=== PATIENT | female | born 1965 | race Caucasian/White ===

== ENCOUNTER 2017-02-16 17:35 | Inpatient (IN) | payer BC ==
[~2017-02-16] VITALS: Ht 172.7 cm; Wt 80.0 kg
[2017-02-16] MEDS ORDERED: SOD CHLORIDE 0.9% 1,000 ML IV STA (17:56)
[2017-02-16 18:22] LABS: ADD SCAN DIFF NO
[2017-02-16 18:25] LABS: BASOPHILS % 0.2 % (0.0-2.0); EOSINOPHILS # 0.1 10^3/ul (0.0-0.5); EOSINOPHILS % 0.3 % (0.0-7.0); HEMATOCRIT 26.2 % (37.0-47.0); HEMOGLOBIN 8.3 g/dl (12.0-16.0); LYMPHOCYTES # 1.9 10^3/ul (0.8-2.9); LYMPHOCYTES % 8.3 % (15.0-51.0); MEAN CORPUSCULAR HEMOGLOBIN 25.9 pg (29.0-33.0); MEAN CORPUSCULAR HGB CONC 31.7 g/dl (32.0-37.0); MEAN CORPUSCULAR VOLUME 81.6 fl (82.0-101.0); MEAN PLATELET VOLUME 10.7 fl (7.4-10.4); MONOCYTE # 0.9 10^3/ul (0.3-0.9); MONOCYTES % 4.1 % (0.0-11.0); NEUTROPHIL # 19.9 10^3/ul (1.6-7.5); NEUTROPHILS % 85.9 % (39.0-77.0); PLATELET COUNT 593 10^3/UL (140-415); RED BLOOD COUNT 3.21 10^6/ul (4.20-5.40); RED CELL DISTRIBUTION WIDTH 19.1 % (11.5-14.5); WHITE BLOOD COUNT 23.2 10^3/ul (4.8-10.8)
[2017-02-16 18:36] LABS: INR 1.08; PT RATIO 1.1
[2017-02-16 18:37] LABS: PARTIAL THROMBOPLASTIN TIME 36.5 Sec (25.0-35.0)
[2017-02-16 18:41] LABS: ALBUMIN 4.2 g/dl (3.3-4.9); CHLORIDE 101 mmol/L (97-110); SODIUM 141 mmol/L (135-144)
[2017-02-16 18:42] LABS: POTASSIUM 4.1 mmol/L (3.5-5.1)
[2017-02-16 18:44] LABS: ALANINE AMINOTRANSFERASE 30 IU/L (13-69); ALKALINE PHOSPHATASE 129 IU/L (42-121); ANION GAP 17 (8-16); ASPARTATE AMINO TRANSFERASE 44 IU/L (15-46); BILIRUBIN,INDIRECT 0.2 mg/dl (0-1.1); BILIRUBIN,TOTAL 0.2 mg/dl (0.2-1.3); BLOOD UREA NITROGEN 26 mg/dl (7-20); CARBON DIOXIDE 27 mmol/L (21-31); CREATININE 1.13 mg/dl (0.44-1.00); GLUCOSE 117 mg/dl (70-220); TOTAL PROTEIN 8.4 g/dl (6.1-8.1)
[2017-02-16 18:45] LABS: CALCIUM 9.9 mg/dl (8.4-10.2)
[2017-02-16] MEDS ORDERED: HYDROCODONE/APAP (10/325) TAB PO ONE (19:00)
[2017-02-16 19:02] LABS: TROPONIN-I < 0.012 ng/ml (0.00-0.12)
[2017-02-16 19:06] VITALS: TEMP 98.6
[2017-02-16] MEDS ORDERED: IODIXANOL LOCM 50 ML BTL ONE (19:09)
[2017-02-16] MEDS ORDERED: IODIXANOL LOCM 100 ML BTL ONE (19:09)
[2017-02-16] MEDS ORDERED: SOD CHLORIDE 0.9% 100 ML ONE (19:09)
[2017-02-16] MEDS ORDERED: HYDR-902 PO (19:24)
[2017-02-16] MEDS ORDERED: MORP15TA92 PO (19:25)
[2017-02-16] MEDS ORDERED: HYDR4TAB18 PO (19:26)
[2017-02-16] MEDS ORDERED: BACL10TA PO (19:26)
[2017-02-16] MEDS ORDERED: DEXT10TA9 PO (19:27)
[2017-02-16] MEDS ORDERED: FURO40TA4 PO (19:28)
[2017-02-16] MEDS ORDERED: CEPH500C PO (19:29)
[2017-02-16] MEDS ORDERED: GABA100C14 PO (19:30)
[2017-02-16] MEDS ORDERED: TAPE100T6 PO (19:31)
[2017-02-16] MEDS ORDERED: RANI150T5 PO (19:31)
[2017-02-16] MEDS ORDERED: PROC10TA10 PO (19:32)
[2017-02-16] MEDS ORDERED: ASC500 PO (19:34)
[2017-02-16] MEDS ORDERED: VITA1CAP PO (19:35)
--- NOTE | 2017-02-16 19:35 | RADRPT ---
PROCEDURE: XR Chest. CLINICAL INDICATION: Weakness. TECHNIQUE: Portable AP upright view of the chest was obtained. COMPARISON: None available. FINDINGS: The cardiomediastinal silhouette is mildly enlarged. Slight pulmonary vascular prominence cannot be excluded. There is no evidence of pleural effusion or pneumothorax. Asymmetric increased density of the left chest wall is noted, possibly artifactual or related to a left chest wall hematoma. The re is no evidence of acute osseous abnormality. Calcification is faintly visible within the aortic a rch. RPTAT:HJJR IMPRESSION: 1. Asymmetric increased density of the left chest wall unable to exclude chest wall hematoma in the proper clinical setting with no associated osseous abnormality identified. 2. Mild cardiac silhouette enlargement with slight prominence of the pulmonary interstitium unable t o exclude cardiac decompensation. 3. Aortic atherosclerosis is present. Physician Collin Date Time Electronically viewed and signed by Physician Collin on 02/16/2017 19:35 JR/
--- NOTE | 2017-02-16 20:13 | RADRPT ---
PROCEDURE: CT Chest without contrast. CLINICAL INDICATION: Right chest wall mass seen on chest radiograph. History of breast cancer. TECHNIQUE: Helical axial sections were obtained through the chest without intravenous contrast enh ancement. Coronal and sagittal reformatted images were obtained from the axial source images. Total exam DLP is 272.58 mGy-cm. CTDIvol is 7.51 mGy. One or more of the following dose reduction tech niques were used: Automated exposure control, adjustment of the mA and/or kV according to patient si ze, use of iterative reconstruction technique. COMPARISON: Chest x-ray done earlier the same day. FINDINGS: There is mild patchy air space disease in the upper lung zones with left worse than right consistent with an inflammatory process or pneumonia. The lungs are otherwise clear with no other airspace or interstitial disease. There is a benign air cyst in the left lung base posteriorly measuring 1.6 c m. There is no pulmonary nodule or mass lesion. There is no mediastinal or hilar lymphadenopathy or mass. There is no axillary, supraclavicular, or internal mammary lymphadenopathy. The thoracic aorta is not dilated. Calcification is present in the aorta consistent with atheroscle rosis. The heart size is normal. There is no pleural effusion or pericardial effusion. Images through the upper abdomen demonstrate normal visualized portions of the liver and adrenals. T he spleen is surgically absent with clips noted in the splenic region. There are multiple sclerotic bone lesions throughout the spine suspicious for metastatic disease. Th ere is a lytic lesion of T3 vertebra posteriorly on the right measuring approximately 1.4 x 0.8 cm w ith an associated small soft tissue mass. Several other smaller lytic lesions are present in the spi ne. There are healing pathologic fractures of the left seventh and ninth ribs. There are surgical clips in the right axilla. There are bilateral breast implants which are giving the appearance of s oft tissue density on the plain radiograph. IMPRESSION: 1. Mild patchy air space disease bilaterally in the upper lung zones consistent with an inflammator y or infectious process. 2. Benign air cyst in the left lung base posteriorly. 3. Atherosclerosis. 4. Splenectomy. 5. Multiple sclerotic and lytic bone lesions consistent with breast metastases. 6. Bilateral breast implants giving the appearance of soft tissue density on the plain radiograph. 7. Otherwise unremarkable study. Call report: A call report of the findings was made to Dr. Yu on 02/16/2017 at 2010 hours. RPTAT: QQ .Liu Pinedo MD, MD Date Time Electronically viewed and signed by .Liu Pinedo MD, MD on 02/16/2017 20:13 .R/
[2017-02-16] MEDS ORDERED: SODIUM CHLORIDE 0.9% 1L BAG IV* STA (20:17)
[2017-02-16] MEDS ORDERED: CEFEPIME 2GM/50 ML (PMX) 50 ML IVPB STA (20:17)
[2017-02-16] MEDS ORDERED: VANCOMYCIN 1 GM (PMX) 250 ML IVPB STA (20:17)
--- NOTE | 2017-02-16 20:17 | ERD ---
ER Documentation Chief Complaint Date/Time DATE: 02/16/17 TIME: 20:13 Chief Complaint sob,dizziness today, on chemo, last one 4 weeks ago HPI This is a 51-year-old female who presents to the emergency room for evaluation of generalized weakness and mild dizziness for the past 48 hours. The patient does state that she has a history of breast cancer with double mastectomy and bony metastasis. The patient said her last chemo was approximately 4 weeks ago and states her oncologist is Dr. Brody. Patient denies any fevers but does state she has a dry cough. The patient came to the emergency room today for evaluation of her symptoms. She denies any aggravating or relieving factors for her symptoms. ROS All systems reviewed and are negative except as per history of present illness. Medications Home Meds Reported Medications Vitamin B Complex (Vitamin B Complex) 1 Each Capsule, 1 EACH PO QHS, CAP 02/16/17 Ascorbic Acid (Vitamin C) 500 Mg Tab, 1000 MG PO DAILY, TAB 02/16/17 Prochlorperazine* (Prochlorperazine*) 10 Mg Tablet, 10 MG PO QID Y for NAUSEA, TAB 02/16/17 Ranitidine Hcl* (Ranitidine Hcl*) 150 Mg Tablet, 150 MG PO TID, #90 TAB 02/16/17 Tapentadol Hcl (Nucynta) 100 Mg Tablet, 100 MG PO BID, TAB 02/16/17 Gabapentin* (Gabapentin*) 100 Mg Capsule, 100 MG PO QID, #120 CAP 02/16/17 Cephalexin* (Cephalexin*) 500 Mg Capsule, 500 MG PO QID, #28 CAP 02/16/17 Furosemide* (Furosemide*) 40 Mg Tablet, 80 MG PO DAILY, TAB 02/16/17 Amphet Tte-Bessrw-W-Amphet (Adderall) 10 Mg Tablet, 10 MG PO TID, TAB 02/16/17 Baclofen* (Baclofen*) 10 Mg Tablet, 10 MG PO QID, TAB 02/16/17 Hydromorphone Hcl* (Dilaudid*) 4 Mg Tablet, 4 MG PO Q4H Y for PAIN, TAB 02/16/17 Morphine Sulfate* (Ms Contin*) 15 Mg Tablet.sa, 30 MG PO TID, TAB.SA 02/16/17 Hydrocodone/Acetaminophen (Ulysses 10-325 Tablet) 1 Each Tablet, 1 EACH PO Q3H, TAB 02/16/17 Allergies Allergies: Coded Allergies: Penicillins (Verified Allergy, Unknown, RASH, SWOLLEN, HARD TIME BREATHING , 02/16/17) PMhx/Soc History of Surgery: Yes (MEHRDAD BREAST MASTECTOMY WITH CHEMO METS TO HIPS, LT KNEE SX, TOTAL FACIAL REC) Anesthesia Reaction: No Hx Neurological Disorder: No Hx Respiratory Disorders: No Hx Cardiac Disorders: No Hx Psychiatric Problems: No Hx Miscellaneous Medical Probl: Yes (BREAST CANCER) Hx Alcohol Use: Yes (SOCIALLY) Hx Substance Use: No Hx Tobacco Use: No Smoking Status: Current some day smoker Physical Exam Vitals Vital Signs Date Time Temp Pulse Resp B/P Pulse Ox O2 Delivery O2 Flow Rate FiO2 02/16/17 19:06 98.6 93 18 137/73 97 Room Air 02/16/17 17:37 98.1 108 20 108/55 92 Physical Exam INITIAL VITAL SIGNS: Reviewed by me GENERAL: The patient is well developed and appropriate for usual state of health in no apparent distress HEENT: Dry mucous members, pupils equal, round, and reactive to light. EOMI. There is no scleral icterus. NECK: C-spine is soft and supple, there is no meningismus. There is no cervical lymphadenopathy. LUNGS: Clear to auscultation bilaterally. There are no rales, wheezes or rhonchi. HEART: Regular rate and rhythm, no murmurs, clicks, rubs or gallops. ABDOMEN: Soft, non-tender, non-distended. There are bowel sounds in all four quadrants. No rebound or guarding. EXTREMITIES: There is no peripheral cyanosis or edema. No focal swelling or erythema. NEUROLOGICAL: The patient moves all four extremities with 5/5 strength. Cranial nerves II - XII are intact. Normal gait. Alert and oriented SKIN: Bilateral lower extremity cellulitis, no skin sloughing there is no apparent rash or petechiae. HEME/LYMPHATIC: There is no evidence of excessive bruising or lymphedema. PSYCHIATRIC: The patient does not appear anxious or depressed. Result Diagram: 02/16/17181402/16/171814 Results 24 hrs Laboratory Tests Test 02/16/17 18:15 02/16/17 18:57 White Blood Count 23.210^3/ul Red Blood Count 3.2110^6/ul Hemoglobin 8.3g/dl Hematocrit 26.2% Mean Corpuscular Volume 81.6fl Mean Corpuscular Hemoglobin 25.9pg Mean Corpuscular Hemoglobin Concent 31.7g/dl Red Cell Distribution Width 19.1% Platelet Count 40597^3/UL Mean Platelet Volume 10.7fl Neutrophils % 85.9% Lymphocytes % 8.3% Monocytes % 4.1% Eosinophils % 0.3% Basophils % 0.2% Nucleated Red Blood Cells % 0.0/100WBC Neutrophils # 19.910^3/ul Lymphocytes # 1.910^3/ul Monocytes # 0.910^3/ul Eosinophils # 0.110^3/ul Basophils # 0.010^3/ul Nucleated Red Blood Cells # 0.010^3/ul Prothrombin Time 14.0Sec Prothrombin Time Ratio 1.1 INR International Normalized Ratio 1.08 Activated Partial Thromboplast Time 36.5Sec Sodium Level 141mmol/L Potassium Level 4.1mmol/L Chloride Level 101mmol/L Carbon Dioxide Level 27mmol/L Anion Gap 17 Blood Urea Nitrogen 26mg/dl Creatinine 1.13mg/dl Glucose Level 117mg/dl Calcium Level 9.9mg/dl Total Bilirubin 0.2mg/dl Direct Bilirubin 0.00mg/dl Indirect Bilirubin 0.2mg/dl Aspartate Amino Transf (AST/SGOT) 44IU/L Alanine Aminotransferase (ALT/SGPT) 30IU/L Alkaline Phosphatase 129IU/L Troponin I < 0.012ng/ml Total Protein 8.4g/dl Albumin 4.2g/dl Globulin 4.20g/dl Albumin/Globulin Ratio 1.00 Bedside Glucose 101mg/dL Current Medications Medications (Trade) Dose Ordered Sig/Julio Route PRN Reason Start Time Stop Time Status Last Admin Dose Admin Sodium Chloride (NS) 1,000 ml @ 1,000 mls/hr Q1H STAT IV 02/16/17 17:56 02/16/17 18:55 DC 02/16/17 18:29 Acetaminophen/ Hydrocodone Bitart (Ulysses ()) 1 tab ONCE ONCE PO 02/16/17 19:00 02/16/17 19:01 DC 02/16/17 19:04 IV Flush 10 ml 10 ml STK-MED ONCE .ROUTE 02/16/17 19:09 02/16/17 19:10 DC Sodium Chloride (NS) 100 ml @ ud STK-MED ONCE .ROUTE 02/16/17 19:09 02/16/17 19:10 DC Iodixanol (Visipaque Locm) 100 ml STK-MED ONCE .ROUTE 02/16/17 19:09 02/16/17 19:10 DC Iodixanol (Visipaque Locm) 50 ml STK-MED ONCE .ROUTE 02/16/17 19:09 02/16/17 19:10 DC Sodium Chloride 2480 ml 2,480 ml BOLUS OVER 2 HOURS STAT IV* 02/16/17 20:17 02/16/17 20:19 DC Vancomycin HCl 250 ml @ 125 mls/hr ONCE STAT IVPB 02/16/17 20:17 02/16/17 22:16 Cefepime HCl (Maxipime 2gm/50 ml (Pmx)) 50 ml @ 100 mls/hr ONCE STAT IVPB 02/16/17 20:17 02/16/17 20:46 Procedures/MDM EKG: Rate/Rhythm: [Normal Sinus Rhythm] QRS, ST, T-waves: [No changes consistent w/ acute ischemia] Impression: [No evidence of ischemia or arrhythmia] Chest X-ray 1V Interpreted by me: Soft Tissue: 1. Asymmetric increased density of the left chest wall unable to exclude chest wall hematoma in the proper clinical setting with no associated osseous abnormality identified. 2. Mild cardiac silhouette enlargement with slight prominence of the pulmonary interstitium unable to exclude cardiac decompensation. 3. Aortic atherosclerosis is present. Bones: No acute abnormalities Mediastinum/Cardiac Silhouette/Lungs: [No acute abnormalities] CT chest without: 1. Mild patchy air space disease bilaterally in the upper lung zones consistent with an inflammatory or infectious process. 2. Benign air cyst in the left lung base posteriorly. 3. Atherosclerosis. 4. Splenectomy. 5. Multiple sclerotic and lytic bone lesions consistent with breast metastases. 6. Bilateral breast implants giving the appearance of soft tissue density on the plain radiograph. 7. Otherwise unremarkable study. This 51-year-old female presents to the emergency room for evaluation of his weakness, cough, and mild dizziness. When I evaluated this patient she was tachycardic with a heart rate greater than 90. X-ray was obtained which shows a chest wall mass. This chest wall mass is a patient's implant. This patient does have a history of breast cancer with bilateral mastectomies and bony metastasis. Lab work was obtained which does show a leukocytosis. This patient 's hemoglobin is 8.3 and she normally gets transfused at a hemoglobin of 6. I have called this patient's oncologist Dr. brody and spoke to the covering physician who does not recommend a transfusion at this time. Given this patient 's history and leukocytosis with mild patchy disease on CT she will be placed in for admission at this time for pneumonia with sepsis. She was started on vancomycin and cefepime. She is hemodynamically stable at this time however given her tachycardia she will be placed on a telemetry floor under the care of Dr. thorne Critical Care: Excluding all billable procedures Time: 38 minutes Treatments/Evaluations: Close monitoring and treatment of unstable vital signs, cardiorespiratory, and neurologic status, while maintaining tight balance of fluid, respiratory, and cardiac interventions. Departure Diagnosis: Primary Impression: Sepsis Additional Impressions: Bilateral pneumonia Microcytic anemia Renal insufficiency Condition: MIRANDA Greenwood DO Feb 16, 2017 20:17
[2017-02-16] MEDS ORDERED: SOD CHLORIDE 0.9% 1,000 ML IV SCH (20:23)
[2017-02-16] MEDS ORDERED: ACETAMINOPHEN 325 MG TAB PO PRN (20:30)
[2017-02-16] MEDS ORDERED: ONDANSETRON 4 MG INJ IV PRN (20:30)
[2017-02-16 21:40] VITALS: BP 124/60; RESP 15
[2017-02-16 21:55] VITALS: PULSE 88
[2017-02-16 22:02] VITALS: Ht 172.7 cm; Wt 80.0 kg
[2017-02-17] VITALS (10 sets, daily range): BP systolic 93–132; BP diastolic 54–75; PULSE 78–97; RESP 15–18
[2017-02-17] MEDS ORDERED: ONDANSETRON 4 MG INJ IV PRN
[2017-02-17] MEDS ORDERED: ACETAMINOPHEN 325 MG TAB PO PRN
[2017-02-17] MEDS ORDERED: ALBUTEROL/IPRATROPIUM (NEB) 3 ML AMP HHN PRN
[2017-02-17] MEDS ORDERED: HYDROCODONE/APAP (5/325) TAB PO PRN
[2017-02-17] MEDS ORDERED: LEVOFLOXACIN 500MG/D5W (PMX) 100 ML IVPB SCH
[2017-02-17] MEDS ORDERED: morphine 4 MG/ML VIAL IV PRN
[2017-02-17] MEDS ORDERED: HYDROmorphONE 2 MG TAB PO PRN (07:00)
[2017-02-17] MEDS ORDERED: PROCHLORPERAZINE 10 MG TAB PO PRN (07:00)
--- NOTE | 2017-02-17 08:25 | HP ---
DATE OF ADMISSION: 02/16/2017 CHIEF COMPLAINT: Shortness of breath and generalized body pain. HISTORY OF PRESENT ILLNESS: The patient is a 51-year-old female with a history of breast cancer wit h bony metastasis, status post double mastectomy and chemo, last chemo being 4 weeks ago. The patie nt presented with a complaint of shortness of breath and generalized body pain and weakness. She st ated her symptoms have been worsening over the past 2 days. She denied any chest pain, nausea, vomi ting, fever or chills. She also reported bilateral lower extremity redness. REVIEW OF SYSTEMS: A 12-point review of systems was performed and normal except as per the HPI. PAST MEDICAL HISTORY: As per HPI. PAST SURGICAL HISTORY: Double mastectomy, appendectomy, splenectomy. SOCIAL HISTORY: Denied a history of tobacco, alcohol or illicit drug use. ALLERGIES: PENICILLIN. HOME MEDICATIONS: 1. Cephalexin. 2. Baclofen. 3. Adderall. . 4. Gabapentin. 5. Star. 6. Dilaudid. 7. Morphine. 8. MS Contin. 9. Tapentadol. 10. Lasix. 11. Prochlorperazine. 12. Amantadine. 13. Vitamin C. 14. Vitamin B. PHYSICAL EXAMINATION: VITAL SIGNS: Stable. GENERAL: The patient appears somehow weak and in mild distress, but answering questions appropriate ly and she is alert and oriented. HEENT: No obvious head deformity. Pupils react to light. Extraocular movements intact. CARDIOVASCULAR: Slightly tachycardic with regular rhythm. CHEST: Her lungs are clear to auscultation. ABDOMEN: Soft, nontender, nondistended. Positive bowel sounds. EXTREMITIES: There is bilateral lower extremity cellulitis. LABORATORY DATA: WBC 23.2, hemoglobin 8.3, platelet count 593. BUN 26, creatinine 1.13, otherwise C BC and CMP are within acceptable range. IMAGING: Chest x-ray shows asymmetric increased density of the left chest wall, unable to exclude c hest wall hematoma. Also noted was mild cardiac silhouette enlargement with slight prominence of pu lmonary interstitium. Chest CT was done which showed mild patchy airspace disease bilaterally in th e upper lung zones consistent with an inflammatory or infectious process, and benign air cyst in the left lung. Multiple sclerotic and lytic bone lesions consistent with breast metastasis. Bilateral breast implants. The appearance of soft tissue density on the plain radiograph. IMPRESSION: 1. Sepsis secondary to bilateral lower extremity cellulitis and likely a developing pneumonia. 2. History of breast cancer with bony metastasis. 3. Generalized weakness and pain secondary to above. 4. Bilateral lower extremity cellulitis. 5. Presumed acute kidney injury. 6. Anemia, likely of cancer and chemo induced. PLAN: She will be placed on broad spectrum antibiotic. We will follow up on the blood culture and urine culture results. Will also order a urinalysis. We will provide pain medication as needed. H er oncologist is Dr. Starks and we will notify him about her admission. She will receive IV fluid given her sepsis, and I expect her kidney function to have normalize. If not, we will place a nephr ology consult and renal ultrasound. Will avoid nephrotoxins as much as possible. As far as her ane jerome is concerned, it is likely secondary to cancer and chemo induced. Will monitor closely and molina sfuse as needed, but I will leave that decision up to her oncologist. Further workup and management per clinical course. Dictated By: VANDA CHEW/EBENEZER Conf#: [id number] DID#: [id number]
[2017-02-17] MEDS: HEPARIN 5,000 UNIT/0.5 ML SYG SC SCH ×2 (09:00→09:30)
[2017-02-17] MEDS ORDERED: FUROSEMIDE 40 MG TAB PO SCH (09:00)
[2017-02-17] MEDS ORDERED: TAPENTADOL HCL 100 MG PO SCH (09:00)
[2017-02-17] MEDS ORDERED: ASCORBIC ACID 500 MG TAB PO SCH (09:00)
[2017-02-17] MEDS: GABAPENTIN 100 MG CAP PO SCH ×3 (09:25→17:00)
[2017-02-17] MEDS: BACLOFEN 10 MG TAB PO SCH ×3 (09:25→17:00)
[2017-02-17] MEDS: RANITIDINE 150 MG TAB PO SCH ×2 (09:25→13:12)
[2017-02-17] MEDS: morphine (ER) 30 MG TAB PO SCH ×2 (09:33→13:12)
--- NOTE | 2017-02-17 11:26 | PN ---
Date/Time of Note Date/Time of Note DATE: 02/17/17 TIME: 11:21 Assessment/Plan VTE Prophylaxis VTE Prophylaxis Intervention: heparin Lines/Catheters IV Catheter Type (from [facility]): Sal[facility] Urinary Cath still in place: No Assessment/Plan Chief Complaint/Hosp Course Assessment and plan 1. Sepsis secondary to bilateral lower extremity cellulitis (failed outpatient treatment). Also noted pneumonia. Continue antibiotic therapy. ID consult to follow. 2. Early pneumonia. Continue on antibiotics. Will provide with bronchodilators as needed. No notable wheezing or rhonchi. Oxygen as needed 3. Generalized weakness secondary to #1. Improving at present. Physical therapy to follow pending clinical course 4. History of anemia chemotherapy and cancer induced. H&H remained stable at present. Will monitor for now. 5. Acute kidney injury. Monitor renal panel. Avoid nephrotoxic medications as possible. Will get vest finisher pending clinical course DISPO/PLAN: ID consult to follow. cont abx. check doppler BLE to r/o DVT. cont inpatient monitoring Discussed plan of care with Dr. Whitlock Problems: Subjective 24 Hr Interval Summary Free Text/Dictation reports less swelling of BLE . denies dyspnea at this time Exam/Review of Systems Vital Signs Vitals Vital Signs Date Time Temp Pulse Resp B/P Pulse Ox O2 Delivery O2 Flow Rate FiO2 02/17/17 11:08 98.2 78 16 132/70 97 02/16/17 21:00 Room Air Intake and Output 02/16/17 02/16/17 02/17/17 15:00 23:00 07:00 Intake Total 700 ml Balance 700 ml Exam Constitutional: alert, oriented Psych: nl mood/affect Head: normocephalic Eyes: nl conjunctiva Neck: supple, non-tender, No jvd Respiratory: clear to auscultation, normal air movement Cardiovascular: regular rate and rhythm Gastrointestinal: soft, non-tender Musculoskeletal: nl extremities to inspection, nl gait and stance Extremities: edema ble Neurological: nl mental status, nl speech, nl strength Skin: erythematous patches ble Results Result Diagram: 02/16/17181402/16/171814 Results 24 hrs Laboratory Tests Test 02/16/17 18:15 02/16/17 18:57 02/16/17 20:35 02/17/17 00:10 White Blood Count 23.2 H Red Blood Count 3.21 L Hemoglobin 8.3 L Hematocrit 26.2 L Mean Corpuscular Volume 81.6 L Mean Corpuscular Hemoglobin 25.9 L Mean Corpuscular Hemoglobin Concent 31.7 L Red Cell Distribution Width 19.1 H Platelet Count 593 H Mean Platelet Volume 10.7 H Neutrophils % 85.9 H Lymphocytes % 8.3 L Monocytes % 4.1 Eosinophils % 0.3 Basophils % 0.2 Nucleated Red Blood Cells % 0.0 Neutrophils # 19.9 H Lymphocytes # 1.9 Monocytes # 0.9 Eosinophils # 0.1 Basophils # 0.0 Nucleated Red Blood Cells # 0.0 Prothrombin Time 14.0 Prothrombin Time Ratio 1.1 INR International Normalized Ratio 1.08 Activated Partial Thromboplast Time 36.5 H Sodium Level 141 Potassium Level 4.1 Chloride Level 101 Carbon Dioxide Level 27 Anion Gap 17 H Blood Urea Nitrogen 26 H Creatinine 1.13 H Glucose Level 117 Calcium Level 9.9 Total Bilirubin 0.2 Direct Bilirubin 0.00 Indirect Bilirubin 0.2 Aspartate Amino Transf (AST/SGOT) 44 Alanine Aminotransferase (ALT/SGPT) 30 Alkaline Phosphatase 129 H Troponin I < 0.012 Total Protein 8.4 H Albumin 4.2 Globulin 4.20 H Albumin/Globulin Ratio 1.00 Bedside Glucose 101 Lactic Acid Level 1.0 1.4 Test 02/17/17 02:41 Lactic Acid Level 1.1 Medications Medications Current Medications Levofloxacin/ Dextrose (Levaquin 500mg/ D5W 100 ml (Pmx)) 100 ml @ 100 mls/hr Q24H IVPB Last administered on 02/17/17t 00:28; Admin Dose 100 MLS/HR; Start 02/17/17 at 00:00 Morphine Sulfate (morphine) 3 mg Q4H PRN IV Pain; Start 02/17/17 at 00:00 Ondansetron HCl (Zofran Inj) 4 mg Q6H PRN IV NAUSEA AND/OR VOMITING; Start 02/17 at 00:00 Acetaminophen (Tylenol Tab) 650 mg Q6H PRN PO PAIN AND OR ELEVATED TEMP; Start 02/17/17 at 00:00 Heparin Sodium (Porcine) (Heparin (5000 Units/0.5 ml)) 5,000 unit BID SC ; Start 02/17/17 at 09:00 Acetaminophen/ Hydrocodone Bitart (Richards (5/325)) 1 tab Q4H PRN PO Pain; Start 02/17/17 at 00:00 Ascorbic Acid (Vitamin C) 1,000 mg DAILY PO Last administered on 02/17/17 09:25 ; Admin Dose 1,000 MG; Start 02/17/17 at 09:00 Baclofen (Lioresal) 10 mg QID PO Last administered on 02/17/17 09:25; Admin Dose 10 MG; Start 02/17/17 at 09:00 Furosemide (Lasix) 80 mg DAILY PO Last administered on 02/17/17 09:26; Admin Dose 80 MG; Start 02/17/17 at 09:00 Gabapentin (Neurontin) 100 mg QID PO Last administered on 02/17/17 09:25; Admin Dose 100 MG; Start 02/17/17 at 09:00 Hydromorphone HCl (Dilaudid) 4 mg Q4H PRN PO PAIN; Start 02/17/17 at 07:00 Morphine Sulfate (Ms Contin (Er)) 30 mg TID PO Last administered on 02/17/17 09 :33; Admin Dose 30 MG; Start 02/17/17 at 09:00 Prochlorperazine (Compazine) 10 mg QID PRN PO NAUSEA; Start 02/17/17 at 07:00 Ranitidine HCl (Zantac) 150 mg TID PO Last administered on 02/17/17 09:25; Admin Dose 150 MG; Start 02/17/17 at 09:00 Miscellaneous Information 100 mg BID PO ; Start 02/17/17 at 09:00; Status AKUA BONILLA Feb 17, 2017 11:26
[2017-02-17] MEDS ORDERED: VANCOMYCIN IV PER PHARMACY XX SCH (14:30)
[2017-02-17 14:33] LABS: ADD UMIC NO; URINE BILIRUBIN (Dip) NEGATIVE (NEGATIVE); URINE BLOOD (Dip) NEGATIVE (NEGATIVE); URINE COLOR LT. YELLOW (YELLOW); URINE GLUCOSE (Dip) NEGATIVE (NEGATIVE); URINE KETONES (Dip) NEGATIVE (NEGATIVE); URINE LEUKOCYTE ESTERASE (Dip) NEGATIVE (NEGATIVE); URINE NITRITE (Dip) NEGATIVE (NEGATIVE); URINE TOTAL PROTEIN (Dip) NEGATIVE (NEGATIVE); URINE UROBILINOGEN (Dip) 0.2 E.U./dL (0.1-1.0)
--- NOTE | 2017-02-17 14:39 | RADRPT ---
PROCEDURE: US bilateral lower extremity venous Doppler. CLINICAL INDICATION: Lower extremity swelling. TECHNIQUE: Multiple longitudinal and transverse images of the bilateral lower extremity veins were obtained with mendoza scale and color Doppler imaging. 2D grayscale measurements with compression, co akbar Doppler flow, and augmentation was performed. The calf veins were interrogated as well. COMPARISON: No prior studies are available for comparison. FINDINGS: The bilateral common femoral, superficial femoral and popliteal veins are normally compressible thro ughout. Color flow demonstrates normal filling of the vessel. Normal waveforms are visualized and there is normal response to augmentation. The calf veins are visualized and are equally unremarkabl e. IMPRESSION: 1. No evidence of a deep vein thrombosis involving either lower extremity. RPTAT: QQ .William Pavon MD, Date Time Electronically viewed and signed by .William Pvaon MD, on 02/17/2017 14:38 .R/
--- NOTE | 2017-02-17 15:42 | CONS ---
DATE OF ADMISSION: 02/16/2017 DATE OF CONSULTATION: 02/17/2017 TYPE OF CONSULTATION: Infectious disease. REASON FOR CONSULTATION: Antibiotic management. HISTORY OF PRESENT ILLNESS: Xochitl Schwartz is a 51-year-old female with a history of breast cancer and bony metastasis, who came in short of breath with generalized body pain. Her past problems incl ude: 1. Breast cancer with bony metastasis. 2. Status post double mastectomy and chemotherapy, last chemotherapy being 4 weeks ago. She presents with shortness of breath, generalized body pain and weakness. Her symptoms have been w orsening for the past 2 days. She has also reported bilateral lower extremity redness. Her other s urgeries include status post appendectomy, status post splenectomy. ALLERGIES: SHE IS ALLERGIC TO PENICILLIN. On admission her white count was 23.2, hemoglobin 8.3, platelet count 593, BUN and creatinine 26/1.1 3. Otherwise her CMP and CBC are within normal limits. Chest x-ray shows asymmetric increased density of the left chest wall. Unable to exclude chest wall hematoma. There is mild cardiac silhouette enlargement, with slight prominence of the pulmonary in terstitium. Chest CT was done, which showed mild patchy airspace disease bilaterally in the upper l rishi zones, consistent with inflammatory or an infectious process. in the left lung. Multiple sclerotic and lytic lesions are consistent with breast metastasis , bilateral breast implants with the appearance of soft tissue density on the plain radiograph. PAST MEDICAL HISTORY: Operations as outlined. FAMILY HISTORY: Noncontributory. SOCIAL HISTORY: She does not smoke, drink or abuse drugs. ALLERGIES: PENICILLIN. MEDICATIONS: Per chart. REVIEW OF SYSTEMS: Noncontributory. PHYSICAL EXAMINATION: GENERAL: The patient is a somewhat weak, ill-appearing female, who is in mild distress. VITAL SIGNS: Stable. She is afebrile. SKIN: Without generalized rash. HEENT: Within normal limits. NECK: Supple. LYMPH NODES: None palpable. CHEST: Decreased breath sounds at the bases. HEART: Without murmur or gallop. ABDOMEN: Soft, nontender, without organosplenomegaly or masses. EXTREMITIES: She has bilateral lower extremity cellulitis. RECTAL AND GENITAL EXAM: Deferred. NEUROLOGIC EVALUATION: No focal neurological abnormalities. IMPRESSION AND PLAN: The patient comes in with probable pneumonia, as well as bilateral lower extre mity cellulitis. She is status post chemotherapy. Her oncologist is Dr. Starks. The patient was b egun on vancomycin and cefepime, and now she is only on Levaquin. The patient has to continue on va ncomycin, of course, and probably on cefepime. Why the Levaquin I am not sure, although we could us e Levaquin instead of Cefepime as well. I will dictate my findings to Dr. Vallecillo and [facility]. Dictated By: GUEVARA MOREL MD, JD/EBENEZER Conf#: [id number] DID#: [id number]
[2017-02-17] MEDS ORDERED: VANCOMYCIN 1.5 GM in SOD CHLORIDE 0.9% 250 ML IVPB SCH (16:00)
[2017-02-18] MEDS ORDERED: VANCOMYCIN 1 GM in NS 250 ML IVPB SCH (04:00)
== END 2017-02-17 18:05 | disposition left against medical advice (07) | DRG 871 ==
LOC: E/R 17:35 → TEL 20:23
PROVIDERS: ADMIT Internal Medicine; ATTEND Internal Medicine
DX: A41.9 Sepsis, unspecified organism (principal); J18.9 Pneumonia, unspecified organism; N17.9 Acute kidney failure, unspecified; C79.51 Secondary malignant neoplasm of bone; L03.116 Cellulitis of left lower limb; L03.115 Cellulitis of right lower limb; Z85.3 Personal history of malignant neoplasm of breast; D64.81 Anemia due to antineoplastic chemotherapy
CPT/HCPCS: 36415; 71010; 71250; 80053; 81003; 82962; 83605; 84484; 85025; 85610; 85730; 86850; 86900; 86901; 87040; 87086; 93005; 93970; 96374; 96375; J1170; J1644; J1956; J3370; J7030; J7050; Q9967

== ENCOUNTER 2017-02-27 19:42 | Inpatient (IN) | payer BC ==
[~2017-02-27] VITALS: Ht 154.9 cm; Wt 72.0 kg
[~2017-02-27 19:42] MED LIST: ASC500 PO; BACL10TA PO; CEPH500C PO; DEXT10TA9 PO; FURO40TA4 PO; GABA100C14 PO; HYDR-902 PO; HYDR4TAB18 PO; MORP15TA92 PO; PROC10TA10 PO; RANI150T5 PO; TAPE100T6 PO; VITA1CAP PO
[2017-02-27] MEDS ORDERED: VANCOMYCIN 1 GM (PMX) 250 ML IVPB ONE (20:00)
[2017-02-27] MEDS ORDERED: ONDANSETRON 4 MG INJ IV STA (20:00)
[2017-02-27] MEDS ORDERED: SODIUM CHLORIDE 0.9% 1L BAG IV* STA (20:00)
[2017-02-27] MEDS ORDERED: HYDROmorphONE 1 MG/ML SYG IV STA ×2 (20:00→22:21)
[2017-02-27] MEDS ORDERED: AZTREONAM 1 GM/NS (PMX) 50 ML IVPB STA (20:00)
[2017-02-27] MEDS ORDERED: LIDOCAINE 1% (MDV) 20 ML INJ SC ONE (20:30)
[2017-02-27 20:43] LABS: ADD SCAN DIFF NO
[2017-02-27 20:46] LABS: BASOPHILS % 0.2 % (0.0-2.0); EOSINOPHILS % 0.1 % (0.0-7.0); HEMATOCRIT 24.3 % (37.0-47.0); HEMOGLOBIN 7.4 g/dl (12.0-16.0); LYMPHOCYTES # 1.9 10^3/ul (0.8-2.9); LYMPHOCYTES % 10.1 % (15.0-51.0); MEAN CORPUSCULAR HEMOGLOBIN 25.2 pg (29.0-33.0); MEAN CORPUSCULAR HGB CONC 30.5 g/dl (32.0-37.0); MEAN CORPUSCULAR VOLUME 82.7 fl (82.0-101.0); MEAN PLATELET VOLUME 12.1 fl (7.4-10.4); MONOCYTE # 0.8 10^3/ul (0.3-0.9); MONOCYTES % 4.1 % (0.0-11.0); NEUTROPHIL # 16.1 10^3/ul (1.6-7.5); PLATELET COUNT 502 10^3/UL (140-415); RED BLOOD COUNT 2.94 10^6/ul (4.20-5.40); RED CELL DISTRIBUTION WIDTH 20.3 % (11.5-14.5)
[2017-02-27 20:54] LABS: ADD UMIC NO; URINE BILIRUBIN (Dip) NEGATIVE (NEGATIVE); URINE BLOOD (Dip) NEGATIVE (NEGATIVE); URINE COLOR LT. YELLOW (YELLOW); URINE GLUCOSE (Dip) NEGATIVE (NEGATIVE); URINE KETONES (Dip) NEGATIVE (NEGATIVE); URINE LEUKOCYTE ESTERASE (Dip) NEGATIVE (NEGATIVE); URINE NITRITE (Dip) NEGATIVE (NEGATIVE); URINE TOTAL PROTEIN (Dip) NEGATIVE (NEGATIVE); URINE UROBILINOGEN (Dip) 0.2 E.U./dL (0.1-1.0)
[2017-02-27 20:57] LABS: CHLORIDE 96 mmol/L (97-110); POTASSIUM 3.4 mmol/L (3.5-5.1); SODIUM 139 mmol/L (135-144)
[2017-02-27 20:59] LABS: ANION GAP 18 (8-16); BILIRUBIN,INDIRECT 0.4 mg/dl (0-1.1); BILIRUBIN,TOTAL 0.4 mg/dl (0.2-1.3); CARBON DIOXIDE 28 mmol/L (21-31); CREATININE 1.83 mg/dl (0.44-1.00)
[2017-02-27 21:00] LABS: ALANINE AMINOTRANSFERASE 22 IU/L (13-69); ALBUMIN/GLOBULIN RATIO 0.97; ALKALINE PHOSPHATASE 112 IU/L (42-121); ASPARTATE AMINO TRANSFERASE 39 IU/L (15-46); BLOOD UREA NITROGEN 42 mg/dl (7-20); CALCIUM 9.6 mg/dl (8.4-10.2); GLUCOSE 153 mg/dl (70-220); TOTAL PROTEIN 8.1 g/dl (6.1-8.1)
--- NOTE | 2017-02-27 21:09 | RADRPT ---
PROCEDURE: XR Chest. CLINICAL INDICATION: Shortness of breath TECHNIQUE: AP Portable chest. COMPARISON: CT chest 02/16/2017 and chest x-ray 02/16/2017 FINDINGS: There is somewhat limited evaluation of the mid lower lung zones due to dense breast implants. The cardiomediastinal silhouette is unchanged. There are no large pleural effusions or pneumothoraces. Sclerotic osseous lesion is seen involving the inferior aspect of the right scapula. Multiple othe r osseous lesions are not well visualized on the plain film. IMPRESSION: 1. No significant change in appearance of the chest. RPTAT: HHO .Sebas Peacock MD, MD Date Time Electronically viewed and signed by .Sebas Peacock MD, on 02/27/2017 21:08 .O/
[2017-02-27] MEDS ORDERED: SOD CHLORIDE 0.9% 250 ML IV ONE (21:17)
[2017-02-27 21:20] LABS: TROPONIN-I < 0.012 ng/ml (0.00-0.12)
[2017-02-27 21:30] LABS: INR 1.19; PROTIME 15.2 Sec (12.2-14.2); PT RATIO 1.2
[2017-02-27 21:31] LABS: PARTIAL THROMBOPLASTIN TIME 37.9 Sec (25.0-35.0)
[2017-02-27] MEDS ORDERED: ONDANSETRON 4 MG INJ IV PRN (22:00)
[2017-02-27] MEDS ORDERED: ACETAMINOPHEN 325 MG TAB PO PRN (22:00)
--- NOTE | 2017-02-27 22:25 | ERA ---
ER Documentation Chief Complaint Date/Time DATE: 02/27/17 TIME: 22:22 Chief Complaint diziness w/ sob hx- ca of breast w/ mets HPI Patient is a 51-year-old female with breast cancer presents saying that she has "acute cellulitis". She said that she has a rash to her right lower extremity which is been there for a few weeks. She has been on antibiotics and was not getting better. She said that she has been on Keflex and Cipro as an outpatient. She is complaining of 9 out of 10 back pain and says that she has a history of back pain as well. She is felt shaking and dizzy. She has had shortness of breath. Upon review of old medical records the patient one previous visit to the ER on February 16, 2017. Her oncologist is Dr. Starks. ROS All systems reviewed and are negative except as per history of present illness. Medications Home Meds Reported Medications Vitamin B Complex (Vitamin B Complex) 1 Each Capsule, 1 EACH PO QHS, CAP 02/16/17 Ascorbic Acid (Vitamin C) 500 Mg Tab, 1000 MG PO DAILY, TAB 02/16/17 Prochlorperazine* (Prochlorperazine*) 10 Mg Tablet, 10 MG PO QID Y for NAUSEA, TAB 02/16/17 Ranitidine Hcl* (Ranitidine Hcl*) 150 Mg Tablet, 150 MG PO TID, #90 TAB 02/16/17 Tapentadol Hcl (Nucynta) 100 Mg Tablet, 100 MG PO BID, TAB 02/16/17 Gabapentin* (Gabapentin*) 100 Mg Capsule, 100 MG PO QID, #120 CAP 02/16/17 Cephalexin* (Cephalexin*) 500 Mg Capsule, 500 MG PO QID, #28 CAP 02/16/17 Furosemide* (Furosemide*) 40 Mg Tablet, 80 MG PO DAILY, TAB 02/16/17 Amphet Jia-Pzyiej-J-Amphet (Adderall) 10 Mg Tablet, 10 MG PO TID, TAB 02/16/17 Baclofen* (Baclofen*) 10 Mg Tablet, 10 MG PO QID, TAB 02/16/17 Hydromorphone Hcl* (Dilaudid*) 4 Mg Tablet, 4 MG PO Q4H Y for PAIN, TAB 02/16/17 Morphine Sulfate* (Ms Contin*) 15 Mg Tablet.sa, 30 MG PO TID, TAB.SA 02/16/17 Hydrocodone/Acetaminophen ([place] 10-325 Tablet) 1 Each Tablet, 1 EACH PO Q3H, TAB 02/16/17 Allergies Allergies: Coded Allergies: Penicillins (Verified Allergy, Unknown, RASH, SWOLLEN, HARD TIME BREATHING , 02/16/17) PMhx/Soc History of Surgery: Yes (total mastectomy,appendectomy,splenectomy, arthroscopic lateral release,) Anesthesia Reaction: No Hx Neurological Disorder: No Hx Respiratory Disorders: No Hx Cardiac Disorders: No Hx Psychiatric Problems: No Hx Miscellaneous Medical Probl: Yes Hx Alcohol Use: No Hx Substance Use: No Hx Tobacco Use: No Smoking Status: Unknown if ever smoked FmHx Family History: diabetes Physical Exam Vitals Vital Signs Date Time Temp Pulse Resp B/P Pulse Ox O2 Delivery O2 Flow Rate FiO2 02/27/17 19:45 97.1 115 20 102/57 97 Physical Exam Const: Moderate distress secondary to pain Head: Atraumatic Eyes: Normal Conjunctiva ENT: Normal External Ears, Nose and Mouth. Neck: Full range of motion..~ No meningismus. Resp: Clear to auscultation bilaterally Cardio: Regular rate and rhythm, no murmurs Abd: Soft, non tender, non distended. Normal bowel sounds Skin: Right lower extremity cellulitis with warm to touch and erythema, no abscess Back: No midline or flank tenderness Ext: No cyanosis, or edema Neur: Awake and alert Psych: Normal Mood and Affect Result Diagram: 02/27/17202002/27/172020 Results 24 hrs Laboratory Tests Test 02/27/17 20:21 02/27/17 20:24 02/27/17 20:50 White Blood Count 19.010^3/ul Red Blood Count 2.9410^6/ul Hemoglobin 7.4g/dl Hematocrit 24.3% Mean Corpuscular Volume 82.7fl Mean Corpuscular Hemoglobin 25.2pg Mean Corpuscular Hemoglobin Concent 30.5g/dl Red Cell Distribution Width 20.3% Platelet Count 57732^3/UL Mean Platelet Volume 12.1fl Neutrophils % 85.0% Lymphocytes % 10.1% Monocytes % 4.1% Eosinophils % 0.1% Basophils % 0.2% Nucleated Red Blood Cells % 0.0/100WBC Neutrophils # 16.110^3/ul Lymphocytes # 1.910^3/ul Monocytes # 0.810^3/ul Eosinophils # 0.010^3/ul Basophils # 0.010^3/ul Nucleated Red Blood Cells # 0.010^3/ul Sodium Level 139mmol/L Potassium Level 3.4mmol/L Chloride Level 96mmol/L Carbon Dioxide Level 28mmol/L Anion Gap 18 Blood Urea Nitrogen 42mg/dl Creatinine 1.83mg/dl Glucose Level 153mg/dl Lactic Acid Level 1.5mmol/L Calcium Level 9.6mg/dl Total Bilirubin 0.4mg/dl Direct Bilirubin 0.00mg/dl Indirect Bilirubin 0.4mg/dl Aspartate Amino Transf (AST/SGOT) 39IU/L Alanine Aminotransferase (ALT/SGPT) 22IU/L Alkaline Phosphatase 112IU/L Troponin I < 0.012ng/ml Total Protein 8.1g/dl Albumin 4.0g/dl Globulin 4.10g/dl Albumin/Globulin Ratio 0.97 Urine Color LT. YELLOW Urine Clarity CLEAR Urine pH 5.5 Urine Specific [place] 1.020 Urine Ketones NEGATIVE Urine Nitrite NEGATIVE Urine Bilirubin NEGATIVE Urine Urobilinogen 0.2 E.U./dL Urine Leukocyte Esterase NEGATIVE Urine Hemoglobin NEGATIVE Urine Glucose NEGATIVE% Urine Total Protein NEGATIVE Prothrombin Time 15.2Sec Prothrombin Time Ratio 1.2 INR International Normalized Ratio 1.19 Activated Partial Thromboplast Time 37.9Sec Current Medications Medications (Trade) Dose Ordered Sig/Julio Route PRN Reason Start Time Stop Time Status Last Admin Dose Admin Sodium Chloride 2230 ml 2,230 ml BOLUS OVER 2 HOURS STAT IV* 02/27/17 20:00 02/27/17 20:01 DC 02/27/17 20:38 Vancomycin HCl 250 ml @ 125 mls/hr ONCE ONCE IVPB 02/27/17 20:00 02/27/17 21:59 DC 02/27/17 22:06 Aztreonam (Azactam 1gm/NS (Pmx)) 50 ml @ 100 mls/hr ONCE STAT IVPB 02/27/17 20:00 02/27/17 20:29 DC 02/27/17 20:39 Hydromorphone HCl (Dilaudid) 1 mg ONCE STAT IV 02/27/17 20:00 02/27/17 20:02 DC 02/27/17 20:38 Ondansetron HCl (Zofran Inj) 4 mg ONCE STAT IV 02/27/17 20:00 02/27/17 20:02 DC 02/27/17 20:38 Lidocaine 20 ml 20 ml ONCE ONCE SC 02/27/17 20:30 02/27/17 20:31 DC Sodium Chloride (NS) 250 ml @ 0 mls/hr Q0M ONCE IV 02/27/17 21:17 02/27/17 21:20 DC Ondansetron HCl (Zofran Inj) 4 mg ER BRIDGE PRN IV NAUSEA AND/OR VOMITING 02/27/17 22:00 02/28/17 21:59 Acetaminophen (Tylenol Tab) 650 mg ER BRIDGE PRN PO MILD PAIN/FEVER 02/27/17 22:00 02/28/17 21:59 Hydromorphone HCl (Dilaudid) 1 mg ONCE STAT IV 02/27/17 22:21 02/27/17 22:22 DC Procedures/MDM EKG read by me: Rate/Rhythm: Sinus tachycardia rate of 103 Intervals: Normal Impression: Sinus tachycardia Chest x-ray negative per radiology. Admit MDM: Patient's infectious symptoms have not stabilized and the patient is at risk of rapid decompensation. The patient will be admitted for careful hydration, antibiotic therapy, and infectious source control. Severe Sepsis criteria: Infectious source: Cellulitis End organ damage indicated by: No end organ damage at this time Sepsis Management: Time of recognition of sepsis: 20:21 Within 3 hours of recognition: Blood cultures x 2 before broad-spectrum antibiotics: Yes 30 ml/kg NS bolus Completed Initial lactate 1.5 Repeat lactate 0.9 Time of recognition of septic shock: No septic shock Septic Shock Assessment: Any lactic acid > 4.0 No Persistent hypotension (SBP < 90 or 40 mmHg drop, MAP < 65) despite 30 mL/kg IV fluid bolus No Volume Re-assessment for Septic Shock (post 30 ml/kg bolus): No septic shock at this time Persistent Hypotension Treatment: Comfort care No Central line Not Required Vasopressor started Not required I considered further perfusion assessment with CVP measurement, SCVO2, bedside ultrasound volume assessment, passive leg raise, trial of further fluid bolus. And proceeded with 30 ml/kg fluid bolus of NSS, broad spectrum antibiotics, and admission. The patient also required transfusion for a hemoglobin of 7.4. Accepting Care Team Current data and ongoing care discussed. Admitting Physician: Dr. Vallecillo from the panel team as the patient was recently admitted to the panel team on February 16 Provider Scribe(s): None Outstanding Data: Culture results Critical Care: Critical care time 35 minutes excluding all billable procedures Emergent fluid management while maintaining close respiratory support. Provision of immediate and broad-spectrum antibiotic therapy. Simultaneous assessment for possible sources in order to direct targeted therapy. Consideration for invasive and chemical support to prevent cardiopulmonary collapse. Departure Diagnosis: Primary Impression: Cellulitis Qualified Code: L03.115 - Cellulitis of right lower extremity Additional Impressions: Dizziness Anemia Qualified Code: D64.9 - Anemia, unspecified type Sepsis Qualified Code: A41.9 - Sepsis, due to unspecified organism Condition: Serious SHAYE HUITRON MD Feb 27, 2017 22:25
[2017-02-27 23:00] VITALS: BP 96/55; PULSE 83; RESP 19; Ht 154.9 cm; Wt 72.0 kg
[2017-02-28] MEDS ORDERED: VANCOMYCIN IV PER PHARMACY XX SCH
[2017-02-28] MEDS ORDERED: ONDANSETRON 4 MG INJ IV PRN
[2017-02-28] MEDS ORDERED: POTASSIUM CHLORIDE (SR) 20 MEQ TAB PO ONE (00:16)
[2017-02-28] MEDS ORDERED: PROCHLORPERAZINE 10 MG TAB PO PRN ×2 (00:30)
[2017-02-28] MEDS: GABAPENTIN 100 MG CAP PO SCH ×6 (00:35→20:56)
[2017-02-28] MEDS: HYDROCODONE/APAP (10/325) TAB PO SCH ×8 (03:00→20:56)
--- NOTE | 2017-02-28 03:47 | HP ---
Date/Time of Note Date/Time of Note DATE: 02/28/17 TIME: 03:33 Assessment/Plan VTE Prophylaxis VTE Prophylaxis Intervention: SCD's Assessment/Plan Assessment/Plan IMPRESSION: 1. Sepsis secondary to bilateral lower extremity cellulitis 2. History of breast cancer with bony metastasis. 3. Generalized pain, secondary to # 2 4. Dizziness, likely 2/2 anemia 5. Presumed JUDSON, worsening 6. Acute on chronic Anemia, likely of cancer and chemo induced. PLAN: She will be placed on broad spectrum antibiotic. We will follow up on the blood culture and urine culture results. We will provide pain medication as needed. Her oncologist is Dr. Starks and we will notify him about her admission. She will receive IV fluid given sepsis. If cr does not improve with IVF, will place a nephrology consult and obtain renal ultrasound. Will avoid nephrotoxins as much as possible. As far as her anemia is concerned, it is likely secondary to cancer and chemo induced. Cont blood transfusion. Further workup and management per clinical course. HPI/ROS Admit Date/Time Admit Date/Time Feb 27, 2017 at 21:39 Hx of Present Illness The patient is a 51-year-old female with a history of breast cancer with bony metastasis, status post double mastectomy and chemo, last chemo being 6 weeks ago. The patient presented with a complaint of dizziness, shortness of breath and generalized body pain and weakness. She also complained that RLE cellulitis not getting better despite abx. She was admitted here by myself about 2 weeks ago for similar symptoms. Patient however left AMA the next day. She denied any chest pain, nausea, vomiting, fever or chills. PMH/Family/Social Past Medical History PAST MEDICAL HISTORY: As per HPI. Past Surgical History PAST SURGICAL HISTORY: Double mastectomy, appendectomy, splenectomy. Social History Alcohol Use: none Smoking Status: Never smoker Drug Use: none Exam/Review of Systems Vital Signs Vitals Vital Signs Date Time Temp Pulse Resp B/P Pulse Ox O2 Delivery O2 Flow Rate FiO2 02/27/17 23:00 97.8 83 19 96/55 99 Nasal Cannula 2.0 Intake and Output 02/27/17 02/27/17 02/28/17 15:00 23:00 07:00 Intake Total 1520 ml Balance 1520 ml Exam Exam GENERAL: The patient appears somehow weak and in mild distress, but answering questions appropriately and she is alert and oriented. HEENT: No obvious head deformity. Pupils react to light. Extraocular movements intact. CARDIOVASCULAR: Slightly tachycardic with regular rhythm. CHEST: Her lungs are clear to auscultation. ABDOMEN: Soft, nontender, nondistended. Positive bowel sounds. EXTREMITIES: There is bilateral lower extremity cellulitis. Labs Result Diagram: 02/27/17202002/27/172020 Medications Medications Current Medications Acetaminophen/ Hydrocodone Bitart ([place] (10/325)) 1 tab Q3 PO ; Start 02/28/17 at 00:00 Morphine Sulfate (Ms Contin (Er)) 15 mg Q8 PO ; Start 02/28/17 at 06:00 Hydromorphone HCl (Dilaudid) 4 mg Q6 PO ; Start 02/28/17 at 00:00 Baclofen (Lioresal) 10 mg QID PO ; Start 02/28/17 at 09:00 Furosemide (Lasix) 80 mg DAILY@06 PO ; Start 02/28/17 at 06:00 Gabapentin (Neurontin) 100 mg Q4 PO Last administered on 02/28/17t 00:35; Admin Dose 100 MG; Start 02/28/17 at 01:00 Ranitidine HCl (Zantac) 150 mg TID PO ; Start 02/28/17 at 09:00 Ascorbic Acid (Vitamin C) 1,000 mg DAILY PO ; Start 02/28/17 at 09:00 Vitamin B Complex/ Vitamin C ([place]) 1 cap DAILY PO ; Start 02/28/17 at 22:00 Ondansetron HCl 4 mg 4 mg Q6H PRN IV NAUSEA AND/OR VOMITING; Start 02/28/17 at 00:00 Cefepime HCl (Maxipime 1gm/50 ml (Pmx)) 50 ml @ 100 mls/hr Q12 IVPB ; Start 11/04 at 09:00 Heparin Sodium (Porcine) 5000 unit 5,000 unit BID SC ; Start 02/28/17 at 09:00 Vancomycin HCl (Vancocin) 250 ml @ 125 mls/hr Q24H IVPB ; Start 02/28/17 at 16: 00 Prochlorperazine (Compazine) 10 mg Q6H PRN PO NAUSEA AND/OR VOMITING; Start 11/04 at 00:30 VANDA CARVER MD Feb 28, 2017 03:44
[2017-02-28] MEDS: morphine (ER) 15 MG TAB PO SCH ×3 (06:00→20:58)
[2017-02-28] MEDS ORDERED: FUROSEMIDE 40 MG TAB PO SCH (06:00)
[2017-02-28] MEDS: SOD CHLORIDE 0.9% 1,000 ML IV SCH ×2 (06:36→14:00)
[2017-02-28] MEDS: HYDROmorphONE 2 MG TAB PO SCH ×4 (06:41→19:05)
[2017-02-28 07:45] VITALS: BP 94/55; RESP 17
[2017-02-28] MEDS: RANITIDINE 150 MG TAB PO SCH ×3 (09:29→20:56)
[2017-02-28] MEDS: ASCORBIC ACID 500 MG TAB PO SCH (09:29)
[2017-02-28] MEDS: BACLOFEN 10 MG TAB PO SCH ×4 (09:29→20:55)
[2017-02-28] MEDS: HEPARIN 5,000 UNIT/0.5 ML VIAL SC SCH ×2 (09:33→20:57)
[2017-02-28] MEDS: CEFEPIME 1GM/50 ML (PMX) 50 ML IVPB SCH ×2 (09:38→20:55)
--- NOTE | 2017-02-28 13:12 | CONS ---
DATE OF ADMISSION: 02/27/2017 DATE OF CONSULTATION: 02/28/2017 TYPE OF CONSULTATION: Infectious Disease. REASON FOR CONSULTATION: Antibiotic management. HISTORY OF PRESENT ILLNESS: Xochitl Schwartz is a 51-year-old female with a number of problems who i s admitted with sepsis secondary to bilateral lower extremity cellulitis. Her past problems include : 1. History of breast cancer with bony metastasis. 2. Status post double mastectomy and chemotherapy, last chemotherapy being 6 weeks ago. The patient presents with dizziness, shortness of breath and generalized body pain and weakness. Sh viviana also complains of right lower extremity cellulitis, not getting better despite antibiotics. She d enies any chest pain, nausea, vomiting, fever or chills. LABORATORIES: The patient was admitted with a white count of 19,000, H and H of 7.4 and 24.3, plate let count 502,000. BUN and creatinine 42/1.83, glucose of . PAST MEDICAL HISTORY: As outlined. PAST SURGICAL HISTORY: Double mastectomy, appendectomy and splenectomy. SOCIAL HISTORY: She does not smoke, drink or abuse drugs. ALLERGIES: NONE TO PENICILLIN, SULFA OR FOODS. MEDICATIONS: Per chart. REVIEW OF SYSTEMS: As per HPI. PHYSICAL EXAMINATION: GENERAL: The patient is somewhat weak and in mild distress. VITAL SIGNS: Stable. She is afebrile. SKIN: Without generalized rash. HEENT: Within normal limits. NECK: Supple. LYMPH NODES: None palpable. CHEST: Decreased breath sounds at the bases. ABDOMEN: Soft, nontender, without organosplenomegaly or masses. EXTREMITIES: Bilateral lower extremity cellulitis. IMPRESSION AND PLAN: The patient is being followed by Dr. Starks. She has worsening renal failure at this time with a BUN and creatinine of 42/1.83. Urine cultures are negative. She was started o n vancomycin and cefepime. I will dictate my findings to the hospitalist. Dictated By: GUEVARA MOREL MD, JD/EBENEZER Conf#: [id number] DID#: [id number]
[2017-02-28] MEDS ORDERED: VANCOMYCIN 1 GM in NS 250 ML IVPB SCH (16:00)
[2017-02-28 19:56] VITALS: BP 112/57; RESP 20
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
[2017-02-28] MEDS: VITAMIN B COMPLEX/VIT C CAP PO SCH (22:00)
[2017-02-28 22:11] LABS: IRON 29 ug/dl (35-150)
[2017-02-28 22:20] LABS: TOTAL IRON BINDING CAPACITY 288 ug/dl (241-421)
[2017-03-01] MEDS: GABAPENTIN 100 MG CAP PO SCH ×6 (00:07→21:00)
[2017-03-01] MEDS: HYDROmorphONE 2 MG TAB PO SCH ×4 (00:08→17:50)
[2017-03-01] MEDS: HYDROCODONE/APAP (10/325) TAB PO SCH ×8 (00:08→21:01)
[2017-03-01] MEDS: morphine (ER) 15 MG TAB PO SCH ×3 (05:16→21:01)
[2017-03-01 07:54] VITALS: BP 135/71; RESP 16
--- NOTE | 2017-03-01 08:55 | PN ---
DATE: 02/28/2017 SUBJECTIVE: The patient is still having some abdominal pain, refusing PICC line placement. OBJECTIVE: VITAL SIGNS: Stable. Blood pressure systolic is in the 94 to 110 range. GENERAL: The patient sitting in bed, answering questions appropriately, in mild distress, but alert . HEENT: Pupils are equal, round, reactive to light. Extraocular muscles intact. NECK: Supple, no thyromegaly. LUNGS: Clear to auscultation bilaterally. CARDIOVASCULAR: S1, S2 heard. No rubs or gallops. ABDOMEN: Mild tenderness to palpation in epigastric area. No rebound or guarding. MUSCULOSKELETAL: No lower extremity edema bilaterally. She has got some redness noted on her lower extremities bilaterally, signs of cellulitis. NEUROLOGIC: No focal deficits. LABORATORIES: WBC 19.0, hemoglobin 7.4, hematocrit 24.3, platelets of 502. Sodium 139, potassium 3 .4, chloride 96, CO2 of 28, BUN of 42, creatinine 1.8, glucose 153. Lactic acid is normal. LFTs ar e normal. Chest x-ray shows no significant change in the appearance of the chest. ASSESSMENT AND PLAN: This is a 51-year-old female with history of breast cancer, stage IV, with bon y metastasis, status post mastectomy and chemotherapy, who presents with sepsis secondary to bilater al lower extremity cellulitis. 1. Sepsis, again secondary to cellulitis. Continue broad-spectrum antibiotics. Will get infectiou s disease consult as well, Tylenol p.r.n. for the fevers, IV fluids as well. 2. History of breast cancer stage IV, will get a hematology/oncology consult as well. Continue to monitor for now. 3. Abdominal pain, most likely secondary to the patient's cancer with metastasis. Continue p.o. D ilaudid medications as well. 4. Gastrointestinal prophylaxis. Ranitidine. 5. Deep venous thrombosis prophylaxis. Heparin subcutaneously. 6. Renal insufficiency. Continue IV fluids. Monitor ins and outs and BUN and creatinine levels in the morning. Suspect prerenal cause. Dictated By: OZ KHALIL/EBENEZER Conf#: [id number] DID#: [id number]
[2017-03-01] MEDS: HEPARIN 5,000 UNIT/0.5 ML VIAL SC SCH ×2 (09:00→21:00)
[2017-03-01] MEDS: VITAMIN B COMPLEX/VIT C CAP PO SCH (09:24)
[2017-03-01] MEDS: CEFEPIME 1GM/50 ML (PMX) 50 ML IVPB SCH ×2 (09:24→21:00)
[2017-03-01] MEDS: RANITIDINE 150 MG TAB PO SCH ×3 (09:25→21:00)
[2017-03-01] MEDS: BACLOFEN 10 MG TAB PO SCH ×4 (09:25→21:00)
[2017-03-01] MEDS: ASCORBIC ACID 500 MG TAB PO SCH (09:25)
--- NOTE | 2017-03-01 11:17 | PN ---
Date/Time of Note Date/Time of Note DATE: 03/01/17 TIME: 11:14 Assessment/Plan VTE Prophylaxis VTE Prophylaxis Intervention: heparin Lines/Catheters IV Catheter Type (from [facility]): Peripheral IV Assessment/Plan Chief Complaint/Hosp Course ASSESSMENT AND PLAN: 51-year-old female with history of breast cancer, stage IV , with bony metastasis, status post mastectomy and chemotherapy, who presents with sepsis secondary to bilateral lower extremity cellulitis. 1. Sepsis - again secondary to cellulitis. - Continue broad-spectrum antibiotics. - f/u infectious disease consult rec's as well, Tylenol p.r.n. for the fevers , IV fluids as well. 2. History of breast cancer stage IV - f/u hematology/oncology consult rec's - will get bone scan - Continue to monitor for now. 3. Abdominal pain - , most likely secondary to the patient's cancer with metastasis. - Continue p.o. Dilaudid medications as well. 4. Gastrointestinal prophylaxis. Ranitidine. 5. Deep venous thrombosis prophylaxis. Heparin subcutaneously. 6. Renal insufficiency - Suspect prerenal cause. - Continue IV fluids. - Monitor ins and outs and BUN and creatinine levels in the morning. 7. anemia - likely iron def - IV iron - will also f/u occult test and get GI consult Problems: Subjective 24 Hr Interval Summary Free Text/Dictation Pt refused AM labs. Seen by Heme/Onc team yesterday. Awaiting bone scan (pending ) Exam/Review of Systems Vital Signs Vitals Vital Signs Date Time Temp Pulse Resp B/P Pulse Ox O2 Delivery O2 Flow Rate FiO2 03/01/17 07:54 98.3 80 16 135/71 95 02/28/17 18:48 2.0 02/27/17 23:00 Nasal Cannula Intake and Output 02/28/17 02/28/17 03/01/17 15:00 23:00 07:00 Intake Total 2650 ml 1500 ml Balance 2650 ml 1500 ml Exam GENERAL: The patient sitting in bed, answering questions appropriately, in mild distress HEENT: Pupils are equal, round, reactive to light. Extraocular muscles intact. NECK: Supple, no thyromegaly. LUNGS: Clear to auscultation bilaterally. CARDIOVASCULAR: S1, S2 heard. No rubs or gallops. ABDOMEN: Mild tenderness to palpation in epigastric area. No rebound or guarding. MUSCULOSKELETAL: No lower extremity edema bilaterally. She has got some redness noted on her lower extremities bilaterally, signs of cellulitis. NEUROLOGIC: No focal deficits Results Result Diagram: 02/27/17202002/27/172020 Results 24 hrs Laboratory Tests Test 02/28/17 20:05 Iron Level 29 L Total Iron Binding Capacity 288 Percent Iron Saturation 10 L Ferritin 73.9 Carcinoembryonic Antigen 125.0 H Medications Medications Current Medications Acetaminophen/ Hydrocodone Bitart ([place] (10/325)) 1 tab Q3 PO Last administered on 03/01/17 09:25; Admin Dose 1 TAB; Start 02/28/17 at 00:00 Morphine Sulfate (Ms Contin (Er)) 15 mg Q8 PO Last administered on 03/01/17 05 :16; Admin Dose 15 MG; Start 02/28/17 at 06:00 Hydromorphone HCl (Dilaudid) 4 mg Q6 PO Last administered on 03/01/17 05:17; Admin Dose 4 MG; Start 02/28/17 at 00:00 Baclofen (Lioresal) 10 mg QID PO Last administered on 03/01/17 09:25; Admin Dose 10 MG; Start 02/28/17 at 09:00 Gabapentin (Neurontin) 100 mg Q4 PO Last administered on 03/01/17 09:24; Admin Dose 100 MG; Start 02/28/17 at 01:00 Ranitidine HCl (Zantac) 150 mg TID PO Last administered on 03/01/17 09:25; Admin Dose 150 MG; Start 02/28/17 at 09:00 Ascorbic Acid (Vitamin C) 1,000 mg DAILY PO Last administered on 03/01/17 09: 25; Admin Dose 1,000 MG; Start 02/28/17 at 09:00 Vitamin B Complex/ Vitamin C (Berocca) 1 cap DAILY PO Last administered on 03/01 09:24; Admin Dose 1 CAP; Start 02/28/17 at 22:00 Ondansetron HCl 4 mg 4 mg Q6H PRN IV NAUSEA AND/OR VOMITING; Start 02/28/17 at 00:00 Cefepime HCl (Maxipime 1gm/50 ml (Pmx)) 50 ml @ 100 mls/hr Q12 IVPB Last administered on 03/01/17 09:24; Admin Dose 100 MLS/HR; Start 02/28/17 at 09:00 Heparin Sodium (Porcine) 5000 unit 5,000 unit BID SC Last administered on 09:33; Admin Dose 5,000 UNIT; Start 02/28/17 at 09:00 Vancomycin HCl (Vancocin) 250 ml @ 125 mls/hr Q24H IVPB Last administered on 17:07; Admin Dose 125 MLS/HR; Start 02/28/17 at 16:00 Prochlorperazine 10 mg 10 mg Q6H PRN PO NAUSEA AND/OR VOMITING; Start 02/28/17 at 00:30 Ferric Sodium Gluconate Complex/ Sodium Chloride (Ferrlecit/NS) 110 ml @ 100 mls/hr Q24H IVPB ; Start 03/01/17 at 11:30; Stop 03/03/17 at 12:35; Status OZ TREJO Mar 01, 2017 11:17
[2017-03-01] MEDS ORDERED: ZOLPIDEM 5 MG TAB PO PRN ×2 (11:30→21:30)
[2017-03-01 12:37] LABS: ADD SCAN DIFF NO
[2017-03-01 12:39] LABS: BASOPHIL # 0.1 10^3/ul (0.0-0.1); BASOPHILS % 0.5 % (0.0-2.0); EOSINOPHILS # 0.3 10^3/ul (0.0-0.5); EOSINOPHILS % 2.7 % (0.0-7.0); HEMATOCRIT 31.8 % (37.0-47.0); HEMOGLOBIN 9.9 g/dl (12.0-16.0); LYMPHOCYTES # 3.1 10^3/ul (0.8-2.9); LYMPHOCYTES % 31.6 % (15.0-51.0); MEAN CORPUSCULAR HEMOGLOBIN 26.8 pg (29.0-33.0); MEAN CORPUSCULAR HGB CONC 31.1 g/dl (32.0-37.0); MEAN CORPUSCULAR VOLUME 85.9 fl (82.0-101.0); MEAN PLATELET VOLUME 11.7 fl (7.4-10.4); MONOCYTE # 1.2 10^3/ul (0.3-0.9); MONOCYTES % 12.5 % (0.0-11.0); NEUTROPHIL # 5.1 10^3/ul (1.6-7.5); NEUTROPHILS % 52.1 % (39.0-77.0); PLATELET COUNT 552 10^3/UL (140-415); RED CELL DISTRIBUTION WIDTH 19.8 % (11.5-14.5); WHITE BLOOD COUNT 9.8 10^3/ul (4.8-10.8)
[2017-03-01 12:51] LABS: POTASSIUM 3.8 mmol/L (3.5-5.1)
[2017-03-01 12:53] LABS: CREATININE 0.82 mg/dl (0.44-1.00)
--- NOTE | 2017-03-01 12:53 | CONS ---
Date/Time of Note Date/Time of Note DATE: 03/01/17 TIME: 12:37 Assessment/Plan Assessment/Plan Additional Assessment/Plan ASSESSMENT * Anemia * GI bleed vs tumors vs Iron deficiency * Breast Ca with Metastasis * Sepsis * Plan Colonoscopy /EGD but patient refused Monitor H and H and transfuse per hemaoncology PPI since patient refused the planned procedure,we will follow her up as needed, Consultation Date/Type/Reason Admit Date/Time Feb 27, 2017 at 21:39 Type of Consultation: Gastroenterology Reason for Consultation Anemia Referring Provider: OZ FULLER Hx of Present Illness 51 year old female referred for evaluation of anemia.Past medical history include breast ca stage IV with metastasis to hips and bone,chronic pain syndrome,Hodgkin lymphoma who presented in the emergency room with cellulitis leg.Laboratory workup revealed a hemoglobin 7.4 hct 24 wbc 19.She received 2 units of PRBC.Presently she denies any hematochezia,hematemesis ,melena Pain.I discuss with her the possibility of doing a colonoscopy and EGD but she refused claiming she does not need it Constitutional: no complaints Eyes: no complaints ENT: no complaints Respiratory: no complaints Cardiovascular: no complaints Gastrointestinal: pain Genitourinary: no complaints Musculoskeletal: no complaints Skin: no complaints Neurologic: no complaints Endocrine: no complaints Lymphatic: no complaints Psychological: nl mood/affect, no complaints Immunologic: no complaints Past Medical History Medical History: other (breast ca) Past Surgical History Past Surgical Hx: other (MRM bilateral) Social History Alcohol Use: none Smoking Status: Never smoker Drug Use: none Exam/Review of Systems Vital Signs Vitals Vital Signs Date Time Temp Pulse Resp B/P Pulse Ox O2 Delivery O2 Flow Rate FiO2 03/01/17 07:54 98.3 80 16 135/71 95 02/28/17 18:48 2.0 02/27/17 23:00 Nasal Cannula Intake and Output 02/28/17 02/28/17 03/01/17 14:59 22:59 06:59 Intake Total 2650 ml 1500 ml Balance 2650 ml 1500 ml Exam Constitutional: alert, oriented Psych: anxiety Head: atraumatic, normocephalic Eyes: PERRL, nl conjunctiva, nl sclera ENMT: nl external ears & nose Neck: non-tender, supple Respiratory: clear to auscultation, normal air movement Cardiovascular: nl pulses, regular rate and rhythm Gastrointestinal: bowel sounds, nl liver, spleen, non-tender, soft, No rebound or guarding Musculoskeletal: nl extremities to inspection, nl gait and stance, swelling ( both legs) Extremities: normal pulses Neurological: nl mental status, nl speech Skin: nl turgor, No rash or lesions Lymph: nl lymph nodes Results Result Diagram: 02/27/17202002/27/172020 Results 24 hrs Laboratory Tests Test 02/28/17 20:05 Iron Level 29 L Total Iron Binding Capacity 288 Percent Iron Saturation 10 L Ferritin 73.9 Carcinoembryonic Antigen 125.0 H Medications Medications Current Medications Acetaminophen/ Hydrocodone Bitart ([place] (10325)) 1 tab Q3 PO Last administered on 03/01/17 12:26; Admin Dose 1 TAB; Start 02/28/17 at 00:00 Morphine Sulfate (Ms Contin (Er)) 15 mg Q8 PO Last administered on 03/01/17 05 :16; Admin Dose 15 MG; Start 02/28/17 at 06:00 Hydromorphone HCl (Dilaudid) 4 mg Q6 PO Last administered on 03/01/17 12:27; Admin Dose 4 MG; Start 02/28/17 at 00:00 Baclofen (Lioresal) 10 mg QID PO Last administered on 03/01/17 09:25; Admin Dose 10 MG; Start 02/28/17 at 09:00 Gabapentin (Neurontin) 100 mg Q4 PO Last administered on 03/01/17 09:24; Admin Dose 100 MG; Start 02/28/17 at 01:00 Ranitidine HCl (Zantac) 150 mg TID PO Last administered on 03/01/17 09:25; Admin Dose 150 MG; Start 02/28/17 at 09:00 Ascorbic Acid (Vitamin C) 1,000 mg DAILY PO Last administered on 03/01/17 09: 25; Admin Dose 1,000 MG; Start 02/28/17 at 09:00 Vitamin B Complex/ Vitamin C (Berocca) 1 cap DAILY PO Last administered on 03/01 09:24; Admin Dose 1 CAP; Start 02/28/17 at 22:00 Ondansetron HCl 4 mg 4 mg Q6H PRN IV NAUSEA AND/OR VOMITING; Start 02/28/17 at 00:00 Cefepime HCl (Maxipime 1gm/50 ml (Pmx)) 50 ml @ 100 mls/hr Q12 IVPB Last administered on 03/01/17 09:24; Admin Dose 100 MLS/HR; Start 02/28/17 at 09:00 Heparin Sodium (Porcine) 5000 unit 5,000 unit BID SC Last administered on 09:33; Admin Dose 5,000 UNIT; Start 02/28/17 at 09:00 Vancomycin HCl (Vancocin) 250 ml @ 125 mls/hr Q24H IVPB Last administered on 17:07; Admin Dose 125 MLS/HR; Start 02/28/17 at 16:00 Prochlorperazine 10 mg 10 mg Q6H PRN PO NAUSEA AND/OR VOMITING; Start 02/28/17 at 00:30 Ferric Sodium Gluconate Complex/ Sodium Chloride (Ferrlecit/NS) 110 ml @ 100 mls/hr Q24H IVPB ; Start 03/01/17 at 13:00; Stop 03/03/17 at 14:05 Zolpidem Tartrate (Ambien) 2.5 mg HS PRN PO INSOMNIA; Start 03/01/17 at 11:30 YEISON CALDERON MD Mar 01, 2017 12:48
[2017-03-01 12:54] LABS: CALCIUM 8.3 mg/dl (8.4-10.2); MAGNESIUM 2.3 mg/dl (1.7-2.5); PHOSPHORUS 2.1 mg/dl (2.5-4.9)
[2017-03-01] MEDS: SOD FERRIC GLUC COMPLX 125 MG in SOD CHLORIDE 0.9% 100 ML IVPB SCH (13:41)
--- NOTE | 2017-03-01 14:18 | PN ---
DATE: 03/01/2017 SUBJECTIVE: No acute changes. The patient is alert, denies pain; no nausea, vomiting, diarrhea. N o fevers. LABORATORY DATA: WBC today 9.8, no bands, no shift. BUN 18, creatinine 0.82. MICROBIOLOGY: A urine culture grew Jessica albicans. Blood cultures have been negative. ANTIMICROBIALS: 1. Vancomycin. 2. Cefepime. PHYSICAL EXAMINATION: GENERAL: Well-nourished, well-developed, middle-aged white woman who is alert, in no distress. HEENT: Head atraumatic, normocephalic. Sclerae anicteric. Buccal mucosa pink. NECK: Supple. CHEST: Rise symmetrical. Breath sounds clear. HEART: S1, S2. ABDOMEN: Soft, bowel sounds present. EXTREMITIES: Bilateral lower extremities erythema and edema, improving. ASSESSMENT: 1. Bilateral lower extremity cellulitis. 2. Metastatic breast cancer. 3. Acute on chronic anemia, possibly gastrointestinal bleeding. 4. ALLERGIES TO PENICILLIN. PLAN: The patient remains stable on appropriate treatment. We will continue bilateral lower extrem ity elevation. Swab nares for MRSA. Follow GI/oncology recommendations. Dictated By: ALEXA VENCES SUPERVISOR CHEMICAL for GUEVARA PATEL/EBENEZER Conf#: [id number] DID#: [id number]
[2017-03-01] MEDS ORDERED: BISACODYL (EC) 5 MG TAB PO PRN (14:30)
[2017-03-01] MEDS ORDERED: POLYETHYLENE GLYCOL 17 GM PACKET PO PRN (14:30)
--- NOTE | 2017-03-01 15:56 | RADRPT ---
PROCEDURE: Whole body bone scan study CLINICAL INDICATION: 51 -year-old patient with breast cancer, for evaluation for skeletal metastas es. TECHNIQUE: Following the intravenous injection of 24.9 mCi of Tc-99m MDP, whole body anterior and posterior planar images were obtained along with spot views of the chest, abdomen and pelvis. COMPARISON: No prior bone scans are available for comparison. FINDINGS: Multiple abnormal focal areas of intensely increased tracer activity are seen in the calvarium, rib cages bilaterally, spine, pelvic bones bilaterally. Symmetrically increased activity seen in both knees, which is likely related to degenerative process . No other definite abnormal areas of increased activity or asymmetries are visualized in the study an d distribution of radionuclide is homogeneous in the skull, spine, rib cages, sternum, pelvis and vi sualized portions of the upper and lower extremities. Of incidental note, there is no evidence of mass abnormalities of the kidneys. IMPRESSION: 1. Numerous focal areas of intensely increased tracer activity in the skeleton, as described above, demonstrate a scintigraphic pattern concerning for skeletal metastases. 2. Likely degenerative changes of both knees. RPTAT: HH .Concepción Urena MD, MD Date Time Electronically viewed and signed by .Concepción Urena MD, on 03/01/2017 15:56 .L/
[2017-03-01] MEDS ORDERED: VANCOMYCIN 750 MG in SOD CHLORIDE 0.9% 150 ML IVPB SCH (16:00)
[2017-03-01 19:26] VITALS: BP 124/65; RESP 19
--- NOTE | 2017-03-01 20:25 | PN ---
DATE: 03/01/2017 HEMATOLOGY/ONCOLOGY PROGRESS NOTE SUBJECTIVE: The patient states she is feeling better. She has received 2 units of packed red blood cells. Also states that her leg pain has decreased. OBJECTIVE: VITAL SIGNS: Temperature 98.4, pulse 64 per minute and regular, respirations 19, blood pressure 124 /65, pulse oximetry 95% on room air. SKIN: Pale, scattered tattoos. No petechiae or rashes. HEENT: No mucosal lesions. No scleral icterus. NECK: Supple, no jugular venous distention or thyroid enlargement. CHEST: Clear to auscultation and percussion. No rhonchi, wheezes, rales, or rubs. BREASTS: Bilateral mastectomies with implants. HEART: Regular sinus rhythm, no S3, S4 murmurs. ABDOMEN: No masses or ascites. There are surgical scars present from the patient's staging laparot jamilah. EXTREMITIES: 1+ bilateral pedal edema. No palpable cords or Homans sign. No tenderness. NEUROLOGIC: Normal. LABORATORY DATA: White count 9800, hemoglobin 9.9, hematocrit 31.8, and platelet count 552,000. Iron studies done yesterday include serum iron of 29, iron-binding capacity of 288, saturation 10%, ferritin 73.9. CEA is 125. CA 27-29 is pending. IMPRESSION: 1. Metastatic carcinoma of the breast. 2. Anemia, probable combined etiology including iron deficiency and anemia of chronic disease. PLAN: The patient has been seen by Dr. Lopes. He has suggested a colonoscopy and upper GI endosco py, which the patient has refused. I have explained to the patient that I feel there is GI blood loss, as a cause for her anemia. She has been given an infusion of intravenous iron today, and a total of 3 infusions have been ordered t o total 375 mg of elemental iron. I have told the patient this may help on a very temporary basis, if we cannot determine and stop the etiology of her blood loss. The patient also will require a change in therapy. Therapy for her breast carcinoma, I feel she has become hormonally refractory. The patient has never had any treatment with chemotherapy. Dictated By: KAYLEE JENSEN MD, SR/NTS Conf#: [id number] DID#: [id number]
[2017-03-01] MEDS: DOCUSATE SODIUM 100 MG CAP PO SCH (21:00)
[2017-03-02] MEDS: HYDROCODONE/APAP (10/325) TAB PO SCH ×7 (00:13→17:58)
[2017-03-02] MEDS: HYDROmorphONE 2 MG TAB PO SCH ×4 (00:14→17:58)
[2017-03-02] MEDS: GABAPENTIN 100 MG CAP PO SCH ×5 (00:14→16:43)
[2017-03-02 05:03] LABS: ADD SCAN DIFF NO
[2017-03-02 05:07] LABS: BASOPHILS % 0.4 % (0.0-2.0); EOSINOPHILS # 0.3 10^3/ul (0.0-0.5); EOSINOPHILS % 2.9 % (0.0-7.0); HEMOGLOBIN 9.2 g/dl (12.0-16.0); LYMPHOCYTES % 29.4 % (15.0-51.0); MEAN CORPUSCULAR HEMOGLOBIN 26.2 pg (29.0-33.0); MEAN CORPUSCULAR HGB CONC 30.7 g/dl (32.0-37.0); MEAN CORPUSCULAR VOLUME 85.5 fl (82.0-101.0); MEAN PLATELET VOLUME 11.3 fl (7.4-10.4); MONOCYTE # 1.2 10^3/ul (0.3-0.9); MONOCYTES % 11.6 % (0.0-11.0); NEUTROPHIL # 5.6 10^3/ul (1.6-7.5); NEUTROPHILS % 55.1 % (39.0-77.0); PLATELET COUNT 562 10^3/UL (140-415); RED BLOOD COUNT 3.51 10^6/ul (4.20-5.40); RED CELL DISTRIBUTION WIDTH 20.2 % (11.5-14.5); WHITE BLOOD COUNT 10.1 10^3/ul (4.8-10.8)
[2017-03-02 05:24] LABS: POTASSIUM 3.6 mmol/L (3.5-5.1)
[2017-03-02 05:26] LABS: CREATININE 0.89 mg/dl (0.44-1.00)
[2017-03-02 05:27] LABS: CALCIUM 8.3 mg/dl (8.4-10.2)
[2017-03-02] MEDS: morphine (ER) 15 MG TAB PO SCH ×2 (05:32→14:07)
[2017-03-02] MEDS: VANCOMYCIN 750 MG in SOD CHLORIDE 0.9% 150 ML IVPB SCH ×2 (05:32→18:00)
[2017-03-02 08:08] VITALS: BP 143/76
[2017-03-02] MEDS: ASCORBIC ACID 500 MG TAB PO SCH (08:59)
[2017-03-02] MEDS: VITAMIN B COMPLEX/VIT C CAP PO SCH (08:59)
[2017-03-02] MEDS: RANITIDINE 150 MG TAB PO SCH ×2 (08:59→13:22)
[2017-03-02] MEDS: BACLOFEN 10 MG TAB PO SCH ×3 (09:00→16:43)
[2017-03-02] MEDS: DOCUSATE SODIUM 100 MG CAP PO SCH (09:00)
[2017-03-02] MEDS: HEPARIN 5,000 UNIT/0.5 ML VIAL SC SCH (09:00)
--- NOTE | 2017-03-02 10:06 | CONS ---
DATE OF ADMISSION: 02/27/2017 DATE OF CONSULTATION: 03/02/2017 SUBJECTIVE: Patient states she is feeling well. Less complaints of leg pain. No shaking chills. N o complaints of shortness of breath. Bone pain is under good control. OBJECTIVE: VITAL SIGNS: Temperature 98.4, pulse 76 and regular, blood pressure 143/76, pulse oximetry 95% on r oom air. SKIN: Scattered tattoos. No ecchymosis, no petechiae or rashes. HEENT: No mucosal lesions. No scleral icterus. NECK: Supple. No jugular venous distention or thyroid enlargement. CHEST: Clear to auscultation and percussion. No rhonchi, wheezes, rales or rubs. BREASTS: Bilateral mastectomies, with reconstruction with implants. No chest wall nodules. ABDOMEN: Soft. No masses, no ascites. EXTREMITIES: No clubbing, edema or cyanosis. No palpable cords or Homans sign. NEUROLOGIC: Normal. Sodium 144, potassium 3.6, creatinine 0.89, BUN 12. White count 10,100, hemoglobin 9.2, hematocrit 30.0 and platelet count 562,000. ASSESSMENT: 1. Metastatic breast carcinoma. 2. Anemia, iron deficient, probable GI blood loss. As noted previously, the patient refused GI evaluation. The patient will receive another infusion of iron today. She is anxious to be discharged. Dictated By: KAYLEE JENSEN MD, SR/EBENEZER Conf#: [id number] DID#: [id number]
[2017-03-02] MEDS: CEFEPIME 1GM/50 ML (PMX) 50 ML IVPB SCH (10:30)
--- NOTE | 2017-03-02 11:00 | PDOCDIS ---
Discharge Instructions CONDITION Patient Condition: Stable HOME CARE INSTRUCTIONS: Diet Instructions: Regular ACTIVITY: Activity Restrictions: Slowly Increase Activity FOLLOW UP/APPOINTMENTS Appointments Please take your medications as prescribed, and see your doctor in the clinic in 1 week. OZ FULLER Mar 02, 2017 11:00
[2017-03-02] MEDS ORDERED: CEPH500C PO (11:04)
--- NOTE | 2017-03-02 11:43 | DS ---
DATE OF ADMISSION: 02/27/2017 DATE OF DISCHARGE: 03/02/2017 HOSPITAL COURSE: This is a 51-year-old female originally admitted on 02/28/[address] on 03/02/2017. The patient came in with sepsis secondary to cellulitis. She was placed on IV an tibiotics and admitted to med/surg floor, seen by infectious disease team and hematology/oncology te am. The patient's redness symptoms improved. She was also found with anemia on admission and her i logan studies did show signs of microcytic hyperchromic anemia, history of iron deficiency anemia we s wesley say, she was given IV iron as well. Patient was also complaining of knee and hip pain as wel l. She has a prior history of breast carcinoma that has become hormonally refractory to treatment, per hematology/oncology input. She also underwent a bone scan that showed numerous focal areas of intensely increased tracer activity and ____as described above demonstrated a thin pattern concernin g for skeletal metastasis, and likely degenerative changes of both knees. In any event, the patient was given pain control medications as well, which helped her from pain medicines, including stronge r opiate medicines. She was able to ambulate with assistance and tolerate a p.o. diet. She also [place] d repletion of low electrolytes as well. Hemoglobin remained stable after the PRBC transfusions. H er white blood cell count decreased in the first 24 hours after getting IV antibiotics for the treat ment of her cellulitis and after she completes her IV iron today and further electrolyte repletion t [place], she is pain free. She will be discharged home today in improved condition. She will be discharged with the following medications: 1. Adderall 10 mg t.i.d. 2. Vitamin C 1000 mg daily. 3. Baclofen 10 mg q.i.d. 4. She will need Keflex 500 mg p.o. q.i.d. for 7 more days. 5. Lasix 80 mg daily. 6. Gabapentin 200 mg q.4h 7. [place] p.r.n. 8. Dilaudid 4 mg p.o. q.6h. p.r.n. 9. MS Contin 50 mg p.o. q. 8h p.r.n. 10. Prochlorperazine 10 mg q.i.d. p.r.n. 11. Ranitidine 150 mg t.i.d. 12. Nucynta 50 mg b.i.d. 13. Vitamin B complex at bedtime. She will need to follow up with hematology/oncology doctor in the clinic in the next 1 to 2 weeks. FINAL DIAGNOSES: 1. Sepsis secondary to cellulitis, now improved with antibiotics. 2. History of stage IV breast cancer with metastasis with prior treatment with hormonal medication. The patient has refused chemotherapy in the past, now appears refractory to hormonal medicine tiffanie tment. 3. Abdominal pain secondary to the patient's cancer metastasis, now on pain control medications. 4. Anemia, likely iron deficient. Seen by GI team, refused EGD and colonoscopy workup on this admi ssion. 5. History of again breast cancer status post double mastectomy, and hormonal chemotherapy in the p ast. 7. Acute kidney injury, improved. Time spent discharging patient 50 minutes. Dictated By: OZ KHALIL/EBENEZER Conf#: [id number] DID#: [id number]
[2017-03-02] MEDS ORDERED: POTASSIUM PHOSPHATE 20 MEQ in SOD CHLORIDE 0.9% 250 ML IVPB ONE (12:00)
[2017-03-02] MEDS: SOD FERRIC GLUC COMPLX 125 MG in SOD CHLORIDE 0.9% 100 ML IVPB SCH (13:00)
--- NOTE | 2017-03-02 15:12 | PN ---
DATE: 03/02/2017 SUBJECTIVE: The patient is alert, feels better, looks comfortable. Vital signs stable. LABORATORY DATA: WBC 10.1, no shift, no bands. BUN 12, creatinine 0.89. PHYSICAL EXAMINATION: GENERAL: Well-developed, middle-aged woman who is alert, in no distress. HEENT: Head atraumatic, normocephalic. Sclerae anicteric. Buccal mucosa pink. NECK: Supple, trachea midline. CHEST: Rise symmetrical. Breath sounds clear. HEART: S1, S2. ABDOMEN: Soft, bowel sounds present. EXTREMITIES: With resolved erythema and edema bilateral lower extremities. ASSESSMENT: 1. Resolved bilateral lower extremity cellulitis. 2. Metastatic breast carcinoma. 3. ALLERGY TO PENICILLIN. 4. Anemia. PLAN: The patient remains stable, wants to go home. We can send her home on oral doxycycline for a couple more days. The patient to follow with oncology for management of her metastatic disease. Dictated By: ALEXA VENCES PREMIUM CARD CANCELLATION CLERK for GUEVARA PATEL/EBENEZER Conf#: [id number] DID#: [id number]
== END 2017-03-02 18:49 | disposition home or self-care (01) | DRG 602 ==
LOC: E/R 19:42 → MS1 21:39
PROVIDERS: ADMIT Internal Medicine; ATTEND Internal Medicine
PROC: 30233N1 Transfusion of Nonautologous Red Blood Cells into Peripheral Vein, Percutaneous Approach (ICD-10-PCS; principal; 2017-02-28)
DX: L03.115 Cellulitis of right lower limb (principal); A41.9 Sepsis, unspecified organism; N17.9 Acute kidney failure, unspecified; C79.81 Secondary malignant neoplasm of breast; R42 Dizziness and giddiness; R10.9 Unspecified abdominal pain; D50.9 Iron deficiency anemia, unspecified
CPT/HCPCS: 36415; 36430; 71010; 78306; 80048; 80053; 81003; 82378; 82728; 83540; 83605; 83735; 84100; 84484; 85025; 85610; 85730; 86300; 86850; 86900; 86901; 86920; 87040; 87045; 87086; 93005; 96365; 96375; 96376; A9503; J0692; J1170; J1644; J2405; J2916; J3370; J7030; J7040; J7050; P9016

== ENCOUNTER 2017-03-19 17:29 | Emergency (ER) | payer BC ==
[~2017-03-19] VITALS: Ht 157.5 cm; Wt 72.0 kg
[2017-03-19 17:48] VITALS: Ht 157.5 cm; Wt 72.0 kg
[2017-03-19] MEDS ORDERED: HYDROmorphONE 1 MG/ML SYG IV STA ×4 (20:42→22:46)
[2017-03-19] MEDS ORDERED: SOD CHLORIDE 0.9% 1,000 ML IV STA (20:42)
[2017-03-19] MEDS ORDERED: ONDANSETRON 4 MG INJ IV STA (20:42)
[2017-03-19 21:05] VITALS: BP 108/64; PULSE 82; RESP 18; TEMP 98.1
[2017-03-19 21:42] LABS: ADD SCAN DIFF NO
[2017-03-19 21:44] LABS: BASOPHILS % 0.3 % (0.0-2.0); EOSINOPHILS # 0.2 10^3/ul (0.0-0.5); EOSINOPHILS % 1.5 % (0.0-7.0); HEMATOCRIT 30.6 % (37.0-47.0); HEMOGLOBIN 9.7 g/dl (12.0-16.0); LYMPHOCYTES # 2.3 10^3/ul (0.8-2.9); LYMPHOCYTES % 18.1 % (15.0-51.0); MEAN CORPUSCULAR HEMOGLOBIN 27.2 pg (29.0-33.0); MEAN CORPUSCULAR HGB CONC 31.7 g/dl (32.0-37.0); MEAN CORPUSCULAR VOLUME 85.7 fl (82.0-101.0); MEAN PLATELET VOLUME 11.3 fl (7.4-10.4); MONOCYTE # 1.4 10^3/ul (0.3-0.9); MONOCYTES % 10.8 % (0.0-11.0); NEUTROPHIL # 8.9 10^3/ul (1.6-7.5); NEUTROPHILS % 68.9 % (39.0-77.0); PLATELET COUNT 460 10^3/UL (140-415); RED BLOOD COUNT 3.57 10^6/ul (4.20-5.40); RED CELL DISTRIBUTION WIDTH 19.7 % (11.5-14.5); WHITE BLOOD COUNT 12.9 10^3/ul (4.8-10.8)
[2017-03-19 21:56] LABS: INR 1.07; PROTIME 13.9 Sec (12.2-14.2); PT RATIO 1.1
[2017-03-19 21:57] LABS: PARTIAL THROMBOPLASTIN TIME 36.1 Sec (25.0-35.0)
[2017-03-19 22:04] LABS: POTASSIUM 3.9 mmol/L (3.5-5.1)
[2017-03-19 22:07] LABS: CREATININE 1.57 mg/dl (0.44-1.00)
[2017-03-19 22:08] LABS: CALCIUM 9.5 mg/dl (8.4-10.2); MAGNESIUM 2.4 mg/dl (1.7-2.5); PHOSPHORUS 4.5 mg/dl (2.5-4.9)
[2017-03-19] MEDS ORDERED: PROM25TA14 PO (22:13)
[2017-03-19] MEDS ORDERED: SPIR50TA PO (22:16)
[2017-03-19] MEDS ORDERED: IND50 PO (22:19)
[2017-03-19] MEDS ORDERED: ZOLP10TA5 PO (22:20)
[2017-03-19] MEDS ORDERED: EXEM25TA PO (22:20)
[2017-03-19 22:26] LABS: IRON 40 ug/dl (35-150)
[2017-03-19] MEDS ORDERED: DULO60CA59 PO (22:32)
[2017-03-19 22:36] LABS: TOTAL IRON BINDING CAPACITY 293 ug/dl (241-421)
--- NOTE | 2017-03-19 22:36 | ERD ---
ER Documentation Chief Complaint Date/Time DATE: 03/19/17 TIME: 22:33 Chief Complaint Complains of Pain with spasm Hx of CA. Sent from for eval HPI 51-year-old female with a history of metastatic breast cancer status post mastectomy with metastases to the right side of her bony extremities. The patient presents because of generalized weakness. She states that in the past she has had anemia that requires transfusion. She denies any hematemesis or melena, no hemoptysis. The patient denies any recent chemotherapy. She states the pain is in similar location and character to pain in the past but worse she is also having muscle twitching. Slightly decreased oral intake over this timeframe. ROS All systems reviewed and are negative except as per history of present illness. Medications Home Meds Reported Medications Duloxetine Hcl* (Duloxetine Hcl*) 60 Mg Capsule.dr, 60 MG PO BID, #30 CAP 03/19/17 Exemestane* (Exemestane*) 25 Mg Tablet, 25 MG PO, TAB 03/19/17 Zolpidem Tartrate* (Zolpidem Tartrate*) 10 Mg Tablet, 10 MG PO QHS Y for INSOMNIA, #30 TAB 03/19/17 Indomethacin* (Indocin*) 50 Mg Cap, 50 MG PO BID, CAP 03/19/17 Spironolactone* (Aldactone*) 50 Mg Tablet, 50 MG PO TID, #30 TAB 03/19/17 Promethazine Hcl* (Phenergan*) 25 Mg Tablet, 25 MG PO Q6H Y for PAIN, TAB 03/19/17 Vitamin B Complex (Vitamin B Complex) 1 Each Capsule, 1 EACH PO QHS, CAP 02/16/17 Ascorbic Acid (Vitamin C) 500 Mg Tab, 1000 MG PO DAILY, TAB 02/16/17 Prochlorperazine* (Prochlorperazine*) 10 Mg Tablet, 10 MG PO QID Y for NAUSEA, TAB 02/16/17 Ranitidine Hcl* (Ranitidine Hcl*) 150 Mg Tablet, 150 MG PO TID, #90 TAB 02/16/17 Tapentadol Hcl (Nucynta) 100 Mg Tablet, 50 MG PO BID, TAB 02/16/17 Gabapentin* (Gabapentin*) 100 Mg Capsule, 100 MG PO Q4, #120 CAP 02/16/17 Furosemide* (Furosemide*) 40 Mg Tablet, 80 MG PO DAILY, TAB 02/16/17 Amphet Obd-Jfhhop-G-Amphet (Adderall) 10 Mg Tablet, 10 MG PO TID, TAB 02/16/17 Baclofen* (Baclofen*) 10 Mg Tablet, 10 MG PO QID, TAB 02/16/17 Hydromorphone Hcl* (Dilaudid*) 4 Mg Tablet, 4 MG PO Q6, TAB 02/16/17 Morphine Sulfate* (Ms Contin*) 15 Mg Tablet.sa, 15 MG PO TID, TAB.SA 02/16/17 Hydrocodone/Acetaminophen ([place] 10-325 Tablet) 1 Each Tablet, 1 EACH PO Q3H, TAB 02/16/17 Discontinued Scripts Cephalexin* (Cephalexin*) 500 Mg Capsule, 500 MG PO QID for 7 Days, #28 CAP Prov:OZ FULLER S. 03/02/17 Allergies Allergies: Coded Allergies: Penicillins (Verified Allergy, Unknown, RASH, SWOLLEN, HARD TIME BREATHING , 03/19/17) PMhx/Soc History of Surgery: Yes (Bilat mastectomy 2011, hip sx 1994, appy, splenectomy 1983) Anesthesia Reaction: No Hx Neurological Disorder: No Hx Respiratory Disorders: No Hx Cardiac Disorders: No Hx Psychiatric Problems: No Hx Alcohol Use: No Hx Substance Use: No Hx Tobacco Use: No Smoking Status: Never smoker FmHx Family History: No diabetes Physical Exam Vitals Vital Signs Date Time Temp Pulse Resp B/P Pulse Ox O2 Delivery O2 Flow Rate FiO2 03/19/17 21:05 98.1 82 18 108/64 98 Room Air 03/19/17 17:48 98.0 94 20 102/55 96 Physical Exam General: Well developed, well nourished, no acute distress Head: Normocephalic, atraumatic. Eyes: Pupils equally reactive, EOM intact ENT: Moist mucous membranes Neck: Supple, no lymphadenopathy Respiratory: Lungs clear bilaterally, no distress Cardiovascular: RRR, no murmurs, rubs, or gallops Abdominal: Soft, non-tender, non-distended, no peritoneal signs : Deferred MSK: No edema, no unilateral swelling, 5/5 strength Neurologic: Alert and oriented, moving all extremities, normal speech, no focal weakness, no cerebellar signs Skin: No rash Psych: Normal mood Result Diagram: 03/19/17212903/19/172129 Results 24 hrs Laboratory Tests Test 03/19/17 21:30 White Blood Count 12.910^3/ul Red Blood Count 3.5710^6/ul Hemoglobin 9.7g/dl Hematocrit 30.6% Mean Corpuscular Volume 85.7fl Mean Corpuscular Hemoglobin 27.2pg Mean Corpuscular Hemoglobin Concent 31.7g/dl Red Cell Distribution Width 19.7% Platelet Count 45047^3/UL Mean Platelet Volume 11.3fl Neutrophils % 68.9% Lymphocytes % 18.1% Monocytes % 10.8% Eosinophils % 1.5% Basophils % 0.3% Nucleated Red Blood Cells % 0.0/100WBC Neutrophils # 8.910^3/ul Lymphocytes # 2.310^3/ul Monocytes # 1.410^3/ul Eosinophils # 0.210^3/ul Basophils # 0.010^3/ul Nucleated Red Blood Cells # 0.010^3/ul Prothrombin Time 13.9Sec Prothrombin Time Ratio 1.1 INR International Normalized Ratio 1.07 Activated Partial Thromboplast Time 36.1Sec Sodium Level 141mmol/L Potassium Level 3.9mmol/L Chloride Level 99mmol/L Carbon Dioxide Level 27mmol/L Anion Gap 19 Blood Urea Nitrogen 45mg/dl Creatinine 1.57mg/dl Glucose Level 84mg/dl Calcium Level 9.5mg/dl Phosphorus Level 4.5mg/dl Magnesium Level 2.4mg/dl Current Medications Medications (Trade) Dose Ordered Sig/Julio Route PRN Reason Start Time Stop Time Status Last Admin Dose Admin Sodium Chloride (NS) 1,000 ml @ 1,000 mls/hr Q1H STAT IV 03/19/17 20:42 03/19/17 21:41 DC 03/19/17 21:41 Hydromorphone HCl (Dilaudid) 1 mg ONCE STAT IV 03/19/17 20:42 03/19/17 20:44 DC 03/19/17 21:41 Ondansetron HCl (Zofran Inj) 4 mg ONCE STAT IV 03/19/17 20:42 03/19/17 20:44 DC 03/19/17 21:40 Hydromorphone HCl (Dilaudid) 1 mg ONCE STAT IV 03/19/17 21:50 03/19/17 21:51 DC 03/19/17 22:06 Hydromorphone HCl (Dilaudid) 1 mg ONCE STAT IV 03/19/17 22:26 03/19/17 22:27 DC 03/19/17 22:30 Procedures/MDM EKG, MONITORS, & DIAGNOSTIC IMAGING: [] PROCEDURES: Peripheral IV Insertion: Indication: Difficult IV access Location: Left antecubital fossa Attempts: 1 Angiocath-type: 18-gauge The patient was consented prior to procedure and states understanding of risks, benefits, alternatives. Verbal consent was provided Sterile procedure was used to insert a peripheral IV. Indication, location and Angiocath-type are noted above. Ultrasound guidance was used to assist in the insertion of the Angiocath. Return of dark nonpulsatile blood was obtained, normal saline flushed through the Angiocath which was then secured to the skin. The patient tolerated the procedure well without complications. Emergency Bedside Ultrasound: The patient was verbally consented prior to procedure and understands the risks , benefits, and alternatives. The patient is agreeable to procedure and has given verbal consent. Indication: Peripheral IV insertion Probe Type: Linear Findings: Dynamic ultrasound utilized with compression technique with both linear and horizontal views. LAB INTERPRETATION: Slight leukocytosis of 12 that is nonspecific, hemoglobin at 9, slightly increased creatinine MEDICAL DECISION MAKING: The patient presents with generalized weakness, consider dehydration versus anemia. No recent chemotherapy. Patient's pain is in similar location to chronic pain. No signs or symptoms of pneumothorax or acute intra-abdominal process. ER COURSE: The patient was given IV fluids, multiple doses of pain medication with a generally gradual improvement of her pain control. Her hemoglobin is stable and reassuring. The patient's white count of 12 is nonspecific and likely secondary to pain response. No fever no signs of infection. I was able to speak to Dr. Rodríguez, on-call for Dr. Zuleta, the patient's managing oncologist. We discussed the case. The patient's creatinine is slightly elevated possibly consistent with dehydration. We discussed the risk benefits and alternatives of inpatient versus outpatient management. The patient has preference to go home. Dr. Rodríguez agrees. The patient was given fluids, multiple doses of pain medication will be discharged from the emergency room with close oncology follow-up. I kept the patient and/or family informed of laboratory and diagnostic imaging results throughout the emergency room course. DISPOSITION PLAN: We discussed follow up with the patient's primary care doctor within 24 to 48 hours as needed. We also discussed return to the emergency room for worsening symptoms or worsening condition. Outpatient referral: [None required] Departure Diagnosis: Primary Impression: Breast cancer Breast location: unspecified site of breast Patient sex: female Laterality : bilateral Qualified Code: C50.911 - Bilateral malignant neoplasm of breast in female, unspecified site of breast Additional Impressions: Myalgia Acute renal insufficiency Mild dehydration Condition: Stable Patient Instructions: Dehydration (6Y-Adult) Additional Instructions: Call your primary care doctor TOMORROW for an appointment during the next 1 WEEK.Tell the police department secretary that you were referred from this facility.See the doctor sooner or return here if your condition worsens before your appointment time. SUHAIL VILLEGAS MD March 19, 2017 22:36
== END 2017-03-19 23:03 | disposition home or self-care (01) ==
LOC: E/R 17:29
DX: C50.911 Malignant neoplasm of unspecified site of right female breast (principal); M79.1 Myalgia; N28.9 Disorder of kidney and ureter, unspecified; E86.0 Dehydration
CPT/HCPCS: 36415; 80048; 83540; 83735; 84100; 85025; 85610; 85730; 96374; 96375; 96376; 99285; J1170; J2405; J7030

== ENCOUNTER 2017-03-26 16:06 | Inpatient (IN) | payer BC ==
[~2017-03-26] VITALS: Ht 172.7 cm; Wt 70.7 kg
[~2017-03-26 16:06] MED LIST changes: -CEPH500C PO; +DULO60CA59 PO; +EXEM25TA PO; +IND50 PO; +PROM25TA14 PO; +SPIR50TA PO; +ZOLP10TA5 PO
--- NOTE | 2017-03-26 16:58 | ERA ---
ER Documentation Chief Complaint Date/Time DATE: 03/26/17 TIME: 16:58 Chief Complaint VOMITING, DIZZY, WEAKNESS HPI The patient is 51-year-old female, presenting with vomiting, dizziness, weakness for the last 2 days. The emesis is nonbloody, nonbilious. She complains of right-sided abdominal pain intermittently for the last 2 days, associated with vomiting. She has not had any chemotherapy for the last 6 weeks. She denies fever, chills, neck pain, chest pain, dysuria, diarrhea. She does not smoke or drink Past medical history: Anemia, history of right breast metastatic cancer, chronic low back pain, ADHD, depression Past surgical history: Bilateral mastectomy, splenectomy, appendectomy ROS All systems reviewed and are negative except as per history of present illness. Medications Home Meds Reported Medications Duloxetine Hcl* (Duloxetine Hcl*) 60 Mg Capsule.dr, 60 MG PO BID, #30 CAP 03/19/17 Exemestane* (Exemestane*) 25 Mg Tablet, 25 MG PO, TAB 03/19/17 Zolpidem Tartrate* (Zolpidem Tartrate*) 10 Mg Tablet, 10 MG PO QHS Y for INSOMNIA, #30 TAB 03/19/17 Indomethacin* (Indocin*) 50 Mg Cap, 50 MG PO BID, CAP 03/19/17 Spironolactone* (Aldactone*) 50 Mg Tablet, 50 MG PO TID, #30 TAB 03/19/17 Promethazine Hcl* (Phenergan*) 25 Mg Tablet, 25 MG PO Q6H Y for PAIN, TAB 03/19/17 Vitamin B Complex (Vitamin B Complex) 1 Each Capsule, 1 EACH PO QHS, CAP 02/16/17 Ascorbic Acid (Vitamin C) 500 Mg Tab, 1000 MG PO DAILY, TAB 02/16/17 Prochlorperazine* (Prochlorperazine*) 10 Mg Tablet, 10 MG PO QID Y for NAUSEA, TAB 02/16/17 Ranitidine Hcl* (Ranitidine Hcl*) 150 Mg Tablet, 150 MG PO TID, #90 TAB 02/16/17 Tapentadol Hcl (Nucynta) 100 Mg Tablet, 50 MG PO BID, TAB 02/16/17 Gabapentin* (Gabapentin*) 100 Mg Capsule, 100 MG PO Q4, #120 CAP 02/16/17 Furosemide* (Furosemide*) 40 Mg Tablet, 80 MG PO DAILY, TAB 02/16/17 Amphet Ppe-Colvkv-S-Amphet (Adderall) 10 Mg Tablet, 10 MG PO TID, TAB 02/16/17 Baclofen* (Baclofen*) 10 Mg Tablet, 10 MG PO QID, TAB 02/16/17 Hydromorphone Hcl* (Dilaudid*) 4 Mg Tablet, 4 MG PO Q6, TAB 02/16/17 Morphine Sulfate* (Ms Contin*) 15 Mg Tablet.sa, 15 MG PO TID, TAB.SA 02/16/17 Hydrocodone/Acetaminophen (Lincoln 10-325 Tablet) 1 Each Tablet, 1 EACH PO Q3H, TAB 02/16/17 Discontinued Scripts Cephalexin* (Cephalexin*) 500 Mg Capsule, 500 MG PO QID for 7 Days, #28 CAP Prov:OZ FULLER S. 03/02/17 Allergies Allergies: Coded Allergies: Penicillins (Verified Allergy, Unknown, RASH, SWOLLEN, HARD TIME BREATHING , 03/26/17) PMhx/Soc History of Surgery: Yes (Bilat mastectomy 2011, hip sx 1994, appy, splenectomy 1983) Anesthesia Reaction: No Hx Neurological Disorder: No Hx Respiratory Disorders: No Hx Cardiac Disorders: No Hx Psychiatric Problems: No Hx Alcohol Use: No Hx Substance Use: No Hx Tobacco Use: No Physical Exam Vitals Vital Signs Date Time Temp Pulse Resp B/P Pulse Ox O2 Delivery O2 Flow Rate FiO2 03/26/17 19:03 95 17 102/68 95 Room Air 03/26/17 16:17 98.7 109 18 117/64 97 Physical Exam Const: No acute distress. Head: Atraumatic. Eyes: Normal Conjunctiva. ENT: Normal External Ears, Nose and Mouth. Neck: Full range of motion. No meningismus. Resp: Clear to auscultation bilaterally. Cardio: Regular rate and rhythm, no murmurs. Abd: Soft, non distended, hypoactive bowel sounds, diffuse abdominal tenderness, no rigidity, rebound, CVA tenderness Skin: No petechiae or rashes. Back: No midline or flank tenderness. Ext: No cyanosis, or edema. Neur: Awake and alert. No focal deficit Psych: Normal Mood and Affect. Result Diagram: 03/26/17 1730 03/26/17 1730 Results 24 hrs Laboratory Tests Test 03/26/17 17:30 03/26/17 19:32 White Blood Count 6.810^3/ul Red Blood Count 3.9110^6/ul Hemoglobin 10.1g/dl Hematocrit 32.9% Mean Corpuscular Volume 84.1fl Mean Corpuscular Hemoglobin 25.8pg Mean Corpuscular Hemoglobin Concent 30.7g/dl Red Cell Distribution Width 19.8% Platelet Count 01529^3/UL Mean Platelet Volume 11.9fl Neutrophils % 36.0% Band Neutrophils % 27.0% Lymphocytes % 26.0% Monocytes % 8.0% Eosinophils % 2.0% Basophils % 1.0% Neutrophils # 2.410^3/ul Lymphocytes # 1.810^3/ul Monocytes # 0.510^3/ul Eosinophils # 0.110^3/ul Basophils # 0.110^3/ul Sodium Level 136mmol/L Potassium Level 4.7mmol/L Chloride Level 96mmol/L Carbon Dioxide Level 25mmol/L Anion Gap 20 Blood Urea Nitrogen 73mg/dl Creatinine 1.59mg/dl Glucose Level 147mg/dl Calcium Level 9.7mg/dl Total Bilirubin 0.2mg/dl Direct Bilirubin 0.00mg/dl Indirect Bilirubin 0.2mg/dl Aspartate Amino Transf (AST/SGOT) 41IU/L Alanine Aminotransferase (ALT/SGPT) 41IU/L Alkaline Phosphatase 136IU/L Total Protein 8.8g/dl Albumin 4.5g/dl Globulin 4.30g/dl Albumin/Globulin Ratio 1.04 Lipase 93U/L Bedside Urine pH (LAB) 5.0 Bedside Urine Protein (LAB) Negative Bedside Urine Glucose (UA) Negative Bedside Urine Ketones (LAB) Negative Bedside Urine Blood Negative Bedside Urine Nitrite (LAB) Negative Bedside Urine Leukocyte Esterase (L Negative Current Medications Medications (Trade) Dose Ordered Sig/Julio Route PRN Reason Start Time Stop Time Status Last Admin Dose Admin Hydromorphone HCl (Dilaudid) 1 mg ONCE STAT IV 03/26/17 17:09 03/26/17 17:10 DC 03/26/17 17:36 Ondansetron HCl (Zofran Inj) 4 mg ONCE STAT IV 03/26/17 17:09 03/26/17 17:10 DC 03/26/17 17:36 Hydromorphone HCl 1 mg 1 mg ONCE STAT IV 03/26/17 18:21 03/26/17 18:22 DC Ciprofloxacin/ Dextrose 200 ml @ 200 mls/hr ONCE ONCE IVPB 03/26/17 21:00 03/26/17 21:59 Metronidazole (Flagyl 500 Mg (Pmx)) 100 ml @ 100 mls/hr ONCE ONCE IVPB 03/26/17 21:00 03/26/17 21:59 Procedures/[place] [id number] Radiology Main Line: [phone] DIAGNOSTIC IMAGING REPORT Patient: JAZMINE ALTMAN : 1965 Age: 51 Sex: F MR #: [id number] DOS: 03/26/17 1709 Ordering MD: MEÑO NICKERSON MD Location: E/R Room/Bed: PROCEDURE: CT Abdomen and Pelvis without contrast. CLINICAL INDICATION: Pain. History breast cancer. Known bony metastatic disease. TECHNIQUE: CT scan of the abdomen and pelvis was performed on a multidetector slice CT scanner. No intravenous contrast material was utilized. Sagittal and coronal reformatted images were obtained from the axial source images. Images were reviewed on a high-resolution PACS workstation. Exam CTDlvol = mGy and DLP = Gy-cm. One of the following 3 dose reduction techniques were used: Automated exposure control; adjustment of the mA and/or kV according to patient size; or use of iterative reconstruction technique. COMPARISON: CT chest 02/16/2017. FINDINGS: There are multiple air-fluid levels within mildly dilated small bowel. There is asymmetric dilatation of the small bowel. The right colon is fluid-filled and top normal caliber. Meter colon is normal caliber with moderate stool. The appendix is not identified. There is no secondary evidence for diverticulitis. There is a small amount of free fluid. There are multiple scattered predominately sub centimeter mesenteric lymph nodes greatest in the abdomen. The liver is overall normal in size. No intrahepatic lesions are identified. The gallbladder is normal in appearance. There is no definite biliary ductal dilation. Pancreas is normal in appearance. Spleen is absent. Left upper quadrant surgical clips are present.. There are no adrenal masses. The aorta is normal caliber. There are minimal atherosclerotic vascular calcifications. Kidneys are normal in appearance without hydronephrosis, mass or calculus. There is no perinephric collection. Ureters are of normal caliber and without evidence for an obstructing calculus The urinary bladder is normal in appearance. The uterus is unremarkable. Ovaries are not well characterized. Limited evaluation of the lung bases demonstrates bilateral breast implants. There is a lung cyst in the left lower lobe. Heart is mildly enlarged. There is small amount of pericardial fluid. There is an old incompletely healed fractures of the lateral aspect of the left eighth and medial left ninth ribs. There are multiple osseous lesions suspicious for metastatic disease including mixed sclerotic and lytic lesions involving the lower thoracic spine and, lumbar spine, greatest involving the L5 vertebral body, inferior aspect of the left scapula and bilateral iliac wings. There are extensive changes consistent with metastatic disease involving the right acetabulum. There are bilateral proximal femoral head and neck screws. IMPRESSION: 1. Asymmetric diffuse mild small bowel dilatation with air-fluid levels. Fluid -filled top normal caliber right colon. Findings are suspicious for either a distal small bowel obstruction or predominance small bowel ileus. Moderate retained stool in the left and sigmoid colon. 2. Small amount of free fluid greatest in the pelvis. 3. Appendix not identified. No evidence for appendicitis or diverticulitis. 4. Sub centimeter mesenteric lymphadenopathy. 5. Extensive skeletal mixed lytic and sclerotic lesions compatible with metastatic disease. Several left rib pathologic fractures are seen incompletely healed. Greatest degree involvement is in the right josiah pelvis including the acetabulum. There are Garland of vertebral body lesions without gross compression fracture. 6. Cardiomegaly. Small amount of pericardial fluid. 7. Small left lower lobe lung cyst. 8. Bilateral breast implants. RPTAT: HMVK .Meño Lancaster MD, MD Date Time Electronically viewed and signed by .Meño Lancaster MD, on 03/26/2017 20:27 .K/ CC: MEÑO NICKERSON MD MEDICAL MAKING DECISION: The patient is a 51-year-old female, presenting with acute small bowel obstruction, acute kidney injury. She was treated with Dilaudid 1 milligram IV 2 for pain, Zofran 4 mg IV 2 for nausea, Pérez catheter for acute kidney injury, NG tube, Cipro, Flagyl IV for acute small bowel obstruction and 1 L normal saline for acute dehydration The differential diagnoses considered include but are not limited to cholelithiasis, cholecystitis, cystitis, pancreatitis, hepatitis, gastritis, peptic ulcer disease, gastric ulcer, appendicitis, diverticulitis, cholangitis, choledocholithiasis, partial small bowel obstruction. Consultation: I discussed the patient with the on-call general surgeon Dr. Stringer at 8:45 PM. He was made aware of the lab, the treatment, the patient condition; he accepted the consult Critical Care: Time: 35 minutes excluding all billable procedures. Treatments/Evaluations: Close monitoring and treatment of unstable vital signs, cardiorespiratory, and neurologic status, while maintaining tight balance of fluid, respiratory, and cardiac interventions. Departure Diagnosis: Primary Impression: Small bowel obstruction Additional Impressions: Acute kidney injury Anemia Condition: Stable Comments I discussed the findings with the patient. I discussed the patient with the hospitalist Dr. Vallecillo who was made aware of the lab, the treatment, the patient condition and my discussion with the general surgeon. The patient is admitted to medical surgery bed at 9 pm MEÑO NICKERSON MD March 26, 2017 16:58
[2017-03-26] MEDS ORDERED: HYDROmorphONE 1 MG/ML SYG IV STA ×2 (17:09→18:21)
[2017-03-26] MEDS ORDERED: ONDANSETRON 4 MG INJ IV STA (17:09)
[2017-03-26 17:40] LABS: ADD SCAN DIFF NO
[2017-03-26 17:42] LABS: HEMATOCRIT 32.9 % (37.0-47.0); HEMOGLOBIN 10.1 g/dl (12.0-16.0); MEAN CORPUSCULAR HEMOGLOBIN 25.8 pg (29.0-33.0); MEAN CORPUSCULAR HGB CONC 30.7 g/dl (32.0-37.0); MEAN CORPUSCULAR VOLUME 84.1 fl (82.0-101.0); MEAN PLATELET VOLUME 11.9 fl (7.4-10.4); PLATELET COUNT 520 10^3/UL (140-415); RED BLOOD COUNT 3.91 10^6/ul (4.20-5.40); RED CELL DISTRIBUTION WIDTH 19.8 % (11.5-14.5); WHITE BLOOD COUNT 6.8 10^3/ul (4.8-10.8)
[2017-03-26 18:09] LABS: ALBUMIN 4.5 g/dl (3.3-4.9); ALBUMIN/GLOBULIN RATIO 1.04; BILIRUBIN,INDIRECT 0.2 mg/dl (0-1.1); BILIRUBIN,TOTAL 0.2 mg/dl (0.2-1.3); CALCIUM 9.7 mg/dl (8.4-10.2); CREATININE 1.59 mg/dl (0.44-1.00); POTASSIUM 4.7 mmol/L (3.5-5.1); TOTAL PROTEIN 8.8 g/dl (6.1-8.1)
[2017-03-26 19:05] LABS: BASOPHIL # 0.1 10^3/ul (0.0-0.1); EOSINOPHILS # 0.1 10^3/ul (0.0-0.5); LYMPHOCYTES # 1.8 10^3/ul (0.8-2.9); MONOCYTE # 0.5 10^3/ul (0.3-0.9); NEUTROPHIL # 2.4 10^3/ul (1.6-7.5)
[2017-03-26 19:30] LABS: URINE BLOOD (Dip) POC Negative (NEGATIVE)
--- NOTE | 2017-03-26 20:27 | RADRPT ---
PROCEDURE: CT Abdomen and Pelvis without contrast. CLINICAL INDICATION: Pain. History breast cancer. Known bony metastatic disease. TECHNIQUE: CT scan of the abdomen and pelvis was performed on a multidetector slice CT scanner. No intravenous contrast material was utilized. Sagittal and coronal reformatted images were obtained fr om the axial source images. Images were reviewed on a high-resolution PACS workstation. Exam CTDlvol = mGy and DLP = Gy-cm. One of the following 3 dose reduction techniques were used: Automated expo sure control; adjustment of the mA and/or kV according to patient size; or use of iterative reconstr uction technique. COMPARISON: CT chest 02/16/2017. FINDINGS: There are multiple air-fluid levels within mildly dilated small bowel. There is asymmetric dilatati on of the small bowel. The right colon is fluid-filled and top normal caliber. Meter colon is norm al caliber with moderate stool. The appendix is not identified. There is no secondary evidence for diverticulitis. There is a small amount of free fluid. There are multiple scattered predominately s ub centimeter mesenteric lymph nodes greatest in the abdomen. The liver is overall normal in size. No intrahepatic lesions are identified. The gallbladder is norm al in appearance. There is no definite biliary ductal dilation. Pancreas is normal in appearance. Sp jacob is absent. Left upper quadrant surgical clips are present.. There are no adrenal masses. The a yolette is normal caliber. There are minimal atherosclerotic vascular calcifications. Kidneys are normal in appearance without hydronephrosis, mass or calculus. There is no perinephric c ollection. Ureters are of normal caliber and without evidence for an obstructing calculus The urinar y bladder is normal in appearance. The uterus is unremarkable. Ovaries are not well characterized. Limited evaluation of the lung bases demonstrates bilateral breast implants. There is a lung cyst i n the left lower lobe. Heart is mildly enlarged. There is small amount of pericardial fluid. There is an old incompletely healed fractures of the lateral aspect of the left eighth and medial le ft ninth ribs. There are multiple osseous lesions suspicious for metastatic disease including mixed sclerotic and lytic lesions involving the lower thoracic spine and, lumbar spine, greatest involvin g the L5 vertebral body, inferior aspect of the left scapula and bilateral iliac wings. There are e xtensive changes consistent with metastatic disease involving the right acetabulum. There are bilat eral proximal femoral head and neck screws. IMPRESSION: 1. Asymmetric diffuse mild small bowel dilatation with air-fluid levels. Fluid-filled top normal c aliber right colon. Findings are suspicious for either a distal small bowel obstruction or predomin ance small bowel ileus. Moderate retained stool in the left and sigmoid colon. 2. Small amount of free fluid greatest in the pelvis. 3. Appendix not identified. No evidence for appendicitis or diverticulitis. 4. Sub centimeter mesenteric lymphadenopathy. 5. Extensive skeletal mixed lytic and sclerotic lesions compatible with metastatic disease. Severa l left rib pathologic fractures are seen incompletely healed. Greatest degree involvement is in the right josiah pelvis including the acetabulum. There are Garland of vertebral body lesions without gita ss compression fracture. 6. Cardiomegaly. Small amount of pericardial fluid. 7. Small left lower lobe lung cyst. 8. Bilateral breast implants. RPTAT: HMVK .Meño Lancaster MD, Date Time Electronically viewed and signed by .Meño Lancaster MD, on 03/26/2017 20:27 .K/
[2017-03-26] MEDS ORDERED: CIPROFLOXACIN 400MG/D5W 200 ML IVPB ONE (21:00)
[2017-03-26] MEDS ORDERED: metroNIDAZOLE 500 MG/NS (PMX) 100 ML IVPB ONE (21:00)
[2017-03-26] MEDS ORDERED: SOD CHLORIDE 0.9% 1,000 ML IV ONE (21:30)
[2017-03-26 23:37] VITALS: Ht 172.7 cm; Wt 70.7 kg
[2017-03-26 23:48] VITALS: BP 109/59; PULSE 100; RESP 20
[2017-03-27] MEDS ORDERED: morphine 10 MG INJ IM PRN
[2017-03-27] MEDS ORDERED: LORAZEPAM 2 MG INJ IM PRN
[2017-03-27] MEDS ORDERED: LORAZEPAM 0.5 MG TAB SL PRN (00:30)
--- NOTE | 2017-03-27 04:30 | CONS ---
DATE OF ADMISSION: 03/26/2017 DATE OF CONSULTATION: 03/26/2017 TYPE OF CONSULTATION: Surgical. REASON FOR CONSULTATION: Small bowel obstruction. HISTORY OF PRESENT ILLNESS: The patient is a 51-year-old female who is 8 years status post bilatera l mastectomies with reconstruction. She has a diagnosis of metastatic breast carcinoma. 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 She p resents to the emergency room with a 2-week history of increasing abdominal pain and nausea despite the fact that she has had bowel movements daily. She has had several episodes of emeses. A CT scan here suggests metastatic disease as well as possible bowel obstruction. The patient is admitted, a nd surgical consultation was requested in that regard. PAST MEDICAL HISTORY: As noted above. REVIEW OF SYSTEMS: HEAD, EARS, EYES, NOSE, AND THROAT: Unremarkable. PULMONARY: No history of pneumonia or shortness of breath. CARDIAC: No history of chest pain, NC, or arrhythmia. MEDICATIONS: Outlined in the chart. ALLERGIES: NONE. PHYSICAL EXAMINATION: GENERAL: The patient is an alert, oriented 51-year-old female in no acute distress. HEAD, EARS, EYES, NOSE, AND THROAT: Within normal limits. LUNGS: Clear. HEART: Regular rhythm. ABDOMEN: Slightly distended. There is a well healed vertical midline scar without masses or hernia s. EXTREMITIES: Unremarkable. LABORATORY DATA: The patient's hematocrit is 32.9 with a white count of 6800. BUN, glucose, electr olytes are unremarkable. CT as noted above. PLAN: We will arrange for small bowel follow through in the morning. Further recommendations for t his patient will depend on the results of her further workup and clinical course. Dictated By: LOULOU BARBER MD AR/NTS Conf#: [id number] DID#: [id number] CC: KASH LAWSON MD;*EndCC*
--- NOTE | 2017-03-27 06:18 | HP ---
Date/Time of Note Date/Time of Note DATE: 03/27/17 TIME: 05:56 Assessment/Plan VTE Prophylaxis VTE Prophylaxis Intervention: SCD's Assessment/Plan Assessment/Plan 1. Probable Small Bowel obstruction vs Ileus - NPO with IV fluid - Seen by on-call Surgeon with plan for small bowel follow through - Pain meds and anti-emetics as needed - pt has refused NG tube placement - Dulcolax suppository givem moderate retained stool. 2. History of breast cancer with bony metastasis, s/p double mastectomy and chemo, last chemo about 2 months ago - Consult Oncology 3. Chronic Pain of Malignancy - Pain mgmt 4. Hx of Depression - cont med when no longer NPO 5. Anemia of Chronic disease - monitor h/h. transfuse as needed 6. JUDSON - cont IVF - Nephrology consult - renal u/s as needed 7. Several left rib pathologic fractures - cont pain mgmt HPI/ROS Admit Date/Time Admit Date/Time March 26, 2017 at 21:00 Hx of Present Illness The patient is a 51-year-old female with a history of breast cancer with bony metastasis, status post double mastectomy and chemo, last chemo about 2 months ago, lymphoma, splenectomy, depression, chronic back pain, ADHD. The patient presented with a complaint of dizziness, abd pain, vomiting, generalized body pain and weakness. Patient has been admitted here a few times recently for lower ext cellulitis. In ER, CT abd/pelvis showed suspicious for either a distal small bowel obstruction or predominance small bowel ileus. Moderate retained stool in the left and sigmoid colon. Extensive skeletal mixed lytic and sclerotic lesions compatible with metastatic disease. Several left rib pathologic fractures are seen incompletely healed. Greatest degree involvement is in the right josiah pelvis including the acetabulum. Vertebral body lesions without gross compression fracture. Patient has refused NG tube placement. She has already been seen by on-call Surgeon with plan for small bowel follow through. . PMH/Family/Social Past Medical History Medical History: other (Breast cancer, Depression) Past Surgical History Past Surgical Hx: endoscopy, other Social History Smoking Status: Never smoker Exam/Review of Systems Vital Signs Vitals Vital Signs Date Time Temp Pulse Resp B/P Pulse Ox O2 Delivery O2 Flow Rate FiO2 03/26/17 23:48 98.5 100 20 109/59 96 Room Air Exam Exam GENERAL: sleepy, but arousable, answering questions appropriately and she is alert and oriented. Appears depressed HEENT: No obvious head deformity. Pupils react to light. Extraocular movements intact. CARDIOVASCULAR: RRR CHEST: Her lungs are clear to auscultation. tenderness on palpation of left sided ribs ABDOMEN: Soft, nontender, nondistended. Positive bowel sounds. EXTREMITIES: no edema. cellulitis from recent hospitalizations has resolved Labs Result Diagram: 03/26/17172903/26/171729 Medications Medications Current Medications Morphine Sulfate (morphine) 3 mg Q4H PRN IM PAIN; Start 03/27/17 at 00:00 Lorazepam (Ativan) 1 mg Q3 PRN IM SLEEP; Start 03/27/17 at 00:00 Lorazepam (Ativan) 0.5 mg Q4 PRN SL ANXIETY; Start 03/27/17 at 00:30 VANDA CARVER MD March 27, 2017 06:12
[2017-03-27] MEDS ORDERED: HYDROmorphONE 1 MG/ML SYG IM PRN (08:30)
[2017-03-27 09:06] VITALS: BP 101/51; RESP 20
[2017-03-27] MEDS ORDERED: ONDANSETRON (1 MG/1.25 ML PO SYG) PO PRN ×2 (09:30→17:30)
--- NOTE | 2017-03-27 09:41 | PN ---
DATE: 03/27/2017 The patient has had crampy abdominal pain all night long. She has not had bowel function, although she states that she is hungry. Her abdominal examination is relatively unremarkable. PLAN: We are awaiting a small bowel follow-through. Oncologic followup on this patient should be o btained. Further recommendations will depend on the patient's further workup and clinical course. I will follow with you. Dictated By: LOULOU LEONE/EBENEZER Conf#: [id number] DID#: [id number]
[2017-03-27] MEDS ORDERED: HYDROmorphONE 1 MG/ML SYG IV PRN (11:00)
[2017-03-27] MEDS ORDERED: HYDROmorphONE 1 MG/ML SYG IM STA (11:18)
[2017-03-27] MEDS ORDERED: DIATR MEGLU/DIATRIZOATE SODIUM 120 ML BTL ONE (11:32)
[2017-03-27] MEDS ORDERED: LIDOCAINE 1% (MPF) 5 ML VIAL SC ONE (12:30)
--- NOTE | 2017-03-27 13:54 | RADRPT ---
PROCEDURE: XR Chest. CLINICAL INDICATION: Check PICC line position. TECHNIQUE: Single frontal view. COMPARISON: 02/27/2017. FINDINGS: There is a left arm PICC line with the tip in the lower superior vena cava. The lungs are clear. The heart size is normal. There are bilateral breast implants. There is no pleural effusion. There is no pneumothorax. IMPRESSION: 1. Satisfactory position of left arm PICC line. 2. Otherwise unremarkable chest radiograph. RPTAT: QQ .Liu Pinedo MD, MD Date Time Electronically viewed and signed by .Liu Pinedo MD, MD on 03/27/2017 13:53 .R/
--- NOTE | 2017-03-27 14:24 | CONS ---
Date/Time of Note Date/Time of Note DATE: 03/27/17 TIME: 14:05 Assessment/Plan Assessment/Plan Chief Complaint/Hosp Course Ms. Schwartz is a 49-year-old female with ER/NE/ HER2+ positive, metastatic breast cancer to the bones who now presents with evidence of small bowel obstruction. # Her 2+ / ER+ metastatic breast cancer to bones - per CT there is subcentimeter mesenteric lymphadenopathy which may represent disease. -pt should follow up in our clinic to start the treatment regimen outlined before which would include Herceptin/ Perjeta/ Eamestane and Lupron. Pt would have to continue Xgeva as well for her bone mets -Pt states she wants another opinion from the [facility] before she starts any treatment with me. -any treatment could only start after patient after her acute issues have resolved # SBO -management per surgery -follow up small bowel follow through # Anemia - likely secondary to chronic disease as well as iron deficiency. Pt has required IV iron in the past -will check iron studies -Ferrlecit for 3 days has been ordered Thank you for allowing me to participate in this patients care. 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 At that time, she had a staging laparoscopy and a splenectomy, which was followed by chemotherapy and radiation therapy. 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 The patient then in 2011 was diagnosed with ER/NE positive, HER-2 negative breast cancer of the right breast. The patient had a modified radical mastectomy and a left prophylactic mastectomy with reconstruction and tissue expanders followed by implant. The mastectomy was on 06/30/2012, the tumor was a well-differentiated, 3.3 cm with 5 out of 7 lymph nodes positive. She was thus diagnosed with stage IIIA, ER/NE positive, HER-2 negative disease. The patient refused chemotherapy, but she received tamoxifen for about 2-3 years. The patient was then diagnosed with recurrence in the bones in February of 2015. AT that time patient had a biopsy of her hip that revealed ER+/NE+/Her2+ disease. It was, at that time, that the patient was told to start chemotherapy, but again because she refused. The patient was thus started on exemestane, Xgeva , and Lupron given that she was premenopausal. Ms Schwartz saw me in clinic on 03/12/17. Given her ER+/Her2+ metastatic breast cancer to the bones it was decided to start her on Lupron/ Exemestane/ Perjeta and Herceptin. Of note patient still refuses chemotherapy although this was recommended. Pt now presents to [facility] with abdominal pain nausea and lethargy. Ct A/P was done which reveals Asymmetric diffuse mild small bowel dilatation with air-fluid levels concerning for small bowel obstruction. It also demonstrated sub centimeter mesenteric lymphadenopathy.Pt is currently awaiting a small bowel follow through. Constitutional: other (abdomonal and back pain) Eyes: no complaints ENT: no complaints Respiratory: no complaints Cardiovascular: no complaints Gastrointestinal: decreased appetite, nausea, pain Genitourinary: no complaints Musculoskeletal: back pain, bone/joint pain Skin: no complaints Neurologic: no complaints Endocrine: no complaints Past Medical History back fracture in 1997 Medical History: other (Breast cancer, Depression) Past Surgical History Past Surgical Hx: endoscopy, other Family History Significant Family History: other (Her grandmother and father both had cancer.) Social History No history of tobacco, alcohol, or drug abuse. Alcohol Use: none Smoking Status: Never smoker Drug Use: none Exam/Review of Systems Vital Signs Vitals Vital Signs Date Time Temp Pulse Resp B/P Pulse Ox O2 Delivery O2 Flow Rate FiO2 03/27/17 09:06 99.0 18 20 101/51 93 03/26/17 23:48 Room Air Exam Constitutional: alert, distress, oriented Psych: anxiety, depression Head: normocephalic Eyes: nl conjunctiva ENMT: nl external ears & nose Neck: non-tender, supple Respiratory: clear to auscultation, normal air movement Cardiovascular: nl pulses, regular rate and rhythm Gastrointestinal: soft Musculoskeletal: nl extremities to inspection, nl gait and stance Neurological: PAID INTERN II-XII intact Results Result Diagram: 03/26/17 1730 03/26/17 1730 Results 24 hrs Laboratory Tests Test 03/26/17 17:30 03/26/17 19:32 White Blood Count 6.8 # Red Blood Count 3.91 L Hemoglobin 10.1 L Hematocrit 32.9 L Mean Corpuscular Volume 84.1 Mean Corpuscular Hemoglobin 25.8 L Mean Corpuscular Hemoglobin Concent 30.7 L Red Cell Distribution Width 19.8 H Platelet Count 520 H Mean Platelet Volume 11.9 H Neutrophils % 36.0 L Band Neutrophils % 27.0 H Lymphocytes % 26.0 Monocytes % 8.0 Eosinophils % 2.0 Basophils % 1.0 Neutrophils # 2.4 Lymphocytes # 1.8 Monocytes # 0.5 Eosinophils # 0.1 Basophils # 0.1 Sodium Level 136 Potassium Level 4.7 Chloride Level 96 L Carbon Dioxide Level 25 Anion Gap 20 H Blood Urea Nitrogen 73 H Creatinine 1.59 H Glucose Level 147 Calcium Level 9.7 Total Bilirubin 0.2 Direct Bilirubin 0.00 Indirect Bilirubin 0.2 Aspartate Amino Transf (AST/SGOT) 41 Alanine Aminotransferase (ALT/SGPT) 41 Alkaline Phosphatase 136 H Total Protein 8.8 H Albumin 4.5 Globulin 4.30 H Albumin/Globulin Ratio 1.04 Lipase 93 Bedside Urine pH (LAB) 5.0 Bedside Urine Protein (LAB) Negative Bedside Urine Glucose (UA) Negative Bedside Urine Ketones (LAB) Negative Bedside Urine Blood Negative Bedside Urine Nitrite (LAB) Negative Bedside Urine Leukocyte Esterase (L Negative Medications Medications Current Medications Morphine Sulfate (morphine) 3 mg Q4H PRN IM PAIN; Start 03/27/17 at 00:00 Lorazepam (Ativan) 1 mg Q3 PRN IM SLEEP; Start 03/27/17 at 00:00 Lorazepam (Ativan) 0.5 mg Q4 PRN SL ANXIETY; Start 03/27/17 at 00:30 Hydromorphone HCl (Dilaudid) 0.5 mg Q3H PRN IM PAIN LEVEL 4-7 Last administered on 03/27/17 09:32; Admin Dose 0.5 MG; Start 03/27/17 at 08:30 Ondansetron HCl 4 mg 4 mg Q4H PRN PO NAUSEA AND/OR VOMITING Last administered on 03/27/17 09:30; Admin Dose 4 MG; Start 03/27/17 at 09:30 Ferric Sodium Gluconate Complex/ Sodium Chloride (Ferrlecit/NS) 110 ml @ 100 mls/hr Q24H IVPB ; Start 03/27/17 at 10:30; Stop 03/29/17 at 11:35 Hydromorphone HCl (Dilaudid) 2 mg Q2H PRN IV PAIN; Start 03/27/17 at 13:00 KASH LAWSON M.D. March 27, 2017 14:16
[2017-03-27] MEDS: SOD FERRIC GLUC COMPLX 125 MG in SOD CHLORIDE 0.9% 100 ML IVPB SCH (16:55)
[2017-03-27] MEDS: HYDROmorphONE 1 MG/ML SYG IV PRN ×2 (17:28→20:33)
--- NOTE | 2017-03-27 17:35 | RADRPT ---
PROCEDURE: Small bowel follow-through CLINICAL INDICATION: Abdominal pain. Abnormal CT showing small bowel obstruction pattern TECHNIQUE: A single AP supine binder stripper machine image of the abdomen is performed. Subsequently, a nasogastric tube is placed and through the tube contrast media is instilled. Images of the abdomen are obtaine d at 5 minutes, 15 minutes, 30 minutes, 45 minutes, 60 minutes and 120 minutes after contrast admini stration COMPARISON: CT abdomen and pelvis 03/26/2017 FINDINGS: Log Cutter film: Some gaseous distension of small bowel loops in the left upper quadrant are demonstrate d with gas seen in the region of the rectum. 5-minute image: A nasogastric tube is been placed in the interval, the distal tip curled within the gastric fundus. Contrast media is only in the stomach fundus on this image. 15-minute image: Contrast media seen within the stomach which is normal in caliber as well as the e ntire duodenum also unremarkable for dilatation or filling defect. 30 minutes: Contrast media is within most of the jejunum which is top normal in caliber but shows n o filling defect or significant dilatation to suggest complete obstruction. 60 minutes: Contrast media seen throughout the majority of the ileum which is top normal in caliber concerning for an ileus without complete obstruction. 120 minutes: Contrast media seen within the colon and has reached the splenic flexure, no complete obstruction is present. RPTAT:HJJR IMPRESSION: Pattern consistent with a mild ileus predominately of the jejunum and ileum without complete bowel o bstruction, contrast media reaching the colon 2 hours after administration through the nasogastric t ube. Physician Collin Date Time Electronically viewed and signed by Physician Collin on 03/27/2017 17:35 /
[2017-03-27 17:43] LABS: IRON 22 ug/dl (35-150)
[2017-03-27 17:52] LABS: TOTAL IRON BINDING CAPACITY 248 ug/dl (241-421)
[2017-03-27] MEDS ORDERED: OXYCODONE/ACETAMINOPHEN (10/325) TAB PO PRN ×2 (18:30)
[2017-03-27 20:05] VITALS: BP 114/63; RESP 18
[2017-03-28] MEDS ORDERED: ONDANSETRON 4 MG TAB PO PRN (00:42)
[2017-03-28] MEDS: ONDANSETRON 4 MG INJ IV PRN ×5 (00:52→23:22)
[2017-03-28] MEDS: HYDROmorphONE 1 MG/ML SYG IV PRN ×8 (00:56→23:25)
[2017-03-28] MEDS ORDERED: ZOLPIDEM 5 MG TAB PO PRN ×2 (01:00→17:00)
[2017-03-28] MEDS: ZOLPIDEM 5 MG TAB PO PRN ×2 (01:47→23:22)
[2017-03-28 07:57] VITALS: BP 129/60; RESP 20
[2017-03-28] MEDS ORDERED: METOCLOPRAMIDE 10 MG INJ IV PRN ×2 (08:30→17:00)
--- NOTE | 2017-03-28 09:06 | CONS ---
Date/Time of Note Date/Time of Note DATE: 03/28/17 TIME: 09:03 Assessment/Plan Assessment/Plan Chief Complaint/Hosp Course Ms. Schwartz is a 49-year-old female with ER/VA/ HER2+ positive, metastatic breast cancer to the bones who now presents with evidence of small bowel obstruction. # Her 2+ / ER+ metastatic breast cancer to bones - per CT there is subcentimeter mesenteric lymphadenopathy which may represent disease. -pt should follow up in our clinic to start the treatment regimen outlined before which would include Herceptin/ Perjeta/ Eamestane and Lupron. Pt would have to continue Xgeva as well for her bone mets -Pt states she wants another opinion from the [facility] before she starts any treatment with me. -any treatment could only start after patient after her acute issues have resolved # SBO -management per surgery -small bowel follow showed evidence of ileus but not evidence of complete obstruction -as an outpatient may add reglan once her sx of SBO have completely resolved # Anemia - likely secondary to chronic disease as well as iron deficiency. Pt has required IV iron in the past -iron saturation low at 9% -Ferrlecit for 3 days has been ordered Thank you for allowing me to participate in this patients care. Problems: Consultation Date/Type/Reason Admit Date/Time March 26, 2017 at 21:00 Initial Consult Date 03/27/17 Type of Consultation: oncology Reason for Consultation metastatic breast cancer Referring Provider: VANDA CARVER MD 24 HR Interval Summary Free Text/Dictation pt has her small bowel follow through done which revealed evidence of ileus but not a complete obstruction. Pt says her symptoms of nausea and abdominal pain have improved. Exam/Review of Systems Vital Signs Vitals Vital Signs Date Time Temp Pulse Resp B/P Pulse Ox O2 Delivery O2 Flow Rate FiO2 03/28/17 07:57 98.2 95 20 129/60 99 03/26/17 23:48 Room Air Intake and Output 03/27/17 03/27/17 03/28/17 15:00 23:00 07:00 Intake Total 710 ml 320 ml Balance 710 ml 320 ml Exam Constitutional: alert, distress, frail Psych: anxiety, depression Head: normocephalic Eyes: nl conjunctiva ENMT: nl external ears & nose Neck: non-tender, supple Respiratory: clear to auscultation, normal air movement Cardiovascular: regular rate and rhythm Gastrointestinal: other (mild tenderness), soft Musculoskeletal: nl extremities to inspection, nl gait and stance Extremities: normal pulses Results Result Diagram: 03/26/17 1730 03/26/17 1730 Results 24 hrs Laboratory Tests Test 03/27/17 17:15 Iron Level 22 L Total Iron Binding Capacity 248 Percent Iron Saturation 9 L Ferritin 147.0 H Medications Medications Current Medications Morphine Sulfate (morphine) 3 mg Q4H PRN IM PAIN; Start 03/27/17 at 00:00 Lorazepam (Ativan) 1 mg Q3 PRN IM SLEEP; Start 03/27/17 at 00:00 Lorazepam (Ativan) 0.5 mg Q4 PRN SL ANXIETY; Start 03/27/17 at 00:30 Hydromorphone HCl 0.5 mg 0.5 mg Q3H PRN IM PAIN LEVEL 4-7 Last administered on 03/27/17 09:32; Admin Dose 0.5 MG; Start 03/27/17 at 08:30 Ferric Sodium Gluconate Complex/ Sodium Chloride (Ferrlecit/NS) 110 ml @ 100 mls/hr Q24H IVPB Last administered on 03/27/17 16:55; Admin Dose 100 MLS/HR; Start 03/27/17 at 10:30; Stop 03/29/17 at 11:35 Hydromorphone HCl (Dilaudid) 2 mg Q2H PRN IV PAIN Last administered on 08:27; Admin Dose 2 MG; Start 03/27/17 at 13:00 IV Flush (NS 10 ml) 10 ml PRN PRN IV IV PROTOCOL; Start 03/27/17 at 15:00 Ondansetron HCl (Zofran Tab) 4 mg Q4H PRN PO NAUSEA AND/OR VOMITING; Start 09/04 at 00:42 Ondansetron HCl (Zofran Inj) 4 mg Q4H PRN IV NAUSEA AND/OR VOMITING Last administered on 03/28/17 08:27; Admin Dose 4 MG; Start 03/28/17 at 01:00 Zolpidem Tartrate (Ambien) 10 mg HS PRN PO INSOMNIA Last administered on 01:47; Admin Dose 10 MG; Start 03/28/17 at 01:30 Metoclopramide HCl (Reglan) 10 mg Q6 PRN IV NAUSEA; Start 03/28/17 at 08:30 KASH LAWSON M.D. March 28, 2017 09:06
[2017-03-28 09:53] LABS: ADD SCAN DIFF NO
[2017-03-28 09:58] LABS: HEMATOCRIT 26.8 % (37.0-47.0); HEMOGLOBIN 8.7 g/dl (12.0-16.0); MEAN CORPUSCULAR HEMOGLOBIN 27.5 pg (29.0-33.0); MEAN CORPUSCULAR HGB CONC 32.5 g/dl (32.0-37.0); MEAN CORPUSCULAR VOLUME 84.8 fl (82.0-101.0); MEAN PLATELET VOLUME 11.7 fl (7.4-10.4); PLATELET COUNT 437 10^3/UL (140-415); RED BLOOD COUNT 3.16 10^6/ul (4.20-5.40); RED CELL DISTRIBUTION WIDTH 20.3 % (11.5-14.5); WHITE BLOOD COUNT 10.6 10^3/ul (4.8-10.8)
[2017-03-28 10:27] LABS: POTASSIUM 3.2 mmol/L (3.5-5.1)
[2017-03-28 10:30] LABS: CREATININE 0.66 mg/dl (0.44-1.00)
[2017-03-28 10:31] LABS: CALCIUM 7.9 mg/dl (8.4-10.2); PHOSPHORUS 1.3 mg/dl (2.5-4.9)
[2017-03-28] MEDS: SOD FERRIC GLUC COMPLX 125 MG in SOD CHLORIDE 0.9% 100 ML IVPB SCH (11:41)
[2017-03-28 11:43] LABS: EOSINOPHILS # 0.3 10^3/ul (0.0-0.5); HYPOCHROMASIA 1+; LYMPHOCYTES # 3.2 10^3/ul (0.8-2.9); MONOCYTE # 1.1 10^3/ul (0.3-0.9)
[2017-03-28 11:44] LABS: BURR CELLS 1+; SCHISTOCYTES 1+
--- NOTE | 2017-03-28 16:49 | PN ---
Date/Time of Note Date/Time of Note DATE: 03/28/17 TIME: 16:33 Assessment/Plan VTE Prophylaxis VTE Prophylaxis Intervention: SCD's Lines/Catheters Urinary Cath still in place: No Assessment/Plan Chief Complaint/Hosp Course 1. Ileus in the distal small bowel without complete bowel obstruction as noted on small bowel follow-through -Replete potassium and phosphorus as this may be the etiology of the ileus -Advance diet to soft and then regular -Surgery consultation appreciated -Continue Zofran and start Reglan as needed 2. History of breast cancer with bony metastasis, s/p double mastectomy and chemo, last chemo about 2 months ago -Oncology consultation appreciated -Resume home chemotherapy 3. Chronic Pain of Malignancy - Pain control 4. Hx of Depression -Resume home Cymbalta 5. Anemia of Chronic disease - monitor h/h. transfuse as needed 6. JUDSON secondary to dehydration-resolved 7. Several left rib pathologic fractures - cont pain mgmt Prophylaxis: SCDs Discharge planning: DC in a.m. if tolerating regular diet Problems: Subjective 24 Hr Interval Summary Constitutional: no complaints Exam/Review of Systems Vital Signs Vitals Vital Signs Date Time Temp Pulse Resp B/P Pulse Ox O2 Delivery O2 Flow Rate FiO2 03/28/17 07:57 98.2 95 20 129/60 99 03/26/17 23:48 Room Air Intake and Output 03/27/17 03/27/17 03/28/17 15:00 23:00 07:00 Intake Total 710 ml 320 ml Balance 710 ml 320 ml Exam Constitutional: alert, oriented Respiratory: clear to auscultation Cardiovascular: regular rate and rhythm Gastrointestinal: soft, No distended Musculoskeletal: nl extremities to inspection Results Result Diagram: 03/28/1727 03/28/1727 Results 24 hrs Laboratory Tests Test 03/27/17 17:15 03/28/17 09:27 Iron Level 22 L Total Iron Binding Capacity 248 Percent Iron Saturation 9 L Ferritin 147.0 H White Blood Count 10.6 # Red Blood Count 3.16 L Hemoglobin 8.7 L Hematocrit 26.8 L Mean Corpuscular Volume 84.8 Mean Corpuscular Hemoglobin 27.5 L Mean Corpuscular Hemoglobin Concent 32.5 Red Cell Distribution Width 20.3 H Platelet Count 437 H Mean Platelet Volume 11.7 H Neutrophils % 57.0 Lymphocytes % 30.0 Monocytes % 10.0 Eosinophils % 3.0 Neutrophils # 6.0 Lymphocytes # 3.2 H Monocytes # 1.1 H Eosinophils # 0.3 Hypochromasia 1+ Schistocytes 1+ Sodium Level 138 Potassium Level 3.2 L Chloride Level 102 Carbon Dioxide Level 23 Anion Gap 16 Blood Urea Nitrogen 13 # Creatinine 0.66 Glucose Level 138 Calcium Level 7.9 L Phosphorus Level 1.3 L Magnesium Level 3.0 H Medications Medications Current Medications Morphine Sulfate (morphine) 3 mg Q4H PRN IM PAIN; Start 03/27/17 at 00:00 Lorazepam (Ativan) 1 mg Q3 PRN IM SLEEP; Start 03/27/17 at 00:00 Lorazepam (Ativan) 0.5 mg Q4 PRN SL ANXIETY; Start 03/27/17 at 00:30 Hydromorphone HCl 0.5 mg 0.5 mg Q3H PRN IM PAIN LEVEL 4-7 Last administered on 03/27/17 09:32; Admin Dose 0.5 MG; Start 03/27/17 at 08:30 Ferric Sodium Gluconate Complex/ Sodium Chloride (Ferrlecit/NS) 110 ml @ 100 mls/hr Q24H IVPB Last administered on 03/28/17 11:41; Admin Dose 100 MLS/HR; Start 03/27/17 at 10:30; Stop 03/29/17 at 11:35 Hydromorphone HCl (Dilaudid) 2 mg Q2H PRN IV PAIN Last administered on 16:19; Admin Dose 2 MG; Start 03/27/17 at 13:00 IV Flush (NS 10 ml) 10 ml PRN PRN IV IV PROTOCOL; Start 03/27/17 at 15:00 Ondansetron HCl (Zofran Tab) 4 mg Q4H PRN PO NAUSEA AND/OR VOMITING; Start 09/04 at 00:42 Ondansetron HCl (Zofran Inj) 4 mg Q4H PRN IV NAUSEA AND/OR VOMITING Last administered on 03/28/17 14:01; Admin Dose 4 MG; Start 03/28/17 at 01:00 Zolpidem Tartrate (Ambien) 10 mg HS PRN PO INSOMNIA Last administered on 01:47; Admin Dose 10 MG; Start 03/28/17 at 01:30 INOCENCIO TRACEY March 28, 2017 16:46
--- NOTE | 2017-03-28 17:34 | PN ---
DATE: 03/28/2017 The patient is symptomatically improved. The NG tube is out. The small bowel follow-through shows no obstruction. Abdominal examination is benign. IMPRESSION: No evidence of bowel obstruction. PLAN: As there are no further surgical recommendations, I will sign off and see again p.r.n. your r equest. Dictated By: LOULOU LEONE/EBENEZER Conf#: [id number] DID#: [id number]
[2017-03-28] MEDS: EXEMESTANE 25 MG TAB PO SCH (17:43)
[2017-03-28] MEDS: GABAPENTIN 100 MG CAP PO SCH ×2 (17:54→21:28)
[2017-03-28] MEDS: POTASSIUM PHOSPHATE 20 MEQ in SOD CHLORIDE 0.9% 250 ML IVPB SCH (17:54)
[2017-03-28 20:10] VITALS: BP 129/66; RESP 20
[2017-03-28] MEDS: DULOXETINE 30 MG CAP DR PO SCH (21:27)
[2017-03-28] MEDS: SPIRONOLACTONE 50 MG TAB PO SCH (21:28)
[2017-03-28] MEDS: RANITIDINE 150 MG TAB PO SCH (21:28)
[2017-03-28] MEDS: INDOMETHACIN 50 MG PO SCH (21:28)
[2017-03-28] MEDS: morphine (ER) 15 MG TAB PO SCH (21:30)
[2017-03-29] MEDS: GABAPENTIN 100 MG CAP PO SCH ×5 (01:00→16:16)
[2017-03-29] MEDS: POTASSIUM PHOSPHATE 20 MEQ in SOD CHLORIDE 0.9% 250 ML IVPB SCH (06:01)
[2017-03-29] MEDS: ONDANSETRON 4 MG INJ IV PRN ×3 (06:05→16:16)
[2017-03-29] MEDS: HYDROmorphONE 1 MG/ML SYG IV PRN ×5 (06:06→16:16)
[2017-03-29 07:45] VITALS: BP 114/58; RESP 18
[2017-03-29] MEDS ORDERED: ASCORBIC ACID 500 MG TAB PO SCH (09:00)
[2017-03-29] MEDS: morphine (ER) 15 MG TAB PO SCH ×2 (09:14→14:19)
[2017-03-29] MEDS: DULOXETINE 30 MG CAP DR PO SCH (09:14)
[2017-03-29] MEDS: SPIRONOLACTONE 50 MG TAB PO SCH ×2 (09:15→14:19)
[2017-03-29] MEDS: INDOMETHACIN 50 MG PO SCH (09:15)
[2017-03-29] MEDS: RANITIDINE 150 MG TAB PO SCH ×2 (09:15→14:19)
[2017-03-29] MEDS: EXEMESTANE 25 MG TAB PO SCH (09:17)
[2017-03-29] MEDS: SOD FERRIC GLUC COMPLX 125 MG in SOD CHLORIDE 0.9% 100 ML IVPB SCH (11:06)
--- NOTE | 2017-03-29 12:20 | PDOCDIS ---
Discharge Instructions CONDITION Patient Condition: Good HOME CARE INSTRUCTIONS: Diet Instructions: Regular ACTIVITY: Activity Restrictions: No Restrictions FOLLOW UP/APPOINTMENTS Appointments F/U WITH YOUR PCP AND ONCOLOGIST SCHEDULED INOCENCIO TRACEY March 29, 2017 12:20
[2017-03-29] MEDS ORDERED: METO5TAB58 PO (12:21)
--- NOTE | 2017-03-29 12:48 | DS ---
DATE OF ADMISSION: 03/26/2017 DATE OF DISCHARGE: 03/29/2017 DISCHARGE DIAGNOSES: 1. Ileus of the distal small bowel, likely secondary to electrolyte disturbance as well as opioid u se for pain control, now resolved. Patient tolerating regular diet and discharged with Reglan as ne eded. 2. History of breast cancer with bony metastasis, status post double mastectomy and chemo. Continu e followup with oncology upon discharge, continue her home chemotherapy. 3. Chronic pain. Continue pain control. 4. History of depression. Continue home Cymbalta. 5. Anemia of chronic disease, stable. 6. Acute kidney injury secondary to dehydration, resolved. HOSPITAL COURSE: The patient is a 51-year-old female with a history of breast cancer with bony mets status post double mastectomy, chemo. The patient follows with Dr. Zuleta of oncology. The patient has depression, chronic pain and ADHD. The patient presents with complaints of dizziness, abdomina l pain, vomiting and generalized body pain and weakness. The patient was diagnosed with probable sm all-bowel obstruction versus ileus. Patient was seen by surgery. The patient did have a small demarcus l follow through that showed mild ileus, predominantly in the jejunum and ileum without complete bow el obstruction. The contrast media did reach the colon 2 hours after administration. The patient's electrolytes were deficient with a potassium of 3.2 and phosphorus of 1.3. This was repleted. Ile us was felt to be secondary to electrolyte deficiencies as well as opioid use. The patient's ileus did resolve with replacement of the electrolytes. The patient's diet was advanced and patient ultim ately tolerate a regular diet. The patient was felt to be stable for discharge. There was no surgi will intervention required. On day of discharge, the patient's vitals, labs, physical exam were stab le. She had no acute complaints and questions were answered. CONDITION ON DISCHARGE: Stable. DISPOSITION: To home. MEDICATIONS: The patient will continue her usual home medications. Patient was given a new prescri ption for Reglan 5 mg p.o. q.6h. p.r.n. nausea, vomiting. FOLLOWUP: The patient is to follow up with her PCP and oncologist as scheduled. Greater than 30 minutes was spent coordinating discharge of patient. Dictated By: INOCENCIO VERGARA/NTS Conf#: [id number] [employer]#: [id number]
[2017-03-29 17:39] LABS: LUTEINIZING HORMONE <0.2 mIU/mL
== END 2017-03-29 19:57 | disposition home or self-care (01) | DRG 389 ==
LOC: E/R 16:06 → MS1 21:00
PROVIDERS: ADMIT Internal Medicine; ATTEND Internal Medicine
PROC: 02HV33Z Insertion of Infusion Device into Superior Vena Cava, Percutaneous Approach (ICD-10-PCS; principal; 2017-03-27)
DX: K56.0 Paralytic ileus (principal); N17.9 Acute kidney failure, unspecified; C79.51 Secondary malignant neoplasm of bone; E87.8 Other disorders of electrolyte and fluid balance, not elsewhere classified; E86.0 Dehydration; G89.3 Neoplasm related pain (acute) (chronic); D63.8 Anemia in other chronic diseases classified elsewhere; D50.9 Iron deficiency anemia, unspecified; M84.48XD Pathological fracture, other site, subsequent encounter for fracture with routine healing; F32.9 Major depressive disorder, single episode, unspecified; F90.9 Attention-deficit hyperactivity disorder, unspecified type; T40.2X5A Adverse effect of other opioids, initial encounter; Y92.019 Unspecified place in single-family (private) house as the place of occurrence of the external cause; Z90.13 Acquired absence of bilateral breasts and nipples; Z85.3 Personal history of malignant neoplasm of breast; Z85.79 Personal history of other malignant neoplasms of lymphoid, hematopoietic and related tissues
CPT/HCPCS: 36415; 36569; 71010; 74176; 74250; 76937; 80048; 80053; 81003; 82670; 82728; 83001; 83002; 83540; 83690; 83735; 84100; 85025; 96374; 96375; J0744; J1170; J2270; J2405; J2765; J2916; J7030; J7050

== ENCOUNTER 2017-04-11 14:35 | Inpatient (IN) | payer BC ==
[~2017-04-11] VITALS: Ht 160 cm; Wt 72.0 kg
[~2017-04-11 14:35] MED LIST changes: +METO5TAB58 PO
[2017-04-11] MEDS ORDERED: ONDANSETRON 4 MG INJ IV STA (15:07)
[2017-04-11] MEDS ORDERED: SOD CHLORIDE 0.9% 1,000 ML IV STA (15:07)
[2017-04-11] MEDS ORDERED: HYDROmorphONE 1 MG/ML SYG IV STA (15:07)
[2017-04-11] MEDS ORDERED: FAMOTIDINE 20 MG INJ IV STA (15:07)
[2017-04-11 15:58] LABS: ADD UMIC NO; URINE BILIRUBIN (Dip) NEGATIVE (NEGATIVE); URINE BLOOD (Dip) NEGATIVE (NEGATIVE); URINE COLOR LT. YELLOW (YELLOW); URINE GLUCOSE (Dip) NEGATIVE (NEGATIVE); URINE KETONES (Dip) NEGATIVE (NEGATIVE); URINE LEUKOCYTE ESTERASE (Dip) NEGATIVE (NEGATIVE); URINE NITRITE (Dip) NEGATIVE (NEGATIVE); URINE TOTAL PROTEIN (Dip) NEGATIVE (NEGATIVE); URINE UROBILINOGEN (Dip) 0.2 E.U./dL (0.1-1.0)
[2017-04-11 16:20] LABS: ADD SCAN DIFF NO
[2017-04-11 16:21] LABS: BASOPHILS % 0.3 % (0.0-2.0); EOSINOPHILS # 0.3 10^3/ul (0.0-0.5); EOSINOPHILS % 3.3 % (0.0-7.0); HEMATOCRIT 28.2 % (37.0-47.0); HEMOGLOBIN 8.8 g/dl (12.0-16.0); MEAN CORPUSCULAR HEMOGLOBIN 27.2 pg (29.0-33.0); MEAN CORPUSCULAR HGB CONC 31.2 g/dl (32.0-37.0); MEAN PLATELET VOLUME 11.4 fl (7.4-10.4); MONOCYTE # 0.8 10^3/ul (0.3-0.9); MONOCYTES % 8.1 % (0.0-11.0); NEUTROPHIL # 7.2 10^3/ul (1.6-7.5); PLATELET COUNT 541 10^3/UL (140-415); RED BLOOD COUNT 3.24 10^6/ul (4.20-5.40); WHITE BLOOD COUNT 10.4 10^3/ul (4.8-10.8)
[2017-04-11 16:44] LABS: ALBUMIN 4.5 g/dl (3.3-4.9)
[2017-04-11 16:47] LABS: ALBUMIN/GLOBULIN RATIO 1.18; CREATININE 1.72 mg/dl (0.44-1.00); TOTAL PROTEIN 8.3 g/dl (6.1-8.1)
[2017-04-11 16:48] LABS: CALCIUM 9.6 mg/dl (8.4-10.2)
--- NOTE | 2017-04-11 17:39 | RADRPT ---
PROCEDURE: CT Abdomen and Pelvis without contrast. CLINICAL INDICATION: Left flank pain TECHNIQUE: CT of the abdomen and pelvis was performed on a multi-detector scanner without IV contr ast. Coronal and sagittal images were reformatted from the axial data set. One or more of the foll owing dose reduction techniques were used: automated exposure control, adjustment of the mA and/or kV according to patient size, use of iterative reconstruction technique. CTDI = 8.86 mGy. DLP = 477 .71 mGy-cm. COMPARISON: CT, 03/26/2017 FINDINGS: CT abdomen: The lung bases are clear. The heart size is normal, without pericardial effusion. The liver, gallb ladder, biliary tree, pancreas, adrenal glands and kidneys are unremarkable. No urolithiasis or obs tructive uropathy is identified. The patient is status post splenectomy. The stomach is partially collapsed, but appears grossly unremarkable. The aorta is of normal caliber. Aortic vascular calcifications are present. There is no retroperit walker lymphadenopathy. The adele hepatis region is clear. CT pelvis: No bowel obstruction, free intraperitoneal air or abscess is identified. Mild retained fecal materi al may indicate constipation. No diverticulosis, diverticulitis or colitis is identified. The julia ent is status post appendectomy. Urinary bladder, uterus and adnexa are grossly unremarkable. No p elvic mass, free fluid or lymphadenopathy is identified. Lytic and sclerotic foci are seen throughout the visualized osseous structures, compatible with diff use metastatic disease. The patient is status post bilateral femoral ORIF. IMPRESSION: 1. Findings compatible with diffuse osseous metastatic disease, grossly unchanged from prior CT. 2. The patient is status post appendectomy and splenectomy. 3. Mild retained fecal material may indicate constipation. 4. Scattered aortoiliac atherosclerotic calcifications are present. 5. No urolithiasis or obstructive uropathy is seen. RPTAT: AA .William Pavon MD, MD Date Time Electronically viewed and signed by .William Pavon MD, MD on 04/11/2017 17:38 .R/
--- NOTE | 2017-04-11 18:06 | ERD ---
ER Documentation Chief Complaint Date/Time DATE: 04/11/17 TIME: 17:59 Chief Complaint dizziness and shaking x last night HPI This is a 51-year-old female who presents to the emergency room for evaluation of abdominal pain, and shakiness. The patient states that she is shaking because she is in a lot of pain. She states that her abdominal pain is located in the left flank and has no radiation. The patient does state that she had a previous history of breast cancer with a mastectomy and is supposed to undergo chemotherapy with Dr. horowitz in the near future. She denies any fevers, chills , nausea or vomiting associated with this flank pain. She denies any painful urination or fevers. The patient does state that she takes multiple narcotics at home including oral Dilaudid, baclofen. She states she has not taken any of her medication today. I did obtain this patient's previous medical records which show that she was admitted last week for ileus and partial small bowel obstruction ROS All systems reviewed and are negative except as per history of present illness. Medications Home Meds Active Scripts Metoclopramide* (Reglan*) 5 Mg Tablet, 5 MG PO Q6H Y for NAUSEA AND OR VOMITING , #30 TAB Prov:KYUNG,CECELIAClaudy 03/29/17 Reported Medications Duloxetine Hcl* (Duloxetine Hcl*) 60 Mg Capsule.dr, 60 MG PO BID, #30 CAP 03/19/17 Exemestane* (Exemestane*) 25 Mg Tablet, 25 MG PO, TAB 03/19/17 Zolpidem Tartrate* (Zolpidem Tartrate*) 10 Mg Tablet, 10 MG PO QHS Y for INSOMNIA, #30 TAB 03/19/17 Indomethacin* (Indocin*) 50 Mg Cap, 50 MG PO BID, CAP 03/19/17 Spironolactone* (Aldactone*) 50 Mg Tablet, 50 MG PO TID, #30 TAB 03/19/17 Promethazine Hcl* (Phenergan*) 25 Mg Tablet, 25 MG PO Q6H Y for PAIN, TAB 03/19/17 Vitamin B Complex (Vitamin B Complex) 1 Each Capsule, 1 EACH PO QHS, CAP 02/16/17 Ascorbic Acid (Vitamin C) 500 Mg Tab, 1000 MG PO DAILY, TAB 02/16/17 Prochlorperazine* (Prochlorperazine*) 10 Mg Tablet, 10 MG PO QID Y for NAUSEA, TAB 02/16/17 Ranitidine Hcl* (Ranitidine Hcl*) 150 Mg Tablet, 150 MG PO TID, #90 TAB 02/16/17 Tapentadol Hcl (Nucynta) 100 Mg Tablet, 50 MG PO BID, TAB 02/16/17 Gabapentin* (Gabapentin*) 100 Mg Capsule, 100 MG PO Q4, #120 CAP 02/16/17 Furosemide* (Furosemide*) 40 Mg Tablet, 80 MG PO DAILY, TAB 02/16/17 Amphet Rlr-Zavawl-T-Amphet (Adderall) 10 Mg Tablet, 10 MG PO TID, TAB 02/16/17 Baclofen* (Baclofen*) 10 Mg Tablet, 10 MG PO QID, TAB 02/16/17 Hydromorphone Hcl* (Dilaudid*) 4 Mg Tablet, 4 MG PO Q6, TAB 02/16/17 Morphine Sulfate* (Ms Contin*) 15 Mg Tablet.sa, 15 MG PO TID, TAB.SA 02/16/17 Hydrocodone/Acetaminophen (L[place]y 10-325 Tablet) 1 Each Tablet, 1 EACH PO Q3H, TAB 02/16/17 Allergies Allergies: Coded Allergies: Penicillins (Verified Allergy, Unknown, RASH, SWOLLEN, HARD TIME BREATHING , 04/11/17) peanut (Verified Allergy, Unknown, 04/11/17) shellfish derived (Verified Allergy, Unknown, 04/11/17) PMhx/Soc History of Surgery: Yes (bilat mastectomy 2011, splenectomy/appy 1983) Anesthesia Reaction: No Hx Neurological Disorder: No Hx Respiratory Disorders: No Hx Cardiac Disorders: No Hx Psychiatric Problems: No Hx Miscellaneous Medical Probl: Yes (DEPRESSION, RIB FRACTURE) Hx Alcohol Use: No Hx Substance Use: No Hx Tobacco Use: No Smoking Status: Unknown if ever smoked Physical Exam Vitals Vital Signs Date Time Temp Pulse Resp B/P Pulse Ox O2 Delivery O2 Flow Rate FiO2 04/11/17 17:57 98.7 88 20 121/82 98 Room Air 04/11/17 14:37 98.8 104 18 126/73 93 Physical Exam INITIAL VITAL SIGNS: Reviewed by me GENERAL: The patient is frail-appearing female, mild distress HEENT: Pupils equal, round, and reactive to light. EOMI. There is no scleral icterus. NECK: C-spine is soft and supple, there is no meningismus. There is no cervical lymphadenopathy. LUNGS: Clear to auscultation bilaterally. There are no rales, wheezes or rhonchi. HEART: Regular rate and rhythm, no murmurs, clicks, rubs or gallops. ABDOMEN: Left-sided CVAT, otherwise soft, non-tender, non-distended. There are bowel sounds in all four quadrants. No rebound or guarding. EXTREMITIES: There is no peripheral cyanosis or edema. No focal swelling or erythema. NEUROLOGICAL: The patient moves all four extremities with 5/5 strength. Cranial nerves II - XII are intact. Normal gait. Alert and oriented SKIN: Mastectomy, there is no apparent rash or petechiae. HEME/LYMPHATIC: There is no evidence of excessive bruising or lymphedema. PSYCHIATRIC: The patient does not appear anxious or depressed. Result Diagram: 04/11/17 1614 04/11/17 1614 Results 24 hrs Laboratory Tests Test 04/11/17 15:05 04/11/17 15:33 04/11/17 16:14 Bedside Glucose 143mg/dL Urine Color LT. YELLOW Urine Clarity CLEAR Urine pH 5.0 Urine Specific [place] 1.010 Urine Ketones NEGATIVE Urine Nitrite NEGATIVE Urine Bilirubin NEGATIVE Urine Urobilinogen 0.2 E.U./dL Urine Leukocyte Esterase NEGATIVE Urine Hemoglobin NEGATIVE Urine Glucose NEGATIVE% Urine Total Protein NEGATIVE White Blood Count 10.410^3/ul Red Blood Count 3.2410^6/ul Hemoglobin 8.8g/dl Hematocrit 28.2% Mean Corpuscular Volume 87.0fl Mean Corpuscular Hemoglobin 27.2pg Mean Corpuscular Hemoglobin Concent 31.2g/dl Red Cell Distribution Width 21.0% Platelet Count 07039^3/UL Mean Platelet Volume 11.4fl Neutrophils % 69.0% Lymphocytes % 19.0% Monocytes % 8.1% Eosinophils % 3.3% Basophils % 0.3% Nucleated Red Blood Cells % 0.0/100WBC Neutrophils # 7.210^3/ul Lymphocytes # 2.010^3/ul Monocytes # 0.810^3/ul Eosinophils # 0.310^3/ul Basophils # 0.010^3/ul Nucleated Red Blood Cells # 0.010^3/ul Sodium Level 141mmol/L Potassium Level 4.0mmol/L Chloride Level 100mmol/L Carbon Dioxide Level 26mmol/L Anion Gap 19 Blood Urea Nitrogen 36mg/dl Creatinine 1.72mg/dl Glucose Level 102mg/dl Calcium Level 9.6mg/dl Total Bilirubin 0.0mg/dl Direct Bilirubin 0.00mg/dl Indirect Bilirubin 0.0mg/dl Aspartate Amino Transf (AST/SGOT) 37IU/L Alanine Aminotransferase (ALT/SGPT) 38IU/L Alkaline Phosphatase 131IU/L Total Protein 8.3g/dl Albumin 4.5g/dl Globulin 3.80g/dl Albumin/Globulin Ratio 1.18 Lipase 63U/L Current Medications Medications (Trade) Dose Ordered Sig/Julio Route PRN Reason Start Time Stop Time Status Last Admin Dose Admin Sodium Chloride (NS) 1,000 ml @ 1,000 mls/hr Q1H STAT IV 04/11/17 15:07 04/11/17 16:06 DC 04/11/17 16:25 Hydromorphone HCl (Dilaudid) 2 mg ONCE STAT IV 04/11/17 15:07 04/11/17 15:08 DC 04/11/17 16:26 Ondansetron HCl (Zofran Inj) 4 mg ONCE STAT IV 04/11/17 15:07 04/11/17 15:08 DC 04/11/17 16:25 Famotidine (Pepcid Iv) 20 mg ONCE STAT IV 04/11/17 15:07 04/11/17 15:08 DC 04/11/17 16:26 Procedures/MDM Peripheral line placement by ca: Nursing staff unable to obtain IV access. Location: Left AC Technique: 18 gauge. [id number] with nursing assistance Results: Venous flow and easy flush Secured with transparent dressing. No complications. CT abdomen pelvis without: 1. Findings compatible with diffuse osseous metastatic disease, grossly unchanged from prior CT. 2. The patient is status post appendectomy and splenectomy. 3. Mild retained fecal material may indicate constipation. 4. Scattered aortoiliac atherosclerotic calcifications are present. 5. No urolithiasis or obstructive uropathy is seen. EKG: Rate/Rhythm: [Normal Sinus Rhythm] QRS, ST, T-waves: [No changes consistent w/ acute ischemia] Impression: [No evidence of ischemia or arrhythmia] This is a 51-year-old female who presents to the emergency room for evaluation of left-sided flank pain. This patient was admitted this month for partial bowel obstruction, no surgery was done and obstruction resolved by itself. My concern was for another obstruction. I did obtain lab work on this patient after establishing an ultrasound-guided peripheral line. Please see ultrasound- guided peripheral line no. Lab work does not demonstrate any leukocytosis. She has minor renal insufficiency and acute kidney injury however no significant and dramatic increase in her creatinine. The patient is urinating without difficulty. CT was obtained which does not show any obstruction. Is grossly unchanged from previous CAT scan. The patient was given 2 mg of Dilaudid IV piggyback and her EKG is nonischemic. When I reevaluated this patient states she is feeling better. I advised her that if she still having pain she can continue her home regimen of medications as long as she is closely followed by a physician. She does state that she is closely followed by multiple physicians and the patient does feel comfortable with discharge at this time. I advised her that if her pain were to return where she were to develop any worsening pain, or fever she needs to return immediately to the emergency room for further evaluation and she verbalized understanding. This patient's hemoglobin is 8.8, and she is not significantly below her baseline hemoglobin. She denies any active bleeding. Departure Diagnosis: Primary Impression: Abdominal pain Additional Impressions: Dizziness Normocytic anemia Renal insufficiency MIRANDA DELVALLE DO April 11, 2017 18:06
[2017-04-11] MEDS ORDERED: SOD CHLORIDE 0.9% 1,000 ML IV SCH (18:25)
[2017-04-11] MEDS ORDERED: ONDANSETRON 4 MG INJ IV PRN (18:30)
[2017-04-11] MEDS ORDERED: ACETAMINOPHEN 325 MG TAB PO PRN (18:30)
[2017-04-11 19:48] VITALS: TEMP 98.5
[2017-04-11 20:18] VITALS: BP 101/53; RESP 18
[2017-04-11] MEDS ORDERED: morphine 4 MG/ML VIAL IV PRN (20:30)
[2017-04-11] MEDS: BACLOFEN 10 MG TAB PO SCH (21:30)
[2017-04-11] MEDS: HYDROCODONE/APAP (10/325) TAB PO SCH (21:30)
[2017-04-11] MEDS ORDERED: TAPENTADOL HCL 50 MG PO SCH (21:30)
[2017-04-11] MEDS ORDERED: METOCLOPRAMIDE 10 MG INJ IV PRN (21:30)
[2017-04-11] MEDS ORDERED: METOCLOPRAMIDE 5 MG TAB PO PRN (21:30)
[2017-04-11] MEDS ORDERED: PROMETHAZINE 25 MG TAB PO PRN (21:30)
[2017-04-11] MEDS: INDOMETHACIN 50 MG PO SCH (21:30)
[2017-04-11] MEDS ORDERED: ZOLPIDEM 5 MG TAB PO PRN (21:30)
[2017-04-11] MEDS ORDERED: PROCHLORPERAZINE 10 MG TAB PO PRN (21:30)
[2017-04-11 21:48] VITALS: Ht 160 cm; Wt 72.0 kg
[2017-04-11] MEDS: DULOXETINE 30 MG CAP DR PO SCH (23:00)
[2017-04-11] MEDS: HYDROmorphONE 1 MG/ML SYG IV PRN (23:08)
[2017-04-12] MEDS: HYDROCODONE/APAP (10/325) TAB PO SCH ×4 (00:30→09:31)
[2017-04-12] MEDS: GABAPENTIN 100 MG CAP PO SCH ×6 (01:00→20:40)
[2017-04-12] MEDS: HYDROmorphONE 1 MG/ML SYG IV PRN (02:59)
[2017-04-12] MEDS: DEXTROSE 5%-0.9% NACL 1,000 ML IV SCH ×3 (04:08→23:49)
[2017-04-12 05:14] LABS: ADD SCAN DIFF NO
[2017-04-12 05:19] LABS: BASOPHILS % 0.3 % (0.0-2.0); EOSINOPHILS # 0.4 10^3/ul (0.0-0.5); EOSINOPHILS % 4.7 % (0.0-7.0); HEMATOCRIT 24.7 % (37.0-47.0); HEMOGLOBIN 7.7 g/dl (12.0-16.0); LYMPHOCYTES # 2.4 10^3/ul (0.8-2.9); LYMPHOCYTES % 31.2 % (15.0-51.0); MEAN CORPUSCULAR HEMOGLOBIN 27.2 pg (29.0-33.0); MEAN CORPUSCULAR HGB CONC 31.2 g/dl (32.0-37.0); MEAN CORPUSCULAR VOLUME 87.3 fl (82.0-101.0); MEAN PLATELET VOLUME 11.6 fl (7.4-10.4); MONOCYTES % 12.6 % (0.0-11.0); NEUTROPHIL # 3.9 10^3/ul (1.6-7.5); NEUTROPHILS % 50.9 % (39.0-77.0); PLATELET COUNT 483 10^3/UL (140-415); RED BLOOD COUNT 2.83 10^6/ul (4.20-5.40); RED CELL DISTRIBUTION WIDTH 21.7 % (11.5-14.5); WHITE BLOOD COUNT 7.7 10^3/ul (4.8-10.8)
[2017-04-12] MEDS: HYDROmorphONE 2 MG TAB PO SCH ×2 (05:58)
[2017-04-12] MEDS ORDERED: FUROSEMIDE 40 MG TAB PO SCH (06:00)
[2017-04-12 06:01] LABS: ALBUMIN 3.5 g/dl (3.3-4.9)
[2017-04-12 06:02] LABS: POTASSIUM 3.7 mmol/L (3.5-5.1)
[2017-04-12 06:04] LABS: CREATININE 1.51 mg/dl (0.44-1.00); PHOSPHORUS 5.1 mg/dl (2.5-4.9)
[2017-04-12 06:05] LABS: CALCIUM 8.6 mg/dl (8.4-10.2); MAGNESIUM 2.2 mg/dl (1.7-2.5)
[2017-04-12 08:07] VITALS: BP 92/53; RESP 16
[2017-04-12] MEDS ORDERED: HYDROmorphONE 1 MG/ML SYG IV PRN (08:11)
[2017-04-12] MEDS ORDERED: morphine (ER) 15 MG TAB PO SCH (09:00)
[2017-04-12] MEDS: HEPARIN 5,000 UNIT/0.5 ML VIAL SC SCH ×2 (09:00→20:49)
[2017-04-12] MEDS ORDERED: AMPHET ASP AMPHET D AMPHET 10 MG PO SCH (09:00)
[2017-04-12] MEDS: ASCORBIC ACID 500 MG TAB PO SCH (09:14)
[2017-04-12] MEDS: DULOXETINE 30 MG CAP DR PO SCH ×2 (09:14→20:41)
[2017-04-12] MEDS: INDOMETHACIN 50 MG PO SCH (09:14)
[2017-04-12] MEDS: RANITIDINE 150 MG TAB PO SCH ×3 (09:14→20:40)
[2017-04-12] MEDS: BACLOFEN 10 MG TAB PO SCH ×4 (09:14→20:41)
--- NOTE | 2017-04-12 10:43 | CONS ---
DATE OF ADMISSION: 04/11/2017 DATE OF CONSULTATION: 04/12/2017 TYPE OF CONSULTATION: Nephrology. REASON FOR CONSULTATION: Acute kidney injury. REQUESTING PHYSICIAN: Dr. Adams HISTORY OF PRESENT ILLNESS: This is a 51-year-old female with a past medical history of breast canc er with bony metastasis, status post bilateral mastectomy, status post chemo, a history of non-Hodgk in's lymphoma at age 17, status post chemotherapy, status post splenectomy, history of depression, c hronic back pain, ADHD, recent history of small-bowel obstruction who presents to [facility] with abdominal pain. The patient states the pain started suddenly in the left flank with no radiation. She had nausea, no vomiting. No hemoptysis, hematemesis, hematochezia. The patient's pain, however, was not controlled with her home medication and as a result, she came to the emergen cy room. The patient in the emergency room had a CT scan of the abdomen and pelvis which showed no evidence of obstruction. The patient in the emergency room was given IV narcotics and given IV flui ds and admitted to med/surg for evaluation. In terms of the patient's renal history, the patient states she has had significant nephro chemother apy in the past at age 17 from non-Hodgkin's lymphoma. The patient states her renal function and cre atinine have been ranging between 1.0 to 1.4 mg/dL. Patient is concerned about her kidney function. She does take intermittent NSAIDs at home. She denies any recent chemotherapy. She denied any NS AID use. The patient had a previous contrast exposure in the past but does not recall any recent IV contrast. As stated above, there has been no reports of hemoptysis, hemetemesis, no frothy urine, no rashes. PAST MEDICAL HISTORY: As stated above, history of non-Hodgkin's lymphoma, history of breast cancer with metastasis, history of chronic pain syndrome, history of neuropathy. PAST SURGICAL HISTORY: Status post bilateral mastectomy, status post endoscopy. FAMILY HISTORY: Noncontributory. SOCIAL HISTORY: Does not smoke. MEDICATIONS: The patient's medications have been reviewed. REVIEW OF SYSTEMS: A 14-point review of systems was conducted. Pertinent positives in HPI, otherwi se negative. PHYSICAL EXAMINATION: VITAL SIGNS: Blood pressure is currently 92/53, respiration 16, pulse 77, temperature 98.2. HEENT: Head is normocephalic. Pupils react to light. NECK: Supple. HEART: Regular rate. LUNGS: Show diminished breath sounds at the base. ABDOMEN: Soft, nontender to palpation without rebound or guarding. EXTREMITIES: Negative for clubbing, cyanosis, no edema. DERMATOLOGIC: No rashes. MUSCULOSKELETAL: No joint effusions. NEUROLOGIC: No focal deficits. The patient's medications reviewed. LABORATORY DATA: Shows white count 7.7, hemoglobin 7.7, hematocrit 24.7, platelet count 483. Sodiu m 141, potassium 2.7, chloride 104, BUN 35, creatinine 1.51, phosphorus 5.1. CT scan of abdomen and pelvis was reviewed. ASSESSMENT AND PLAN: This is a 51-year-old female who presents with: 1. Nonoliguric acute kidney injury with unknown baseline creatinine. Etiology of current acute kid brad injury is likely hemodynamics, NSAID use, diuretic therapy. 2. The etiology of acute kidney injury is likely secondary to hemodynamics, NSAID use, diuretic use . The patient is on indomethacin and Lasix at home. The patient's urinalysis was bland. No evidenc e of active sediment. Patient's CT scan shows no evidence of hydronephrosis. Plan at this point is to continue current treatment plan with IV hydration. Will repeat a urinalysis and check urine jamila ctrolytes and check a protein/creatinine ratio and albumin/creatinine ratio. We will also check a r enal ultrasound to evaluate the patient's renal parenchyma. Will hold NSAIDs and diuretic therapy a t this time. Would otherwise continue supportive care, renally dose all meds, avoid nephrotoxins. 3. Anemia, likely of chronic disease. Continue to monitor H and H levels. Would defer Epogen in t he setting of malignancy. 4. Mineral bone disorder. The patient is hypophosphatemic secondary to acute kidney injury. We french l continue to monitor. No need for phosphate binders. 5. Abdominal pain. Etiology may be secondary to malignancy. CT scan shows no evidence of obstruct ion. Continue to monitor, continue pain control. Follow up with palliative care. 6. History of breast cancer with bony metastasis. The patient is status post double mastectomy. C ontinue medical management. Follow up with oncology. 7. History of non-Hodgkin lymphoma. Thank you, Dr. Vallecillo, for this interesting consult. It will be a pleasure to follow the patient with you throughout the hospital course. Dictated By: AZAEL CALLOWAY/EBENEZER Conf#: [id number] DID#: [id number] CC: INOCENCIO ADAMS MD;*EndCC*
[2017-04-12] MEDS: HYDROmorphONE 0.2 MG/ML PCA IV SCH ×3 (11:49→20:49)
[2017-04-12] MEDS: METHADONE 5 MG TAB PO SCH ×2 (11:55→20:40)
--- NOTE | 2017-04-12 12:45 | RADRPT ---
PROCEDURE: Retroperitoneal US. CLINICAL INDICATION: Renal insufficiency TECHNIQUE: Multiple sonographic images of the kidneys and retroperitoneum were obtained. The imag es were reviewed on a PACS workstation. COMPARISON: 04/11/17 FINDINGS: The kidneys are normal in size, contour, cortical thickness and cortical echogenicity. The right kidney measures 10.1 cm. The left kidney measures 10.5 cm. No kidney stones are visualized. There is no evidence for hydronephrosis. The urinary bladder is normal. RPTAT: AA IMPRESSION: Unremarkable retroperitoneal ultrasound. .Vasquez Cespedes MD, Date Time Electronically viewed and signed by .Vasquez Cespedes MD, on 04/12/2017 12:45 .S/
--- NOTE | 2017-04-12 12:51 | PN ---
DATE: 04/12/2017 SUBJECTIVE: The patient seen by pain management and renal teams this morning. Presently on UX DEVELOPER pum p, now less pain symptoms now. OBJECTIVE VITAL SIGNS: Stable. GENERAL: The patient is lying in bed sleeping. No acute distress. HEENT: Pupils equal, round, reactive to light. Extraocular muscles intact. NECK: Supple, no thyromegaly. LUNGS: Clear to auscultation bilaterally. CARDIOVASCULAR: S1, S2 heard. No rubs or gallops. ABDOMEN: Soft, nontender, nondistended. Normal bowel sounds. No rebound or guarding. MUSCULOSKELETAL: No lower extremity edema bilaterally. NEUROLOGIC: No focal deficits. LABORATORY DATA: WBC 7.7, hemoglobin 7.7, hematocrit 24.7, platelets of 483. Sodium 141, potassium 3.7, chloride 104, CO2 26, BUN 35, creatinine 1.5. LFTs are normal. ASSESSMENT AND PLAN: A 51-year-old female with past medical history of breast cancer with bony meta stasis, status post bilateral mastectomy and chemotherapy, history of non-Hodgkin's lymphoma status post chemotherapy, splenectomy, depression, chronic back pain, ADHD, history of SBO who presents wit h abdominal pain symptoms. 1. Abdominal pain. Again, most likely secondary to patient's cancer symptoms. We will continue to follow recommendations per pain management doctor. Patient is on Dilaudid UX DEVELOPER pump right now and a lso methadone. Monitor pain symptoms. 2. Renal insufficiency. The patient's creatinine is elevated, although improved since admission, b ut still elevated. Follow up renal recommendations, including the following up the urine electrolyt es and monitor BUN and creatinine levels and urine output as well, and ins and outs. Continue curre nt fluids as well. 3. Anemia. Again, most likely secondary to chronic disease. Monitor H and H levels. If hemoglobi n continues to drop, may need to consider PRBC transfusion and no signs of any bleeding presently. 4. History of cancer with metastasis. Again, the patient is status post double mastectomy. Contin ue medical management including pain control medications. Consider PT consult as well. 5. History of ADHD monitor for now. 6. History of prior non-Hodgkin's lymphoma. Continue to monitor for now. 7. Gastrointestinal prophylaxis. Continue H2 joe. 8. Deep venous thrombosis prophylaxis. Heparin subcutaneously. Dictated By: OZ SUBRAMANIAN Conf#: [id number] [employer]#: [id number]
[2017-04-12 13:24] LABS: ADD UMIC NO; URINE BILIRUBIN (Dip) NEGATIVE (NEGATIVE); URINE BLOOD (Dip) NEGATIVE (NEGATIVE); URINE COLOR LT. YELLOW (YELLOW); URINE GLUCOSE (Dip) NEGATIVE (NEGATIVE); URINE KETONES (Dip) NEGATIVE (NEGATIVE); URINE LEUKOCYTE ESTERASE (Dip) NEGATIVE (NEGATIVE); URINE NITRITE (Dip) NEGATIVE (NEGATIVE); URINE TOTAL PROTEIN (Dip) NEGATIVE (NEGATIVE); URINE UROBILINOGEN (Dip) 0.2 E.U./dL (0.1-1.0)
[2017-04-12] MEDS: [UNRECOGNIZED DRUG - REMARK] XX SCH ×2 (13:30→21:30)
--- NOTE | 2017-04-12 15:01 | CONS ---
Date/Time of Note Date/Time of Note DATE: 04/12/17 TIME: 14:32 Assessment/Plan Assessment/Plan Chief Complaint/Hosp Course Ms Schwartz is a 49-year-old female with ER/KY/ HER2+ positive, metastatic breast cancer to the bones who now presents with dizziness and palpitations secondary to severe anemia. # Anemia - secondary to metastatic cancer and possible bone marrow involvement -will order 2 units of PRBC's -start IV iron as well. # Her 2+ / ER+ metastatic breast cancer to bones - per CT there is subcentimeter mesenteric lymphadenopathy which may represent disease. -pt should follow up in our clinic to start the treatment regimen outlined before which would include Herceptin/ Perjeta/ Examestane and Lupron. Pt has visited the cancer centers of [place] and is comfortable with our treatment plan. As stated before pt was advised that she would benefit from a Taxane based regimen but has refused this because it is chemotherapy. -Pt would have to continue Xgeva as well for her bone mets -any treatment could only start after patient after her acute issues have resolved # Dizziness -check brain MRI to ensure there is no evidence of brain mets #Depression -start Effexor 75 mg q day Thank you for allowing me to participate in this patients care. Problems: Consultation Date/Type/Reason Admit Date/Time April 11, 2017 at 18:26 Date of Consultation: April 12, 2017 Type of Consultation: oncology Reason for Consultation metastatic her 2 positive breast cancer Referring Provider: INOCENCIO TRACEY Hx of Present Illness Ms Schwartz is a 49-year-old female who in 1982 was diagnosed with Hodgkins disease, that has since been treated who was then diagnosed with L sided breast cancer in 2011. The mastectomy was on 06/30/2012, the tumor was a well- differentiated, 3.3 cm with 5 out of 7 lymph nodes positive. She was thus diagnosed with stage IIIA, ER/KY positive, HER-2 negative disease. The patient refused chemotherapy, but she received tamoxifen for about 2-3 years. The patient was then diagnosed with recurrence in the bones in February of 2015. AT that time patient had a biopsy of her hip that revealed ER+/KY+/Her2+ disease. It was, at that time, that the patient was told to start chemotherapy, but again because she refused. The patient was thus started on exemestane, Xgeva, and Lupron given that she was premenopausal. Ms Schwartz saw me in clinic on 03/12/17. Given her ER+/Her2+ metastatic breast cancer to the bones it was decided to start her on Lupron/ Exemestane/ Perjeta and Herceptin. Of note patient still refuses taxane based chemotherapy although this was recommended. She was recently admitted with small bowel obstruction and was discharged after conservative management. She now presents with with dizziness and pulsating back pain. A CT A/P was done which demonstrates stable osseous mets as well as fecal impaction. CBC reveals severe anemia with a Hg 7.7. Constitutional: diaphoresis, poor po Eyes: no complaints ENT: no complaints Respiratory: pleuritic pain, shortness of breath Cardiovascular: lightheadedness, palpitations Gastrointestinal: constipation, decreased appetite, nausea Genitourinary: no complaints Musculoskeletal: back pain, bone/joint pain Skin: no complaints Neurologic: dizziness Past Medical History back fracture in 1997 breast cancer depression Past Surgical History Past Surgical Hx: endoscopy, other Family History Significant Family History: no pertinent family hx Social History Alcohol Use: none Smoking Status: Never smoker Drug Use: none Exam/Review of Systems Vital Signs Vitals Vital Signs Date Time Temp Pulse Resp B/P Pulse Ox O2 Delivery O2 Flow Rate FiO2 04/12/17 13:44 30 04/12/17 08:07 98.2 70 92/53 96 04/11/17 19:48 Room Air Intake and Output 04/11/17 04/11/17 04/12/17 15:00 23:00 07:00 Intake Total 500 ml Balance 500 ml Exam Constitutional: alert, distress, oriented Psych: anxiety, depression Head: normocephalic Eyes: other (pale sclera) ENMT: nl external ears & nose Neck: non-tender, supple Respiratory: clear to auscultation, normal air movement Cardiovascular: nl pulses, regular rate and rhythm Gastrointestinal: soft Musculoskeletal: nl extremities to inspection, nl gait and stance Extremities: normal pulses Results Result Diagram: 04/12/17 0435 04/12/17 0435 Results 24 hrs Laboratory Tests Test 04/11/17 15:05 04/11/17 15:33 04/11/17 16:14 04/12/17 04:35 Bedside Glucose 143 Urine Color LT. YELLOW Urine Clarity CLEAR Urine pH 5.0 Urine Specific [place] 1.010 Urine Ketones NEGATIVE Urine Nitrite NEGATIVE Urine Bilirubin NEGATIVE Urine Urobilinogen 0.2 E.U./dL Urine Leukocyte Esterase NEGATIVE Urine Hemoglobin NEGATIVE Urine Glucose NEGATIVE Urine Total Protein NEGATIVE White Blood Count 10.4 7.7 # Red Blood Count 3.24 L 2.83 L Hemoglobin 8.8 L 7.7 L Hematocrit 28.2 L 24.7 L Mean Corpuscular Volume 87.0 87.3 Mean Corpuscular Hemoglobin 27.2 L 27.2 L Mean Corpuscular Hemoglobin Concent 31.2 L 31.2 L Red Cell Distribution Width 21.0 H 21.7 H Platelet Count 541 #H 483 H Mean Platelet Volume 11.4 H 11.6 H Neutrophils % 69.0 50.9 Lymphocytes % 19.0 31.2 Monocytes % 8.1 12.6 H Eosinophils % 3.3 4.7 Basophils % 0.3 0.3 Nucleated Red Blood Cells % 0.0 0.0 Neutrophils # 7.2 3.9 Lymphocytes # 2.0 2.4 Monocytes # 0.8 1.0 H Eosinophils # 0.3 0.4 Basophils # 0.0 0.0 Nucleated Red Blood Cells # 0.0 0.0 Sodium Level 141 141 Potassium Level 4.0 3.7 Chloride Level 100 104 Carbon Dioxide Level 26 26 Anion Gap 19 H 15 Blood Urea Nitrogen 36 H 35 H Creatinine 1.72 H 1.51 H Glucose Level 102 123 Calcium Level 9.6 8.6 Total Bilirubin 0.0 L 0.0 L Direct Bilirubin 0.00 0.00 Indirect Bilirubin 0.0 0.0 Aspartate Amino Transf (AST/SGOT) 37 37 Alanine Aminotransferase (ALT/SGPT) 38 26 Alkaline Phosphatase 131 H 95 Total Protein 8.3 H 7.0 # Albumin 4.5 3.5 # Globulin 3.80 H 3.50 H Albumin/Globulin Ratio 1.18 1.00 Lipase 63 Phosphorus Level 5.1 H Magnesium Level 2.2 Test 04/12/17 12:50 Urine Color LT. YELLOW Urine Clarity CLEAR Urine pH 5.5 Urine Specific [place] 1.015 Urine Ketones NEGATIVE Urine Nitrite NEGATIVE Urine Bilirubin NEGATIVE Urine Urobilinogen 0.2 E.U./dL Urine Leukocyte Esterase NEGATIVE Urine Hemoglobin NEGATIVE Urine Random Creatinine 88.54 Urine Random Sodium 32 Urine Glucose NEGATIVE Urine Total Protein 10.0 Medications Medications Current Medications Ascorbic Acid (Vitamin C) 1,000 mg DAILY PO Last administered on 04/12/17 09: 14; Admin Dose 1,000 MG; Start 04/12/17 at 09:00 Baclofen (Lioresal) 10 mg QID PO Last administered on 04/12/17 13:37; Admin Dose 10 MG; Start 04/11/17 at 21:30 Duloxetine HCl (Cymbalta) 60 mg BID PO Last administered on 04/12/17 09:14; Admin Dose 60 MG; Start 04/11/17 at 23:00 Furosemide (Lasix) 80 mg DAILY@06 PO ; Start 04/12/17 at 06:00; Status Future Hold Gabapentin (Neurontin) 100 mg Q4 PO Last administered on 04/12/17 13:37; Admin Dose 100 MG; Start 04/12/17 at 01:00 Prochlorperazine (Compazine) 10 mg QID PRN PO NAUSEA; Start 04/11/17 at 21:30 Promethazine HCl (Phenergan) 25 mg Q6H PRN PO PAIN; Start 04/11/17 at 21:30 Ranitidine HCl (Zantac) 150 mg TID PO Last administered on 04/12/17 13:37; Admin Dose 150 MG; Start 04/12/17 at 09:00 Zolpidem Tartrate (Ambien) 10 mg QHS PRN PO INSOMNIA; Start 04/11/17 at 21:30 Miscellaneous Information 10 mg TID PO ; Start 04/12/17 at 09:00; Status UNV Miscellaneous Information 50 mg BID PO ; Start 04/11/17 at 21:30; Status UNV Vitamin B Complex/ Vitamin C (Berocca) 1 cap QHS PO ; Start 04/13/17 at 09:00 Metoclopramide HCl (Reglan) 10 mg Q6H PRN IV NAUSEA Last administered on 23:10; Admin Dose 10 MG; Start 04/11/17 at 21:30 Heparin Sodium (Porcine) 5000 unit 5,000 unit BID SC ; Start 04/12/17 at 09:00 Dextrose/Sodium Chloride (D5-NS) 1,000 ml @ 100 mls/hr Q10H IV Last administered on 04/12/17 04:08; Admin Dose 100 MLS/HR; Start 04/12/17 at 03:30 Methadone HCl (Methadone) 5 mg Q8H PO Last administered on 04/12/17 11:55; Admin Dose 5 MG; Start 04/12/17 at 11:30 Hydromorphone HCl (Dilaudid DOOR CUTTER) 0.5 MG/HR CONTINUOUS RATE ... Q4PCA IV Last administered on 04/12/17 11:49; Admin Dose 6 MG; Start 04/12/17 at 11:30 Methylnaltrexone [place] (Relistor) 12 mg DAILY SC ; Start 04/13/17 at 09:00 Miscellaneous Information (*Order Clarification Bulletin) MEDICATION REQUIRES CLARIFICATI... Q8H XX ; Start 04/12/17 at 13:30 KASH LAWSON M.D. April 12, 2017 14:42
[2017-04-12 16:00] VITALS: BP 110/78; PULSE 78; RESP 20
[2017-04-12] MEDS: SOD FERRIC GLUC COMPLX 125 MG in SOD CHLORIDE 0.9% 100 ML IVPB SCH (18:41)
[2017-04-12 19:23] VITALS: BP 101/56; RESP 17
[2017-04-12] MEDS: VENLAFAXINE 75 MG TABLET PO SCH (20:41)
[2017-04-13] MEDS: GABAPENTIN 100 MG CAP PO SCH ×6 (00:22→20:42)
[2017-04-13] MEDS: HYDROmorphONE 0.2 MG/ML PCA IV SCH ×5 (01:03→21:20)
[2017-04-13] MEDS: METHADONE 5 MG TAB PO SCH ×3 (03:18→19:21)
[2017-04-13] MEDS: [UNRECOGNIZED DRUG - REMARK] XX SCH ×3 (05:30→21:30)
[2017-04-13 07:49] VITALS: BP 96/55; RESP 18
[2017-04-13] MEDS: VITAMIN B COMPLEX/VIT C CAP PO SCH ×2 (08:19→20:42)
[2017-04-13] MEDS: HEPARIN 5,000 UNIT/0.5 ML VIAL SC SCH ×2 (08:20→20:42)
[2017-04-13] MEDS: ASCORBIC ACID 500 MG TAB PO SCH (08:20)
[2017-04-13] MEDS: DULOXETINE 30 MG CAP DR PO SCH ×2 (08:20→20:42)
[2017-04-13] MEDS: VENLAFAXINE 75 MG TABLET PO SCH ×2 (08:20→20:42)
[2017-04-13] MEDS: RANITIDINE 150 MG TAB PO SCH ×3 (08:20→20:42)
[2017-04-13] MEDS: BACLOFEN 10 MG TAB PO SCH ×4 (08:20→20:42)
--- NOTE | 2017-04-13 08:23 | PN ---
DATE: 04/13/2017 SUBJECTIVE: The patient is stable, no acute events overnight. No fevers, chills, nausea, vomiting, no shortness breath. The patient's pain is adequately controlled with a pain pump. The patient re ceived 1 unit PRBCs yesterday. OBJECTIVE: VITAL SIGNS: Temperature 101/56, respirations 17, pulse 73, temperature 98.5. HEENT: Head is normocephalic. NECK: Supple. HEART: Regular rate. LUNGS: Show diminished breath sounds at the base. ABDOMEN: Soft, nontender to palpation. No rebound or guarding. EXTREMITIES: Negative for clubbing, cyanosis, no edema. DERMATOLOGIC: No rashes. MUSCULOSKELETAL: No joint effusions. NEUROLOGIC: No focal deficits. MEDICATIONS: The patient medications have been reviewed. LABORATORY DATA: Repeat urinalysis bland, the patient has no significant proteinuria. Renal ultras ound shows normal renal parenchyma. ASSESSMENT AND PLAN: 1. Nonoliguric acute kidney injury with unknown baseline creatinine. Etiology of acute kidney inju ry may be secondary to hemodynamics, NSAID use, diuretic therapy. The patient's urinalysis is bland . There is no active sediment. The patient has no significant proteinuria. The patient's renal ul trasound was also within normal limits, normal renal prep, no hydronephrosis. At this point, would continue gentle IV fluids, continue to hold NSAIDs diuretic therapy, will follow up renal panel, french l otherwise continue supportive care, renally dose all meds, avoid nephrotoxins, continue gentle hyd ration. 2. Anemia of chronic disease. The patient is status post blood transfusion. Continue to monitor H and H levels. 3. Mineral bone disorder. Continue to monitor calcium and phosphorus levels. Abdominal pain, etio logy is likely secondary to malignancy. Continue current BOILER ASSISTANT OPERATOR pump. Follow up with palliative care. 4. History of breast cancer with bony metastasis. Continue current medical management. Follow up with oncology. 5. History of non-Hodgkin's lymphoma. Dictated By: AZAEL CALLOWAY/EBENEZER Conf#: [id number] DID#: [id number]
[2017-04-13] MEDS: DEXTROSE 5%-0.9% NACL 1,000 ML IV SCH ×2 (09:01→17:55)
[2017-04-13] MEDS: METHYLNALTREXONE 12 MG/0.6 ML VIAL SC SCH (09:08)
--- NOTE | 2017-04-13 10:21 | CONS ---
Date/Time of Note Date/Time of Note DATE: 04/13/17 TIME: 10:17 Assessment/Plan Assessment/Plan Chief Complaint/Hosp Course Ms Schwartz is a 49-year-old female with ER/[place]/ HER2+ positive, metastatic breast cancer to the bones who now presents with dizziness and palpitations secondary to severe anemia. # Anemia - secondary to metastatic cancer and possible bone marrow involvement -s/p2 units of PRBC's -start IV iron as well. Ferrlecit x 5 days was ordered -f/u CBC # Her 2+ / ER+ metastatic breast cancer to bones - per abd CT there are subcentimeter mesenteric lymphadenopathy which may represent disease. -pt should follow up in our clinic to start the treatment regimen outlined before which would include Herceptin/ Perjeta/ Examestane and Lupron. Pt has visited the cancer centers of [place] and is comfortable with our treatment plan. As stated before pt was advised that she would benefit from a Taxane based regimen but has refused this because it is chemotherapy. -Pt would have to continue Xgeva as well for her bone mets -any treatment could only start after patient after her acute issues have resolved # Dizziness -check brain MRI to ensure there is no evidence of brain mets. scan pending -pt is requesting neurology consult for further evaluation of her dizziness #Depression -started Effexor 75 mg q day Thank you for allowing me to participate in this patients care. Problems: (1) Metastatic breast cancer Status: Chronic (2) Dizziness Status: Acute (3) Normocytic anemia Status: Acute Consultation Date/Type/Reason Admit Date/Time April 11, 2017 at 18:26 Initial Consult Date 04/12/17 Type of Consultation: oncology Reason for Consultation metastatic breast cancer Referring Provider: INOCENCIO TRACEY 24 HR Interval Summary Free Text/Dictation had 2 units of PRBCs. shortness of breath has improved but patient still with dizziness. she is requesting a neurology consult Exam/Review of Systems Vital Signs Vitals Vital Signs Date Time Temp Pulse Resp B/P Pulse Ox O2 Delivery O2 Flow Rate FiO2 04/13/17 07:49 98.1 69 18 96/55 94 04/11/17 19:48 Room Air Intake and Output 04/12/17 04/12/17 04/13/17 15:00 23:00 07:00 Intake Total 3010 ml 1100 ml Output Total 1200 ml Balance 1810 ml 1100 ml Exam Constitutional: alert, frail, oriented Psych: anxiety, depression Head: normocephalic Eyes: nl conjunctiva ENMT: nl external ears & nose Neck: non-tender, supple Respiratory: clear to auscultation Cardiovascular: regular rate and rhythm Gastrointestinal: soft Musculoskeletal: joint tenderness, nl extremities to inspection, nl gait and stance Neurological: SCRAP COLLECTOR II-XII intact Results Result Diagram: 04/12/17 0435 04/12/17 0435 Results 24 hrs Laboratory Tests Test 04/12/17 12:50 Urine Color LT. YELLOW Urine Clarity CLEAR Urine pH 5.5 Urine Specific [place] 1.015 Urine Ketones NEGATIVE Urine Nitrite NEGATIVE Urine Bilirubin NEGATIVE Urine Urobilinogen 0.2 E.U./dL Urine Leukocyte Esterase NEGATIVE Urine Hemoglobin NEGATIVE Urine Random Creatinine 88.54 Urine Random Sodium 32 Urine Glucose NEGATIVE Urine Total Protein 10.0 Medications Medications Current Medications Ascorbic Acid (Vitamin C) 1,000 mg DAILY PO Last administered on 04/13/17 08: 20; Admin Dose 1,000 MG; Start 04/12/17 at 09:00 Baclofen (Lioresal) 10 mg QID PO Last administered on 04/13/17 08:20; Admin Dose 10 MG; Start 04/11/17 at 21:30 Duloxetine HCl (Cymbalta) 60 mg BID PO Last administered on 04/13/17 08:20; Admin Dose 60 MG; Start 04/11/17 at 23:00 Furosemide (Lasix) 80 mg DAILY@06 PO ; Start 04/12/17 at 06:00; Status Future Hold Gabapentin (Neurontin) 100 mg Q4 PO Last administered on 04/13/17 08:20; Admin Dose 100 MG; Start 04/12/17 at 01:00 Prochlorperazine (Compazine) 10 mg QID PRN PO NAUSEA; Start 04/11/17 at 21:30 Promethazine HCl (Phenergan) 25 mg Q6H PRN PO PAIN; Start 04/11/17 at 21:30 Ranitidine HCl (Zantac) 150 mg TID PO Last administered on 04/13/17 08:20; Admin Dose 150 MG; Start 04/12/17 at 09:00 Zolpidem Tartrate (Ambien) 10 mg QHS PRN PO INSOMNIA; Start 04/11/17 at 21:30 Miscellaneous Information 10 mg TID PO ; Start 04/12/17 at 09:00; Status UNV Miscellaneous Information 50 mg BID PO ; Start 04/11/17 at 21:30; Status UNV Vitamin B Complex/ Vitamin C (Berocca) 1 cap QHS PO ; Start 04/13/17 at 09:00 Metoclopramide HCl (Reglan) 10 mg Q6H PRN IV NAUSEA Last administered on 23:10; Admin Dose 10 MG; Start 04/11/17 at 21:30 Heparin Sodium (Porcine) 5000 unit 5,000 unit BID SC Last administered on 20:49; Admin Dose 5,000 UNIT; Start 04/12/17 at 09:00 Dextrose/Sodium Chloride (D5-NS) 1,000 ml @ 100 mls/hr Q10H IV Last administered on 04/12/17 23:49; Admin Dose 100 MLS/HR; Start 04/12/17 at 03:30 Methadone HCl (Methadone) 5 mg Q8H PO Last administered on 04/13/17 03:18; Admin Dose 5 MG; Start 04/12/17 at 11:30 Hydromorphone HCl (Dilaudid BRANCH ASSOCIATE TELLER) 0.5 MG/HR CONTINUOUS RATE ... Q4PCA IV Last administered on 04/13/17 05:42; Admin Dose 6 MG; Start 04/12/17 at 11:30 Methylnaltrexone [place] (Relistor) 12 mg DAILY SC Last administered on 09:08; Admin Dose 12 MG; Start 04/13/17 at 09:00 Miscellaneous Information (*Order Clarification Bulletin) MEDICATION REQUIRES CLARIFICATI... Q8H XX ; Start 04/12/17 at 13:30 Venlafaxine HCl 75 mg 75 mg BID PO Last administered on 04/13/17 08:20; Admin Dose 75 MG; Start 04/12/17 at 21:00 Ferric Sodium Gluconate Complex/ Sodium Chloride (Ferrlecit/NS) 110 ml @ 110 mls/hr Q24H IVPB Last administered on 04/12/17 18:41; Admin Dose 110 MLS/HR; Start 04/12/17 at 18:30; Stop 5/29/17 at 19:29 KASH LAWSON M.D. April 13, 2017 10:21
[2017-04-13 11:19] LABS: ADD SCAN DIFF NO
[2017-04-13 11:31] LABS: BASOPHILS % 0.6 % (0.0-2.0); EOSINOPHILS # 0.3 10^3/ul (0.0-0.5); EOSINOPHILS % 4.1 % (0.0-7.0); HEMATOCRIT 30.2 % (37.0-47.0); HEMOGLOBIN 9.6 g/dl (12.0-16.0); LYMPHOCYTES # 2.6 10^3/ul (0.8-2.9); LYMPHOCYTES % 36.5 % (15.0-51.0); MEAN CORPUSCULAR HEMOGLOBIN 27.7 pg (29.0-33.0); MEAN CORPUSCULAR HGB CONC 31.8 g/dl (32.0-37.0); MEAN CORPUSCULAR VOLUME 87.3 fl (82.0-101.0); MEAN PLATELET VOLUME 11.5 fl (7.4-10.4); MONOCYTES % 13.4 % (0.0-11.0); NEUTROPHIL # 3.2 10^3/ul (1.6-7.5); NEUTROPHILS % 45.1 % (39.0-77.0); PLATELET COUNT 506 10^3/UL (140-415); RED BLOOD COUNT 3.46 10^6/ul (4.20-5.40); RED CELL DISTRIBUTION WIDTH 21.6 % (11.5-14.5); WHITE BLOOD COUNT 7.2 10^3/ul (4.8-10.8)
--- NOTE | 2017-04-13 11:46 | RADRPT ---
PROCEDURE: MRI Brain without contrast. CLINICAL INDICATION: Metastatic breast cancer, brain metastases evaluation TECHNIQUE: Multiplanar MRI of the brain without contrast was performed on a 3.0T scanner with the f ollowing sequences obtained: T1-weighted, T2-weighted/FLAIR, diffusion weighted (with ADC map), GRE . COMPARISON: None available FINDINGS: No acute/recent ischemic infarction or intracranial hemorrhage / blood degradation products are iden tified. No extra-axial fluid collection is seen. No intracranial mass lesion is identified on this noncontrast evaluation. There is no mass effect. No midline shift is identified. The ventricles and sulci are within normal limits for size and configuration. The signal intensity is within normal limits in the cerebrum, brainstem and cerebellum. Flow voids are identified in the proximal intracranial arteries and dural sinuses suggesting patency . No gross destructive osseous lesion is seen. Mucosal thickening is seen at the anterior left ethmoi d sinus. IMPRESSION: 1. No intracranial metastatic disease identified on this noncontrast evaluation. 2. Unremarkable noncontrast MRI appearance of the brain. RPTAT: VV .Luís Gonzalez MD, Date Time Electronically viewed and signed by .Luís Gonzalez MD, on 04/13/2017 11:46 .O/
[2017-04-13 11:51] LABS: POTASSIUM 3.7 mmol/L (3.5-5.1)
[2017-04-13 11:53] LABS: CREATININE 0.7 mg/dl (0.44-1.00)
[2017-04-13 11:54] LABS: CALCIUM 7.3 mg/dl (8.4-10.2); PHOSPHORUS 2.3 mg/dl (2.5-4.9)
[2017-04-13 13:16] LABS: CREATININE, RANDOM URINE 97 mg/dL (20-320); MICROALBUMIN <0.2 mg/dL; MICROALBUMIN/CREATININE RATIO NOTE (<30)
--- NOTE | 2017-04-13 14:33 | PN ---
Date/Time of Note Date/Time of Note DATE: 04/13/17 TIME: 14:28 Assessment/Plan VTE Prophylaxis VTE Prophylaxis Intervention: heparin Lines/Catheters IV Catheter Type (from Nrs): Peripheral IV Urinary Cath still in place: No Assessment/Plan Chief Complaint/Hosp Course ASSESSMENT AND PLAN: A 51-year-old female with past medical history of breast cancer with bony metastasis, status post bilateral mastectomy and chemotherapy, history of Hodgkin's ds status post chemotherapy, splenectomy, depression, chronic back pain, ADHD, history of SBO who presents with abdominal pain symptoms. 1. Abdominal pain. Again, most likely secondary to patient's cancer symptoms. We will continue to follow recommendations per pain management doctor. Patient is on Dilaudid HEALTH AND SAFETY TRAINER pump right now and also methadone. Monitor pain symptoms. 2. Renal insufficiency - Creatinine was elevated on admission, now trending down to nL range with IVF's - Follow up renal recommendations, including the following up the urine electrolytes - monitor BUN and creatinine levels and urine output as well, and ins and outs. - Continue current fluids as well. 3. Anemia - s/p transfusion. Again, most likely secondary to chronic disease - Monitor H and H levels. - per heme/onc rec's - will get Neuro consult for pt's dizziness. 4. History of cancer with metastasis. Again, the patient is status post double mastectomy. Continue medical management including pain control medications. Consider PT consult as well. 5. History of ADHD monitor for now. 6. History of prior Hodgkin's ds - Continue to monitor for now. 7. Gastrointestinal prophylaxis. Continue H2 joe. 8. Deep venous thrombosis prophylaxis. Heparin subcutaneously. Problems: Subjective 24 Hr Interval Summary Free Text/Dictation Pt had pRBC transfusion yesterday. Seen by renal and Heme/Onc teams. Exam/Review of Systems Vital Signs Vitals Vital Signs Date Time Temp Pulse Resp B/P Pulse Ox O2 Delivery O2 Flow Rate FiO2 04/13/17 07:49 98.1 69 18 96/55 94 04/11/17 19:48 Room Air Intake and Output 04/12/17 04/12/17 04/13/17 15:00 23:00 07:00 Intake Total 3010 ml 1100 ml Output Total 1200 ml Balance 1810 ml 1100 ml Exam GENERAL: The patient is lying in bed sleeping. No acute distress. HEENT: Pupils equal, round, reactive to light. Extraocular muscles intact. NECK: Supple, no thyromegaly. LUNGS: Clear to auscultation bilaterally. CARDIOVASCULAR: S1, S2 heard. No rubs or gallops. ABDOMEN: Soft, nontender, nondistended. Normal bowel sounds. No rebound or guarding. MUSCULOSKELETAL: No lower extremity edema bilaterally. NEUROLOGIC: No focal deficits. Results Result Diagram: 04/13/17 1035 04/13/17 1034 Results 24 hrs Laboratory Tests Test 04/13/17 10:34 04/13/17 10:35 Sodium Level 144 Potassium Level 3.7 Chloride Level 111 H Carbon Dioxide Level 24 Anion Gap 13 Blood Urea Nitrogen 14 # Creatinine 0.70 Glucose Level 87 Calcium Level 7.3 L Phosphorus Level 2.3 #L Magnesium Level 2.0 White Blood Count 7.2 Red Blood Count 3.46 #L Hemoglobin 9.6 #L Hematocrit 30.2 #L Mean Corpuscular Volume 87.3 Mean Corpuscular Hemoglobin 27.7 L Mean Corpuscular Hemoglobin Concent 31.8 L Red Cell Distribution Width 21.6 H Platelet Count 506 H Mean Platelet Volume 11.5 H Neutrophils % 45.1 Lymphocytes % 36.5 Monocytes % 13.4 H Eosinophils % 4.1 Basophils % 0.6 Nucleated Red Blood Cells % 0.0 Neutrophils # 3.2 Lymphocytes # 2.6 Monocytes # 1.0 H Eosinophils # 0.3 Basophils # 0.0 Nucleated Red Blood Cells # 0.0 Medications Medications Current Medications Ascorbic Acid (Vitamin C) 1,000 mg DAILY PO Last administered on 04/13/17 08: 20; Admin Dose 1,000 MG; Start 04/12/17 at 09:00 Baclofen (Lioresal) 10 mg QID PO Last administered on 04/13/17 13:51; Admin Dose 10 MG; Start 04/11/17 at 21:30 Duloxetine HCl (Cymbalta) 60 mg BID PO Last administered on 04/13/17 08:20; Admin Dose 60 MG; Start 04/11/17 at 23:00 Furosemide (Lasix) 80 mg DAILY@06 PO ; Start 04/12/17 at 06:00; Status Future Hold Gabapentin (Neurontin) 100 mg Q4 PO Last administered on 04/13/17 13:51; Admin Dose 100 MG; Start 04/12/17 at 01:00 Prochlorperazine (Compazine) 10 mg QID PRN PO NAUSEA; Start 04/11/17 at 21:30 Promethazine HCl (Phenergan) 25 mg Q6H PRN PO PAIN; Start 04/11/17 at 21:30 Ranitidine HCl (Zantac) 150 mg TID PO Last administered on 04/13/17 13:51; Admin Dose 150 MG; Start 04/12/17 at 09:00 Zolpidem Tartrate (Ambien) 10 mg QHS PRN PO INSOMNIA; Start 04/11/17 at 21:30 Miscellaneous Information 10 mg TID PO ; Start 04/12/17 at 09:00; Status UNV Miscellaneous Information 50 mg BID PO ; Start 04/11/17 at 21:30; Status UNV Vitamin B Complex/ Vitamin C (Berocca) 1 cap QHS PO ; Start 04/13/17 at 09:00 Metoclopramide HCl (Reglan) 10 mg Q6H PRN IV NAUSEA Last administered on 23:10; Admin Dose 10 MG; Start 04/11/17 at 21:30 Heparin Sodium (Porcine) 5000 unit 5,000 unit BID SC Last administered on 20:49; Admin Dose 5,000 UNIT; Start 04/12/17 at 09:00 Dextrose/Sodium Chloride (D5-NS) 1,000 ml @ 100 mls/hr Q10H IV Last administered on 04/12/17 23:49; Admin Dose 100 MLS/HR; Start 04/12/17 at 03:30 Methadone HCl (Methadone) 5 mg Q8H PO Last administered on 04/13/17 11:52; Admin Dose 5 MG; Start 04/12/17 at 11:30 Hydromorphone HCl (Dilaudid HEALTH AND SAFETY TRAINER) 0.5 MG/HR CONTINUOUS RATE ... Q4PCA IV Last administered on 04/13/17 10:41; Admin Dose 6 MG; Start 04/12/17 at 11:30 Methylnaltrexone [place] (Relistor) 12 mg DAILY SC Last administered on 09:08; Admin Dose 12 MG; Start 04/13/17 at 09:00 Miscellaneous Information (*Order Clarification Bulletin) MEDICATION REQUIRES CLARIFICATI... Q8H XX ; Start 04/12/17 at 13:30 Venlafaxine HCl 75 mg 75 mg BID PO Last administered on 04/13/17 08:20; Admin Dose 75 MG; Start 04/12/17 at 21:00 Ferric Sodium Gluconate Complex/ Sodium Chloride (Ferrlecit/NS) 110 ml @ 110 mls/hr Q24H IVPB Last administered on 04/12/17 18:41; Admin Dose 110 MLS/HR; Start 04/12/17 at 18:30; Stop 04/16/17 at 19:29 OZ FULLER April 13, 2017 14:33
[2017-04-13] MEDS: SOD FERRIC GLUC COMPLX 125 MG in SOD CHLORIDE 0.9% 100 ML IVPB SCH (17:55)
[2017-04-13 19:00] VITALS: BP 98/57; RESP 18
--- NOTE | 2017-04-13 20:08 | CONS ---
DATE OF ADMISSION: 04/13/2017 DATE OF CONSULTATION: 04/13/2017 TYPE OF CONSULTATION: Neurology Thank you, Dr. Fuller, for your kind referral for evaluation of dizziness. HISTORY OF PRESENT ILLNESS: The patient is a 51-year-old lady with past medical history of breast c ancer with bony metastasis, status post bilateral mastectomy, depression, low back pain, who came wi th complaints of left flank pain. She has a history of non-Hodgkin's lymphoma at age 17 post-chemot herapy and splenectomy. The consultation was requested for dizziness. The patient gives history of episodes which may last for several hours and has been occurring on and off approximately every 2 weeks for the last 2 years , when she started feeling weak and gets sort of nodding towards movements of the head, like her nec k is not able to keep her head up every few seconds. At the same time, she may have similar movemen ts involving the arms and legs. She may drop from the arms if she holds anything or she could fall and her legs could give out. Along with this sensation, she feels dizzy where she feels like she is about to pass out. She stated that frequently she comes to the hospital with this and usually she may have different types of sickness at that time. At times it may relate to worsening of anemia, a t times it could happen if she does not take her opiates during daytime. She showed me a video on t he telephone that was taken by her friend in the emergency room here when she is sitting and having episodes of asterixis. At this time, patient comes with worsening of anemia, 7.7, hemoglobin, 24. 7 hematocrit and also she had elevated renal functions with BUN 35, creatinine 1.51. About 2 weeks ago, her hemoglobin was 10, hematocrit 32 BUN today 14, creatinine 0.7. The last time a few we eks ago she was here BUN was also 7, ____creatinine 1.59. At this time, liver function tests withi n normal limits. Her movements have resolved by now. She does not feel dizzy. MRI of the brain was done showing unremarkable study done without contrast. No metastatic disease. CURRENT MEDICATIONS: 1. Vitamin C. 2. ____ 3. Naltrexone. 4. Effexor. 5. Methadone. 6. Dilaudid. 7. Zantac. 8. Heparin. 9. Gabapentin. 10. Cymbalta. 11. Baclofen. 12. Compazine. ALLERGIES: PENICILLIN. SOCIAL HISTORY: No alcohol, tobacco, drug use. FAMILY HISTORY: Father and grandmother cancer. PHYSICAL EXAMINATION: VITAL SIGNS: Temperature 98.1, 69 pulse, 18 respirations, 96/55 blood pressure. GENERAL: She is not in acute distress, lying in bed. HEENT: Normocephalic, atraumatic head. NECK: No carotid bruits. No thyromegaly. LUNGS: Clear. CARDIAC: Normal cardiac rhythm and sounds. ABDOMEN: Soft. EXTREMITIES: No cyanosis, clubbing or edema. NEUROLOGIC: She is awake, alert, and oriented x3 with fluent speech. Cranial nerve examination meliton ws intact visual wynn bilaterally. Pupils reactive from 3 to 2 mm bilaterally. Extraocular movem ents intact without nystagmus. Symmetrical face. Preserved facial strength and sensation. Tongue is in midline. Palate elevates symmetrically. Motor strength examination preserved in all extremit ies. Normal bulk, tone, and strength. Sensory examination grossly intact to light touch. Deep ten don reflexes 2+ upper extremities, absent in lower extremities. Downgoing toes bilaterally. Coordi nation preserved on [id number] testing. No dysmetria or tremor. Gait was not assessed. Ther e is no asterixis today. IMPRESSION: Episodic asterixis and dizziness, usually when patient feels getting sick or associated with not taking opiates on a regular basis or worsening of anemia. Likely asterixis has toxic meta bolic etiology. The patient in the last 2 hospitalizations was dehydrated and with hydration, no mo re movements were seen. Continue current treatment. MRI of the brain was negative. No other recom mendations. I may check an ammonia level. Dictated By: JUAN GUERRA/EBENEZER Conf#: [id number] DID#: [id number] CC: OZ FULLER; INOCENCIO TRACEY MD;*EndCC*
[2017-04-14] MEDS: GABAPENTIN 100 MG CAP PO SCH ×4 (00:52→13:02)
[2017-04-14] MEDS: HYDROmorphONE 0.2 MG/ML PCA IV SCH ×2 (01:43→07:06)
[2017-04-14] MEDS: METHADONE 5 MG TAB PO SCH ×2 (03:08→11:37)
[2017-04-14] MEDS: DEXTROSE 5%-0.9% NACL 1,000 ML IV SCH (05:07)
[2017-04-14 05:24] LABS: ADD SCAN DIFF NO
[2017-04-14] MEDS: [UNRECOGNIZED DRUG - REMARK] XX SCH ×2 (05:27→13:04)
[2017-04-14 05:32] LABS: BASOPHIL # 0.1 10^3/ul (0.0-0.1); BASOPHILS % 0.6 % (0.0-2.0); EOSINOPHILS # 0.3 10^3/ul (0.0-0.5); EOSINOPHILS % 3.9 % (0.0-7.0); HEMATOCRIT 29.2 % (37.0-47.0); HEMOGLOBIN 9.2 g/dl (12.0-16.0); LYMPHOCYTES # 2.3 10^3/ul (0.8-2.9); LYMPHOCYTES % 28.4 % (15.0-51.0); MEAN CORPUSCULAR HEMOGLOBIN 27.4 pg (29.0-33.0); MEAN CORPUSCULAR HGB CONC 31.5 g/dl (32.0-37.0); MEAN CORPUSCULAR VOLUME 86.9 fl (82.0-101.0); MEAN PLATELET VOLUME 11.8 fl (7.4-10.4); MONOCYTE # 1.1 10^3/ul (0.3-0.9); MONOCYTES % 13.7 % (0.0-11.0); NEUTROPHIL # 4.3 10^3/ul (1.6-7.5); NEUTROPHILS % 53.2 % (39.0-77.0); PLATELET COUNT 501 10^3/UL (140-415); RED BLOOD COUNT 3.36 10^6/ul (4.20-5.40); RED CELL DISTRIBUTION WIDTH 21.9 % (11.5-14.5); WHITE BLOOD COUNT 8.1 10^3/ul (4.8-10.8)
[2017-04-14 05:47] LABS: CALCIUM 8.5 mg/dl (8.4-10.2); CREATININE 0.58 mg/dl (0.44-1.00); MAGNESIUM 2.2 mg/dl (1.7-2.5); PHOSPHORUS 2.3 mg/dl (2.5-4.9); POTASSIUM 4.5 mmol/L (3.5-5.1)
[2017-04-14 07:00] VITALS: BP 99/56; RESP 18
[2017-04-14] MEDS: ASCORBIC ACID 500 MG TAB PO SCH (08:41)
[2017-04-14] MEDS: DULOXETINE 30 MG CAP DR PO SCH (08:42)
[2017-04-14] MEDS: RANITIDINE 150 MG TAB PO SCH ×2 (08:42→13:02)
[2017-04-14] MEDS: HEPARIN 5,000 UNIT/0.5 ML VIAL SC SCH (08:42)
[2017-04-14] MEDS: VENLAFAXINE 75 MG TABLET PO SCH (08:42)
[2017-04-14] MEDS: BACLOFEN 10 MG TAB PO SCH ×2 (08:42→13:02)
[2017-04-14] MEDS: METHYLNALTREXONE 12 MG/0.6 ML VIAL SC SCH (08:43)
--- NOTE | 2017-04-14 09:35 | PN ---
DATE: 04/14/2017 SUBJECTIVE: The patient is stable, no acute events. The patient's pain is well controlled. OBJECTIVE: VITAL SIGNS: Blood pressure 99/56, respirations 18, pulse 58, temperature 98.7. HEENT: Head is normocephalic. NECK: Supple. HEART: Regular rate. LUNGS: Show diminished breath sounds at the bases. ABDOMEN: Soft, nontender to palpation. No rebound or guarding. EXTREMITIES: Negative for clubbing, cyanosis. No edema. DERMATOLOGIC: No rashes. MUSCULOSKELETAL: No joint effusions. NEUROLOGIC: No change in exam. MEDICATIONS: The patient's medications have been reviewed. LABORATORY DATA: Shows a sodium 139, potassium 4.5, chloride 110, BUN 9, creatinine 0.58 phosphorus 2.3. White count 8.1, hemoglobin 9.2, hematocrit 29.2, and platelet count is 501. IMAGING: The patient's MRI of the brain shows no disease. ASSESSMENT AND PLAN: 1. Nonoliguric acute kidney injury with unknown baseline creatinine. Etiology is secondary to hemo dynamics. Renal function has improved after discontinuing NSAIDs and Lasix. The patient responded well to IV fluids. At this point, continue current treatment plan, supportive care, renally dose al l medications, avoid nephrotoxins. 2. Anemia of chronic disease. Continue to monitor hemoglobin and hematocrit levels. 3. Mineral bone disorder. Continue to monitor calcium and phosphorus levels. If patient is hypoph osphatemic, we will replete with Neutra-Phos. 4. Breast cancer with bony metastasis. Continue medical management. Follow up with oncology. 5. 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 Continue MACHINIST WOOD pump. 6. History of non-Hodgkin's lymphoma. Dictated By: AZAEL CALLOWAY/EBENEZER Conf#: [id number] DID#: [id number]
[2017-04-14] MEDS ORDERED: NEUTRA-PHOS 250 MG PACKET PO ONE (10:00)
[2017-04-14] MEDS ORDERED: SENNA TAB PO PRN (10:00)
[2017-04-14] MEDS ORDERED: LACTULOSE 30ML CUP PO PRN (12:00)
--- NOTE | 2017-04-14 12:11 | PDOCDIS ---
Discharge Instructions CONDITION Patient Condition: Stable HOME CARE INSTRUCTIONS: Diet Instructions: Low Fat /Cholesterol ACTIVITY: Activity Restrictions: Slowly Increase Activity FOLLOW UP/APPOINTMENTS Appointments Please take your medications as prescribed, see your doctor in the clinic in 1 week. OZ FULLER April 14, 2017 12:11
[2017-04-14] MEDS ORDERED: SENN-53 PO (12:12)
[2017-04-14] MEDS ORDERED: POLY17PO6 PO (12:12)
--- NOTE | 2017-04-14 12:34 | PN ---
DATE: 04/14/2017 PAIN MANAGEMENT FOLLOWUP NOTE Ms. Schwartz is feeling much better at this time, states she is tolerating the methadone and the Dila udid. The CANE FEEDER will be turned off today, so she could go home. She is very anxious to do so. Waiti ng for primary care physician to come and speak with her. Other issues: She is a FULL CODE that ca n be addressed at some later time, which I do not believe it is indicated now, since she is still re ceiving aggressive intervention. Her pain is under control with methadone and Dilaudid. She states her pain is down to extremely tolerable at this point with just 5 mg 3 times a day of methadone and Dilaudid p.r.n. I can switch those over to oral medications if she is scheduled to go home today. S he has a significant amount of pain control at this time. Her physical functioning, social relation ships, mood, sleep patterns and overall function is much better at this time. She still has constip ation. She is currently on methylnaltrexone and stimulants. Denies nausea, vomiting, pruritus and mental cloudiness. Pain is still located in the right hip. No further radiations down into her leg at this time. There is no sign of oversedation. She is not asking for escalating doses or early r enewals. She is not negotiating for higher doses of pain medications, and I find there is no reason to think that she is using pain control medications for situational stressors. The patient is nons moker, nondrinker. Once again, her overall severity of the pain at this time is mild. OBJECTIVE: VITAL SIGNS: Blood pressure 99/56, pulse of 50 and regular, respirations of 18, temperature of 98.7 degrees, 96% saturation on room air. HEENT: She is normocephalic and atraumatic. Anicteric, acyanotic. NEUROLOGICAL: She is oriented x3. Cranial nerves II through XII are grossly intact. Motor and sen heather findings grossly within normal limits. ASSESSMENT AND PLAN: Pending discharge per Dr. Zuleta and ____. She can be switched to oral med ications until discharge. When discharged, I will be happy to switch over to oral medications. She does have Dilaudid at home. She just will need a prescription for methadone if she is scheduled to be discharged. Dictated By: CECILE CHANEL MD, LP/EBENEZER Conf#: [id number] DID#: [id number]
[2017-04-14] MEDS ORDERED: SODIUM PHOSPHATE 15 MMOL in SOD CHLORIDE 0.9% 250 ML IVPB ONE (13:30)
[2017-04-14 14:57] VITALS: BP 116/58; PULSE 80; RESP 20
[2017-04-15] MEDS ORDERED: POLYETHYLENE GLYCOL 17 GM PACKET PO SCH (09:00)
--- NOTE | 2017-04-15 13:26 | DS ---
DATE OF ADMISSION: 04/13/2017 DATE OF DISCHARGE: 04/14/2017 A 51-year-old female originally admitted on our originally admitted on 04/11/2017 being discharged h ome on 04/14/2017. HOSPITAL COURSE: The patient came in with abdominal pain, was thought to be secondary to patient's cancer symptoms, as she does have a history of breast cancer with bony metastasis, so she was admitt ed and seen by hematology/oncology team, pain management, palliative care team, neurology team and r enal team. She also had some renal insufficiency. She was treated with IV fluids. Her creatinine trended down to normal ____and she also received a blood transfusion for anemia which was thought to be secondary to her chronic disease and ____ her cancer. Her labs were monitored. Her abdominal p ain symptoms improved after getting a Dilaudid pump as well as methadone. ____ was managed by pain management team. Eventually, she was back at her baseline status. She was able to ambulate and aleksandr erate a p.o. diet. Her vital signs were stable as well and after getting clearance from showroom sales consultant team, she will be discharged home today in improved condition. DISCHARGE MEDICATIONS: She will go home with: 1. MiraLax 17 grams p.o. daily. 2. Senna 2 tabs p.o. b.i.d. p.r.n. 3. Adderall 10 mg t.i.d. 4. Vitamin C 1000 mg daily. 5. Baclofen 10 mg q.i.d. 6. Dulcolax 60 mg b.i.d. 7. Exemestane 25 mg. 8. Lasix 80 mg daily. 9. Gabapentin 100 mg p.o. q.4h. 10. [place] 10/325 q.2h. 11. Dilaudid 4 mg p.o. q.6h. 12. Indomethacin 50 mg b.i.d. 13. Reglan 5 mg q.6h. p.r.n. 14. MS Contin 15 mg t.i.d. 15. Methadone 5 mg q.8h. 16. Prochlorperazine 10 mg q.i.d. p.r.n. 17. Phenergan 25 mg q.6h. p.r.n. for pain. 18. Ranitidine 150 mg t.i.d. 19. Aldactone 50 mg b.i.d. 20. Tapentadol 50 mg b.i.d. 21. Vitamin B complex, one tab at bedtime. 22. Ambien 10 mg at bedtime p.r.n. Follow up with primary care doctor in the clinic in the next 1 to 2 weeks. FINAL DIAGNOSES: 1. Abdominal pain, likely secondary to patient's cancer symptoms. 2. History of breast cancer with bony metastasis, status post bilateral mastectomy and chemotherapy . 3. History of Hodgkin disease in the past, status post chemotherapy. 4. History of splenectomy. 5. History of depression. 6. Chronic back pain. 5. Attention deficit hyperactivity disorder. 6. Prior history of small bowel obstruction. Time spent discharging patient 45 minutes. Dictated By: OZ SUBRAMANIAN Conf#: [id number] DID#: [id number]
--- NOTE | 2017-04-17 09:05 | CONS ---
DATE OF ADMISSION: 04/13/2017 DATE OF CONSULTATION: 04/12/2017 PAIN MANAGEMENT AND PALLIATIVE CARE CONSULTATION The patient was seen and examined on ____. HISTORY OF PRESENT ILLNESS: This is a 51-year-old female who is well known to me from [facility], who has a history of metastatic breast cancer, HER-2 positive, ER/NE positive, presented wi th palpitations, dizziness and uncontrolled pain. The patient's primary care physician and oncologi st is Dr. Aisha Zuleta, who has seen and examined and is following her during this hospitalization. The patient states that her pain is primarily located right buttock and right lateral lower extremi ty. It increased in severity prior to this hospitalization, so much so that she is unable to move a nd ambulate in a normal fashion. She grades the pain as 8/10 moderate to severe and then increasing in severity 2 weeks prior to this presentation. At home was taking a combination of Vicodin, Dilau did and morphine extended release. For dosages, please refer to reconciliation sheets. With that, s he states she has continued to have breakthrough discomfort. She takes up to 8 mg of Dilaudid every 6 hours as needed and morphine approximately 60 mg a day of extended release in addition of Vicodin , up to 6 to 8 tablets per day. In reviewing the patient's medical records also, she has been takin g Tapentadol or Nucynta, also 50 mg p.o. b.i.d., but the patient did not tell me that was part of he r medical regimen at presentation. The patient has no past history of drug abuse or use. She has never been in a treatment program. Once again, her pain has accelerated 1 week prior to this presen tation and the majority of her pain does not significantly improve with the current medication dose that she is taking at this time. It does interfere with her physical functioning, worse. Family ____noncontributory. SOCIAL RELATIONSHIPS: The same. Mood is worse secondary to increasing pain. Sleeping patterns are worse and overall function is wor se since the last hospitalization that I saw her secondary to accelerated pain. She denies vomiting , but she has been nauseous associated with the pain. There is a history of moderate to severe cons tipation. Denies any pruritus, mental cloudiness sweating, fatigue, drowsiness associated with her current pain control medications. There has never been purposeful overdosing on medication, suicide attempts or oversedation with her current regimen; it just has not been working. No history of moo d changes, no history of ____ or impaired behavior. Patient has never requested frequent early monica wals or changes in her schedules of her medication during her prior hospitalization or escalations o f her dose. There is no history of drug seeking behavior. The patient does not use the medication in response to situational stresses and does not insist on certain medications by name. There is no history of smoking or alcohol use. MEDICATIONS: Please refer to reconciliation sheet. ALLERGIES: 1. PENICILLIN. 2. ____ 3. SHELLFISH. MAJOR MEDICAL PROBLEMS IN THE PAST: Extensive. Please refer to extensive history of present illnes s from Dr. Zuleta and Dr. Arteaga in addition to my consultation and review of her past medical histo ry as well as my prior history and physical. SOCIAL HISTORY: Nonsmoker, nondrinker. 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 FAMILY HISTORY: Noncontributory. REVIEW OF SYSTEMS: Positive for a history of Hodgkin's lymphoma when she was a child, status post r adiation and chemotherapy. The patient is status post double mastectomy, chronic renal insufficienc y also. Otherwise unremarkable except for which is as per history of present illness. PHYSICAL EXAMINATION: GENERAL: Shows a well-nourished, well-developed, very pleasant female who is in acute distress. HEENT: She is normocephalic and atraumatic. Anicteric, acyanotic. CHEST: Shows bilateral clear breath sounds throughout both lung wynn. COR: S1, S2, without S3, S4, murmur, gallop, rub. Normal rate, normal rhythm on examination. ABDOMEN: Grossly benign. NEUROLOGIC: She is oriented x3. Cranial nerves II through XII are grossly intact. Motor and senso ry findings are grossly within normal limits. LABORATORY TESTS: White blood cell count 8.1, hemoglobin 9.2, hematocrit 29.2, MCV of 86.9, platele t count of 501,000. Chemistries: Serum sodium 139, potassium 4.5, chloride 110, bicarbonate 26, BU N of 9, creatinine 0.58, blood sugar of 96. ASSESSMENT AND PLAN: Workup for etiology of increasing fatigue and general malaise is being worked u p at this time. She has been seen by Dr. Zuleta and Dr. Arteaga. As far as pain control, I have had a long conversation with her at this point because she has mets to her bones. I suggested to that we would discontinue her current pain control medications and during the hospitalization and start her off on a PROFESSIONAL SHOPPER of Dilaudid pump and recalculate her doses to p.o. methadone and discontinue her ot her opioids at this time, because I believe they are pretty worthless for now because of the acceler ation of her underlying disease process, although I believe that there were more than adequately richy ated as an outpatient. I do not believe that Nucynta is necessary either, as it is a relatively we ak opioid. We will continue to follow her. I very much appreciate the consultation. She is very p leasant female. Also, I have started off on methylnaltrexone for underlying constipation. Dictated By: CECILE CHANEL MD, LP/EBENEZER Conf#: [id number] DID#: [id number]
== END 2017-04-14 15:20 | disposition home or self-care (01) | DRG 948 ==
LOC: E/R 14:35 → MS1 18:26 → UNDOADMOB 20:10 → MS1 20:10 → OBSVTOIN 04-13 14:20
PROVIDERS: ADMIT Internal Medicine; ATTEND Internal Medicine
DX: G89.3 Neoplasm related pain (acute) (chronic) (principal); N17.9 Acute kidney failure, unspecified; C79.51 Secondary malignant neoplasm of bone; C50.919 Malignant neoplasm of unspecified site of unspecified female breast; D63.8 Anemia in other chronic diseases classified elsewhere; K56.41 Fecal impaction; N28.9 Disorder of kidney and ureter, unspecified; R10.9 Unspecified abdominal pain; Z85.72 Personal history of non-Hodgkin lymphomas; Z17.0 Estrogen receptor positive status [ER+]; R42 Dizziness and giddiness
CPT/HCPCS: 36415; 36430; 70552; 74176; 76775; 80048; 80053; 81003; 82043; 82140; 82962; 83690; 83735; 84100; 84155; 84300; 85025; 86850; 86900; 86901; 86920; 87081; 93005; 96374; 96375; G0378; J1170; J1644; J2405; J2765; J2916; J7030; J7042; J7050; P9016

== ENCOUNTER 2017-06-09 19:15 | Emergency (ER) | payer BC ==
[~2017-06-09] VITALS: Ht 172.7 cm; Wt 71.0 kg
[~2017-06-09 19:15] MED LIST changes: -HYDR4TAB18 PO; +HYDR4TAB51 PO; +POLY17PO6 PO; +SENN-53 PO
[2017-06-09 19:18] VITALS: Ht 172.7 cm; Wt 71.0 kg
[2017-06-09] MEDS ORDERED: ONDANSETRON 4 MG INJ IV STA (20:52)
[2017-06-09] MEDS ORDERED: SOD CHLORIDE 0.9% 1,000 ML IV STA (20:52)
[2017-06-09] MEDS ORDERED: HYDROmorphONE 1 MG/ML SYG IV STA (20:52)
[2017-06-09 21:50] LABS: BASOPHILS % 0.4 % (0.0-2.0); EOSINOPHILS # 0.3 10^3/ul (0.0-0.5); EOSINOPHILS % 3.4 % (0.0-7.0); HEMATOCRIT 34.8 % (37.0-47.0); HEMOGLOBIN 10.9 g/dl (12.0-16.0); LYMPHOCYTES # 1.7 10^3/ul (0.8-2.9); LYMPHOCYTES % 17.9 % (15.0-51.0); MEAN CORPUSCULAR HEMOGLOBIN 28.3 pg (29.0-33.0); MEAN CORPUSCULAR HGB CONC 31.3 g/dl (32.0-37.0); MEAN CORPUSCULAR VOLUME 90.4 fl (82.0-101.0); MEAN PLATELET VOLUME 11.2 fl (7.4-10.4); MONOCYTE # 0.9 10^3/ul (0.3-0.9); MONOCYTES % 9.5 % (0.0-11.0); NEUTROPHIL # 6.2 10^3/ul (1.6-7.5); NEUTROPHILS % 67.7 % (39.0-77.0); PLATELET COUNT 380 10^3/UL (140-415); RED BLOOD COUNT 3.85 10^6/ul (4.20-5.40); RED CELL DISTRIBUTION WIDTH 18.2 % (11.5-14.5); WHITE BLOOD COUNT 9.2 10^3/ul (4.8-10.8)
[2017-06-09 22:06] LABS: ALANINE AMINOTRANSFERASE 46 IU/L (13-69); ALBUMIN 4.1 g/dl (3.3-4.9); ALBUMIN/GLOBULIN RATIO 1.32; ALKALINE PHOSPHATASE 130 IU/L (42-121); ANION GAP 21 (8-16); ASPARTATE AMINO TRANSFERASE 58 IU/L (15-46); BLOOD UREA NITROGEN 41 mg/dl (7-20); CALCIUM 9.6 mg/dl (8.4-10.2); CARBON DIOXIDE 24 mmol/L (21-31); CHLORIDE 101 mmol/L (97-110); GLUCOSE 113 mg/dl (70-220); POTASSIUM 4.6 mmol/L (3.5-5.1); SODIUM 141 mmol/L (135-144); TOTAL PROTEIN 7.2 g/dl (6.1-8.1)
[2017-06-09 22:21] LABS: TROPONIN-I < 0.012 ng/ml (0.00-0.12)
--- NOTE | 2017-06-09 22:27 | RADRPT ---
PROCEDURE: CT Brain without contrast. CLINICAL INDICATION: Headache TECHNIQUE: A CT of the brain was performed on a multidetector CT scanner utilizing axial sections from the skull base through the vertex without contrast. Images were reviewed on a high-resolution [employer] workstation. Exam CTDI = 90.02 mGy and the DLP = 900.28 mGy-cm. One or more of the following dose reduction techniques were used: Automated exposure control Adjustment of the mA and/or kV according to patient size. Use of iterative reconstruction technique. COMPARISON: MRI brain 04/13/2017 FINDINGS: There is no evidence of intracranial hemorrhage, mass effect or midline shift. No abnormal intra-ax ial or extra-axial fluid collections are seen. The density of the brain is normal and the mendoza/whit e matter differentiation is well preserved. The osseous structures are unremarkable. Paranasal sin uses are clear. IMPRESSION: The study is slightly limited due to motion artifacts. 1. No intracranial hemorrhage, mass effect or midline shift. RPTAT: HHO .Sebas Peacock MD, MD Date Time Electronically viewed and signed by .Sebas Peacock MD, on 06/09/2017 22:27 .O/
[2017-06-09] MEDS ORDERED: NALOXONE (0.4 MG/ML) INJ IV ONE (23:30)
--- NOTE | 2017-06-09 23:58 | ERD ---
ER Documentation Chief Complaint Date/Time DATE: 06/09/17 TIME: 23:56 Chief Complaint c/o weak, dizzy, fever, chills. Receiving treatment for Breast CA. HPI This is a 51-year-old female who states that she is feeling dizzy and generalized fatigue today. She says she is quite sleepy this afternoon. She said she only slept 4 hours last night and was very poor quality sleep. She is not having any headache chest pain cough fever shortness of breath focal neurological complaints. He has been brought her in because he was concerned that she was too sleepy. The patient says she has chronic pain and takes 4 mg of Dilaudid every 6 hours and told me she needed some Dilaudid for her chronic pain at 2 mg not to give her anything less because it will not work. ROS All systems reviewed and are negative except as per history of present illness. Medications Home Meds Active Scripts Sennosides* (Senna Lax*) 8.6 Mg Tablet, 2 TAB PO BID Y for CONSTIPATION, #120 TAB Prov:OZ FULLER S. 04/14/17 Polyethylene Glycol* (Miralax*) 17 Gm Powd.pack, 17 GM PO DAILY, #30 PACKET 1 Refill Prov:OZ FULLER S. 04/14/17 Metoclopramide* (Reglan*) 5 Mg Tablet, 5 MG PO Q6H Y for NAUSEA AND OR VOMITING , #30 TAB Prov:INOCENCIO TRACEY 03/29/17 Reported Medications Duloxetine Hcl* (Duloxetine Hcl*) 60 Mg Capsule.dr, 60 MG PO BID, #30 CAP 03/19/17 Exemestane* (Exemestane*) 25 Mg Tablet, 25 MG PO, TAB 03/19/17 Zolpidem Tartrate* (Zolpidem Tartrate*) 10 Mg Tablet, 10 MG PO QHS Y for INSOMNIA, #30 TAB 03/19/17 Indomethacin* (Indocin*) 50 Mg Cap, 50 MG PO BID, CAP 03/19/17 Spironolactone* (Aldactone*) 50 Mg Tablet, 50 MG PO TID, #30 TAB 03/19/17 Promethazine Hcl* (Phenergan*) 25 Mg Tablet, 25 MG PO Q6H Y for PAIN, TAB 03/19/17 Vitamin B Complex (Vitamin B Complex) 1 Each Capsule, 1 EACH PO QHS, CAP 02/16/17 Ascorbic Acid (Vitamin C) 500 Mg Tab, 1000 MG PO DAILY, TAB 02/16/17 Prochlorperazine* (Prochlorperazine*) 10 Mg Tablet, 10 MG PO QID Y for NAUSEA, TAB 02/16/17 Ranitidine Hcl* (Ranitidine Hcl*) 150 Mg Tablet, 150 MG PO TID, #90 TAB 02/16/17 Tapentadol Hcl (Nucynta) 100 Mg Tablet, 50 MG PO BID, TAB 02/16/17 Gabapentin* (Gabapentin*) 100 Mg Capsule, 100 MG PO Q4, #120 CAP 02/16/17 Furosemide* (Furosemide*) 40 Mg Tablet, 80 MG PO DAILY, TAB 02/16/17 Amphet Mkg-Untcum-J-Amphet (Adderall) 10 Mg Tablet, 10 MG PO TID, TAB 02/16/17 Baclofen* (Baclofen*) 10 Mg Tablet, 10 MG PO QID, TAB 02/16/17 Hydromorphone Hcl* (Dilaudid*) 4 Mg Tablet, 4 MG PO Q6, TAB 02/16/17 Morphine Sulfate* (Ms Contin*) 15 Mg Tablet.sa, 15 MG PO TID, TAB.SA 02/16/17 Hydrocodone/Acetaminophen ([place] 10-325 Tablet) 1 Each Tablet, 1 EACH PO Q3H, TAB 02/16/17 Allergies Allergies: Coded Allergies: Penicillins (Verified Allergy, Unknown, RASH, SWOLLEN, HARD TIME BREATHING , 04/11/17) peanut (Verified Allergy, Unknown, 04/11/17) shellfish derived (Verified Allergy, Unknown, 04/11/17) PMhx/Soc History of Surgery: Yes (appendectomy/splenectomy 1983, bilateral mastectomy with reconstruction 201) Anesthesia Reaction: No Hx Neurological Disorder: No Hx Respiratory Disorders: No Hx Cardiac Disorders: No Hx Psychiatric Problems: Yes (depression) Hx Miscellaneous Medical Probl: Yes (pathological rib fx,ADHD,anemia, CHronic back pain) Hx Alcohol Use: Yes Hx Substance Use: No Hx Tobacco Use: No Smoking Status: Never smoker FmHx Family History: No coronary disease Physical Exam Vitals Vital Signs Date Time Temp Pulse Resp B/P Pulse Ox O2 Delivery O2 Flow Rate FiO2 06/09/17 20:43 93 18 128/68 97 Room Air 06/09/17 19:18 98.3 92 18 133/68 95 Physical Exam Const: Well-developed, well-nourished Head: Atraumatic, normocephalic Eyes: Normal Conjunctiva, PERRLA, EOMI, normal sclera, no nystagmus ENT: Normal External Ears, Nose and Mouth, moist mucus membranes. Neck: Full range of motion. No meningismus, no lymphadenopathy. Resp: Clear to auscultation bilaterally, no wheezing, rhonchi, rales Cardio: Regular rate and rhythm, no murmurs, S1 S2 present Abd: Soft, non tender x 4, non distended. Normal bowel sounds, no guarding or rebound, no pulsitile abdominal masses or bruits Skin: No petechiae or rashes, no ecchymosis , no maculopapular rash Back: No midline or flank tenderness Ext: No cyanosis, or edema, FROM x 4, normal inspection, neurovascularly intact x 4 Neur: Awake and alert, STR 5/5 x 4, sensation intact x 4, no focal findings, cerebellum intact Psych: Normal Mood and Affect, sleepy Result Diagram: 06/09/17212206/09/172122 Results 24 hrs Laboratory Tests Test 06/09/17 21:23 White Blood Count 9.210^3/ul Red Blood Count 3.8510^6/ul Hemoglobin 10.9g/dl Hematocrit 34.8% Mean Corpuscular Volume 90.4fl Mean Corpuscular Hemoglobin 28.3pg Mean Corpuscular Hemoglobin Concent 31.3g/dl Red Cell Distribution Width 18.2% Platelet Count 74709^3/UL Mean Platelet Volume 11.2fl Neutrophils % 67.7% Lymphocytes % 17.9% Monocytes % 9.5% Eosinophils % 3.4% Basophils % 0.4% Nucleated Red Blood Cells % 0.0/100WBC Neutrophils # 6.210^3/ul Lymphocytes # 1.710^3/ul Monocytes # 0.910^3/ul Eosinophils # 0.310^3/ul Basophils # 0.010^3/ul Nucleated Red Blood Cells # 0.010^3/ul Sodium Level 141mmol/L Potassium Level 4.6mmol/L Chloride Level 101mmol/L Carbon Dioxide Level 24mmol/L Anion Gap 21 Blood Urea Nitrogen 41mg/dl Creatinine 1.80mg/dl Glucose Level 113mg/dl Calcium Level 9.6mg/dl Total Bilirubin 0.0mg/dl Direct Bilirubin 0.00mg/dl Indirect Bilirubin 0.0mg/dl Aspartate Amino Transf (AST/SGOT) 58IU/L Alanine Aminotransferase (ALT/SGPT) 46IU/L Alkaline Phosphatase 130IU/L Ammonia < 9umol/l Troponin I < 0.012ng/ml Total Protein 7.2g/dl Albumin 4.1g/dl Globulin 3.10g/dl Albumin/Globulin Ratio 1.32 Current Medications Medications (Trade) Dose Ordered Sig/Julio Route PRN Reason Start Time Stop Time Status Last Admin Dose Admin Sodium Chloride (NS) 1,000 ml @ 1,000 mls/hr Q1H STAT IV 06/09/17 20:52 06/09/17 21:51 DC 06/09/17 21:26 Ondansetron HCl (Zofran Inj) 4 mg ONCE STAT IV 06/09/17 20:52 06/09/17 20:55 DC 06/09/17 21:25 Hydromorphone HCl (Dilaudid) 2 mg ONCE STAT IV 06/09/17 20:52 06/09/17 20:55 DC 06/09/17 21:25 Naloxone HCl (Narcan) 0.2 mg ONCE ONCE IV 06/09/17 23:30 06/09/17 23:31 DC Procedures/MDM PROCEDURE: CT Brain without contrast. CLINICAL INDICATION: Headache TECHNIQUE: A CT of the brain was performed on a multidetector CT scanner utilizing axial sections from the skull base through the vertex without contrast. Images were reviewed on a high-resolution PACS workstation. Exam CTDI = 90.02 mGy and the DLP = 900.28 mGy-cm. One or more of the following dose reduction techniques were used: Automated exposure control Adjustment of the mA and/or kV according to patient size. Use of iterative reconstruction technique. COMPARISON: MRI brain 04/13/2017 FINDINGS: There is no evidence of intracranial hemorrhage, mass effect or midline shift. No abnormal intra-axial or extra-axial fluid collections are seen. The density of the brain is normal and the mendoza/white matter differentiation is well preserved. The osseous structures are unremarkable. Paranasal sinuses are clear. IMPRESSION: The study is slightly limited due to motion artifacts. 1. No intracranial hemorrhage, mass effect or midline shift. RPTAT: HHO .Sebas Peacock MD, MD Date Time Electronically viewed and signed by .Sebas Peacock MD, on 06/09/2017 22:27 .O/ CC: FATOUMATA REMY DO Patient was given 2 mg of Dilaudid and Zofran. She was too sleepy to get out of the ER after her workup. I gave her 0.2 mg of Narcan and she woke up. She says she feels much better after she slept and got some rest. I think she is just sleepy because she only had 4 hours of sleep last night with poor quality sleep. There is nothing acute on her workup before she is safe for discharge Departure Diagnosis: Primary Impression: Dizziness Condition: Stable Patient Instructions: Dizziness, Unk Cause Referrals: KASH LAWSON M.D. (PCP) FATOUMATA REMY DO Jun 09, 2017 23:58
[2017-06-10] MEDS ORDERED: MECLIZINE 12.5 MG TAB PO ONE (00:30)
[2017-06-10] MEDS ORDERED: LEVO750T25 PO (01:20)
[2017-06-10 01:30] VITALS: BP 111/53; PULSE 63; RESP 17
== END 2017-06-10 01:30 | disposition home or self-care (01) ==
LOC: E/R 19:15
DX: R42 Dizziness and giddiness (principal)
CPT/HCPCS: 36415; 70450; 80053; 82140; 84484; 85025; 96374; 96375; 99285; J1170; J2310; J2405; J7030

== ENCOUNTER 2017-06-17 14:32 | Observation (INO) | payer BC ==
[~2017-06-17] VITALS: Ht 157.5 cm; Wt 78.0 kg
[~2017-06-17 14:32] MED LIST changes: +LEVO750T25 PO
[2017-06-17] MEDS ORDERED: HYDROmorphONE 1 MG/ML SYG IV STA ×2 (15:32→18:31)
[2017-06-17 15:41] LABS: BASOPHILS % 0.2 % (0.0-2.0); EOSINOPHILS # 0.5 10^3/ul (0.0-0.5); EOSINOPHILS % 4.3 % (0.0-7.0); HEMATOCRIT 22.3 % (37.0-47.0); HEMOGLOBIN 7.2 g/dl (12.0-16.0); LYMPHOCYTES # 2.8 10^3/ul (0.8-2.9); LYMPHOCYTES % 21.8 % (15.0-51.0); MEAN CORPUSCULAR HEMOGLOBIN 29.8 pg (29.0-33.0); MEAN CORPUSCULAR HGB CONC 32.3 g/dl (32.0-37.0); MEAN CORPUSCULAR VOLUME 92.1 fl (82.0-101.0); MEAN PLATELET VOLUME 10.9 fl (7.4-10.4); MONOCYTES % 8.1 % (0.0-11.0); NEUTROPHIL # 8.1 10^3/ul (1.6-7.5); NEUTROPHILS % 63.8 % (39.0-77.0); NUCLEATED RED BLOOD CELLS # 0.1 10^3/ul (0.0-0.0); NUCLEATED RED BLOOD CELLS% 0.4 /100WBC (0.0-0.0); PLATELET COUNT 532 10^3/UL (140-415); RED BLOOD COUNT 2.42 10^6/ul (4.20-5.40); RED CELL DISTRIBUTION WIDTH 18.5 % (11.5-14.5); WHITE BLOOD COUNT 12.7 10^3/ul (4.8-10.8)
[2017-06-17 15:59] LABS: ALBUMIN 3.9 g/dl (3.3-4.9); ALBUMIN/GLOBULIN RATIO 1.18; CALCIUM 9.3 mg/dl (8.4-10.2); CREATININE 1.61 mg/dl (0.44-1.00); POTASSIUM 3.9 mmol/L (3.5-5.1); TOTAL PROTEIN 7.2 g/dl (6.1-8.1)
--- NOTE | 2017-06-17 16:24 | RADRPT ---
PROCEDURE: XR Chest. CLINICAL INDICATION: Shortness of breath. TECHNIQUE: A single portable view of the chest was obtained. COMPARISON: 03/27/2017 FINDINGS: A left chest wall port is seen with the tip in the right atrium. The cardiomediastinal silhouette i s within normal limits. Diffuse pulmonary vascular congestion is seen. Questionable irregular air sp florentino disease in the right upper lung zone may be present. No discrete pleural effusion is seen. The soft tissues and osseous structures are unremarkable. IMPRESSION: 1. Diffuse pulmonary vascular congestion. 2. Questionable irregular air space disease in the right upper lung zone. Continued follow-up is s uggested. RPTAT: HPNM Physician Bria Date Time Electronically viewed and signed by Fly Willoughby Physician on 06/17/2017 16:23 /
[2017-06-17] MEDS ORDERED: SOD CHLORIDE 0.9% 250 ML IV ONE (16:35)
[2017-06-17] MEDS ORDERED: SOD CHLORIDE 0.9% 1,000 ML IV SCH (17:18)
--- NOTE | 2017-06-17 17:24 | ERA ---
ER Documentation Chief Complaint Date/Time DATE: 06/17/17 TIME: 17:22 Chief Complaint weakness.nusea,dizziness HPI This is a 51-year-old female with a history of cancer presents to the emergency room for evaluation of the weakness, nausea and dizziness. The patient states that she has had the symptoms and gotten progressively worse over the past 2 days. She presents to the emergency room for evaluation. She is denying any aggravating or relieving factors for symptoms, denies any chest pain or shortness of breath associated with this. ROS All systems reviewed and are negative except as per history of present illness. Medications Home Meds Active Scripts Levofloxacin* (Levaquin*) 750 Mg Tablet, 750 MG PO DAILY for 10 Days, TAB Prov:FATOUMATA REMY DO 06/10/17 Polyethylene Glycol* (Miralax*) 17 Gm Powd.pack, 17 GM PO DAILY, #30 PACKET 1 Refill Prov:OZ FULLER 04/14/17 Reported Medications Duloxetine Hcl* (Duloxetine Hcl*) 60 Mg Capsule.dr, 60 MG PO BID, #30 CAP 03/19/17 Exemestane* (Exemestane*) 25 Mg Tablet, 25 MG PO, TAB 03/19/17 Zolpidem Tartrate* (Zolpidem Tartrate*) 10 Mg Tablet, 10 MG PO QHS Y for INSOMNIA, #30 TAB 03/19/17 Indomethacin* (Indocin*) 50 Mg Cap, 50 MG PO BID, CAP 03/19/17 Spironolactone* (Aldactone*) 50 Mg Tablet, 50 MG PO TID, #30 TAB 03/19/17 Promethazine Hcl* (Phenergan*) 25 Mg Tablet, 25 MG PO Q6H Y for PAIN, TAB 03/19/17 Vitamin B Complex (Vitamin B Complex) 1 Each Capsule, 1 EACH PO QHS, CAP 02/16/17 Ascorbic Acid (Vitamin C) 500 Mg Tab, 1000 MG PO DAILY, TAB 02/16/17 Prochlorperazine* (Prochlorperazine*) 10 Mg Tablet, 10 MG PO QID Y for NAUSEA, TAB 02/16/17 Ranitidine Hcl* (Ranitidine Hcl*) 150 Mg Tablet, 150 MG PO TID, #90 TAB 02/16/17 Tapentadol Hcl (Nucynta) 100 Mg Tablet, 50 MG PO BID, TAB 02/16/17 Gabapentin* (Gabapentin*) 100 Mg Capsule, 100 MG PO Q4, #120 CAP 02/16/17 Furosemide* (Furosemide*) 40 Mg Tablet, 80 MG PO DAILY, TAB 02/16/17 Amphet Btr-Wgofvb-V-Amphet (Adderall) 10 Mg Tablet, 10 MG PO TID, TAB 02/16/17 Baclofen* (Baclofen*) 10 Mg Tablet, 10 MG PO QID, TAB 02/16/17 Hydromorphone Hcl* (Dilaudid*) 4 Mg Tablet, 4 MG PO Q6, TAB 02/16/17 Morphine Sulfate* (Ms Contin*) 15 Mg Tablet.sa, 15 MG PO TID, TAB.SA 02/16/17 Hydrocodone/Acetaminophen ([place] 10-325 Tablet) 1 Each Tablet, 1 EACH PO Q3H, TAB 02/16/17 Discontinued Scripts Sennosides* (Senna Lax*) 8.6 Mg Tablet, 2 TAB PO BID Y for CONSTIPATION, #120 TAB Prov:OZ FULLER S. 04/14/17 Metoclopramide* (Reglan*) 5 Mg Tablet, 5 MG PO Q6H Y for NAUSEA AND OR VOMITING , #30 TAB Prov:INOCENCIO TRACEY 03/29/17 Allergies Allergies: Coded Allergies: Penicillins (Verified Allergy, Unknown, RASH, SWOLLEN, HARD TIME BREATHING , 06/17/17) peanut (Verified Allergy, Unknown, 06/17/17) shellfish derived (Verified Allergy, Unknown, 06/17/17) PMhx/Soc History of Surgery: Yes (appendectomy/splenectomy 1983, bilateral mastectomy with reconstruction ) Anesthesia Reaction: No Hx Neurological Disorder: No Hx Respiratory Disorders: No Hx Cardiac Disorders: No Hx Psychiatric Problems: Yes (depression) Hx Miscellaneous Medical Probl: Yes (pathological rib fx,ADHD,anemia, CHronic back pain, lymphoma ) Hx Alcohol Use: Yes Hx Substance Use: No Hx Tobacco Use: No Smoking Status: Never smoker Physical Exam Vitals Vital Signs Date Time Temp Pulse Resp B/P Pulse Ox O2 Delivery O2 Flow Rate FiO2 06/17/17 15:59 80 17 103/69 98 Nasal Cannula 3.0 06/17/17 14:34 98.1 98 18 133/74 99 Physical Exam Const: No acute distress Head: Atraumatic Eyes: Normal Conjunctiva ENT: Normal External Ears, Nose and Mouth. Neck: Full range of motion..~ No meningismus. Resp: Clear to auscultation bilaterally Cardio: Regular rate and rhythm, no murmurs Abd: Soft, non tender, non distended. Normal bowel sounds Skin: Port-A-Cath in place no petechiae or rashes Back: No midline or flank tenderness Ext: No cyanosis, or edema Neur: Awake and alert Psych: Normal Mood and Affect Result Diagram: 06/17/17 1520 06/17/17 1520 Results 24 hrs Laboratory Tests Test 06/17/17 15:20 White Blood Count 12.710^3/ul Red Blood Count 2.4210^6/ul Hemoglobin 7.2g/dl Hematocrit 22.3% Mean Corpuscular Volume 92.1fl Mean Corpuscular Hemoglobin 29.8pg Mean Corpuscular Hemoglobin Concent 32.3g/dl Red Cell Distribution Width 18.5% Platelet Count 61773^3/UL Mean Platelet Volume 10.9fl Neutrophils % 63.8% Lymphocytes % 21.8% Monocytes % 8.1% Eosinophils % 4.3% Basophils % 0.2% Nucleated Red Blood Cells % 0.4/100WBC Neutrophils # 8.110^3/ul Lymphocytes # 2.810^3/ul Monocytes # 1.010^3/ul Eosinophils # 0.510^3/ul Basophils # 0.010^3/ul Nucleated Red Blood Cells # 0.110^3/ul Sodium Level 142mmol/L Potassium Level 3.9mmol/L Chloride Level 100mmol/L Carbon Dioxide Level 29mmol/L Anion Gap 17 Blood Urea Nitrogen 36mg/dl Creatinine 1.61mg/dl Glucose Level 102mg/dl Calcium Level 9.3mg/dl Total Bilirubin 0.0mg/dl Direct Bilirubin 0.00mg/dl Indirect Bilirubin 0.0mg/dl Aspartate Amino Transf (AST/SGOT) 62IU/L Alanine Aminotransferase (ALT/SGPT) 45IU/L Alkaline Phosphatase 106IU/L Total Protein 7.2g/dl Albumin 3.9g/dl Globulin 3.30g/dl Albumin/Globulin Ratio 1.18 Lipase 42U/L Current Medications Medications (Trade) Dose Ordered Sig/Julio Route PRN Reason Start Time Stop Time Status Last Admin Dose Admin Hydromorphone HCl 1 mg 1 mg ONCE STAT IV 06/17/17 15:32 06/17/17 15:33 DC 06/17/17 15:54 Sodium Chloride 250 ml @ 0 mls/hr Q0M ONCE IV 06/17/17 16:35 06/17/17 16:36 DC Sodium Chloride (NS) 1,000 ml @ 80 mls/hr [id number] IV 06/17/17 17:18 06/18/17 05:47 Ondansetron HCl (Zofran Inj) 4 mg BRIDGE ORDER PRN IV NAUSEA AND/OR VOMITING 06/17/17 17:30 06/18/17 17:29 Acetaminophen (Tylenol Tab) 650 mg ER BRIDGE PRN PO MILD PAIN/FEVER 06/17/17 17:30 06/18/17 17:29 Procedures/MDM Chest X-ray 1V Interpreted by me: Soft Tissue: No acute abnormalities Bones: No acute abnormalities Mediastinum/Cardiac Silhouette/Lungs: [No acute abnormalities] This is a 51-year-old female presents to the emergency room for evaluation of generalized weakness. The patient does have a history of metastatic breast cancer. The patient was complaining of pain all over her body. She was given 1 mg of Dilaudid. The patient states she is feeling better however she still feeling weak. Lab work was obtained which shows a hemoglobin of 7.2. This patient's baseline is around 9. The patient does see oncologist Dr. Cole and I have contacted the on-call physician for her who states the patient should be admitted at this time for a blood transfusion and repeat hemoglobin in the morning. The patient will be admitted to her panel physician Dr. Montalvo. The patient is hemodynamically stable at this time will be placed on the [facility] floor Critical Care: Excluding all billable procedures Time: 32 minutes Treatments/Evaluations: Close monitoring and treatment of unstable vital signs, cardiorespiratory, and neurologic status, while maintaining tight balance of fluid, respiratory, and cardiac interventions. Departure Diagnosis: Primary Impression: Normocytic anemia Additional Impressions: Metastatic breast cancer Renal insufficiency Condition: Stable MIRANDA DELVALLE DO Jun 17, 2017 17:24
[2017-06-17] MEDS ORDERED: ONDANSETRON 4 MG INJ IV PRN ×3 (17:30→18:00)
[2017-06-17] MEDS ORDERED: ACETAMINOPHEN 325 MG TAB PO PRN ×3 (17:30→18:00)
--- NOTE | 2017-06-17 17:41 | HP ---
Date/Time of Note Date/Time of Note DATE: 06/17/17 TIME: 17:41 Assessment/Plan VTE Prophylaxis VTE Prophylaxis Intervention: SCD's Assessment/Plan Assessment/Plan 51 yo F with stage 4 breast ca with bone mets, on chemo, admitted for weakness 2 /2 symptomatic anemia from her malignancy v from chemo PLAN 2 units prbc's already ordered by ER check CBC in AM if feeling back to baseline, consider discharging patient HPI/ROS Admit Date/Time Admit Date/Time Hx of Present Illness CC: fatigue HPI 51 yo F with known hx stage 4 breast ca with diffuse bone mets, on chemo, presents with 3 days of weakness/fatigue. Hgb found to be in 7s. Pt reports multiple previous admissions for similar. ER spoke with pt's oncologist Dr Cole who advised admission for blood transfusion PMH/Family/Social Past Medical History stage 4 breast ca depression Past Surgical History Past Surgical Hx: endoscopy, other Social History Smoking Status: Never smoker Exam/Review of Systems Vital Signs Vitals Vital Signs Date Time Temp Pulse Resp B/P Pulse Ox O2 Delivery O2 Flow Rate FiO2 06/17/17 15:59 80 17 103/69 98 Nasal Cannula 3.0 06/17/17 14:34 98.1 Exam Exam nad, sitting at side of bed +tattoos EOMI MMM no mrg lungs clear abd soft no rashes no edema hgb 7s Labs Result Diagram: 06/17/17 1520 06/17/17 1520 Medications Medications Current Medications Sodium Chloride (NS) 1,000 ml @ 80 mls/hr [id number] IV ; Start 06/17/17 at 17:18 ; Stop 06/18/17 at 05:47 JOHN LOPES MD Jun 17, 2017 17:41
[2017-06-17] MEDS ORDERED: DOCUSATE SODIUM 100 MG CAP PO PRN (18:00)
[2017-06-17] MEDS ORDERED: NACL 0.9% 3 ML SYG IV SCH (18:00)
[2017-06-17] MEDS ORDERED: HYDROmorphONE 4 MG TAB PO SCH (18:00)
[2017-06-17] MEDS ORDERED: ONDANSETRON 4 MG TAB PO PRN (18:00)
[2017-06-17] MEDS ORDERED: HYDROCODONE/APAP (5/325) TAB PO PRN (18:00)
[2017-06-17] MEDS ORDERED: ZOLPIDEM 5 MG TAB PO PRN (18:00)
[2017-06-17] MEDS ORDERED: MAGNESIUM HYDROXIDE 30ML CUP PO PRN (18:00)
[2017-06-17] MEDS ORDERED: PROCHLORPERAZINE 10 MG TAB PO PRN (18:00)
[2017-06-17] MEDS: [UNRECOGNIZED DRUG - REMARK] XX SCH ×2 (19:00→23:53)
[2017-06-17 19:15] LABS: ADD UMIC NO; UR ASCORBIC ACID 40 mg/dL (NEGATIVE); UR BILIRUBIN (Dip) NEGATIVE (NEGATIVE); UR BLOOD (Dip) NEGATIVE (NEGATIVE); UR CLARITY CLEAR (CLEAR); UR COLOR YELLOW (YELLOW); UR GLUCOSE (Dip) NEGATIVE (NEGATIVE); UR KETONES (Dip) NEGATIVE (NEGATIVE); UR LEUKOCYTE ESTERASE (Dip) NEGATIVE Leu/ul (NEGATIVE); UR NITRITE (Dip) NEGATIVE (NEGATIVE); UR SPECIFIC GRAVITY (Dip) 1.014 (1.003-1.030); UR TOTAL PROTEIN (Dip) NEGATIVE (NEGATIVE); UR UROBILINOGEN (Dip) NEGATIVE (NEGATIVE)
[2017-06-17] MEDS ORDERED: TAPENTADOL HCL 50 MG PO SCH (21:00)
[2017-06-17] MEDS: DULOXETINE 30 MG CAP DR PO SCH (21:27)
[2017-06-17] MEDS: BACLOFEN 10 MG TAB PO SCH (21:27)
[2017-06-17] MEDS: RANITIDINE 150 MG TAB PO SCH (21:27)
[2017-06-17] MEDS: GABAPENTIN 100 MG CAP PO SCH (21:27)
[2017-06-17] MEDS: morphine (ER) 15 MG TAB PO SCH (21:28)
[2017-06-17 21:30] VITALS: BP 121/60; PULSE 88; RESP 17
[2017-06-17] MEDS ORDERED: HYDROmorphONE 2 MG TAB PO SCH (21:50)
[2017-06-17 22:17] VITALS: BP 116/65; PULSE 87; RESP 16
[2017-06-17] MEDS: HYDROmorphONE 2 MG TAB PO SCH (22:25)
[2017-06-17] MEDS: VITAMIN B COMPLEX/VIT C CAP PO SCH (22:25)
[2017-06-17] MEDS: SPIRONOLACTONE 50 MG TAB PO SCH (22:26)
[2017-06-17] MEDS: INDOMETHACIN 50 MG PO SCH (22:26)
[2017-06-17 22:33] VITALS: Ht 157.5 cm; Wt 78.0 kg
[2017-06-17 22:35] VITALS: BP 122/85; PULSE 88; RESP 16
[2017-06-17 22:50] VITALS: BP 107/63; PULSE 89; RESP 16
[2017-06-17 23:50] VITALS: BP 138/66; PULSE 85; RESP 17
[2017-06-18 00:50] VITALS: BP 121/67; PULSE 79; RESP 17
[2017-06-18] MEDS: GABAPENTIN 100 MG CAP PO SCH ×6 (00:50→20:45)
[2017-06-18 01:12] VITALS: BP 120/65; PULSE 80; RESP 16
[2017-06-18 02:12] VITALS: BP 115/61; PULSE 77; RESP 16
[2017-06-18] MEDS: HYDROCODONE/APAP (10/325) TAB PO PRN (04:42)
[2017-06-18] MEDS: HYDROmorphONE 2 MG TAB PO SCH ×3 (06:00→18:09)
[2017-06-18 06:12] LABS: BASOPHILS % 0.3 % (0.0-2.0); EOSINOPHILS # 0.5 10^3/ul (0.0-0.5); EOSINOPHILS % 4.3 % (0.0-7.0); HEMATOCRIT 26.4 % (37.0-47.0); HEMOGLOBIN 8.8 g/dl (12.0-16.0); LYMPHOCYTES # 2.6 10^3/ul (0.8-2.9); LYMPHOCYTES % 22.8 % (15.0-51.0); MEAN CORPUSCULAR HEMOGLOBIN 30.2 pg (29.0-33.0); MEAN CORPUSCULAR HGB CONC 33.3 g/dl (32.0-37.0); MEAN CORPUSCULAR VOLUME 90.7 fl (82.0-101.0); MEAN PLATELET VOLUME 11.1 fl (7.4-10.4); MONOCYTE # 1.2 10^3/ul (0.3-0.9); MONOCYTES % 10.1 % (0.0-11.0); NEUTROPHILS % 61.2 % (39.0-77.0); NUCLEATED RED BLOOD CELLS # 0.1 10^3/ul (0.0-0.0); NUCLEATED RED BLOOD CELLS% 0.4 /100WBC (0.0-0.0); PLATELET COUNT 503 10^3/UL (140-415); RED BLOOD COUNT 2.91 10^6/ul (4.20-5.40); RED CELL DISTRIBUTION WIDTH 17.7 % (11.5-14.5); WHITE BLOOD COUNT 11.4 10^3/ul (4.8-10.8)
[2017-06-18 08:17] VITALS: BP 132/62; RESP 18
[2017-06-18] MEDS: AMPHET ASP AMPHET D AMPHET 10 MG PO SCH ×3 (09:00→20:44)
[2017-06-18] MEDS: POLYETHYLENE GLYCOL 17 GM PACKET PO SCH (09:00)
[2017-06-18] MEDS: SPIRONOLACTONE 50 MG TAB PO SCH ×3 (09:21→20:44)
[2017-06-18] MEDS: DULOXETINE 30 MG CAP DR PO SCH ×2 (09:21→20:44)
[2017-06-18] MEDS: BACLOFEN 10 MG TAB PO SCH ×4 (09:21→20:45)
[2017-06-18] MEDS: INDOMETHACIN 50 MG PO SCH ×2 (09:21→20:45)
[2017-06-18] MEDS: FUROSEMIDE 40 MG TAB PO SCH (09:22)
[2017-06-18] MEDS: ASCORBIC ACID 500 MG TAB PO SCH (09:22)
[2017-06-18] MEDS: RANITIDINE 150 MG TAB PO SCH ×3 (09:22→20:45)
[2017-06-18] MEDS: morphine (ER) 15 MG TAB PO SCH ×3 (09:27→20:45)
[2017-06-18] MEDS: HYDROmorphONE 1 MG/ML SYG IV PRN ×2 (09:28→16:46)
[2017-06-18] MEDS: [UNRECOGNIZED DRUG - REMARK] XX SCH ×2 (11:00→19:00)
--- NOTE | 2017-06-18 15:17 | PN ---
Date/Time of Note Date/Time of Note DATE: 06/18/17 TIME: 15:12 Assessment/Plan VTE Prophylaxis VTE Prophylaxis Intervention: SCD's Lines/Catheters IV Catheter Type (from Nrs): Central Line Central line still needed: Yes Urinary Cath still in place: Yes Reason Cath still needed: urinary retention Assessment/Plan Chief Complaint/Hosp Course Assessment/Plan: 51 yo F with stage 4 breast ca with bone mets, on chemo, admitted for weakness 2/2 symptomatic anemia from her malignancy v from chemo 1. anemia: Secondary to malignancy v from chemo. Status post 2 units prbc's transfused - monitor,check CBC in AM 2. Breast cancer with bony metastasis: Still with some pain symptom -Pain control with Dilaudid, follow-up hematology oncology recommendations. 3. Renal insufficiency: Creatinine slightly elevated at one-point -We will start low-dose IV fluids half-normal saline Problems: Subjective 24 Hr Interval Summary Free Text/Dictation Patient complaining of some lower extremity pain and weakness. Received blood transfusion completion 2 units earlier this morning. Exam/Review of Systems Vital Signs Vitals Vital Signs Date Time Temp Pulse Resp B/P Pulse Ox O2 Delivery O2 Flow Rate FiO2 06/18/17 08:17 98.2 88 18 132/62 93 06/18/17 02:12 Room Air 06/17/17 19:51 3.0 Intake and Output 06/17/17 06/17/17 06/18/17 15:00 23:00 07:00 Intake Total 350 ml 1200 ml Balance 350 ml 1200 ml Exam In mild distress, sitting on the side of the bed +tattoos EOMI MMM no mrg lungs clear abd soft no rashes no edema Results Result Diagram: 06/18/17 0437 06/17/17 1520 Results 24 hrs Laboratory Tests Test 06/17/17 15:20 06/17/17 18:44 06/18/17 04:37 06/18/17 05:44 White Blood Count 12.7 #H 11.4 H Red Blood Count 2.42 #L 2.91 #L Hemoglobin 7.2 #L 8.8 #L Hematocrit 22.3 #L 26.4 L Mean Corpuscular Volume 92.1 90.7 Mean Corpuscular Hemoglobin 29.8 30.2 Mean Corpuscular Hemoglobin Concent 32.3 33.3 Red Cell Distribution Width 18.5 H 17.7 H Platelet Count 532 #H 503 H Mean Platelet Volume 10.9 H 11.1 H Neutrophils % 63.8 61.2 Lymphocytes % 21.8 22.8 Monocytes % 8.1 10.1 Eosinophils % 4.3 4.3 Basophils % 0.2 0.3 Nucleated Red Blood Cells % 0.4 H 0.4 H Neutrophils # 8.1 H 7.0 Lymphocytes # 2.8 2.6 Monocytes # 1.0 H 1.2 H Eosinophils # 0.5 0.5 Basophils # 0.0 0.0 Nucleated Red Blood Cells # 0.1 H 0.1 H Sodium Level 142 Potassium Level 3.9 Chloride Level 100 Carbon Dioxide Level 29 Anion Gap 17 H Blood Urea Nitrogen 36 H Creatinine 1.61 H Glucose Level 102 Calcium Level 9.3 Total Bilirubin 0.0 L Direct Bilirubin 0.00 Indirect Bilirubin 0.0 Aspartate Amino Transf (AST/SGOT) 62 H Alanine Aminotransferase (ALT/SGPT) 45 Alkaline Phosphatase 106 Total Protein 7.2 Albumin 3.9 Globulin 3.30 H Albumin/Globulin Ratio 1.18 Lipase 42 Urine Color YELLOW Urine Clarity CLEAR Urine pH 5.0 Urine Specific [place] 1.014 Urine Ketones NEGATIVE Urine Nitrite NEGATIVE Urine Bilirubin NEGATIVE Urine Urobilinogen NEGATIVE Urine Leukocyte Esterase NEGATIVE Urine Hemoglobin NEGATIVE Urine Glucose NEGATIVE Urine Total Protein NEGATIVE Lab Scanned Report BLOOD TRANSFUSION Medications Medications Current Medications Ondansetron HCl (Zofran Tab) 4 mg Q6H PRN PO NAUSEA AND/OR VOMITING; Start at 18:00 Ondansetron HCl (Zofran Inj) 4 mg Q6H PRN IV NAUSEA AND/OR VOMITING; Start at 18:00 Acetaminophen (Tylenol Tab) 650 mg Q6H PRN PO PAIN LEVEL 1-3 OR FEVER; Start at 18:00 Acetaminophen/ Hydrocodone Bitart ([place] (5/325)) 1 tab Q6H PRN PO MODERATE PAIN LEVEL 4-6; Start 06/17/17 at 18:00 Docusate Sodium (Colace) 100 mg Q12H PRN PO CONSTIPATION; Start 06/17/17 at 18: 00 Magnesium Hydroxide (Milk Of Mag) 30 ml DAILY PRN PO CONSTIPATION; Start at 18:00 Ascorbic Acid (Vitamin C) 1,000 mg DAILY PO Last administered on 06/18/17 09: 22; Admin Dose 1,000 MG; Start 06/18/17 at 09:00 Baclofen (Lioresal) 10 mg QID PO Last administered on 06/18/17 13:45; Admin Dose 10 MG; Start 06/17/17 at 21:00 Duloxetine HCl (Cymbalta) 60 mg BID PO Last administered on 06/18/17 09:21; Admin Dose 60 MG; Start 06/17/17 at 21:00 Furosemide (Lasix) 80 mg DAILY PO Last administered on 06/18/17 09:22; Admin Dose 80 MG; Start 06/18/17 at 09:00 Gabapentin (Neurontin) 100 mg Q4 PO Last administered on 06/18/17 13:45; Admin Dose 100 MG; Start 06/17/17 at 21:00 Acetaminophen/ Hydrocodone Bitart ([place] (10/325)) 1 tab Q3H PRN PO pain Last administered on 06/18/17 04:42; Admin Dose 1 TAB; Start 06/17/17 at 18:00 Indomethacin (Indocin) 50 mg BID PO Last administered on 06/18/17 09:21; Admin Dose 50 MG; Start 06/17/17 at 21:00 Morphine Sulfate (Ms Contin (Er)) 15 mg TID PO Last administered on 06/18/17 13:45; Admin Dose 15 MG; Start 06/17/17 at 21:00 Polyethylene Glycol (Miralax) 17 gm DAILY PO ; Start 06/18/17 at 09:00 Prochlorperazine (Compazine) 10 mg QID PRN PO NAUSEA; Start 06/17/17 at 18:00 Promethazine HCl (Phenergan) 25 mg Q6H PRN PO PAIN; Start 06/17/17 at 18:00 Ranitidine HCl (Zantac) 150 mg TID PO Last administered on 06/18/17 13:45; Admin Dose 150 MG; Start 06/17/17 at 21:00 Spironolactone (Aldactone) 50 mg TID PO Last administered on 06/18/17 13:44; Admin Dose 50 MG; Start 06/17/17 at 21:00 Zolpidem Tartrate (Ambien) 10 mg QHS PRN PO INSOMNIA; Start 06/17/17 at 18:00 Non-Formulary Medication 1 ea TID PO Last administered on 06/18/17 13:44; Admin Dose 1 EA; Start 06/18/17 at 09:00 Miscellaneous Information 50 mg BID PO ; Start 06/17/17 at 21:00; Status UNV Vitamin B Complex/ Vitamin C ([place]) 1 cap QHS PO Last administered on 22:25; Admin Dose 1 CAP; Start 06/17/17 at 21:00 Miscellaneous Information (*Order Clarification Bulletin) Amphet [id number]- Amphet (Adderall) 10 M... Q8H XX ; Start 06/17/17 at 19:00 Hydromorphone HCl (Dilaudid) 4 mg Q6 PO Last administered on 06/18/17 12:19; Admin Dose 4 MG; Start 06/17/17 at 22:17 Hydromorphone HCl 1 mg 1 mg Q6H PRN IV PAIN Last administered on 06/18/17 09: 28; Admin Dose 1 MG; Start 06/18/17 at 09:00 Sodium Chloride 1,000 ml @ 75 mls/hr [id number] IV ; Start 06/18/17 at 15:30; Stop 06/19/17 at 14:55; Status UNV Ferric Sodium Gluconate Complex/ Sodium Chloride (Ferrlecit/NS) 110 ml @ 100 mls/hr ONCE ONCE IVPB ; Start 06/18/17 at 15:30; Stop 06/18/17 at 16:35; Status UNV OZ FULLER Jun 18, 2017 15:16
[2017-06-18] MEDS ORDERED: SOD FERRIC GLUC COMPLX 125 MG in SOD CHLORIDE 0.9% 100 ML IVPB ONE (16:00)
--- NOTE | 2017-06-18 16:10 | CONS ---
Date/Time of Note Date/Time of Note DATE: 06/18/17 TIME: 15:55 Assessment/Plan Assessment/Plan Chief Complaint/Hosp Course Ms Schwartz is a 49-year-old female with ER/VA/ HER2+ positive, metastatic breast cancer to the bones who again presents with severe anemia and subjective LE edema concerning for cellulitis # Anemia - secondary to metastatic cancer and possible bone marrow involvement -s/p2 units of PRBC's . post transfusion CBC at 8.8 demonstrating patient responded well -while patient is in house will start IV iron as well. Ferrlecit x 5 days was ordered -f/u CBC # Her 2+ / ER+ metastatic breast cancer to bones - -pt should follow up in our clinic to re-start the treatment regimen outlined before which would include Herceptin/ Perjeta/ Examestane and Lupron. Pt has visited the cancer centers of [facility] and is comfortable with our treatment plan. As stated before pt was advised that she would benefit from a Taxane based regimen but has refused this because it is chemotherapy. -Pt will continue Xgeva as well for her bone mets #LE edema -on physical exam there is no evidence of LE edema or cellulitis -will continue to monitor. I do not feel antibiotics are necessary at this time #Depression -continue Effexor 75 mg q day # Acute Kidney Injury -likely secondary to pre-renal azotemia -will f/u creatinine after blood transfusion Thank you for allowing me to participate in this patients care. Problems: (1) Renal insufficiency Status: Acute (2) Normocytic anemia Status: Acute (3) Metastatic breast cancer Status: Chronic Consultation Date/Type/Reason Admit Date/Time Jun 17, 2017 Date of Consultation: Jun 18, 2017 Type of Consultation: Oncology Reason for Consultation metastatic breast cancer Referring Provider: JOHN LOPES MD Hx of Present Illness Ms Schwartz is a 49-year-old female who in 1982 was diagnosed with Hodgkins disease, that has since been treated who was then diagnosed with L sided breast cancer in 2011. The mastectomy was on 06/30/2012, the tumor was a well- differentiated, 3.3 cm with 5 out of 7 lymph nodes positive. She was thus diagnosed with stage IIIA, ER/VA positive, HER-2 negative disease. The patient refused chemotherapy, but she received tamoxifen for about 2-3 years. The patient was then diagnosed with recurrence in the bones in February of 2015. AT that time patient had a biopsy of her hip that revealed ER+/VA+/Her2+ disease. It was, at that time, that the patient was told to start chemotherapy, but again because she refused. The patient was thus started on exemestane, Xgeva, and Lupron given that she was premenopausal. Ms Schwartz has since started a regimen of Lupron/ Exemestane/ Perjeta and Herceptin. Her last dose was given on 05/24. She was due today for her next dose of Herceptin and Perjeta but presents to the hospital for "LE swelling, cellulitis and weakness" per the pateint. She is also requesting Dilaudid. Constitutional: poor po Eyes: no complaints ENT: no complaints Respiratory: shortness of breath Cardiovascular: edema Gastrointestinal: decreased appetite, nausea Musculoskeletal: back pain, bone/joint pain Neurologic: dizziness Past Medical History back fracture in 1997 breast cancer depression Past Surgical History Past Surgical Hx: no surgical history, endoscopy, other Family History Significant Family History: no pertinent family hx Social History Alcohol Use: none Smoking Status: Never smoker Drug Use: none Exam/Review of Systems Vital Signs Vitals Vital Signs Date Time Temp Pulse Resp B/P Pulse Ox O2 Delivery O2 Flow Rate FiO2 06/18/17 08:17 98.2 88 18 132/62 93 06/18/17 02:12 Room Air 06/17/17 19:51 3.0 Intake and Output 06/17/17 06/17/17 06/18/17 15:00 23:00 07:00 Intake Total 350 ml 1200 ml Balance 350 ml 1200 ml Exam Constitutional: alert, distress, frail, oriented Psych: anxiety, depression Head: normocephalic Eyes: nl conjunctiva ENMT: nl external ears & nose Neck: non-tender, supple Respiratory: clear to auscultation, normal air movement Cardiovascular: nl pulses, regular rate and rhythm Gastrointestinal: soft Musculoskeletal: nl extremities to inspection, nl gait and stance Extremities: normal pulses Results Result Diagram: 06/18/17 0437 06/17/17 1520 Results 24 hrs Laboratory Tests Test 06/17/17 18:44 06/18/17 04:37 06/18/17 05:44 Urine Color YELLOW Urine Clarity CLEAR Urine pH 5.0 Urine Specific [place] 1.014 Urine Ketones NEGATIVE Urine Nitrite NEGATIVE Urine Bilirubin NEGATIVE Urine Urobilinogen NEGATIVE Urine Leukocyte Esterase NEGATIVE Urine Hemoglobin NEGATIVE Urine Glucose NEGATIVE Urine Total Protein NEGATIVE White Blood Count 11.4 H Red Blood Count 2.91 #L Hemoglobin 8.8 #L Hematocrit 26.4 L Mean Corpuscular Volume 90.7 Mean Corpuscular Hemoglobin 30.2 Mean Corpuscular Hemoglobin Concent 33.3 Red Cell Distribution Width 17.7 H Platelet Count 503 H Mean Platelet Volume 11.1 H Neutrophils % 61.2 Lymphocytes % 22.8 Monocytes % 10.1 Eosinophils % 4.3 Basophils % 0.3 Nucleated Red Blood Cells % 0.4 H Neutrophils # 7.0 Lymphocytes # 2.6 Monocytes # 1.2 H Eosinophils # 0.5 Basophils # 0.0 Nucleated Red Blood Cells # 0.1 H Lab Scanned Report BLOOD TRANSFUSION Medications Medications Current Medications Ondansetron HCl (Zofran Tab) 4 mg Q6H PRN PO NAUSEA AND/OR VOMITING; Start at 18:00 Ondansetron HCl (Zofran Inj) 4 mg Q6H PRN IV NAUSEA AND/OR VOMITING; Start at 18:00 Acetaminophen (Tylenol Tab) 650 mg Q6H PRN PO PAIN LEVEL 1-3 OR FEVER; Start at 18:00 Acetaminophen/ Hydrocodone Bitart ([place] (5/325)) 1 tab Q6H PRN PO MODERATE PAIN LEVEL 4-6; Start 06/17/17 at 18:00 Docusate Sodium (Colace) 100 mg Q12H PRN PO CONSTIPATION; Start 06/17/17 at 18: 00 Magnesium Hydroxide (Milk Of Mag) 30 ml DAILY PRN PO CONSTIPATION; Start at 18:00 Ascorbic Acid (Vitamin C) 1,000 mg DAILY PO Last administered on 06/18/17 09: 22; Admin Dose 1,000 MG; Start 06/18/17 at 09:00 Baclofen (Lioresal) 10 mg QID PO Last administered on 06/18/17 13:45; Admin Dose 10 MG; Start 06/17/17 at 21:00 Duloxetine HCl (Cymbalta) 60 mg BID PO Last administered on 06/18/17 09:21; Admin Dose 60 MG; Start 06/17/17 at 21:00 Furosemide (Lasix) 80 mg DAILY PO Last administered on 06/18/17 09:22; Admin Dose 80 MG; Start 06/18/17 at 09:00 Gabapentin (Neurontin) 100 mg Q4 PO Last administered on 06/18/17 13:45; Admin Dose 100 MG; Start 06/17/17 at 21:00 Acetaminophen/ Hydrocodone Bitart ([place] (10/325)) 1 tab Q3H PRN PO pain Last administered on 06/18/17 04:42; Admin Dose 1 TAB; Start 06/17/17 at 18:00 Indomethacin (Indocin) 50 mg BID PO Last administered on 06/18/17 09:21; Admin Dose 50 MG; Start 06/17/17 at 21:00 Morphine Sulfate (Ms Contin (Er)) 15 mg TID PO Last administered on 06/18/17 13:45; Admin Dose 15 MG; Start 06/17/17 at 21:00 Polyethylene Glycol (Miralax) 17 gm DAILY PO ; Start 06/18/17 at 09:00 Prochlorperazine (Compazine) 10 mg QID PRN PO NAUSEA; Start 06/17/17 at 18:00 Promethazine HCl (Phenergan) 25 mg Q6H PRN PO PAIN; Start 06/17/17 at 18:00 Ranitidine HCl (Zantac) 150 mg TID PO Last administered on 06/18/17 13:45; Admin Dose 150 MG; Start 06/17/17 at 21:00 Spironolactone (Aldactone) 50 mg TID PO Last administered on 06/18/17 13:44; Admin Dose 50 MG; Start 06/17/17 at 21:00 Zolpidem Tartrate (Ambien) 10 mg QHS PRN PO INSOMNIA; Start 06/17/17 at 18:00 Non-Formulary Medication 1 ea TID PO Last administered on 06/18/17 13:44; Admin Dose 1 EA; Start 06/18/17 at 09:00 Miscellaneous Information 50 mg BID PO ; Start 06/17/17 at 21:00; Status UNV Vitamin B Complex/ Vitamin C (Berocca) 1 cap QHS PO Last administered on 22:25; Admin Dose 1 CAP; Start 06/17/17 at 21:00 Miscellaneous Information (*Order Clarification Bulletin) Amphet [id number]- Amphet (Adderall) 10 M... Q8H XX ; Start 06/17/17 at 19:00 Hydromorphone HCl (Dilaudid) 4 mg Q6 PO Last administered on 06/18/17 12:19; Admin Dose 4 MG; Start 06/17/17 at 22:17 Hydromorphone HCl 1 mg 1 mg Q6H PRN IV PAIN Last administered on 06/18/17 09: 28; Admin Dose 1 MG; Start 06/18/17 at 09:00 Sodium Chloride 1,000 ml @ 75 mls/hr [id number] IV ; Start 06/18/17 at 15:30; Stop 06/19/17 at 14:55 Ferric Sodium Gluconate Complex/ Sodium Chloride (Ferrlecit/NS) 110 ml @ 100 mls/hr ONCE ONCE IVPB ; Start 06/18/17 at 16:00; Stop 06/18/17 at 17:05 KASH LAWSON M.D. Jun 18, 2017 16:09
[2017-06-18] MEDS: SOD CHLORIDE 0.45% 1,000 ML IV SCH (16:52)
[2017-06-18 19:20] VITALS: BP 109/58; RESP 18
[2017-06-18] MEDS: VITAMIN B COMPLEX/VIT C CAP PO SCH (20:44)
[2017-06-18] MEDS ORDERED: HYDROmorphONE 2 MG TAB PO SCH (21:57)
[2017-06-19] MEDS: GABAPENTIN 100 MG CAP PO SCH ×5 (00:07→17:51)
[2017-06-19] MEDS: HYDROmorphONE 2 MG TAB PO SCH ×4 (00:07→17:51)
[2017-06-19] MEDS: HYDROmorphONE 1 MG/ML SYG IV PRN ×3 (00:43→13:37)
[2017-06-19 02:27] VITALS: BP 104/59; RESP 18
[2017-06-19] MEDS: [UNRECOGNIZED DRUG - REMARK] XX SCH ×2 (02:34→11:00)
[2017-06-19] MEDS: HYDROCODONE/APAP (10/325) TAB PO PRN (04:36)
[2017-06-19 05:14] LABS: BASOPHILS % 0.4 % (0.0-2.0); EOSINOPHILS # 0.4 10^3/ul (0.0-0.5); EOSINOPHILS % 4.2 % (0.0-7.0); HEMATOCRIT 28.9 % (37.0-47.0); HEMOGLOBIN 9.4 g/dl (12.0-16.0); LYMPHOCYTES # 2.5 10^3/ul (0.8-2.9); LYMPHOCYTES % 23.6 % (15.0-51.0); MEAN CORPUSCULAR HEMOGLOBIN 29.9 pg (29.0-33.0); MEAN CORPUSCULAR HGB CONC 32.5 g/dl (32.0-37.0); MEAN PLATELET VOLUME 10.8 fl (7.4-10.4); MONOCYTE # 1.3 10^3/ul (0.3-0.9); MONOCYTES % 12.2 % (0.0-11.0); NEUTROPHIL # 6.1 10^3/ul (1.6-7.5); NEUTROPHILS % 58.4 % (39.0-77.0); PLATELET COUNT 557 10^3/UL (140-415); RED BLOOD COUNT 3.14 10^6/ul (4.20-5.40); RED CELL DISTRIBUTION WIDTH 17.9 % (11.5-14.5); WHITE BLOOD COUNT 10.4 10^3/ul (4.8-10.8)
[2017-06-19 05:41] LABS: CALCIUM 9.3 mg/dl (8.4-10.2); CREATININE 1.29 mg/dl (0.44-1.00); POTASSIUM 4.2 mmol/L (3.5-5.1)
[2017-06-19 05:45] LABS: MAGNESIUM 2.1 mg/dl (1.7-2.5); PHOSPHORUS 4.4 mg/dl (2.5-4.9)
[2017-06-19] MEDS: SOD CHLORIDE 0.45% 1,000 ML IV SCH (05:49)
[2017-06-19 08:11] VITALS: BP 97/53; RESP 16
[2017-06-19] MEDS: RANITIDINE 150 MG TAB PO SCH ×2 (09:23→12:34)
[2017-06-19] MEDS: DULOXETINE 30 MG CAP DR PO SCH (09:23)
[2017-06-19] MEDS: FUROSEMIDE 40 MG TAB PO SCH (09:25)
[2017-06-19] MEDS: PROMETHAZINE 25 MG TAB PO PRN ×2 (09:27→09:32)
[2017-06-19] MEDS: SPIRONOLACTONE 50 MG TAB PO SCH ×2 (09:27→12:35)
[2017-06-19] MEDS: ASCORBIC ACID 500 MG TAB PO SCH (09:27)
[2017-06-19] MEDS: morphine (ER) 15 MG TAB PO SCH ×2 (09:28→12:39)
[2017-06-19] MEDS: BACLOFEN 10 MG TAB PO SCH ×3 (09:28→17:53)
[2017-06-19] MEDS: POLYETHYLENE GLYCOL 17 GM PACKET PO SCH (09:29)
[2017-06-19] MEDS: INDOMETHACIN 50 MG PO SCH (09:41)
[2017-06-19] MEDS: AMPHET ASP AMPHET D AMPHET 10 MG PO SCH ×2 (10:42→14:04)
--- NOTE | 2017-06-19 12:12 | PDOCDIS ---
Discharge Instructions CONDITION Patient Condition: Stable HOME CARE INSTRUCTIONS: Diet Instructions: Low Fat /Cholesterol ACTIVITY: Activity Restrictions: Slowly Increase Activity FOLLOW UP/APPOINTMENTS Follow-up Plan Please take your medications as prescribed. Please follow-up with your primary doctor in the clinic in the next 1 week. OZ FULLER Jun 19, 2017 12:12
[2017-06-19] MEDS ORDERED: FURO-110 PO (12:14)
[2017-06-19] MEDS ORDERED: SPIR50TA PO (12:14)
--- NOTE | 2017-06-19 12:19 | DS ---
Date/Time of Note Date/Time of Note DATE: 06/19/17 TIME: 12:15 Discharge Summary Admission/Discharge Info Admit Date/Time Jun 17, 2017 at 17:36 Discharge Date/Time Discharge Diagnosis 1. Anemia, likely secondary to patient's cancer symptoms, status post blood transfusion 2. History of ER/TX/ HER2+ positive breast cancer with bony metastasis, status post bilateral mastectomy and chemotherapy. 3. History of Hodgkin disease in the past, status post chemotherapy. 4. History of splenectomy. 5. History of depression. 6. Chronic back pain. 5. Attention deficit hyperactivity disorder. 6. Prior history of small bowel obstruction. Hx of Present Illness Hospital Course 51 yo F with known hx stage 4 breast ca with diffuse bone mets, on chemo, presents with 3 days of weakness/fatigue. Hgb found to be in 7s. Pt reports multiple previous admissions for similar medical issue. ER spoke with pt's oncologist Dr Cole who advised admission for blood transfusion. [facility], underwent blood transfusion. She also received IV iron. Over the course of her hospital stay she was given pain control medications as well. She had some renal insufficiency which was resolving with IV fluids. She was able to ambulate, tolerated p.o. diet. Her hemoglobin was stable by the time of discharge as well. And she will be discharged home today in improved condition. She will follow with hematology oncology doctor in the clinic in the next few days as an outpatient. Home Meds Active Scripts Furosemide* (Lasix*) 20 Mg Tablet, 20 MG PO DAILY, #30 TAB 1 Refill Prov:OZ FULLER S. 06/19/17 Spironolactone* (Aldactone*) 50 Mg Tablet, 50 MG PO DAILY, #30 TAB 1 Refill Prov:OZ FULLER S. 06/19/17 Polyethylene Glycol* (Miralax*) 17 Gm Powd.pack, 17 GM PO DAILY, #30 PACKET 1 Refill Prov:OZ FULLER S. 04/14/17 Reported Medications Duloxetine Hcl* (Duloxetine Hcl*) 60 Mg Capsule., 60 MG PO BID, #30 CAP 03/19/17 Exemestane* (Exemestane*) 25 Mg Tablet, 25 MG PO, TAB 03/19/17 Zolpidem Tartrate* (Zolpidem Tartrate*) 10 Mg Tablet, 10 MG PO QHS Y for INSOMNIA, #30 TAB 03/19/17 Indomethacin* (Indocin*) 50 Mg Cap, 50 MG PO BID, CAP 03/19/17 Promethazine Hcl* (Phenergan*) 25 Mg Tablet, 25 MG PO Q6H Y for PAIN, TAB 03/19/17 Vitamin B Complex (Vitamin B Complex) 1 Each Capsule, 1 EACH PO QHS, CAP 02/16/17 Ascorbic Acid (Vitamin C) 500 Mg Tab, 1000 MG PO DAILY, TAB 02/16/17 Prochlorperazine* (Prochlorperazine*) 10 Mg Tablet, 10 MG PO QID Y for NAUSEA, TAB 02/16/17 Ranitidine Hcl* (Ranitidine Hcl*) 150 Mg Tablet, 150 MG PO TID, #90 TAB 02/16/17 Tapentadol Hcl (Nucynta) 100 Mg Tablet, 50 MG PO BID, TAB 02/16/17 Gabapentin* (Gabapentin*) 100 Mg Capsule, 100 MG PO Q4, #120 CAP 02/16/17 Amphet Cln-Ehsvxr-B-Amphet (Adderall) 10 Mg Tablet, 10 MG PO TID, TAB 02/16/17 Baclofen* (Baclofen*) 10 Mg Tablet, 10 MG PO QID, TAB 02/16/17 Hydromorphone Hcl* (Dilaudid*) 4 Mg Tablet, 4 MG PO Q6, TAB 02/16/17 Morphine Sulfate* (Ms Contin*) 15 Mg Tablet.sa, 15 MG PO TID, TAB.SA 02/16/17 Hydrocodone/Acetaminophen ([place] 10-325 Tablet) 1 Each Tablet, 1 EACH PO Q3H, TAB 02/16/17 Discontinued Reported Medications Furosemide* (Furosemide*) 40 Mg Tablet, 80 MG PO DAILY, TAB 02/16/17 Discontinued Scripts Levofloxacin* (Levaquin*) 750 Mg Tablet, 750 MG PO DAILY for 10 Days, TAB Prov:FATOUMATA REMY DO 06/10/17 Sennosides* (Senna Lax*) 8.6 Mg Tablet, 2 TAB PO BID Y for CONSTIPATION, #120 TAB Prov:OZ FULLER 04/14/17 Metoclopramide* (Reglan*) 5 Mg Tablet, 5 MG PO Q6H Y for NAUSEA AND OR VOMITING , #30 TAB Prov:INOCENCIO TRACEY 03/29/17 Primary Care Provider Aisha Zuleta M.D. Pending Labs Laboratory Tests Test 06/19/17 04:43 White Blood Count 10.410^3/ul (4.8-10.8) Red Blood Count 3.1410^6/ul (4.20-5.40) Hemoglobin 9.4g/dl (12.0-16.0) Hematocrit 28.9% (37.0-47.0) Mean Corpuscular Volume 92.0fl (82.0-101.0) Mean Corpuscular Hemoglobin 29.9pg (29.0-33.0) Mean Corpuscular Hemoglobin Concent 32.5g/dl (32.0-37.0) Red Cell Distribution Width 17.9% (11.5-14.5) Platelet Count 38614^3/UL (140-415) Mean Platelet Volume 10.8fl (7.4-10.4) Neutrophils % 58.4% (39.0-77.0) Lymphocytes % 23.6% (15.0-51.0) Monocytes % 12.2% (0.0-11.0) Eosinophils % 4.2% (0.0-7.0) Basophils % 0.4% (0.0-2.0) Nucleated Red Blood Cells % 0.0/100WBC (0.0-0.0) Neutrophils # 6.110^3/ul (1.6-7.5) Lymphocytes # 2.510^3/ul (0.8-2.9) Monocytes # 1.310^3/ul (0.3-0.9) Eosinophils # 0.410^3/ul (0.0-0.5) Basophils # 0.010^3/ul (0.0-0.1) Nucleated Red Blood Cells # 0.010^3/ul (0.0-0.0) Sodium Level 142mmol/L (135-144) Potassium Level 4.2mmol/L (3.5-5.1) Chloride Level 100mmol/L (97-110) Carbon Dioxide Level 32mmol/L (21-31) Anion Gap 14 (8-16) Blood Urea Nitrogen 29mg/dl (7-20) Creatinine 1.29mg/dl (0.44-1.00) Glucose Level 106mg/dl (70-220) Calcium Level 9.3mg/dl (8.4-10.2) Phosphorus Level 4.4mg/dl (2.5-4.9) Magnesium Level 2.1mg/dl (1.7-2.5) OZ FULLER Jun 19, 2017 12:19
[2017-06-19] MEDS ORDERED: SOD FERRIC GLUC COMPLX 125 MG in SOD CHLORIDE 0.9% 100 ML IVPB ONE (13:30)
[2017-06-19] MEDS ORDERED: HEPARIN (100 UNITS/ML) 5 ML SYG CATHETER ONE (15:00)
[2017-06-19 15:28] VITALS: BP 117/62; RESP 16
--- NOTE | 2017-06-19 16:50 | CONS ---
Date/Time of Note Date/Time of Note DATE: 06/19/17 TIME: 16:48 Assessment/Plan Assessment/Plan Chief Complaint/Hosp Course Ms Schwartz is a 49-year-old female with ER/NH/ HER2+ positive, metastatic breast cancer to the bones who again presents with severe anemia and subjective LE edema concerning for cellulitis # Anemia - secondary to metastatic cancer and possible bone marrow involvement -s/p2 units of PRBC's . post transfusion CBC nwo > 9 demonstrating patient responded well -while patient is in house will start IV iron as well. Ferrlecit x 5 days has been started -f/u CBC # Her 2+ / ER+ metastatic breast cancer to bones - -pt should follow up in our clinic to re-start the treatment regimen outlined before which would include Herceptin/ Perjeta/ Examestane and Lupron. Pt has visited the cancer centers of [place] and is comfortable with our treatment plan. As stated before pt was advised that she would benefit from a Taxane based regimen but has refused this because it is chemotherapy. -Pt will continue Xgeva as well for her bone mets #LE edema -on physical exam there is no evidence of LE edema or cellulitis -will continue to monitor. I do not feel antibiotics are necessary at this time #Depression -continue Effexor 75 mg q day # Acute Kidney Injury -likely secondary to pre-renal azotemia -will f/u creatinine after blood transfusion ok for dc from heme standpoint to f/u in our clinic and resume therapy Thank you for allowing me to participate in this patients care. Problems: Consultation Date/Type/Reason Admit Date/Time Jun 17, 2017 at 17:36 Initial Consult Date 06/18/17 Type of Consultation: Oncology Reason for Consultation metastatic breast cancer Referring Provider: JOHN LOPES MD 24 HR Interval Summary Free Text/Dictation no acute overnight events. pt states she still feels weak but better after blood transfusion Exam/Review of Systems Vital Signs Vitals Vital Signs Date Time Temp Pulse Resp B/P Pulse Ox O2 Delivery O2 Flow Rate FiO2 06/19/17 15:28 97.9 79 16 117/62 97 06/18/17 02:12 Room Air 06/17/17 19:51 3.0 Intake and Output 06/18/17 06/18/17 06/19/17 15:00 23:00 07:00 Intake Total 1665 ml 1304 ml Balance 1665 ml 1304 ml Exam Constitutional: alert, oriented Psych: no complaints Head: atraumatic, normocephalic Eyes: nl conjunctiva ENMT: nl external ears & nose Neck: non-tender, supple Respiratory: clear to auscultation, normal air movement Cardiovascular: regular rate and rhythm Gastrointestinal: soft Musculoskeletal: nl extremities to inspection, nl gait and stance Extremities: normal pulses Results Result Diagram: 06/19/173 06/19/173 Results 24 hrs Laboratory Tests Test 06/19/17 04:43 White Blood Count 10.4 Red Blood Count 3.14 L Hemoglobin 9.4 L Hematocrit 28.9 L Mean Corpuscular Volume 92.0 Mean Corpuscular Hemoglobin 29.9 Mean Corpuscular Hemoglobin Concent 32.5 Red Cell Distribution Width 17.9 H Platelet Count 557 H Mean Platelet Volume 10.8 H Neutrophils % 58.4 Lymphocytes % 23.6 Monocytes % 12.2 H Eosinophils % 4.2 Basophils % 0.4 Nucleated Red Blood Cells % 0.0 Neutrophils # 6.1 Lymphocytes # 2.5 Monocytes # 1.3 H Eosinophils # 0.4 Basophils # 0.0 Nucleated Red Blood Cells # 0.0 Sodium Level 142 Potassium Level 4.2 Chloride Level 100 Carbon Dioxide Level 32 H Anion Gap 14 Blood Urea Nitrogen 29 H Creatinine 1.29 H Glucose Level 106 Calcium Level 9.3 Phosphorus Level 4.4 Magnesium Level 2.1 Medications Medications Current Medications Ondansetron HCl (Zofran Tab) 4 mg Q6H PRN PO NAUSEA AND/OR VOMITING; Start at 18:00 Ondansetron HCl (Zofran Inj) 4 mg Q6H PRN IV NAUSEA AND/OR VOMITING; Start at 18:00 Acetaminophen (Tylenol Tab) 650 mg Q6H PRN PO PAIN LEVEL 1-3 OR FEVER; Start at 18:00 Acetaminophen/ Hydrocodone Bitart ([place] (5/325)) 1 tab Q6H PRN PO MODERATE PAIN LEVEL 4-6; Start 06/17/17 at 18:00 Docusate Sodium (Colace) 100 mg Q12H PRN PO CONSTIPATION; Start 06/17/17 at 18: 00 Magnesium Hydroxide (Milk Of Mag) 30 ml DAILY PRN PO CONSTIPATION; Start at 18:00 Ascorbic Acid (Vitamin C) 1,000 mg DAILY PO Last administered on 06/19/17 09:27 ; Admin Dose 1,000 MG; Start 06/18/17 at 09:00 Baclofen (Lioresal) 10 mg QID PO Last administered on 06/19/17 12:35; Admin Dose 10 MG; Start 06/17/17 at 21:00 Duloxetine HCl (Cymbalta) 60 mg BID PO Last administered on 06/19/17 09:23; Admin Dose 60 MG; Start 06/17/17 at 21:00 Furosemide (Lasix) 80 mg DAILY PO Last administered on 06/18/17 09:22; Admin Dose 80 MG; Start 06/18/17 at 09:00 Gabapentin (Neurontin) 100 mg Q4 PO Last administered on 06/19/17 12:35; Admin Dose 100 MG; Start 06/17/17 at 21:00 Acetaminophen/ Hydrocodone Bitart ([place] (10/325)) 1 tab Q3H PRN PO pain Last administered on 06/19/17 04:36; Admin Dose 1 TAB; Start 06/17/17 at 18:00 Indomethacin (Indocin) 50 mg BID PO Last administered on 06/19/17 09:41; Admin Dose 50 MG; Start 06/17/17 at 21:00 Morphine Sulfate (Ms Contin (Er)) 15 mg TID PO Last administered on 06/19/17 12 :39; Admin Dose 15 MG; Start 06/17/17 at 21:00 Polyethylene Glycol (Miralax) 17 gm DAILY PO Last administered on 06/19/17 09: 29; Admin Dose 17 GM; Start 06/18/17 at 09:00 Prochlorperazine (Compazine) 10 mg QID PRN PO NAUSEA; Start 06/17/17 at 18:00 Promethazine HCl (Phenergan) 25 mg Q6H PRN PO PAIN Last administered on 09:32; Admin Dose 25 MG; Start 06/17/17 at 18:00 Ranitidine HCl (Zantac) 150 mg TID PO Last administered on 06/19/17 12:34; Admin Dose 150 MG; Start 06/17/17 at 21:00 Spironolactone (Aldactone) 50 mg TID PO Last administered on 06/19/17 12:35; Admin Dose 50 MG; Start 06/17/17 at 21:00 Zolpidem Tartrate (Ambien) 10 mg QHS PRN PO INSOMNIA; Start 06/17/17 at 18:00 Non-Formulary Medication 1 ea TID PO Last administered on 06/19/17 14:04; Admin Dose 1 EA; Start 06/18/17 at 09:00 Miscellaneous Information 50 mg BID PO ; Start 06/17/17 at 21:00; Status UNV Vitamin B Complex/ Vitamin C (Berocca) 1 cap QHS PO Last administered on 20:44; Admin Dose 1 CAP; Start 06/17/17 at 21:00 Miscellaneous Information (*Order Clarification Bulletin) Amphet Nvx-Ciykql-L- Amphet (Adderall) 10 M... Q8H XX ; Start 06/17/17 at 19:00 Hydromorphone HCl (Dilaudid) 4 mg Q6 PO Last administered on 06/19/17 12:35; Admin Dose 4 MG; Start 06/17/17 at 22:17 Hydromorphone HCl (Dilaudid) 1 mg Q6H PRN IV PAIN Last administered on 13:37; Admin Dose 1 MG; Start 06/18/17 at 09:00 KASH LAWSON M.D. Jun 19, 2017 16:50
== END 2017-06-19 18:41 | disposition home or self-care (01) ==
LOC: E/R 14:32 → MS1 17:36 → OBSVTOIN 17:36 → INTOOBSV 17:36
PROVIDERS: ADMIT Internal Medicine; ATTEND Internal Medicine
DX: D64.81 Anemia due to antineoplastic chemotherapy (principal); D63.0 Anemia in neoplastic disease; C50.919 Malignant neoplasm of unspecified site of unspecified female breast; Z17.0 Estrogen receptor positive status [ER+]; C79.51 Secondary malignant neoplasm of bone; F32.9 Major depressive disorder, single episode, unspecified; F90.9 Attention-deficit hyperactivity disorder, unspecified type; R60.0 Localized edema; N17.9 Acute kidney failure, unspecified; G89.29 Other chronic pain; M54.9 Dorsalgia, unspecified; Z85.72 Personal history of non-Hodgkin lymphomas; Z88.0 Allergy status to penicillin; Z91.010 Allergy to peanuts; Z91.013 Allergy to seafood
CPT/HCPCS: 36415; 36430; 71010; 80048; 80053; 81003; 83690; 83735; 84100; 85025; 86850; 86900; 86901; 86920; 93005; 96374; 96376; 99291; G0378; J1170; J1642; J2916; J7030; J7040; P9016

== ENCOUNTER 2017-07-20 17:05 | Inpatient (IN) | payer BC ==
[~2017-07-20] VITALS: Ht 172.7 cm; Wt 77.6 kg
[~2017-07-20 17:05] MED LIST changes: +FURO-110 PO; -FURO40TA4 PO; -LEVO750T25 PO; -METO5TAB58 PO; -SENN-53 PO
[2017-07-20 17:26] VITALS: Ht 172.7 cm; Wt 77.6 kg
[2017-07-20] MEDS ORDERED: morphine 4 MG/ML VIAL IV STA (17:54)
[2017-07-20] MEDS ORDERED: ONDANSETRON 4 MG INJ IV STA (18:10)
[2017-07-20] MEDS ORDERED: SOD CHLORIDE 0.9% 1,000 ML IV STA (18:10)
[2017-07-20] MEDS ORDERED: HYDROmorphONE 1 MG/ML SYG IV STA (18:10)
[2017-07-20 19:37] LABS: BASOPHILS % 0.2 % (0.0-2.0); EOSINOPHILS # 0.4 10^3/ul (0.0-0.5); EOSINOPHILS % 3.2 % (0.0-7.0); LYMPHOCYTES # 3.3 10^3/ul (0.8-2.9); LYMPHOCYTES % 27.3 % (15.0-51.0); MEAN CORPUSCULAR HEMOGLOBIN 29.2 pg (29.0-33.0); MEAN CORPUSCULAR HGB CONC 30.8 g/dl (32.0-37.0); MEAN CORPUSCULAR VOLUME 94.9 fl (82.0-101.0); MEAN PLATELET VOLUME 11.5 fl (7.4-10.4); MONOCYTE # 1.3 10^3/ul (0.3-0.9); MONOCYTES % 10.8 % (0.0-11.0); NEUTROPHILS % 56.9 % (39.0-77.0); NUCLEATED RED BLOOD CELLS% 0.2 /100WBC (0.0-0.0); PLATELET COUNT 454 10^3/UL (140-415); RED BLOOD COUNT 2.74 10^6/ul (4.20-5.40); RED CELL DISTRIBUTION WIDTH 15.8 % (11.5-14.5); WHITE BLOOD COUNT 12.1 10^3/ul (4.8-10.8)
[2017-07-20 19:42] LABS: ADD UMIC NO; UR ASCORBIC ACID 40 mg/dL (NEGATIVE); UR BILIRUBIN (Dip) NEGATIVE (NEGATIVE); UR BLOOD (Dip) NEGATIVE (NEGATIVE); UR CLARITY SLIGHTLY CLOUDY (CLEAR); UR COLOR YELLOW (YELLOW); UR GLUCOSE (Dip) NEGATIVE (NEGATIVE); UR KETONES (Dip) NEGATIVE (NEGATIVE); UR LEUKOCYTE ESTERASE (Dip) NEGATIVE Leu/ul (NEGATIVE); UR NITRITE (Dip) NEGATIVE (NEGATIVE); UR RBC 2 /HPF (0-5); UR SPECIFIC GRAVITY (Dip) 1.018 (1.003-1.030); UR TOTAL PROTEIN (Dip) NEGATIVE (NEGATIVE); UR UROBILINOGEN (Dip) NEGATIVE (NEGATIVE)
--- NOTE | 2017-07-20 19:59 | RADRPT ---
AMENDMENT: 07/20/2017 8:10:24 PM Ronald Patel M.D Osteolytic calvarial lesions as seen on the prior bone scan 03/01/2017. PROCEDURE: CT Brain without contrast. CLINICAL INDICATION: Pain, headache TECHNIQUE: Routine CT scan of the brain was performed on a high resolution multi detector scanner without intravenous contrast. One or more of the following dose reduction techniques were used: Auto mated exposure control; Adjustment of the mA and/or kV according to patient size; Use of iterative r econstruction technique. CTDI = 45 mGy. DLP = 720 mGy-cm. COMPARISON: CT brain 06/09/2017 FINDINGS: Hemorrhage: No evidence of intracranial hemorrhage. Acute ischemic changes: No evidence of acute ischemic changes. Mass effect: None. Parenchymal volume: Within normal limits for age. Ventricular system: Concordant with parenchymal volume. Chronic changes: Parenchymal attenuation is within normal limits. Extracranial soft tissues: Unremarkable. Calvarium: No fractures. Postoperative changes from internal fixation of the nasal bones. Paranasal sinuses: Visualized paranasal sinuses are clear. Mastoid air cells: Visualized mastoid air cells are clear. IMPRESSION: No acute intracranial abnormalities. Normal appearance of the brain parenchyma. RPTAT: AADD .Ronald Patel MD, MD Date Time Electronically viewed and signed by .Ronald Patel MD, MD on 07/20/2017 20:11 .B/
[2017-07-20 20:00] LABS: CALCIUM 10.8 mg/dl (8.4-10.2); CREATININE 1.67 mg/dl (0.44-1.00); POTASSIUM 4.3 mmol/L (3.5-5.1)
--- NOTE | 2017-07-20 20:10 | RADRPT ---
PROCEDURE: CT scan of the cervical spine without intravenous contrast. CLINICAL INDICATION: Neck pain TECHNIQUE: Routine CT scan of the cervical spine was performed without intravenous contrast on a h igh-resolution multi detector scanner. Vertebral level counting reference is made to the craniocervi will junction. Images and image data are available for procedural planning and localization purposes. One or more of the following dose reduction techniques were used: Automated exposure control; Adjus tment of the mA and/or kV according to patient size; Use of iterative reconstruction technique. CTDI = 22 mGy. DLP = 522 mGy-cm. COMPARISON: CT scan of the chest 02/16/2017 FINDINGS: Craniocervical junction: Within normal limits. Alignment: I of the cervical lordosis. Cervical vertebral bodies: Height is maintained. No significant endplate changes are seen. Osteolyt ic lesions are present within the posterior arch of C1. Osteolytic metastatic lesion is present wit hin the T3 vertebral body. Small foci of increased sclerosis within the C2, C3 and C6 vertebral bod y may represent treated metastases. Evaluation of the individual levels demonstrates: C2-C3: Normal. C3-C4: Normal. C4-C5: Normal. C5-C6: Normal. C6-C7: Normal. C7-T1: Normal. Paraspinous musculature: Within normal limits. Visualized cervical soft tissues: Partially visualized left chest infusion port. Partially visuali zed bilateral upper lung infiltrates and possible pulmonary edema. Enlargement of both lobes of the thyroid gland containing multiple heterogeneous nodules measuring up to 2.5 cm similar to the previ ous examination. IMPRESSION: No evidence of cervical vertebral body fracture, subluxation, or prevertebral soft tissue swelling. 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 Thoracic osteolytic lesion a t the T3 level as seen on the prior bone scan. Partially visualized infiltrates and pulmonary edema in the bilateral upper lobes. CT scan of the c hest recommended for further evaluation. RPTAT: AADD .Ronald Patel MD, Date Time Electronically viewed and signed by .Ronald Patel MD, MD on 07/20/2017 20:10 .B/
--- NOTE | 2017-07-20 20:27 | RADRPT ---
PROCEDURE: CT thoracic spine without contrast. CLINICAL INDICATION: Trauma, history of metastasis. TECHNIQUE: The study was performed utilizing a multislice multidetector CT scanner. Direct spiral 1 mm axial sections were obtained through the thoracic spine without contrast. 1 or more of the fol lowing dose reduction techniques were utilized: Automated exposure control, adjustment of the mA an d/or kV according to patient's size, iterative reconstruction technique. Coronal and sagittal refor mations were obtained. The images were reviewed on a PACS workstation. RADIATION DOSE: CTDIvol: 11.5 mGyDLP: 455.5 mGy-cm COMPARISON: No prior studies are available for comparison. FINDINGS: The alignment of the thoracic spine is within normal limits. The vertebral body heights are maintai anette. There is extensive lytic and sclerotic metastases throughout the thoracic spine, with near com plete replacement of the T3, T10 and L1 vertebral bodies. There is no evidence of fracture The inte rvertebral disc spaces are preserved. The paraspinal soft tissues unremarkable. There is no signif icant narrowing of the thoracic thecal sac or neural foramina. On axial images, the posterior margin of the disc, thecal sac and neural foramina are patent at all levels. IMPRESSION: 1. Extensive metastatic disease throughout the thoracic spine, with near complete replacement of th e T3, C10 and L1 vertebral bodies. 2. The vertebral body heights are maintained without evidence of acute compression fracture. The t horacic spinal canal is normal in appearance. 3. No significant spondylosis. RPTAT: HGAS .Sumanth Dickens MD, Date Time Electronically viewed and signed by .Sumanth Dickens MD, MD on 07/20/2017 20:26 .S/
[2017-07-20] MEDS ORDERED: SOD CHLORIDE 0.9% 500 ML IV ONE (22:00)
[2017-07-20 22:13] LABS: HEMATOCRIT 25.5 % (37.0-47.0)
--- NOTE | 2017-07-20 23:44 | ERA ---
ER Documentation Chief Complaint Date/Time DATE: 07/20/17 TIME: 23:39 Chief Complaint Patient complains of generalized chronic pain HPI This 51-year-old female comes in for pain along her right upper ribs as well as pain in her upper thoracic area after she fell. She also has felt very lightheaded lately and feels like she does before she gets transfused. She has metastatic cancer that was originally breast cancer but now is in multiple places of her body including her bones. She states that she periodically gets blood transfusions because her blood count precipitously drops. She has had no signs of GI bleeding. She also has no fevers or chills. ROS All systems reviewed and are negative except as per history of present illness. Medications Home Meds Active Scripts Furosemide* (Lasix*) 20 Mg Tablet, 20 MG PO DAILY, #30 TAB 1 Refill Prov:OZ FULLER S. 06/19/17 Spironolactone* (Aldactone*) 50 Mg Tablet, 50 MG PO DAILY, #30 TAB 1 Refill Prov:OZ FULLER S. 06/19/17 Polyethylene Glycol* (Miralax*) 17 Gm Powd.pack, 17 GM PO DAILY, #30 PACKET 1 Refill Prov:OZ FULLER S. 04/14/17 Reported Medications Duloxetine Hcl* (Duloxetine Hcl*) 60 Mg Capsule.dr, 60 MG PO BID, #30 CAP 03/19/17 Exemestane* (Exemestane*) 25 Mg Tablet, 25 MG PO, TAB 03/19/17 Zolpidem Tartrate* (Zolpidem Tartrate*) 10 Mg Tablet, 10 MG PO QHS Y for INSOMNIA, #30 TAB 03/19/17 Indomethacin* (Indocin*) 50 Mg Cap, 50 MG PO BID, CAP 03/19/17 Promethazine Hcl* (Phenergan*) 25 Mg Tablet, 25 MG PO Q6H Y for PAIN, TAB 03/19/17 Vitamin B Complex (Vitamin B Complex) 1 Each Capsule, 1 EACH PO QHS, CAP 02/16/17 Ascorbic Acid (Vitamin C) 500 Mg Tab, 1000 MG PO DAILY, TAB 02/16/17 Prochlorperazine* (Prochlorperazine*) 10 Mg Tablet, 10 MG PO QID Y for NAUSEA, TAB 02/16/17 Ranitidine Hcl* (Ranitidine Hcl*) 150 Mg Tablet, 150 MG PO TID, #90 TAB 02/16/17 Tapentadol Hcl (Nucynta) 100 Mg Tablet, 50 MG PO BID, TAB 02/16/17 Gabapentin* (Gabapentin*) 100 Mg Capsule, 100 MG PO Q4, #120 CAP 02/16/17 Amphet Ltm-Vzrteh-O-Amphet (Adderall) 10 Mg Tablet, 10 MG PO TID, TAB 02/16/17 Baclofen* (Baclofen*) 10 Mg Tablet, 10 MG PO QID, TAB 02/16/17 Hydromorphone Hcl* (Dilaudid*) 4 Mg Tablet, 4 MG PO Q6, TAB 02/16/17 Morphine Sulfate* (Ms Contin*) 15 Mg Tablet.sa, 15 MG PO TID, TAB.SA 02/16/17 Hydrocodone/Acetaminophen ([place] 10-325 Tablet) 1 Each Tablet, 1 EACH PO Q3H, TAB 02/16/17 Allergies Allergies: Coded Allergies: Penicillins (Verified Allergy, Unknown, RASH, SWOLLEN, HARD TIME BREATHING , 07/20/17) peanut (Verified Allergy, Unknown, 07/20/17) shellfish derived (Verified Allergy, Unknown, 07/20/17) PMhx/Soc History of Surgery: Yes (appendectomy/splenectomy 1983; bilateral mastectomy 2011) Anesthesia Reaction: No Hx Neurological Disorder: No Hx Respiratory Disorders: No Hx Cardiac Disorders: No Hx Psychiatric Problems: Yes (ADD; depression; anxiety) Hx Miscellaneous Medical Probl: Yes (anemia; Breast CA stage 4) Hx Alcohol Use: No Hx Substance Use: No Hx Tobacco Use: No Smoking Status: Never smoker Physical Exam Vitals Vital Signs Date Time Temp Pulse Resp B/P Pulse Ox O2 Delivery O2 Flow Rate FiO2 07/20/17 22:25 79 20 109/69 99 Room Air 07/20/17 20:49 86 20 108/68 95 07/20/17 17:26 98.8 102 20 119/61 95 Physical Exam Const: [] Mild distress, appears uncomfortable Head: Atraumatic Eyes: Pale conjunctiva, ENT: Normal External Ears, Nose and Mouth. Neck: Full range of motion..~ No meningismus. Resp: Clear to auscultation bilaterally Cardio: Regular Tachycardia, no murmurs Abd: Soft, non tender, non distended. Normal bowel sounds Skin: No petechiae or rashes, Pale Back: No midline or flank tenderness Ext: No cyanosis, or edema, Distal pulses intact all 4 extremities Neur: Awake and alertAnd oriented 3, no focal deficits Psych: Normal Mood and Affect Result Diagram: 07/20/17 2200 07/20/17 1915 Results 24 hrs Laboratory Tests Test 07/20/17 19:15 07/20/17 22:00 White Blood Count 12.110^3/ul Red Blood Count 2.7410^6/ul Hemoglobin 8.0g/dl 8.0g/dl Hematocrit 26.0% 25.5% Mean Corpuscular Volume 94.9fl Mean Corpuscular Hemoglobin 29.2pg Mean Corpuscular Hemoglobin Concent 30.8g/dl Red Cell Distribution Width 15.8% Platelet Count 41667^3/UL Mean Platelet Volume 11.5fl Neutrophils % 56.9% Lymphocytes % 27.3% Monocytes % 10.8% Eosinophils % 3.2% Basophils % 0.2% Nucleated Red Blood Cells % 0.2/100WBC Neutrophils # (Manual) 6.910^3/ul Lymphocytes # 3.310^3/ul Monocytes # 1.310^3/ul Eosinophils # 0.410^3/ul Basophils # 0.010^3/ul Nucleated Red Blood Cells # 0.010^3/ul Urine Color YELLOW Urine Clarity SLIGHTLY CLOUDY Urine pH 5.0 Urine Specific [place] 1.018 Urine Ketones NEGATIVEmg/dL Urine Nitrite NEGATIVEmg/dL Urine Bilirubin NEGATIVEmg/dL Urine Urobilinogen NEGATIVEmg/dL Urine Leukocyte Esterase NEGATIVELeu/ul Urine Microscopic RBC 2/HPF Urine Microscopic WBC 2/HPF Urine Calcium Oxalate Crystals FEW/HPF Urine Hyaline Casts FEW/HPF Urine Hemoglobin NEGATIVEmg/dL Urine Glucose NEGATIVEmg/dL Urine Total Protein NEGATIVEmg/dl Sodium Level 139mmol/L Potassium Level 4.3mmol/L Chloride Level 103mmol/L Carbon Dioxide Level 28mmol/L Anion Gap 12 Blood Urea Nitrogen 28mg/dl Creatinine 1.67mg/dl Glucose Level 98mg/dl Calcium Level 10.8mg/dl Current Medications Medications (Trade) Dose Ordered Sig/Julio Route PRN Reason Start Time Stop Time Status Last Admin Dose Admin Morphine Sulfate 4 mg 4 mg ONCE STAT IV 07/20/17 17:54 07/20/17 17:55 DC Sodium Chloride (NS) 1,000 ml @ 1,000 mls/hr Q1H STAT IV 07/20/17 18:10 07/20/17 19:09 DC 07/20/17 19:20 Hydromorphone HCl (Dilaudid) 1 mg ONCE STAT IV 07/20/17 18:10 07/20/17 18:14 DC 07/20/17 19:21 Ondansetron HCl 4 mg 4 mg ONCE STAT IV 07/20/17 18:10 07/20/17 18:14 DC 07/20/17 18:10 Sodium Chloride (NS) 500 ml @ 500 mls/hr Q1H ONCE IV 07/20/17 22:00 07/20/17 22:59 DC 07/20/17 21:50 Procedures/MDM Acute symptomatic anemia and contusions and patient with metastatic cancer. She is hydrated with normal saline 1-1/2 L. She is also given Dilaudid for her pain. This did help with her pain somewhat then the pain returned. She still having pain mostly in her upper thoracic area. She later states she did have a head injury. Head CT was performed and negative for any acute traumatic abnormalities. States that she still feeling very lightheaded and is worried that she will get to the point of almost crashing and she does when her blood count drops too low. I ordered a 2 L of units of packed red blood cells which will begin transfusing in the emergency room. Heart rate improved with fluid administration. Dr. Vallecillo is admitting for further monitoring and workup CT head interpretation: I see no acute process. I see no hemorrhage, no mass- effect or midline shift, no skull fracture CT neck cervical and thoracic spines: Multilevel metastatic disease without any obvious acute fracture. Departure Diagnosis: Primary Impression: Symptomatic anemia Additional Impressions: Head injury Metastatic breast cancer Renal insufficiency Condition: Serious ZORAIDA AWAD DO Jul 20, 2017 23:44
[2017-07-21] MEDS ORDERED: ACETAMINOPHEN 325 MG TAB PO PRN
[2017-07-21] MEDS ORDERED: ONDANSETRON 4 MG INJ IV PRN
[2017-07-21] MEDS ORDERED: HYDROmorphONE 1 MG/ML SYG IV ONE (00:45)
[2017-07-21 03:17] VITALS: PULSE 77; TEMP 98.1
[2017-07-21 03:41] VITALS: BP 107/63; RESP 16
[2017-07-21] MEDS ORDERED: PROCHLORPERAZINE 10 MG TAB PO PRN (04:30)
[2017-07-21] MEDS ORDERED: PROMETHAZINE 25 MG TAB PO PRN (04:30)
[2017-07-21] MEDS: HYDROCODONE/APAP (10/325) TAB PO SCH ×4 (04:30→10:33)
[2017-07-21] MEDS ORDERED: morphine 4 MG/ML VIAL IV PRN (04:30)
[2017-07-21] MEDS ORDERED: ZOLPIDEM 5 MG TAB PO PRN (04:30)
[2017-07-21] MEDS ORDERED: HYDROmorphONE 1 MG/ML SYG IV PRN (05:00)
--- NOTE | 2017-07-21 05:17 | HP ---
Date/Time of Note Date/Time of Note DATE: 07/21/17 TIME: 05:03 Assessment/Plan VTE Prophylaxis VTE Prophylaxis Intervention: SCD's Assessment/Plan Assessment/Plan 1. Anemia of chronic disease and malignancy -Will transfuse blood 2. History of breast cancer with bony metastasis, s/p double mastectomy and chemo, last chemo about 2 months ago - Consult Oncology, Dr. Zuleta 3. Chronic Pain of Malignancy - Pain mgmt 4. Hx of Depression - cont med when no longer NPO 5. Probable bilateral upper lobe pneumonia - will empirically start antibiotic 6. Renal insufficiency - cont IVF - Nephrology consult as needed 7. Several left rib pathologic fractures - cont pain mgmt HPI/ROS Admit Date/Time Admit Date/Time Jul 20, 2017 at 23:50 Hx of Present Illness The patient is a 51-year-old female with a history of breast cancer with bony and extensive thoracic spine metastasis, status post double mastectomy, renal insufficiency, lymphoma, splenectomy, depression, chronic back pain, ADHD and pathologic rib fracture. The patient presented with a complaint of generalized pain, weakness and dizziness. Patient has been admitted here multiple times related to pain, generalized weakness and anemia as well as for lower ext cellulitis. Last admission was in May of this year for anemia with a hemoglobin of 7. When she presented to the ER this time, she was found to be anemic with hemoglobin of 8, WBC 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 Extensive metastatic disease throughout the thoracic spine, with near complete replacement of the T3, C10 and L1 vertebral bodies PMH/Family/Social Past Medical History breast cancer with bony and extensive thoracic spine metastasis, status post double mastectomy, renal insufficiency, lymphoma, splenectomy, depression, chronic back pain, ADHD and pathologic rib fracture . Past Surgical History Past Surgical Hx: no surgical history, endoscopy, other Social History Alcohol Use: none Smoking Status: Never smoker Drug Use: none Exam/Review of Systems Vital Signs Vitals Vital Signs Date Time Temp Pulse Resp B/P Pulse Ox O2 Delivery O2 Flow Rate FiO2 07/21/17 03:41 98.0 83 16 107/63 95 07/21/17 03:17 Room Air Exam Constitutional: other (Appears slightly tired but alert and oriented) Head: atraumatic, normocephalic Eyes: EOMI, PERRL Respiratory: diminished breath sounds Cardiovascular: nl pulses, regular rate and rhythm Gastrointestinal: soft, tender Musculoskeletal: other (spinal tenderness) Labs Result Diagram: 07/20/17219907/20/17 1915 Medications Medications Current Medications Ascorbic Acid (Vitamin C) 1,000 mg DAILY PO ; Start 07/21/17 at 09:00 Baclofen (Lioresal) 10 mg QID PO ; Start 07/21/17 at 09:00 Duloxetine HCl (Cymbalta) 60 mg BID PO ; Start 07/21/17 at 09:00 Exemestane (Aromasin) 25 mg DAILY PO ; Start 07/21/17 at 09:00 Furosemide (Lasix) 20 mg DAILY@06 PO ; Start 07/21/17 at 06:00 Gabapentin (Neurontin) 100 mg Q4 PO ; Start 07/21/17 at 05:00 Acetaminophen/ Hydrocodone Bitart ([place] (10/325)) 1 tab Q3H PO ; Start 07/21/17 at 04:30 Hydromorphone HCl (Dilaudid) 4 mg Q6 PO ; Start 07/21/17 at 06:00 Indomethacin (Indocin) 50 mg BID PO ; Start 07/21/17 at 09:00 Morphine Sulfate (Ms Contin (Er)) 15 mg TID PO ; Start 07/21/17 at 09:00 Polyethylene Glycol (Miralax) 17 gm DAILY PO ; Start 07/21/17 at 09:00 Prochlorperazine (Compazine) 10 mg QID PRN PO NAUSEA; Start 07/21/17 at 04:30 Promethazine HCl (Phenergan) 25 mg Q6H PRN PO PAIN; Start 07/21/17 at 04:30 Ranitidine HCl (Zantac) 150 mg TID PO ; Start 07/21/17 at 09:00 Spironolactone (Aldactone) 50 mg DAILY PO ; Start 07/21/17 at 09:00 Zolpidem Tartrate (Ambien) 10 mg QHS PRN PO INSOMNIA; Start 07/21/17 at 04:30 Miscellaneous Information 10 mg TID PO ; Start 07/21/17 at 09:00; Status UNV Miscellaneous Information 50 mg BID PO ; Start 07/21/17 at 09:00; Status UNV Vitamin B Complex/ Vitamin C ([place]) 1 cap QHS PO ; Start 07/21/17 at 21:00 Ondansetron HCl (Zofran Inj) 4 mg Q6H PRN IV NAUSEA AND/OR VOMITING; Start 07/21 at 04:30 Hydromorphone HCl (Dilaudid) 1 mg Q4H PRN IV PAIN; Start 07/21/17 at 05:00 VANDA CARVER MD Jul 21, 2017 05:13
[2017-07-21] MEDS ORDERED: LEVOFLOXACIN 500MG/D5W (PMX) 100 ML IVPB SCH (05:30)
[2017-07-21] MEDS: HYDROmorphONE 1 MG/ML SYG IV PRN ×4 (05:55→19:48)
[2017-07-21] MEDS: GABAPENTIN 100 MG CAP PO SCH ×4 (05:55→21:27)
[2017-07-21] MEDS: FUROSEMIDE 20 MG TAB PO SCH (05:56)
[2017-07-21 08:00] VITALS: BP 106/60; RESP 16
[2017-07-21] MEDS: BACLOFEN 10 MG TAB PO SCH ×4 (08:48→21:26)
[2017-07-21] MEDS: POLYETHYLENE GLYCOL 17 GM PACKET PO SCH ×2 (08:48→09:00)
[2017-07-21] MEDS: ASCORBIC ACID 500 MG TAB PO SCH (08:48)
[2017-07-21] MEDS: DULOXETINE 30 MG CAP DR PO SCH ×2 (08:48→21:26)
[2017-07-21] MEDS: INDOMETHACIN 50 MG PO SCH ×2 (08:48→21:25)
[2017-07-21] MEDS: RANITIDINE 150 MG TAB PO SCH ×3 (08:49→21:27)
[2017-07-21] MEDS: morphine (ER) 15 MG TAB PO SCH ×3 (08:51→21:26)
[2017-07-21] MEDS ORDERED: SPIRONOLACTONE 50 MG TAB PO SCH (09:00)
[2017-07-21] MEDS ORDERED: AMPHET ASP AMPHET D AMPHET 10 MG PO SCH (09:00)
[2017-07-21] MEDS ORDERED: TAPENTADOL HCL 50 MG PO SCH (09:00)
[2017-07-21] MEDS: EXEMESTANE 25 MG TAB PO SCH (12:02)
[2017-07-21] MEDS: HYDROmorphONE 2 MG TAB PO SCH (12:13)
--- NOTE | 2017-07-21 12:27 | PN ---
Date/Time of Note Date/Time of Note DATE: 07/21/17 TIME: 12:16 Assessment/Plan VTE Prophylaxis VTE Prophylaxis Intervention: LMWH Lines/Catheters IV [facility]ac[facility] Assessment/Plan Chief Complaint/Hosp Course S: Admitted after mechanical fall at home trying to get to the bathroom. She could not bend her knee with the brace on. No loss of speech vision. Eating well; no hematochezia. No focal deficits. Denies any yarelis productive cough. Chemotherapy 2 weeks ago? Denies fever. O; vss PE No pallor adenopathy droop. Lt eyelid a little swollen. Reg no m/r/g Clear no tachypnea Bs+ nt nd no r/r/g No edema Neuro: Nonfocal A/P 1. Mechanical fall. Stable, arrange home safety if needed. Patient lives with uncle. Refuses walker. 2. Sirs? Pneumonia? Observe follow-up on testing 3. Metastatic breast cancer 4. Vertebral metastases 5. Anemia Problems: Exam/Review of Systems Vital Signs Vitals Vital Signs Date Time Temp Pulse Resp B/P Pulse Ox O2 Delivery O2 Flow Rate FiO2 07/21/17 08:00 97.6 80 16 106/60 92 07/21/17 03:17 Room Air Intake and Output 07/20/17 07/20/17 07/21/17 15:00 23:00 07:00 Intake Total 390 ml Balance 390 ml Results Result Diagram: 07/20/17 2200 07/20/17 1915 Results 24 hrs Laboratory Tests Test 07/20/17 19:15 07/20/17 22:00 White Blood Count 12.1 H Red Blood Count 2.74 L Hemoglobin 8.0 L 8.0 L Hematocrit 26.0 L 25.5 L Mean Corpuscular Volume 94.9 Mean Corpuscular Hemoglobin 29.2 Mean Corpuscular Hemoglobin Concent 30.8 L Red Cell Distribution Width 15.8 H Platelet Count 454 H Mean Platelet Volume 11.5 H Neutrophils % 56.9 Lymphocytes % 27.3 Monocytes % 10.8 Eosinophils % 3.2 Basophils % 0.2 Nucleated Red Blood Cells % 0.2 H Neutrophils # (Manual) 6.9 Lymphocytes # 3.3 H Monocytes # 1.3 H Eosinophils # 0.4 Basophils # 0.0 Nucleated Red Blood Cells # 0.0 Urine Color YELLOW Urine Clarity SLIGHTLY CLOUDY A Urine pH 5.0 Urine Specific [place] 1.018 Urine Ketones NEGATIVE Urine Nitrite NEGATIVE Urine Bilirubin NEGATIVE Urine Urobilinogen NEGATIVE Urine Leukocyte Esterase NEGATIVE Urine Microscopic RBC 2 Urine Microscopic WBC 2 Urine Calcium Oxalate Crystals FEW A Urine Hyaline Casts FEW A Urine Hemoglobin NEGATIVE Urine Glucose NEGATIVE Urine Total Protein NEGATIVE Sodium Level 139 Potassium Level 4.3 Chloride Level 103 Carbon Dioxide Level 28 Anion Gap 12 Blood Urea Nitrogen 28 H Creatinine 1.67 H Glucose Level 98 Calcium Level 10.8 H Medications Medications Current Medications Ascorbic Acid (Vitamin C) 1,000 mg DAILY PO Last administered on 07/21/17 08:48 ; Admin Dose 1,000 MG; Start 07/21/17 at 09:00 Baclofen (Lioresal) 10 mg QID PO Last administered on 07/21/17 08:48; Admin Dose 10 MG; Start 07/21/17 at 09:00 Duloxetine HCl (Cymbalta) 60 mg BID PO Last administered on 07/21/17 08:48; Admin Dose 60 MG; Start 07/21/17 at 09:00 Exemestane (Aromasin) 25 mg DAILY PO Last administered on 07/21/17 12:02; Admin Dose 25 MG; Start 07/21/17 at 09:00 Furosemide (Lasix) 20 mg DAILY@06 PO Last administered on 07/21/17 05:56; Admin Dose 20 MG; Start 07/21/17 at 06:00 Gabapentin (Neurontin) 100 mg Q4 PO Last administered on 07/21/17 08:48; Admin Dose 100 MG; Start 07/21/17 at 05:00 Acetaminophen/ Hydrocodone Bitart ([place] (10/325)) 1 tab Q3H PO Last administered on 07/21/17 10:33; Admin Dose 1 TAB; Start 07/21/17 at 04:30 Hydromorphone HCl (Dilaudid) 4 mg Q6 PO Last administered on 07/21/17 12:13; Admin Dose 4 MG; Start 07/21/17 at 06:00 Indomethacin (Indocin) 50 mg BID PO Last administered on 07/21/17 08:48; Admin Dose 50 MG; Start 07/21/17 at 09:00 Morphine Sulfate (Ms Contin (Er)) 15 mg TID PO Last administered on 07/21/17 08 :51; Admin Dose 15 MG; Start 07/21/17 at 09:00 Polyethylene Glycol (Miralax) 17 gm DAILY PO Last administered on 07/21/17 08: 48; Admin Dose 17 GM; Start 07/21/17 at 09:00 Prochlorperazine (Compazine) 10 mg QID PRN PO NAUSEA; Start 07/21/17 at 04:30 Promethazine HCl (Phenergan) 25 mg Q6H PRN PO PAIN; Start 07/21/17 at 04:30 Ranitidine HCl (Zantac) 150 mg TID PO Last administered on 07/21/17 08:49; Admin Dose 150 MG; Start 07/21/17 at 09:00 Spironolactone (Aldactone) 50 mg DAILY PO Last administered on 07/21/17 08:50; Admin Dose 50 MG; Start 07/21/17 at 09:00 Zolpidem Tartrate (Ambien) 10 mg QHS PRN PO INSOMNIA; Start 07/21/17 at 04:30 Miscellaneous Information 10 mg TID PO ; Start 07/21/17 at 09:00; Status UNV Miscellaneous Information 50 mg BID PO ; Start 07/21/17 at 09:00; Status UNV Vitamin B Complex/ Vitamin C ([place]) 1 cap QHS PO ; Start 07/21/17 at 21:00 Ondansetron HCl 4 mg 4 mg Q6H PRN IV NAUSEA AND/OR VOMITING; Start 07/21/17 at 04:30 Levofloxacin/ Dextrose (Levaquin 500mg/ D5W 100 ml (Pmx)) 100 ml @ 100 mls/hr Q24H IVPB Last administered on 07/21/17 05:55; Admin Dose 100 MLS/HR; Start 07/21/17 at 05:30 Hydromorphone HCl (Dilaudid) 1 mg Q4H PRN IV PAIN Last administered on 10:27; Admin Dose 1 MG; Start 07/21/17 at 05:40 LAILA MARIA MD Jul 21, 2017 12:27
[2017-07-21] MEDS ORDERED: HYDROmorphONE 2 MG TAB PO PRN (12:30)
--- NOTE | 2017-07-21 14:45 | RADRPT ---
PROCEDURE: Ultrasound of the bilateral lower extremity venous system. CLINICAL INDICATION: Bilateral leg pain and swelling, deep venous thrombosis TECHNIQUE: Luevano scale with and without compression, color doppler, spectral doppler of the venous system of the bilateral lower extremities was performed. Venous augmentation maneuvers were utilized . COMPARISON: No prior studies are available for comparison. FINDINGS: RIGHT: Common femoral vein: Patent. Femoral vein: Patent. Popliteal vein: Patent. Calf veins: Patent. No soft tissue abnormalities are identified. LEFT: Common femoral vein: Patent. Femoral vein: Patent. Popliteal vein: Patent. Calf veins: Patent. 5.0 x 1.3 x 2.8 cm popliteal cyst. IMPRESSION: No evidence of a deep vein thrombosis within the bilateral lower extremities. Moderate sized left popliteal cyst. RPTAT: AADD .Ronald Patel MD, Date Time Electronically viewed and signed by .Ronald Patel MD, on 07/21/2017 14:44 .B/
--- NOTE | 2017-07-21 17:16 | RADRPT ---
PROCEDURE: CT chest without contrast. CLINICAL INDICATION: Cough, chest pain TECHNIQUE: CT scan of the chest without contrast was performed on a multi-slice CT scanner. The p atient was scanned without administration of intravenous contrast. Coronal and sagittal reformatted images were obtained from the axial source images. One or more of the following dose reduction techniques were used: - Automated exposure control. - Adjustment of the mA and/or kV according to patient size. Use of iterative reconstruction technique. DLP vol 455.3 mGy CTDI 12.7 mGy-cm COMPARISON: 02/16/2017 FINDINGS: Bilateral interstitial opacities are seen in the linear orientation bilaterally around the upper med iastinum. Subpleural mild interstitial opacities are seen with trace pleural effusions bilaterally. The remainder of the lungs otherwise clear. The airways are patent. Interval lytic and sclerotic lesions are seen diffusely throughout thoracic spine and within the oss eous structures of the thorax. There is worsening lucency involving T3 since the prior exam. Subac josef bilateral healing pathologic fractures are seen involving the ribs with deformity of the right s capula. Healing changes with bilateral subacute rib fractures are seen along with deformity of the right in ferior scapula from prior fracture. There is a left-sided central line catheter terminates within the SVC. The heart is at the upper limits of normal in size. Calcifications are seen in the coronary arterie s. Bilateral breast implants are present. There is no acute upper abdominal abnormality. Stable appearance of enlarged multinodular thyroid gl and. IMPRESSION: Again seen are innumerable lytic and sclerotic lesions of the osseous structures which appear mildly progressed and this is most pronounced within the vertebral body of T3. Healing subacute pathologi c bilateral rib fractures are present. Trace bilateral layering effusions are seen with mild subpleural interstitial opacities. Multinodular enlarged thyroid is grossly stable from prior exam. Atherosclerotic changes of coronary arteries are again seen. RPTAT: AA .Woo Vazquez MD, Date Time Electronically viewed and signed by .Woo Vazquez MD, MD on 07/21/2017 17:16 .J/
[2017-07-21 20:35] VITALS: BP 123/67; RESP 18
[2017-07-21] MEDS: VITAMIN B COMPLEX/VIT C CAP PO SCH (21:26)
[2017-07-22] MEDS: HYDROmorphONE 1 MG/ML SYG IV PRN ×6 (00:07→20:37)
[2017-07-22 06:12] LABS: BASOPHILS % 0.3 % (0.0-2.0); EOSINOPHILS # 0.4 10^3/ul (0.0-0.5); HEMATOCRIT 30.6 % (37.0-47.0); HEMOGLOBIN 9.6 g/dl (12.0-16.0); LYMPHOCYTES # 2.6 10^3/ul (0.8-2.9); LYMPHOCYTES % 20.9 % (15.0-51.0); MEAN CORPUSCULAR HEMOGLOBIN 29.9 pg (29.0-33.0); MEAN CORPUSCULAR HGB CONC 31.4 g/dl (32.0-37.0); MEAN CORPUSCULAR VOLUME 95.3 fl (82.0-101.0); MEAN PLATELET VOLUME 11.9 fl (7.4-10.4); MONOCYTE # 1.2 10^3/ul (0.3-0.9); MONOCYTES % 9.4 % (0.0-11.0); NUCLEATED RED BLOOD CELLS # 0.3 10^3/ul (0.0-0.0); NUCLEATED RED BLOOD CELLS% 2.6 /100WBC (0.0-0.0); PLATELET COUNT 433 10^3/UL (140-415); RED BLOOD COUNT 3.21 10^6/ul (4.20-5.40); RED CELL DISTRIBUTION WIDTH 15.9 % (11.5-14.5); WHITE BLOOD COUNT 12.4 10^3/ul (4.8-10.8)
[2017-07-22] MEDS: FUROSEMIDE 20 MG TAB PO SCH (06:15)
[2017-07-22 06:23] LABS: INR 1.05; PROTIME 13.7 Sec (12.2-14.2); PT RATIO 1.1
[2017-07-22 06:38] LABS: ALBUMIN 3.5 g/dl (3.3-4.9); ALBUMIN/GLOBULIN RATIO 1.06; CALCIUM 9.2 mg/dl (8.4-10.2); CREATININE 1.03 mg/dl (0.44-1.00); MAGNESIUM 1.9 mg/dl (1.7-2.5); PHOSPHORUS 2.9 mg/dl (2.5-4.9); POTASSIUM 4.2 mmol/L (3.5-5.1); TOTAL PROTEIN 6.8 g/dl (6.1-8.1)
[2017-07-22 08:48] VITALS: BP 110/59; RESP 20
[2017-07-22] MEDS: POLYETHYLENE GLYCOL 17 GM PACKET PO SCH (09:00)
[2017-07-22] MEDS: BACLOFEN 10 MG TAB PO SCH ×4 (09:04→20:36)
[2017-07-22] MEDS: INDOMETHACIN 50 MG PO SCH ×2 (09:04→20:37)
[2017-07-22] MEDS: RANITIDINE 150 MG TAB PO SCH ×3 (09:04→20:36)
[2017-07-22] MEDS: DULOXETINE 30 MG CAP DR PO SCH ×2 (09:04→20:36)
[2017-07-22] MEDS: GABAPENTIN 100 MG CAP PO SCH ×3 (09:04→20:37)
[2017-07-22] MEDS: morphine (ER) 15 MG TAB PO SCH ×2 (09:04→13:16)
[2017-07-22] MEDS: ASCORBIC ACID 500 MG TAB PO SCH (09:04)
[2017-07-22] MEDS: EXEMESTANE 25 MG TAB PO SCH (09:05)
[2017-07-22] MEDS ORDERED: HYDROCODONE/APAP (10/325) TAB PO PRN (09:30)
[2017-07-22] MEDS: SOD FERRIC GLUC COMPLX 125 MG in SOD CHLORIDE 0.9% 100 ML IVPB SCH (13:16)
--- NOTE | 2017-07-22 13:53 | CONS ---
Date/Time of Note Date/Time of Note DATE: 07/22/17 TIME: 13:37 Assessment/Plan Assessment/Plan Chief Complaint/Hosp Course Ms Schwartz is a 49-year-old female with ER/NE/ HER2+ positive, metastatic breast cancer to the bones who now presents with dizziness and palpitations secondary to severe anemia. # Anemia - secondary to metastatic cancer and possible bone marrow involvement -patient received 2 units of PRBC's -continue IV iron as well. # Her 2+ / ER+ metastatic breast cancer to bones - per CT there is subcentimeter mesenteric lymphadenopathy which may represent disease. -CT scan so far show stable disease -will continue Perjeta/ Herceptin/ Lupron / Exemestane and Xgeva as an out patient #Bone Pain -continue Dilaudid 1mg IV q 4 as needed -will increase MS Contin to 30mg BID #Depression -continue Effexor 75 mg q day Thank you for allowing me to participate in this patients care. Problems: (1) Metastatic breast cancer Status: Chronic (2) Symptomatic anemia Status: Acute Consultation Date/Type/Reason Admit Date/Time Jul 20, 2017 at 23:50 Date of Consultation: Jul 22, 2017 Type of Consultation: oncology Reason for Consultation metastatic breast Referring Provider: LAILA MARIA MD Hx of Present Illness Ms Schwartz is a 49-year-old female who in 1982 was diagnosed with Hodgkins disease, that has since been treated who was then diagnosed with L sided breast cancer in 2011. The mastectomy was on 06/30/2012, the tumor was a well- differentiated, 3.3 cm with 5 out of 7 lymph nodes positive. She was thus diagnosed with stage IIIA, ER/NE positive, HER-2 negative disease. The patient refused chemotherapy, but she received tamoxifen for about 2-3 years. The patient was then diagnosed with recurrence in the bones in February of 2015. AT that time patient had a biopsy of her hip that revealed ER+/NE+/Her2+ disease. It was, at that time, that the patient was told to start chemotherapy, but again because she refused. The patient has since been started on exemestane, Xgeva, and Lupron given that she was premenopausal. Of note patient still refuses taxane based chemotherapy although this was recommended. Pt received her last dose of Perjeta / Herceptin on 07/19. She presents to [facility] after falling out of her bed and having bone pain. CT of the C/T spine and CT brain were done which show no evidence of acute fracture. Pt states she remains in pain despite the Dialudid she currently taking Constitutional: other Eyes: no complaints ENT: no complaints Respiratory: no complaints Cardiovascular: no complaints Gastrointestinal: no complaints Genitourinary: no complaints Musculoskeletal: back pain, bone/joint pain, neck pain Neurologic: no complaints Past Medical History back fracture in 1997 breast cancer depression Past Surgical History Past Surgical Hx: no surgical history, endoscopy, other Family History Significant Family History: no pertinent family hx Social History Alcohol Use: none Smoking Status: Never smoker Drug Use: none Exam/Review of Systems Vital Signs Vitals Vital Signs Date Time Temp Pulse Resp B/P Pulse Ox O2 Delivery O2 Flow Rate FiO2 07/22/17 08:48 98.0 74 20 110/59 96 07/21/17 03:17 Room Air Intake and Output 07/21/17 07/21/17 07/22/17 14:59 22:59 06:59 Intake Total 960 ml 1300 ml Balance 960 ml 1300 ml Exam Constitutional: alert, oriented Psych: anxiety, nl mood/affect, no complaints Head: normocephalic Eyes: nl conjunctiva ENMT: nl external ears & nose Neck: supple Respiratory: clear to auscultation, normal air movement Cardiovascular: regular rate and rhythm Gastrointestinal: soft Musculoskeletal: nl extremities to inspection Results Result Diagram: 07/22/17 0439 07/22/17 0439 Results 24 hrs Laboratory Tests Test 07/22/17 04:38 07/22/17 04:39 07/22/17 06:16 Prothrombin Time 13.7 Prothrombin Time Ratio 1.1 INR International Normalized Ratio 1.05 White Blood Count 12.4 H Red Blood Count 3.21 L Hemoglobin 9.6 L Hematocrit 30.6 L Mean Corpuscular Volume 95.3 Mean Corpuscular Hemoglobin 29.9 Mean Corpuscular Hemoglobin Concent 31.4 L Red Cell Distribution Width 15.9 H Platelet Count 433 H Mean Platelet Volume 11.9 H Neutrophils % 63.0 Lymphocytes % 20.9 Monocytes % 9.4 Eosinophils % 3.0 Basophils % 0.3 Nucleated Red Blood Cells % 2.6 H Neutrophils # (Manual) 7.8 H Lymphocytes # 2.6 Monocytes # 1.2 H Eosinophils # 0.4 Basophils # 0.0 Nucleated Red Blood Cells # 0.3 H Sodium Level 142 Potassium Level 4.2 Chloride Level 107 Carbon Dioxide Level 27 Anion Gap 12 Blood Urea Nitrogen 19 # Creatinine 1.03 H Glucose Level 94 Calcium Level 9.2 Phosphorus Level 2.9 Magnesium Level 1.9 Total Bilirubin 0.0 L Direct Bilirubin 0.00 Indirect Bilirubin 0.0 Aspartate Amino Transf (AST/SGOT) 40 Alanine Aminotransferase (ALT/SGPT) 38 Alkaline Phosphatase 128 H Total Protein 6.8 Albumin 3.5 Globulin 3.30 H Albumin/Globulin Ratio 1.06 Thyroid Stimulating Hormone (TSH) 0.785 Lab Scanned Report BLOOD TRANSFUSION Medications Medications Current Medications Ascorbic Acid (Vitamin C) 1,000 mg DAILY PO Last administered on 07/22/17 09:04 ; Admin Dose 1,000 MG; Start 07/21/17 at 09:00 Baclofen (Lioresal) 10 mg QID PO Last administered on 07/22/17 13:16; Admin Dose 10 MG; Start 07/21/17 at 09:00 Duloxetine HCl (Cymbalta) 60 mg BID PO Last administered on 07/22/17 09:04; Admin Dose 60 MG; Start 07/21/17 at 09:00 Exemestane (Aromasin) 25 mg DAILY PO Last administered on 07/22/17 09:05; Admin Dose 25 MG; Start 07/21/17 at 09:00 Furosemide (Lasix) 20 mg DAILY@06 PO Last administered on 07/22/17 06:15; Admin Dose 20 MG; Start 07/21/17 at 06:00 Indomethacin (Indocin) 50 mg BID PO Last administered on 07/22/17 09:04; Admin Dose 50 MG; Start 07/21/17 at 09:00 Morphine Sulfate (Ms Contin (Er)) 15 mg TID PO Last administered on 07/22/17 13 :16; Admin Dose 15 MG; Start 07/21/17 at 09:00 Polyethylene Glycol (Miralax) 17 gm DAILY PO ; Start 07/21/17 at 09:00 Prochlorperazine (Compazine) 10 mg QID PRN PO NAUSEA; Start 07/21/17 at 04:30 Promethazine HCl (Phenergan) 25 mg Q6H PRN PO PAIN; Start 07/21/17 at 04:30 Ranitidine HCl (Zantac) 150 mg TID PO Last administered on 07/22/17 13:16; Admin Dose 150 MG; Start 07/21/17 at 09:00 Zolpidem Tartrate (Ambien) 10 mg QHS PRN PO INSOMNIA; Start 07/21/17 at 04:30 Miscellaneous Information 10 mg TID PO ; Start 07/21/17 at 09:00; Status UNV Miscellaneous Information 50 mg BID PO ; Start 07/21/17 at 09:00; Status UNV Vitamin B Complex/ Vitamin C (Berocca) 1 cap QHS PO Last administered on 21:26; Admin Dose 1 CAP; Start 07/21/17 at 21:00 Ondansetron HCl (Zofran Inj) 4 mg Q6H PRN IV NAUSEA AND/OR VOMITING; Start 07/21 at 04:30 Hydromorphone HCl (Dilaudid) 1 mg Q4H PRN IV PAIN Last administered on 12:46; Admin Dose 1 MG; Start 07/21/17 at 05:40 Gabapentin (Neurontin) 100 mg TID PO Last administered on 07/22/17 13:16; Admin Dose 100 MG; Start 07/21/17 at 15:00 Hydromorphone HCl (Dilaudid) 4 mg Q6H PRN PO MODERATE PAIN LEVEL 4-6 Last administered on 07/22/17 06:17; Admin Dose 4 MG; Start 07/21/17 at 12:30 Acetaminophen/ Hydrocodone Bitart ([place] (10/325)) 1 tab Q3H PRN PO PAIN; Start 07/22/17 at 09:30 Miscellaneous Information MEDICATION REQUIRES CLARIFICATI... Q8H XX ; Start 07/22/17 at 09:30 Ferric Sodium Gluconate Complex/ Sodium Chloride (Ferrlecit/NS) 110 ml @ 110 mls/hr Q24H IVPB Last administered on 07/22/17 13:16; Admin Dose 110 MLS/HR; Start 07/22/17 at 13:00; Stop 07/26/17 at 13:59 KASH LAWSON M.D. Jul 22, 2017 13:47
[2017-07-22 15:09] VITALS: BP 128/62; RESP 20
--- NOTE | 2017-07-22 15:28 | PN ---
Date/Time of Note Date/Time of Note DATE: 07/22/17 TIME: 15:21 Assessment/Plan VTE Prophylaxis VTE Prophylaxis Intervention: LMWH Lines/Catheters IV [facility] port-a-cath Assessment/Plan Chief Complaint/Hosp Course S: 07/21: fell at home trying to get to the br. She could not bend her knee with the brace on. No loss of speech vision. Eating well; no hematochezia. No focal deficits. Denies any yarelis productive cough. Chemo 2 wks ago? Denies fever. -Oncology noted: was dx w Hodgkins. treated. Diagnosed with Lt breast Ca . s/p mastectomy [well-diff 3.3cm w 5 out of 7 +LN's]. [stage IIIA, ER/ [place] +, HER-2 negative]. Refused chemo, but she 2 yrs tamoxifen. Then recurrence in bones . Hip bx revealed ER+/VA+/Her2+ dz. Told to start chemo, refused again. Since then, has been on exemestane, Xgeva, Lupron given that she was premenopausal. Still refuses the recommended taxane based chemotherapy. 07/22: Still in moderate to severe pain. No dyspnea fever. O; vss PE No pallor. Lt eyelid a little swollen. Reg no m/r/g Clear no tachypnea Bs+ nt nd no r/r/g No edema Neuro: Nonfocal A/P 1. Mechanical fall. Stable, arrange home safety prn. lives w uncle. Refuses walker. 2. Sirs/ pneumonia? Observe/ follow-up on tests 3. Metastatic breast cancer w nonadherence to therapy and progression of disease. Needs advanced care planning evaluated. 4. Vertebral metastases. Prognosis concerning, consider hospice. 5. Anemia 6. Probable chr pain. Recommend palliative care consider hospice. Problems: Exam/Review of Systems Vital Signs Vitals Vital Signs Date Time Temp Pulse Resp B/P Pulse Ox O2 Delivery O2 Flow Rate FiO2 07/22/17 15:09 98.4 83 20 128/62 98 07/21/17 03:17 Room Air Intake and Output 07/21/17 07/21/17 07/22/17 15:00 23:00 07:00 Intake Total 960 ml 1300 ml Balance 960 ml 1300 ml Results Result Diagram: 07/22/17 0439 07/22/17 0439 Results 24 hrs Laboratory Tests Test 07/22/17 04:38 07/22/17 04:39 07/22/17 06:16 Prothrombin Time 13.7 Prothrombin Time Ratio 1.1 INR International Normalized Ratio 1.05 White Blood Count 12.4 H Red Blood Count 3.21 L Hemoglobin 9.6 L Hematocrit 30.6 L Mean Corpuscular Volume 95.3 Mean Corpuscular Hemoglobin 29.9 Mean Corpuscular Hemoglobin Concent 31.4 L Red Cell Distribution Width 15.9 H Platelet Count 433 H Mean Platelet Volume 11.9 H Neutrophils % 63.0 Lymphocytes % 20.9 Monocytes % 9.4 Eosinophils % 3.0 Basophils % 0.3 Nucleated Red Blood Cells % 2.6 H Neutrophils # (Manual) 7.8 H Lymphocytes # 2.6 Monocytes # 1.2 H Eosinophils # 0.4 Basophils # 0.0 Nucleated Red Blood Cells # 0.3 H Sodium Level 142 Potassium Level 4.2 Chloride Level 107 Carbon Dioxide Level 27 Anion Gap 12 Blood Urea Nitrogen 19 # Creatinine 1.03 H Glucose Level 94 Calcium Level 9.2 Phosphorus Level 2.9 Magnesium Level 1.9 Total Bilirubin 0.0 L Direct Bilirubin 0.00 Indirect Bilirubin 0.0 Aspartate Amino Transf (AST/SGOT) 40 Alanine Aminotransferase (ALT/SGPT) 38 Alkaline Phosphatase 128 H Total Protein 6.8 Albumin 3.5 Globulin 3.30 H Albumin/Globulin Ratio 1.06 Thyroid Stimulating Hormone (TSH) 0.785 Lab Scanned Report BLOOD TRANSFUSION Medications Medications Current Medications Ascorbic Acid (Vitamin C) 1,000 mg DAILY PO Last administered on 07/22/17 09:04 ; Admin Dose 1,000 MG; Start 07/21/17 at 09:00 Baclofen (Lioresal) 10 mg QID PO Last administered on 07/22/17 13:16; Admin Dose 10 MG; Start 07/21/17 at 09:00 Duloxetine HCl (Cymbalta) 60 mg BID PO Last administered on 07/22/17 09:04; Admin Dose 60 MG; Start 07/21/17 at 09:00 Exemestane (Aromasin) 25 mg DAILY PO Last administered on 07/22/17 09:05; Admin Dose 25 MG; Start 07/21/17 at 09:00 Furosemide (Lasix) 20 mg DAILY@06 PO Last administered on 07/22/17 06:15; Admin Dose 20 MG; Start 07/21/17 at 06:00 Indomethacin (Indocin) 50 mg BID PO Last administered on 07/22/17 09:04; Admin Dose 50 MG; Start 07/21/17 at 09:00 Polyethylene Glycol (Miralax) 17 gm DAILY PO ; Start 07/21/17 at 09:00 Prochlorperazine (Compazine) 10 mg QID PRN PO NAUSEA; Start 07/21/17 at 04:30 Promethazine HCl (Phenergan) 25 mg Q6H PRN PO PAIN; Start 07/21/17 at 04:30 Ranitidine HCl (Zantac) 150 mg TID PO Last administered on 07/22/17 13:16; Admin Dose 150 MG; Start 07/21/17 at 09:00 Zolpidem Tartrate (Ambien) 10 mg QHS PRN PO INSOMNIA; Start 07/21/17 at 04:30 Miscellaneous Information 10 mg TID PO ; Start 07/21/17 at 09:00; Status UNV Miscellaneous Information 50 mg BID PO ; Start 07/21/17 at 09:00; Status UNV Vitamin B Complex/ Vitamin C (Berocca) 1 cap QHS PO Last administered on 21:26; Admin Dose 1 CAP; Start 07/21/17 at 21:00 Ondansetron HCl (Zofran Inj) 4 mg Q6H PRN IV NAUSEA AND/OR VOMITING; Start 07/21 at 04:30 Hydromorphone HCl (Dilaudid) 1 mg Q4H PRN IV PAIN Last administered on 12:46; Admin Dose 1 MG; Start 07/21/17 at 05:40 Gabapentin (Neurontin) 100 mg TID PO Last administered on 07/22/17 13:16; Admin Dose 100 MG; Start 07/21/17 at 15:00 Hydromorphone HCl (Dilaudid) 4 mg Q6H PRN PO MODERATE PAIN LEVEL 4-6 Last administered on 07/22/17 06:17; Admin Dose 4 MG; Start 07/21/17 at 12:30 Acetaminophen/ Hydrocodone Bitart ([place] (10/325)) 1 tab Q3H PRN PO PAIN; Start 07/22/17 at 09:30 Miscellaneous Information MEDICATION REQUIRES CLARIFICATI... Q8H XX ; Start 07/22/17 at 09:30 Ferric Sodium Gluconate Complex/ Sodium Chloride (Ferrlecit/NS) 110 ml @ 110 mls/hr Q24H IVPB Last administered on 07/22/17t 13:16; Admin Dose 110 MLS/HR; Start 07/22/17 at 13:00; Stop 07/26/17 at 13:59 Morphine Sulfate (Ms Contin (Er)) 30 mg TID PO ; Start 07/22/17 at 21:00 LAILA MARIA MD Jul 22, 2017 15:28
--- NOTE | 2017-07-22 16:22 | PDOCDIS ---
Discharge Instructions DIAGNOSIS Discharge Diagnosis Fall CONDITION Patient Condition: Stable HOME CARE INSTRUCTIONS: Diet Instructions: Regular ACTIVITY: Activity Restrictions: Slowly Increase Activity Do not Drive FOLLOW UP/APPOINTMENTS Follow-up Plan Dr Zuleta appt 1wk. LAILA MARIA MD Jul 22, 2017 16:22
--- NOTE | 2017-07-22 16:26 | DS ---
Date/Time of Note Date/Time of Note DATE: 07/22/17 TIME: 16:24 Discharge Summary Admission/Discharge Info Admit Date/Time Jul 20, 2017 at 23:50 Discharge Date/Time Discharge Diagnosis Fall Patient Condition: Stable Consults Dr Zuleta Procedures xray Hx of Present Illness The patient is a 51-year-old female with a history of breast cancer with bony and extensive thoracic spine metastasis, status post double mastectomy, renal insufficiency, lymphoma, splenectomy, depression, chronic back pain, ADHD and pathologic rib fracture. The patient presented with a complaint of generalized pain, weakness and dizziness. Patient has been admitted here multiple times related to pain, generalized weakness and anemia as well as for lower ext cellulitis. Last admission was in May of this year for anemia with a hemoglobin of 7. When she presented to the ER this time, she was found to be anemic with hemoglobin of 8, WBC 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 Extensive metastatic disease throughout the thoracic spine, with near complete replacement of the T3, C10 and L1 vertebral bodies Hospital Course S: 07/21: fell at home trying to get to the br. She could not bend her knee with the brace on. No loss of speech vision. Eating well; no hematochezia. No focal deficits. Denies any yarelis productive cough. Chemo 2 wks ago? Denies fever. -Oncology noted: '83 was dx w Hodgkins. treated. Diagnosed with Lt breast Ca ' 12. s/p mastectomy [well-diff 3.3cm w 5 out of 7 +LN's]. [stage IIIA, ER/ NE +, HER-2 negative]. Refused chemo, but she 2 yrs tamoxifen. Then recurrence in bones . Hip bx revealed ER+/NE+/Her2+ dz. Told to start chemo, refused again. Since then, has been on exemestane, Xgeva, Lupron given that she was premenopausal. Still refuses the recommended taxane based chemotherapy. 07/22: Still in mod/ severe pain. Transfused. sp iv iron. No dyspnea fever. wants to go home. O; vss PE No pallor. Lt eyelid less swollen. Reg no m/r/g Clear no tachypnea Bs+ nt nd no r/r/g No edema Neuro: Nonfocal A/P 1. Mechanical fall. Stable, arrange home safety prn. lives w uncle. Refuses walker. Dc benzo's/ diuretics on dc. 2. Sirs/ pneumonia? Observe/ tests negative 3. Metastatic breast Ca w h/o nonadherence to therapy and progression of disease. Needs advanced care planning evaluated. 4. Vertebral metastases. Prognosis concerning, consider hospice. 5. Anemia 6. Probable chr pain. Recommend palliative care consider hospice. Home Meds Active Scripts Polyethylene Glycol* (Miralax*) 17 Gm Powd.pack, 17 GM PO DAILY, #30 PACKET 1 Refill Prov:GRACIELA FULLEREEP S. 04/14/17 Reported Medications Duloxetine Hcl* (Duloxetine Hcl*) 60 Mg Capsule.dr, 60 MG PO BID, #30 CAP 03/19/17 Exemestane* (Exemestane*) 25 Mg Tablet, 25 MG PO, TAB 03/19/17 Indomethacin* (Indocin*) 50 Mg Cap, 50 MG PO BID, CAP 03/19/17 Promethazine Hcl* (Phenergan*) 25 Mg Tablet, 25 MG PO Q6H Y for PAIN, TAB 03/19/17 Vitamin B Complex (Vitamin B Complex) 1 Each Capsule, 1 EACH PO QHS, CAP 02/16/17 Ascorbic Acid (Vitamin C) 500 Mg Tab, 1000 MG PO DAILY, TAB 02/16/17 Prochlorperazine* (Prochlorperazine*) 10 Mg Tablet, 10 MG PO QID Y for NAUSEA, TAB 02/16/17 Ranitidine Hcl* (Ranitidine Hcl*) 150 Mg Tablet, 150 MG PO TID, #90 TAB 02/16/17 Tapentadol Hcl (Nucynta) 100 Mg Tablet, 50 MG PO BID, TAB 02/16/17 Gabapentin* (Gabapentin*) 100 Mg Capsule, 100 MG PO Q4, #120 CAP 02/16/17 Amphet Mjv-Wnrpko-W-Amphet (Adderall) 10 Mg Tablet, 10 MG PO TID, TAB 02/16/17 Baclofen* (Baclofen*) 10 Mg Tablet, 10 MG PO QID, TAB 02/16/17 Hydromorphone Hcl* (Dilaudid*) 4 Mg Tablet, 4 MG PO Q6, TAB 02/16/17 Morphine Sulfate* (Ms Contin*) 15 Mg Tablet.sa, 15 MG PO TID, TAB.SA 02/16/17 Hydrocodone/Acetaminophen ([place] 10-325 Tablet) 1 Each Tablet, 1 EACH PO Q3H, TAB 02/16/17 Discontinued Reported Medications Zolpidem Tartrate* (Zolpidem Tartrate*) 10 Mg Tablet, 10 MG PO QHS Y for INSOMNIA, #30 TAB 03/19/17 Discontinued Scripts Furosemide* (Lasix*) 20 Mg Tablet, 20 MG PO DAILY, #30 TAB 1 Refill Prov:RAHI,OZ S. 06/19/17 Spironolactone* (Aldactone*) 50 Mg Tablet, 50 MG PO DAILY, #30 TAB 1 Refill Prov:RAHI,OZ S. 06/19/17 Follow-up Plan PCP & Dr Zuleta -1wk Primary Care Provider Aisha Zuleta M.D. Pending Labs Laboratory Tests Test 07/22/17 04:38 07/22/17 04:39 07/22/17 06:16 Prothrombin Time 13.7Sec (12.2-14.2) Prothrombin Time Ratio 1.1 INR International Normalized Ratio 1.05 White Blood Count 12.410^3/ul (4.8-10.8) Red Blood Count 3.2110^6/ul (4.20-5.40) Hemoglobin 9.6g/dl (12.0-16.0) Hematocrit 30.6% (37.0-47.0) Mean Corpuscular Volume 95.3fl (82.0-101.0) Mean Corpuscular Hemoglobin 29.9pg (29.0-33.0) Mean Corpuscular Hemoglobin Concent 31.4g/dl (32.0-37.0) Red Cell Distribution Width 15.9% (11.5-14.5) Platelet Count 90455^3/UL (140-415) Mean Platelet Volume 11.9fl (7.4-10.4) Neutrophils % 63.0% (39.0-77.0) Lymphocytes % 20.9% (15.0-51.0) Monocytes % 9.4% (0.0-11.0) Eosinophils % 3.0% (0.0-7.0) Basophils % 0.3% (0.0-2.0) Nucleated Red Blood Cells % 2.6/100WBC (0.0-0.0) Neutrophils # (Manual) 7.810^3/ul (1.7-7.5) Lymphocytes # 2.610^3/ul (0.8-2.9) Monocytes # 1.210^3/ul (0.3-0.9) Eosinophils # 0.410^3/ul (0.0-0.5) Basophils # 0.010^3/ul (0.0-0.1) Nucleated Red Blood Cells # 0.310^3/ul (0.0-0.0) Sodium Level 142mmol/L (135-144) Potassium Level 4.2mmol/L (3.5-5.1) Chloride Level 107mmol/L (97-110) Carbon Dioxide Level 27mmol/L (21-31) Anion Gap 12 (8-16) Blood Urea Nitrogen 19mg/dl (7-20) Creatinine 1.03mg/dl (0.44-1.00) Glucose Level 94mg/dl (70-220) Calcium Level 9.2mg/dl (8.4-10.2) Phosphorus Level 2.9mg/dl (2.5-4.9) Magnesium Level 1.9mg/dl (1.7-2.5) Total Bilirubin 0.0mg/dl (0.2-1.3) Direct Bilirubin 0.00mg/dl (0.00-0.20) Indirect Bilirubin 0.0mg/dl (0-1.1) Aspartate Amino Transf (AST/SGOT) 40IU/L (15-46) Alanine Aminotransferase (ALT/SGPT) 38IU/L (13-69) Alkaline Phosphatase 128IU/L (42-121) Total Protein 6.8g/dl (6.1-8.1) Albumin 3.5g/dl (3.3-4.9) Globulin 3.30g/dl (1.3-3.2) Albumin/Globulin Ratio 1.06 Thyroid Stimulating Hormone (TSH) 0.785MIU/L (0.465-4.680) Lab Scanned Report BLOOD [id number] LAILA MARIA MD Jul 22, 2017 16:26
[2017-07-22 19:30] VITALS: BP 101/59; RESP 20
[2017-07-22] MEDS: morphine (ER) 30 MG TAB PO SCH (20:36)
[2017-07-22] MEDS: VITAMIN B COMPLEX/VIT C CAP PO SCH (20:36)
[2017-07-23] MEDS: HYDROmorphONE 1 MG/ML SYG IV PRN ×6 (00:36→20:45)
[2017-07-23] MEDS: ONDANSETRON 4 MG INJ IV PRN (00:40)
[2017-07-23 02:45] VITALS: BP 102/58; RESP 18
[2017-07-23 05:13] LABS: ABNORMAL IP MESSAGE 1; HEMATOCRIT 34.8 % (37.0-47.0); HEMOGLOBIN 10.7 g/dl (12.0-16.0); MEAN CORPUSCULAR HEMOGLOBIN 30.8 pg (29.0-33.0); MEAN CORPUSCULAR HGB CONC 30.7 g/dl (32.0-37.0); MEAN CORPUSCULAR VOLUME 100.3 fl (82.0-101.0); MEAN PLATELET VOLUME 11.2 fl (7.4-10.4); NUCLEATED RED BLOOD CELLS% 8.5 /100WBC (0.0-0.0); PLATELET COUNT 436 10^3/UL (140-415); RED BLOOD COUNT 3.47 10^6/ul (4.20-5.40); RED CELL DISTRIBUTION WIDTH 15.7 % (11.5-14.5); WHITE BLOOD COUNT 12.5 10^3/ul (4.8-10.8)
[2017-07-23 05:38] LABS: POSITIVE DIFF @See below
[2017-07-23 05:43] LABS: CALCIUM 9.1 mg/dl (8.4-10.2); CREATININE 1.37 mg/dl (0.44-1.00); MAGNESIUM 1.9 mg/dl (1.7-2.5); PHOSPHORUS 4.3 mg/dl (2.5-4.9); POTASSIUM 4.6 mmol/L (3.5-5.1)
[2017-07-23] MEDS: FUROSEMIDE 20 MG TAB PO SCH (06:07)
[2017-07-23 07:57] LABS: ANISOCYTOSIS 1+ (0-0); BASOPHILS % (M) 1 % (0-2); EOSINOPHILS % (M) 3 % (0-7); ERYTHROBLAST% (NRBC) (M) 14 % (0-0); METAMYELOCYTES %M 3 % (0-0); MONOCYTES % (M) 8 % (0-11); MYELOCYTES % (M) 3 % (0-0); PLATELET ESTIMATE NORMAL; POIKILOCYTOSIS 2+ (0-0); POLYCHROMASIA 3+ (0-0)
[2017-07-23 08:14] VITALS: BP 116/66; RESP 18
[2017-07-23] MEDS: DULOXETINE 30 MG CAP DR PO SCH ×2 (08:53→20:44)
[2017-07-23] MEDS: GABAPENTIN 100 MG CAP PO SCH ×3 (08:53→20:44)
[2017-07-23] MEDS: INDOMETHACIN 50 MG PO SCH ×2 (08:53→20:44)
[2017-07-23] MEDS: EXEMESTANE 25 MG TAB PO SCH (08:53)
[2017-07-23] MEDS: ASCORBIC ACID 500 MG TAB PO SCH (08:54)
[2017-07-23] MEDS: BACLOFEN 10 MG TAB PO SCH ×4 (08:54→20:44)
[2017-07-23] MEDS: POLYETHYLENE GLYCOL 17 GM PACKET PO SCH (08:54)
[2017-07-23] MEDS: RANITIDINE 150 MG TAB PO SCH ×3 (08:56→20:44)
[2017-07-23] MEDS: morphine (ER) 30 MG TAB PO SCH ×2 (08:57→12:51)
[2017-07-23] MEDS: SOD FERRIC GLUC COMPLX 125 MG in SOD CHLORIDE 0.9% 100 ML IVPB SCH (11:29)
--- NOTE | 2017-07-23 11:49 | DS ---
Date/Time of Note Date/Time of Note DATE: 07/23/17 TIME: 11:41 Discharge Summary Admission/Discharge Info Admit Date/Time Jul 20, 2017 at 23:50 Discharge Date/Time Discharge Diagnosis This is a 51-year-old female who had come into the emergency room after an acute fall which was accidental and was admitted and managed for the following conditions: 1. Acute symptomatic anemia secondary to iron deficiency and chronic disease status post transfusion of 2 units of packed red cells 2. Status post fall 3. Metastatic breast cancer for which patient refuses chemotherapy but is on hormonal therapy 4. Acute renal insufficiency now resolved 5. Chronic kidney disease 6. Reactive leukocytosis and thrombocytosis 7. Subacute healing pathologic fractures of the right ribs with right scapular deformity which was present prior to fall 8. Chronic pain from metastatic cancer with bony metastasisFall Patient Condition: Stable Hx of Present Illness Per admitting MD: The patient is a 51-year-old female with a history of breast cancer with bony and extensive thoracic spine metastasis, status post double mastectomy, renal insufficiency, lymphoma, splenectomy, depression, chronic back pain, ADHD and pathologic rib fracture. The patient presented with a complaint of generalized pain, weakness and dizziness. Patient has been admitted here multiple times related to pain, generalized weakness and anemia as well as for lower ext cellulitis. Last admission was in May of this year for anemia with a hemoglobin of 7. When she presented to the ER this time, she was found to be anemic with hemoglobin of 8, WBC 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 Extensive metastatic disease throughout the thoracic spine, with near complete replacement of the T3, C10 and L1 vertebral bodies . Hospital Course Please refer to previous discharge summary for the hospitalization course. In summary this patient came in after she had sustained an accidental fall, she was found to be symptomatic from anemia as well as pain and she was admitted for further management. Is being discharged by my partner yesterday, but patient chose to stay 1 more day because of pain control. At this time I have reviewed again and she remains in stable condition for discharge. Patient's ride is to be picking her up later today. . Home Meds Active Scripts Polyethylene Glycol* (Miralax*) 17 Gm Powd.pack, 17 GM PO DAILY, #30 PACKET 1 Refill Prov:OZ FULLER 04/14/17 Reported Medications Duloxetine Hcl* (Duloxetine Hcl*) 60 Mg Capsule.dr, 60 MG PO BID, #30 CAP 03/19/17 Exemestane* (Exemestane*) 25 Mg Tablet, 25 MG PO, TAB 03/19/17 Indomethacin* (Indocin*) 50 Mg Cap, 50 MG PO BID, CAP 03/19/17 Promethazine Hcl* (Phenergan*) 25 Mg Tablet, 25 MG PO Q6H Y for PAIN, TAB 03/19/17 Vitamin B Complex (Vitamin B Complex) 1 Each Capsule, 1 EACH PO QHS, CAP 02/16/17 Ascorbic Acid (Vitamin C) 500 Mg Tab, 1000 MG PO DAILY, TAB 02/16/17 Prochlorperazine* (Prochlorperazine*) 10 Mg Tablet, 10 MG PO QID Y for NAUSEA, TAB 02/16/17 Ranitidine Hcl* (Ranitidine Hcl*) 150 Mg Tablet, 150 MG PO TID, #90 TAB 02/16/17 Tapentadol Hcl (Nucynta) 100 Mg Tablet, 50 MG PO BID, TAB 02/16/17 Gabapentin* (Gabapentin*) 100 Mg Capsule, 100 MG PO Q4, #120 CAP 02/16/17 Amphet Hgm-Dvugtt-O-Amphet (Adderall) 10 Mg Tablet, 10 MG PO TID, TAB 02/16/17 Baclofen* (Baclofen*) 10 Mg Tablet, 10 MG PO QID, TAB 02/16/17 Hydromorphone Hcl* (Dilaudid*) 4 Mg Tablet, 4 MG PO Q6, TAB 02/16/17 Morphine Sulfate* (Ms Contin*) 15 Mg Tablet.sa, 15 MG PO TID, TAB.SA 02/16/17 Hydrocodone/Acetaminophen ([place] 10-325 Tablet) 1 Each Tablet, 1 EACH PO Q3H, TAB 02/16/17 Discontinued Reported Medications Zolpidem Tartrate* (Zolpidem Tartrate*) 10 Mg Tablet, 10 MG PO QHS Y for INSOMNIA, #30 TAB 03/19/17 Discontinued Scripts Furosemide* (Lasix*) 20 Mg Tablet, 20 MG PO DAILY, #30 TAB 1 Refill Prov:OZ FULLER S. 06/19/17 Spironolactone* (Aldactone*) 50 Mg Tablet, 50 MG PO DAILY, #30 TAB 1 Refill Prov:OZ FULLER S. 06/19/17 Primary Care Provider Aisha Zuleta M.D. Time spent on discharge: < 30 minutes Pending Labs Laboratory Tests Test 07/23/17 04:47 White Blood Count 12.510^3/ul (4.8-10.8) Red Blood Count 3.4710^6/ul (4.20-5.40) Hemoglobin 10.7g/dl (12.0-16.0) Hematocrit 34.8% (37.0-47.0) Mean Corpuscular Volume 100.3fl (82.0-101.0) Mean Corpuscular Hemoglobin 30.8pg (29.0-33.0) Mean Corpuscular Hemoglobin Concent 30.7g/dl (32.0-37.0) Red Cell Distribution Width 15.7% (11.5-14.5) Platelet Count 59430^3/UL (140-415) Mean Platelet Volume 11.2fl (7.4-10.4) Neutrophils % % (39.0-77.0) Segmented Neutrophils % (Manual) 53% (39-77) Band Neutrophils % (Manual) 4% (0-4) Lymphocytes % % (15.0-51.0) Lymphocytes % (Manual) 25% (15-51) Monocytes % % (0.0-11.0) Monocytes % (Manual) 8% (0-11) Eosinophils % % (0.0-7.0) Eosinophils % (Manual) 3% (0-7) Basophils % % (0.0-2.0) Basophils % (Manual) 1% (0-2) Metamyelocytes % (manual) 3% (0-0) Myelocytes % (Manual) 3% (0-0) Nucleated Red Blood Cells % 14% (0-0) Neutrophils # (Manual) 6.710^3/ul (1.7-7.5) Band Neutrophils # 0.510^3/ul (0.0-0.6) Absolute Lymphocytes (Manual) 3.110^3/ul (0.8-2.9) Lymphocytes # 10^3/ul (0.8-2.9) Monocytes # 10^3/ul (0.3-0.9) Absolute Monocytes (Manual) 1.010^3/ul (0.3-0.9) Eosinophils # 10^3/ul (0.0-0.5) Basophils # 10^3/ul (0.0-0.1) Basophils # (Manual) 0.110^3/ul (0.0-0.0) Metamyelocytes # 0.310^3/ul (0.0-0.0) Myelocytes # 0.310^3/ul (0.0-0.0) Nucleated Red Blood Cells # 10^3/ul (0.0-0.0) Platelet Estimate NORMAL Polychromasia 3+ (0-0) Poikilocytosis 2+ (0-0) Anisocytosis 1+ (0-0) Sodium Level 140mmol/L (135-144) Potassium Level 4.6mmol/L (3.5-5.1) Chloride Level 106mmol/L (97-110) Carbon Dioxide Level 23mmol/L (21-31) Anion Gap 16 (8-16) Blood Urea Nitrogen 20mg/dl (7-20) Creatinine 1.37mg/dl (0.44-1.00) Glucose Level 92mg/dl (70-220) Calcium Level 9.1mg/dl (8.4-10.2) Phosphorus Level 4.3mg/dl (2.5-4.9) Magnesium Level 1.9mg/dl (1.7-2.5) JAGDISH BRADFORD Jul 23, 2017 11:49
[2017-07-23 14:38] VITALS: BP 101/54; RESP 18
[2017-07-23 19:08] VITALS: BP 116/67; RESP 18
[2017-07-23] MEDS: VITAMIN B COMPLEX/VIT C CAP PO SCH (20:44)
[2017-07-24] MEDS: ONDANSETRON 4 MG INJ IV PRN (00:50)
[2017-07-24] MEDS: HYDROmorphONE 1 MG/ML SYG IV PRN ×4 (00:50→13:06)
[2017-07-24 02:00] VITALS: BP 114/53; RESP 18
[2017-07-24] MEDS: FUROSEMIDE 20 MG TAB PO SCH (04:57)
[2017-07-24 07:45] VITALS: BP 112/54; RESP 18
[2017-07-24] MEDS: BACLOFEN 10 MG TAB PO SCH ×2 (08:41→13:05)
[2017-07-24] MEDS: RANITIDINE 150 MG TAB PO SCH ×2 (08:41→13:05)
[2017-07-24] MEDS: GABAPENTIN 100 MG CAP PO SCH ×2 (08:42→13:04)
[2017-07-24] MEDS: INDOMETHACIN 50 MG PO SCH (08:42)
[2017-07-24] MEDS: EXEMESTANE 25 MG TAB PO SCH (08:43)
[2017-07-24] MEDS: DULOXETINE 30 MG CAP DR PO SCH (08:46)
[2017-07-24] MEDS: ASCORBIC ACID 500 MG TAB PO SCH (08:47)
[2017-07-24] MEDS: POLYETHYLENE GLYCOL 17 GM PACKET PO SCH (08:47)
[2017-07-24] MEDS ORDERED: HEPARIN (100 UNITS/ML) 5 ML SYG CATHETER ONE (13:00)
[2017-07-24] MEDS: SOD FERRIC GLUC COMPLX 125 MG in SOD CHLORIDE 0.9% 100 ML IVPB SCH (13:05)
--- NOTE | 2017-07-24 14:00 | RADRPT ---
Echocardiogram Report Patient Name: JAZMINE ALTMAN Gender: Female Date: 1965 Study Date: 22-Jul-2017 [employer] Optics Supervisor: Alisha Location: I Ref. Physician: LAILA MARIA Quality: Technically Difficult Study Procedures: Transthoracic echocardiogram examination. Indications: Edema and Chemo. 2D/M Mode Doppler Measurement Value Normal Range Measurement Value Normal Range AoR Diam MM 3.0 cm TR Peak Edgard 2.5 m/sec ACS MM 1.6 cm TR Peak PG 24.4 mmHg LVIDd 2D 4.2 3.5 - 5.6 cm PV Peak Edgard 1.0 m/sec LVIDs 2D 2.9 2.1 - 4.1 cm PV Peak PG 4.0 mmHg LVPWd 2D 0.9 0.6 - 1.1 cm RVSP 27.4 mmHg IVSd 2D 1.0 0.6 - 1.1 cm EDV 2D 78.5 cm3 ESV 2D 24.0 cm3 LA Dimen 2D 3.2 2.3 - 4.0 cm Findings Left Ventricle: Normal left ventricular cavity size. Lower limits of normal left ventricular systolic function. Normal left ventricular wall thickness. The left ventricular ejection fraction is visually estimated at 50 %. Right Ventricle: Normal right ventricular size. Normal right ventricular systolic function. Left Atrium: The left atrium is normal in size and appearance. Right Atrium: The right atrium is normal in size and appearance. Atrial Septum: Normal atrial septum. Mitral Valve: Normal appearance of the mitral valve leaflets. Mild mitral regurgitation. Aortic Valve: No hemodynamically significant aortic stenosis by Doppler. Aortic cusps appear mildly calcified. Trileaflet aortic valve. Mild aortic regurgitation. Tricuspid Valve: Normal appearance of the tricuspid valve. The estimated Peak PA Systolic Pressure is 24 mmHg. There is mild tricuspid regurgitation. Pulmonic Valve: Normal pulmonic valve appearance and function with trivial (physiologic) regurgitation. There is trace pulmonic regurgitation. Pericardium: Normal pericardium with no significant pericardial effusion. Aorta: Normal aortic root. IVC: Normal inferior vena cava appearance. Pulmonary Artery: Normal pulmonary artery size. Conclusions 1.Normal left ventricular cavity size. Lower limits of normal left ventricular systolic function. Normal left ventricular wall thickness. The left ventricular ejection fraction is visually estimated at 50 %. 2.Normal appearance of the mitral valve leaflets. Mild mitral regurgitation. 3.No hemodynamically significant aortic stenosis by Doppler. Aortic cusps appear mildly calcified. Trileaflet aortic valve. Mild aortic regurgitation. 4.Normal appearance of the tricuspid valve. The estimated Peak PA Systolic Pressure is 24 mmHg. There is mild tricuspid regurgitation. 5.Normal pulmonic valve appearance and function with trivial (physiologic) regurgitation. There is trace pulmonic regurgitation. Electronically Signed By: Eben Nichols 24-Jul-2017 14:00:31 -0700 Patient Name: JAZMINE ALTMAN Study Date: 22-Jul-2017 [id number]
[2017-07-24 14:02] VITALS: BP 117/70; RESP 18
--- NOTE | 2017-07-25 22:33 | EN ---
Date/Time of Note Date/Time of Note DATE: 07/25/17 TIME: 22:30 Event Note Medicine Medicine Event Note D/c summary addendum Patient did not leave 07/23 because she was quite lethargic from pain meds and lived alone. MS contin was held on 07/24, she was assessed and found to be more alert and remained quite comfortable despite being off MS contin and she was discharged in stable condition on her previous pain regimen without the increases that had been added on in the hospital. JAGDISH BRADFORD. Jul 25, 2017 22:33
== END 2017-07-24 19:00 | disposition home health service (06) | DRG 812 ==
LOC: E/R 17:05 → PP2 23:50 → MS1 07-21 03:23
PROVIDERS: ADMIT Internal Medicine; ATTEND Internal Medicine
PROC: 30233N1 Transfusion of Nonautologous Red Blood Cells into Peripheral Vein, Percutaneous Approach (ICD-10-PCS; principal; 2017-07-21)
DX: D50.9 Iron deficiency anemia, unspecified (principal); C79.51 Secondary malignant neoplasm of bone; F32.9 Major depressive disorder, single episode, unspecified; D63.0 Anemia in neoplastic disease; Z85.3 Personal history of malignant neoplasm of breast; G89.3 Neoplasm related pain (acute) (chronic); N28.9 Disorder of kidney and ureter, unspecified; Z90.13 Acquired absence of bilateral breasts and nipples; F90.9 Attention-deficit hyperactivity disorder, unspecified type; Z90.81 Acquired absence of spleen; M89.8X9 Other specified disorders of bone, unspecified site; Z17.0 Estrogen receptor positive status [ER+]; Z85.71 Personal history of Hodgkin lymphoma; Z91.19 Patient's noncompliance with other medical treatment and regimen; N18.9 Chronic kidney disease, unspecified; M84.48XD Pathological fracture, other site, subsequent encounter for fracture with routine healing; D72.829 Elevated white blood cell count, unspecified; D47.3 Essential (hemorrhagic) thrombocythemia
CPT/HCPCS: 36415; 36430; 70450; 71250; 72125; 72128; 80048; 80053; 81001; 81003; 82306; 83735; 84100; 84443; 85014; 85018; 85025; 85610; 86850; 86900; 86901; 86920; 93306; 93970; 96374; 96375; 96376; 97161; J1170; J1642; J1956; J2270; J2405; J2916; J7030; J7040; P9016

== ENCOUNTER 2017-07-31 22:07 | Inpatient (IN) | payer BC ==
[~2017-07-31] VITALS: Ht 167.6 cm; Wt 72.7 kg
[~2017-07-31 22:07] MED LIST changes: -FURO-110 PO; -SPIR50TA PO; -ZOLP10TA5 PO
[2017-07-31] MEDS ORDERED: SOD CHLORIDE 0.9% 500 ML IV STA (23:19)
[2017-08-01] MEDS ORDERED: HYDROmorphONE 2 MG/ML SYG IV STA (00:38)
[2017-08-01] MEDS ORDERED: ONDANSETRON 4 MG INJ IV STA (00:38)
[2017-08-01 00:56] LABS: ABNORMAL IP MESSAGE 1; BASOPHIL # 0.1 10^3/ul (0.0-0.1); BASOPHILS % 0.4 % (0.0-2.0); EOSINOPHILS # 0.6 10^3/ul (0.0-0.5); EOSINOPHILS % 3.3 % (0.0-7.0); HEMATOCRIT 33.2 % (37.0-47.0); HEMOGLOBIN 10.3 g/dl (12.0-16.0); LYMPHOCYTES # 3.2 10^3/ul (0.8-2.9); LYMPHOCYTES % 19.2 % (15.0-51.0); MEAN CORPUSCULAR HEMOGLOBIN 29.9 pg (29.0-33.0); MEAN CORPUSCULAR VOLUME 96.5 fl (82.0-101.0); MEAN PLATELET VOLUME 10.6 fl (7.4-10.4); MONOCYTE # 1.5 10^3/ul (0.3-0.9); MONOCYTES % 9.2 % (0.0-11.0); NEUTROPHILS % 67.1 % (39.0-77.0); PLATELET COUNT 573 10^3/UL (140-415); RED BLOOD COUNT 3.44 10^6/ul (4.20-5.40); RED CELL DISTRIBUTION WIDTH 15.8 % (11.5-14.5); WHITE BLOOD COUNT 16.4 10^3/ul (4.8-10.8)
[2017-08-01] MEDS ORDERED: DIAZEPAM 5 MG/ML SYG IV ONE ×2 (01:00→05:00)
[2017-08-01 01:08] LABS: POSITIVE DIFF @See below
--- NOTE | 2017-08-01 01:11 | RADRPT ---
PROCEDURE: Chest. CLINICAL INDICATION: Syncope. TECHNIQUE: Single frontal view of the chest was obtained. COMPARISON: 06/17/2017. FINDINGS: There is a left-sided Port-A-Cath extending to the right atrium. The cardiac silhouette is within no rmal limits. The aortic arch is unremarkable. There is no focal consolidation, vascular congestion or pleural effusion. There is no pneumothorax. IMPRESSION: No evidence for active cardiopulmonary disease. .Mikey Garcia MD, Date Time Electronically viewed and signed by .Mikey Garcia MD, MD on 08/01/2017 01:10 .T/
[2017-08-01 01:16] LABS: INR 1.1; PROTIME 14.2 Sec (12.2-14.2); PT RATIO 1.1
[2017-08-01 01:17] LABS: PARTIAL THROMBOPLASTIN TIME 44.2 Sec (25.0-35.0)
[2017-08-01 01:19] LABS: ANION GAP 12 (8-16); BLOOD UREA NITROGEN 26 mg/dl (7-20); CALCIUM 8.9 mg/dl (8.4-10.2); CARBON DIOXIDE 25 mmol/L (21-31); CHLORIDE 105 mmol/L (97-110); CREATININE 1.51 mg/dl (0.44-1.00); GLUCOSE 88 mg/dl (70-220); POTASSIUM 4.1 mmol/L (3.5-5.1); SODIUM 138 mmol/L (135-144)
[2017-08-01 01:32] LABS: TROPONIN-I < 0.012 ng/ml (0.00-0.12)
--- NOTE | 2017-08-01 03:08 | ERA ---
ER Documentation Chief Complaint Date/Time DATE: 08/01/17 TIME: 03:07 Chief Complaint dizziness, nose bleeding, hx CA of breast stage 4 w/ mets ROS All systems reviewed and are negative except as per history of present illness. Medications Home Meds Active Scripts Polyethylene Glycol* (Miralax*) 17 Gm Powd.pack, 17 GM PO DAILY, #30 PACKET 1 Refill Prov:OZ FULLER. 04/14/17 Reported Medications Duloxetine Hcl* (Duloxetine Hcl*) 60 Mg Capsule.dr, 60 MG PO BID, #30 CAP 03/19/17 Exemestane* (Exemestane*) 25 Mg Tablet, 25 MG PO, TAB 03/19/17 Indomethacin* (Indocin*) 50 Mg Cap, 50 MG PO BID, CAP 03/19/17 Promethazine Hcl* (Phenergan*) 25 Mg Tablet, 25 MG PO Q6H Y for PAIN, TAB 03/19/17 Vitamin B Complex (Vitamin B Complex) 1 Each Capsule, 1 EACH PO QHS, CAP 02/16/17 Ascorbic Acid (Vitamin C) 500 Mg Tab, 1000 MG PO DAILY, TAB 02/16/17 Prochlorperazine* (Prochlorperazine*) 10 Mg Tablet, 10 MG PO QID Y for NAUSEA, TAB 02/16/17 Ranitidine Hcl* (Ranitidine Hcl*) 150 Mg Tablet, 150 MG PO TID, #90 TAB 02/16/17 Tapentadol Hcl (Nucynta) 100 Mg Tablet, 50 MG PO BID, TAB 02/16/17 Gabapentin* (Gabapentin*) 100 Mg Capsule, 100 MG PO Q4, #120 CAP 02/16/17 Amphet Ddd-Agwtdh-P-Amphet (Adderall) 10 Mg Tablet, 10 MG PO TID, TAB 02/16/17 Baclofen* (Baclofen*) 10 Mg Tablet, 10 MG PO QID, TAB 02/16/17 Hydromorphone Hcl* (Dilaudid*) 4 Mg Tablet, 4 MG PO Q6, TAB 02/16/17 Morphine Sulfate* (Ms Contin*) 15 Mg Tablet.sa, 15 MG PO TID, TAB.SA 02/16/17 Hydrocodone/Acetaminophen ([place] 10-325 Tablet) 1 Each Tablet, 1 EACH PO Q3H, TAB 02/16/17 Allergies Allergies: Coded Allergies: Penicillins (Verified Allergy, Unknown, RASH, SWOLLEN, HARD TIME BREATHING , 07/20/17) peanut (Verified Allergy, Unknown, 07/20/17) shellfish derived (Verified Allergy, Unknown, 07/20/17) PMhx/Soc History of Surgery: Yes (Ja[place] Radical Mastectomy,Jaison Mammoplasty,L Chest Powerport) Anesthesia Reaction: No Hx Neurological Disorder: No Hx Respiratory Disorders: No Hx Cardiac Disorders: No Hx Psychiatric Problems: No Hx Miscellaneous Medical Probl: Yes (Metastatic Breast CA) Hx Alcohol Use: Yes (Social) Hx Substance Use: No Hx Tobacco Use: No Smoking Status: Never smoker Physical Exam Vitals Vital Signs Date Time Temp Pulse Resp B/P Pulse Ox O2 Delivery O2 Flow Rate FiO2 07/31/17 22:13 98.6 104 20 138/73 97 Physical Exam Const: [] Head: Atraumatic Eyes: Normal Conjunctiva ENT: Normal External Ears, Nose and Mouth. Neck: Full range of motion..~ No meningismus. Resp: Clear to auscultation bilaterally Cardio: Regular rate and rhythm, no murmurs Abd: Soft, non tender, non distended. Normal bowel sounds Skin: No petechiae or rashes Back: No midline or flank tenderness Ext: No cyanosis, or edema Neur: Awake and alert Psych: Normal Mood and Affect Result Diagram: 08/01/173908/01/17 0040 Results 24 hrs Laboratory Tests Test 08/01/17 00:40 White Blood Count 16.410^3/ul Red Blood Count 3.4410^6/ul Hemoglobin 10.3g/dl Hematocrit 33.2% Mean Corpuscular Volume 96.5fl Mean Corpuscular Hemoglobin 29.9pg Mean Corpuscular Hemoglobin Concent 31.0g/dl Red Cell Distribution Width 15.8% Platelet Count 45743^3/UL Mean Platelet Volume 10.6fl Neutrophils % 67.1% Lymphocytes % 19.2% Monocytes % 9.2% Eosinophils % 3.3% Basophils % 0.4% Nucleated Red Blood Cells % 0.0/100WBC Neutrophils # (Manual) 11.010^3/ul Lymphocytes # 3.210^3/ul Monocytes # 1.510^3/ul Eosinophils # 0.610^3/ul Basophils # 0.110^3/ul Nucleated Red Blood Cells # 0.010^3/ul Prothrombin Time 14.2Sec Prothrombin Time Ratio 1.1 INR International Normalized Ratio 1.10 Activated Partial Thromboplast Time 44.2Sec Sodium Level 138mmol/L Potassium Level 4.1mmol/L Chloride Level 105mmol/L Carbon Dioxide Level 25mmol/L Anion Gap 12 Blood Urea Nitrogen 26mg/dl Creatinine 1.51mg/dl Glucose Level 88mg/dl Calcium Level 8.9mg/dl Troponin I < 0.012ng/ml Current Medications Medications (Trade) Dose Ordered Sig/Julio Route PRN Reason Start Time Stop Time Status Last Admin Dose Admin Sodium Chloride (NS) 500 ml @ 500 mls/hr Q1H STAT IV 07/31/17 23:19 08/01/17 00:18 DC 07/31/17 23:15 Hydromorphone HCl (Dilaudid) 2 mg ONCE STAT IV 08/01/17 00:38 08/01/17 00:39 DC 08/01/17 01:02 Ondansetron HCl (Zofran Inj) 4 mg ONCE STAT IV 08/01/17 00:38 08/01/17 00:39 DC 08/01/17 01:02 Diazepam (Valium) 5 mg ONCE ONCE IV 08/01/17 01:00 08/01/17 01:01 DC 08/01/17 01:03 Procedures/MDM Medical decision-making: Patient comes in essentially intractable pain. At this point patient is stable for admission. Hospitalist made aware Departure Diagnosis: Primary Impression: Metastatic breast cancer Condition: Serious VANDA FELDER Aug 01, 2017 03:08
[2017-08-01 03:47] LABS: URINE BLOOD (Dip) POC Negative (NEGATIVE)
[2017-08-01 04:00] VITALS: TEMP 97.6
[2017-08-01 04:34] VITALS: BP 141/72; PULSE 102; RESP 19
[2017-08-01 04:36] VITALS: Ht 167.6 cm; Wt 72.7 kg
[2017-08-01] MEDS ORDERED: HYDROCODONE/APAP (10/325) TAB PO PRN (05:00)
[2017-08-01] MEDS ORDERED: PROCHLORPERAZINE 10 MG TAB PO PRN (05:00)
[2017-08-01] MEDS ORDERED: PROMETHAZINE 25 MG TAB PO PRN (05:00)
[2017-08-01] MEDS: HYDROmorphONE 1 MG/ML SYG IV PRN ×3 (05:12→22:43)
[2017-08-01] MEDS: GABAPENTIN 100 MG CAP PO SCH ×5 (05:55→22:10)
--- NOTE | 2017-08-01 06:17 | HP ---
Date/Time of Note Date/Time of Note DATE: 08/01/17 TIME: 06:02 Assessment/Plan VTE Prophylaxis VTE Prophylaxis Intervention: SCD's Lines/Catheters IV Catheter Type (from Nrsg): portacath Assessment/Plan Assessment/Plan 1. Chronic Pain of Malignancy - Pain mgmt 2. History of breast cancer with bony metastasis, s/p double mastectomy and chemo, last chemo about 2 months ago - Consult Oncology, Dr. Zuleta 3. Anemia of chronic disease and malignancy: hx of multiple blood transfusions -Monitor H/H and transfuse blood as needed 4. Hx of Depression - cont med when no longer NPO 5. Leukocytosis - check urine cx - will empirically start antibiotic as needed 6. Renal insufficiency - cont IVF - Nephrology consult as needed 7. Several left rib pathologic fractures - cont pain mgmt HPI/ROS Admit Date/Time Admit Date/Time Aug 01, 2017 at 03:06 Hx of Present Illness The patient is a 51-year-old female who is well-known to me, with a history of breast cancer with bony and extensive thoracic spine metastasis, status post double mastectomy, renal insufficiency, lymphoma, splenectomy, depression, chronic back pain, ADHD and pathologic rib fracture. The patient presented with a complaint of generalized pain, weakness and dizziness. Patient has been admitted here multiple times related to pain, generalized weakness and anemia as well as for lower ext cellulitis. Last admission was by myself about 10 days ago for similar symptoms. Her initial hemoglobin was 8 at that time. When she presented to the ER this time, hemoglobin of 10, WBC 1~ 17,000 and creatinine 1.5. CXR neg for active findings. Recent CT of cervical/thoracic spine from last admission,showed Cervical osteolytic metastases as demonstrated on the prior bone scan, thoracic osteolytic lesion at the T3 level as seen on the prior bone scan, partially visualized infiltrates and pulmonary edema in the bilateral upper lobes. Extensive metastatic disease throughout the thoracic spine, with near complete replacement of the T3, C10 and L1 vertebral bodies. . PMH/Family/Social Past Surgical History Past Surgical Hx: no surgical history, endoscopy, other Social History Smoking Status: Never smoker Exam/Review of Systems Vital Signs Vitals Vital Signs Date Time Temp Pulse Resp B/P Pulse Ox O2 Delivery O2 Flow Rate FiO2 08/01/17 04:34 98.6 102 19 141/72 95 Room Air Intake and Output 907/31/17 08/01/17 15:00 23:00 07:00 Intake Total 400 ml Balance 400 ml Exam Exam Constitutional: other (Appears slightly tired but alert and oriented) Head: atraumatic, normocephalic Eyes: EOMI, PERRL Respiratory: diminished breath sounds Cardiovascular: nl pulses, regular rate and rhythm Gastrointestinal: soft, tender Extremities: No edema Labs Result Diagram: 08/01/17 0040 08/01/17 0040 Medications Medications Current Medications Hydromorphone HCl (Dilaudid) 1 mg Q3H PRN IV PAIN Last administered on 05:12; Admin Dose 1 MG; Start 08/01/17 at 05:00 Ondansetron HCl (Zofran Inj) 4 mg Q6H PRN IV NAUSEA AND/OR VOMITING; Start at 05:00 Ascorbic Acid (Vitamin C) 1,000 mg DAILY PO ; Start 08/01/17 at 09:00 Baclofen (Lioresal) 10 mg QID PO ; Start 08/01/17 at 09:00 Duloxetine HCl (Cymbalta) 60 mg BID PO ; Start 08/01/17 at 09:00 Exemestane (Aromasin) 25 mg QPM PO ; Start 08/01/17 at 21:00 Gabapentin (Neurontin) 100 mg Q4 PO Last administered on 08/01/17 05:55; Admin Dose 100 MG; Start 08/01/17 at 05:00 Acetaminophen/ Hydrocodone Bitart ([place] (10/325)) PRN Q3H PRN PO PAIN; Start 08/01/17 at 05:00 Indomethacin (Indocin) 50 mg BID PO ; Start 08/01/17 at 09:00 Morphine Sulfate (Ms Contin (Er)) 15 mg TID PO ; Start 08/01/17 at 09:00 Polyethylene Glycol (Miralax) 17 gm DAILY PO ; Start 08/01/17 at 09:00 Prochlorperazine (Compazine) 10 mg QID PRN PO NAUSEA; Start 08/01/17 at 05:00 Promethazine HCl (Phenergan) 25 mg Q6H PRN PO PAIN; Start 08/01/17 at 05:00 Ranitidine HCl (Zantac) 150 mg TID PO ; Start 08/01/17 at 09:00 VANDA CARVER MD Aug 01, 2017 06:14
[2017-08-01 08:00] VITALS: BP 126/65; RESP 16
[2017-08-01 08:37] LABS: ALBUMIN 3.5 g/dl (3.3-4.9); ALBUMIN/GLOBULIN RATIO 1.06; CALCIUM 8.3 mg/dl (8.4-10.2); CREATININE 1.23 mg/dl (0.44-1.00); MAGNESIUM 2.8 mg/dl (1.7-2.5); PHOSPHORUS 3.5 mg/dl (2.5-4.9); TOTAL PROTEIN 6.8 g/dl (6.1-8.1)
[2017-08-01] MEDS: DULOXETINE 30 MG CAP DR PO SCH ×2 (08:47→22:09)
[2017-08-01] MEDS: POLYETHYLENE GLYCOL 17 GM PACKET PO SCH (08:47)
[2017-08-01] MEDS: ASCORBIC ACID 500 MG TAB PO SCH (08:47)
[2017-08-01] MEDS: RANITIDINE 150 MG TAB PO SCH ×3 (08:48→22:10)
[2017-08-01] MEDS: BACLOFEN 10 MG TAB PO SCH ×4 (08:48→22:10)
[2017-08-01] MEDS: INDOMETHACIN 50 MG PO SCH ×2 (08:48→22:10)
[2017-08-01] MEDS: morphine (ER) 15 MG TAB PO SCH ×3 (08:48→22:11)
[2017-08-01] MEDS ORDERED: DIAZEPAM 5 MG TAB PO PRN (09:00)
[2017-08-01] MEDS: SOD FERRIC GLUC COMPLX 125 MG in SOD CHLORIDE 0.9% 100 ML IVPB SCH (13:14)
[2017-08-01 14:00] VITALS: BP 105/58; RESP 18
[2017-08-01] MEDS: DIAZEPAM 5 MG/ML SYG IV PRN ×2 (15:22→23:49)
--- NOTE | 2017-08-01 18:47 | RADRPT ---
PROCEDURE: Whole body bone scan study CLINICAL INDICATION: 51 -year-old patient with breast cancer, for evaluation for skeletal metastas es. TECHNIQUE: Following the intravenous injection of 27.0 mCi of Tc-99m MDP, whole body anterior and posterior planar images were obtained . COMPARISON: No prior bone scan studies. CT scan of the chest, thoracic and cervical spine dated Se [id number]. FINDINGS: Multiple abnormal focal areas of intensely increased tracer activity are seen in the calvarium, spin e, rib cages bilaterally, pelvic bones bilaterally, left femoral head and right proximal tibia. Symmetrical increase in uptake is noted in both knees, which favor degenerative process. No other definite abnormal areas of increased activity or asymmetries are visualized in the study an d distribution of radionuclide is homogeneous in the skull, spine, rib cages, sternum, pelvis and vi sualized portions of the upper and lower extremities. Of incidental note, there is no evidence of mass abnormalities of the kidneys or obstructive uropath y. IMPRESSION: 1. Multiple abnormal focal areas of intensely increased tracer activity in the axial and appendicul ar skeleton, as described above, compatible with multiple skeletal metastases. 2. Likely degenerative changes of the knees bilaterally. RPTAT: HH .Concepción Urena MD, MD Date Time Electronically viewed and signed by .Concepción Urena MD, on 08/01/2017 18:46 .L/
[2017-08-01 20:17] LABS: ADD UMIC NO; UR ASCORBIC ACID 40 mg/dL (NEGATIVE); UR BILIRUBIN (Dip) NEGATIVE (NEGATIVE); UR BLOOD (Dip) NEGATIVE (NEGATIVE); UR CLARITY CLEAR (CLEAR); UR COLOR YELLOW (YELLOW); UR GLUCOSE (Dip) NEGATIVE (NEGATIVE); UR KETONES (Dip) NEGATIVE (NEGATIVE); UR LEUKOCYTE ESTERASE (Dip) NEGATIVE Leu/ul (NEGATIVE); UR NITRITE (Dip) NEGATIVE (NEGATIVE); UR SPECIFIC GRAVITY (Dip) 1.013 (1.003-1.030); UR TOTAL PROTEIN (Dip) NEGATIVE (NEGATIVE); UR UROBILINOGEN (Dip) NEGATIVE (NEGATIVE)
[2017-08-01 20:25] VITALS: BP 123/68; RESP 20
--- NOTE | 2017-08-01 22:38 | CONS ---
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 next dose due 08/09. -continue Examestane given ER+ nature of disease with Lupron as pt is perimenopause -continue Lupron q 3 mo -will check CA 27.29 #Bone Mets- -pt on Xgeva -with results of bone scan will see if we can given targeted radiation to any bone lesion causing extreme pain. #iron deficiency anemia -Hg now > 10 -can start IV iron in house Problems: (1) Metastatic breast cancer Status: Chronic (2) Intractable pain Status: Acute Consultation Date/Type/Reason Admit Date/Time Aug 01, 2017 at 03:06 Date of Consultation: Aug 01, 2017 Type of Consultation: Oncology Reason for Consultation metastatic breast cancer Referring Provider: VANDA CARVER MD Hx of Present Illness 49 yo female who was initially diagnosed with breast ca of the right breast in 2011 ER+/MS+/Her negative. Pt underwent a MRM and L prophylactic mastectomy with bilateral reconstruction. It was initially Stage IIIA disease. Pt refused chemotherapy but took Tamoxifen for 2-3 years. Then in February 2015 she was diagnosed with recurrence to her bones. She underwent a hip bx that revealed ER+ /MS+/Her2 + disease and patient was told to start chemotherapy at that time, but again she refused. After seeing me and a second opinion she has now agreed to start Perjeta/ Herceptin/ Lupron/ Examestane with Xgeva. She regularly gets hospitalized for weakness and anemia and receives blood transfusion. Her last dose of Perjeta/ Herceptin/Lupron was on 07.19. She now presents with extreme fatigue. In our office she was found to have a Hg 8.1 and has been scheduled to receive IV iron. Constitutional: poor po Eyes: no complaints ENT: no complaints Respiratory: no complaints Cardiovascular: no complaints Gastrointestinal: constipation, pain Genitourinary: no complaints Musculoskeletal: back pain, bone/joint pain Skin: no complaints Past Medical History spine fracture 1997 Past Surgical History Past Surgical Hx: no surgical history, endoscopy, other Family History Significant Family History: no pertinent family hx Social History Alcohol Use: none Smoking Status: Never smoker Drug Use: none Exam/Review of Systems Vital Signs Vitals Vital Signs Date Time Temp Pulse Resp B/P Pulse Ox O2 Delivery O2 Flow Rate FiO2 08/01/17 20:25 98.6 91 20 123/68 98 08/01/17 04:34 Room Air Intake and Output 07/31/17 07/31/17 08/01/17 15:00 23:00 07:00 Intake Total 400 ml Balance 400 ml Exam Constitutional: alert, distress, frail, oriented Psych: depression, no complaints Head: normocephalic Eyes: nl conjunctiva ENMT: nl external ears & nose Neck: non-tender, supple Respiratory: clear to auscultation, normal air movement Cardiovascular: nl pulses, regular rate and rhythm Gastrointestinal: soft Musculoskeletal: nl extremities to inspection Extremities: normal pulses Results Result Diagram: 08/01/17 0040 08/01/17 0734 Results 24 hrs Laboratory Tests Test 08/01/17 00:40 08/01/17 03:54 08/01/17 07:34 08/01/17 17:30 White Blood Count 16.4 #H Red Blood Count 3.44 L Hemoglobin 10.3 L Hematocrit 33.2 L Mean Corpuscular Volume 96.5 Mean Corpuscular Hemoglobin 29.9 Mean Corpuscular Hemoglobin Concent 31.0 L Red Cell Distribution Width 15.8 H Platelet Count 573 #H Mean Platelet Volume 10.6 H Neutrophils % 67.1 Lymphocytes % 19.2 Monocytes % 9.2 Eosinophils % 3.3 Basophils % 0.4 Nucleated Red Blood Cells % 0.0 Neutrophils # (Manual) 11.0 H Lymphocytes # 3.2 H Monocytes # 1.5 H Eosinophils # 0.6 H Basophils # 0.1 Nucleated Red Blood Cells # 0.0 Prothrombin Time 14.2 Prothrombin Time Ratio 1.1 INR International Normalized Ratio 1.10 Activated Partial Thromboplast Time 44.2 H Sodium Level 138 140 Potassium Level 4.1 4.0 Chloride Level 105 108 Carbon Dioxide Level 25 27 Anion Gap 12 9 Blood Urea Nitrogen 26 H 22 H Creatinine 1.51 H 1.23 H Glucose Level 88 131 # Calcium Level 8.9 8.3 L Troponin I < 0.012 Bedside Urine pH (LAB) 5.5 Bedside Urine Protein (LAB) Negative Bedside Urine Glucose (UA) Negative Bedside Urine Ketones (LAB) Negative Bedside Urine Blood Negative Bedside Urine Nitrite (LAB) Negative Bedside Urine Leukocyte Esterase (L Negative Phosphorus Level 3.5 Magnesium Level 2.8 H Total Bilirubin 0.0 L Direct Bilirubin 0.00 Indirect Bilirubin 0.0 Aspartate Amino Transf (AST/SGOT) 37 Alanine Aminotransferase (ALT/SGPT) 31 Alkaline Phosphatase 154 H Total Protein 6.8 Albumin 3.5 Globulin 3.30 H Albumin/Globulin Ratio 1.06 Urine Color YELLOW Urine Clarity CLEAR Urine pH 5.0 Urine Specific [place] 1.013 Urine Ketones NEGATIVE Urine Nitrite NEGATIVE Urine Bilirubin NEGATIVE Urine Urobilinogen NEGATIVE Urine Leukocyte Esterase NEGATIVE Urine Hemoglobin NEGATIVE Urine Glucose NEGATIVE Urine Total Protein NEGATIVE Medications Medications Current Medications Hydromorphone HCl (Dilaudid) 1 mg Q3H PRN IV PAIN Last administered on 09:05; Admin Dose 1 MG; Start 08/01/17 at 05:00 Ondansetron HCl (Zofran Inj) 4 mg Q6H PRN IV NAUSEA AND/OR VOMITING; Start at 05:00 Ascorbic Acid (Vitamin C) 1,000 mg DAILY PO Last administered on 08/01/17 08: 47; Admin Dose 1,000 MG; Start 08/01/17 at 09:00 Baclofen (Lioresal) 10 mg QID PO Last administered on 08/01/17 22:10; Admin Dose 10 MG; Start 08/01/17 at 09:00 Duloxetine HCl (Cymbalta) 60 mg BID PO Last administered on 08/01/17 22:09; Admin Dose 60 MG; Start 08/01/17 at 09:00 Exemestane (Aromasin) 25 mg QPM PO ; Start 08/01/17 at 21:00 Gabapentin (Neurontin) 100 mg Q4 PO Last administered on 08/01/17 22:10; Admin Dose 100 MG; Start 08/01/17 at 05:00 Acetaminophen/ Hydrocodone Bitart ([place] (10/325)) PRN Q3H PRN PO PAIN; Start 08/01/17 at 05:00 Indomethacin (Indocin) 50 mg BID PO Last administered on 08/01/17 22:10; Admin Dose 50 MG; Start 08/01/17 at 09:00 Morphine Sulfate (Ms Contin (Er)) 15 mg TID PO Last administered on 08/01/17 22:11; Admin Dose 15 MG; Start 08/01/17 at 09:00 Polyethylene Glycol (Miralax) 17 gm DAILY PO Last administered on 08/01/17 08: 47; Admin Dose 17 GM; Start 08/01/17 at 09:00 Prochlorperazine (Compazine) 10 mg QID PRN PO NAUSEA; Start 08/01/17 at 05:00 Promethazine HCl (Phenergan) 25 mg Q6H PRN PO PAIN; Start 08/01/17 at 05:00 Ranitidine HCl 150 mg 150 mg TID PO Last administered on 08/01/17 22:10; Admin Dose 150 MG; Start 08/01/17 at 09:00 Ferric Sodium Gluconate Complex/ Sodium Chloride (Ferrlecit/NS) 110 ml @ 110 mls/hr Q24H IVPB Last administered on 08/01/17 13:14; Admin Dose 110 MLS/HR; Start 08/01/17 at 11:00; Stop 08/05/17 at 11:59 Diazepam (Valium) 5 mg Q8 PRN IV ANXIETY Last administered on 08/01/17 15:22; Admin Dose 5 MG; Start 08/01/17 at 14:30 KASH LAWSON M.D. Aug 01, 2017 22:38
[2017-08-01] MEDS: EXEMESTANE 25 MG TAB PO SCH (22:47)
[2017-08-02] MEDS: GABAPENTIN 100 MG CAP PO SCH ×6 (01:59→20:26)
[2017-08-02 02:18] VITALS: BP 120/75; RESP 18
[2017-08-02] MEDS: HYDROmorphONE 1 MG/ML SYG IV PRN ×4 (05:29→22:47)
[2017-08-02 07:55] VITALS: BP 126/68; RESP 20
[2017-08-02] MEDS: RANITIDINE 150 MG TAB PO SCH ×3 (08:57→20:26)
[2017-08-02] MEDS: DULOXETINE 30 MG CAP DR PO SCH ×2 (08:57→20:25)
[2017-08-02] MEDS: POLYETHYLENE GLYCOL 17 GM PACKET PO SCH (08:58)
[2017-08-02] MEDS: INDOMETHACIN 50 MG PO SCH ×2 (08:58→20:26)
[2017-08-02] MEDS: morphine (ER) 15 MG TAB PO SCH ×3 (08:58→20:28)
[2017-08-02] MEDS: ASCORBIC ACID 500 MG TAB PO SCH (08:58)
[2017-08-02] MEDS: BACLOFEN 10 MG TAB PO SCH ×4 (08:58→20:25)
--- NOTE | 2017-08-02 11:25 | PDOCDIS ---
Discharge Instructions CONDITION Patient Condition: Good HOME CARE INSTRUCTIONS: Diet Instructions: Regular ACTIVITY: Activity Restrictions: No Restrictions FOLLOW UP/APPOINTMENTS Follow-up Plan F/U WITH YOUR PCP AND ONCOLOGIST SCHEDULED INOCENCIO TRACEY Aug 02, 2017 11:25
[2017-08-02] MEDS: SOD FERRIC GLUC COMPLX 125 MG in SOD CHLORIDE 0.9% 100 ML IVPB SCH (11:43)
--- NOTE | 2017-08-02 13:59 | DS ---
Date/Time of Note Date/Time of Note DATE: 08/02/17 TIME: 13:50 Discharge Summary Admission/Discharge Info Admit Date/Time Aug 01, 2017 at 03:06 Discharge Date/Time August 02, 2017 Discharge Diagnosis 1. Chronic Pain of Malignancy-now stable - Pain mgmt 2. History of breast cancer with bony metastasis, s/p double mastectomy and chemo, last chemo about 2 months ago - Consult Oncology, Dr. Zuleta 3. Anemia of chronic disease and malignancy: hx of multiple blood transfusions- stable 4. Hx of Depression - cont home meds 5. Leukocytosis-reactive 6. Renal insufficiency-improved with fluids 7. Several left rib pathologic fractures - cont pain mgmt Patient Condition: Good Hospital Course The patient is a 51-year-old female with a history of breast cancer with bony and extensive thoracic spine metastasis, status post double mastectomy, renal insufficiency, lymphoma, splenectomy, depression, chronic back pain, ADHD and pathologic rib fracture. The patient presented with a complaint of generalized pain, weakness and dizziness. Patient has been admitted here multiple times related to pain, generalized weakness and anemia as well as for lower ext cellulitis. 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 She also has extensive metastatic disease throughout the thoracic spine, with near complete replacement of the T3, C10 and L1 vertebral bodies. Patient was requesting Valium IV for pain control, patient was seen by her oncologist while in-house. Patient pain did resolve, her creatinine did improve, UA was normal and cultures showed no significant findings. On the day of discharge patient's vitals, labs and physical exam are stable, patient had no further acute complaints and questions are answered. . Home Meds Active Scripts Polyethylene Glycol* (Miralax*) 17 Gm Powd.pack, 17 GM PO DAILY, #30 PACKET 1 Refill Prov:OZ FULLER. 04/14/17 Reported Medications Duloxetine Hcl* (Duloxetine Hcl*) 60 Mg Capsule., 60 MG PO BID, #30 CAP 03/19/17 Exemestane* (Exemestane*) 25 Mg Tablet, 25 MG PO, TAB 03/19/17 Indomethacin* (Indocin*) 50 Mg Cap, 50 MG PO BID, CAP 03/19/17 Promethazine Hcl* (Phenergan*) 25 Mg Tablet, 25 MG PO Q6H Y for PAIN, TAB 03/19/17 Vitamin B Complex (Vitamin B Complex) 1 Each Capsule, 1 EACH PO QHS, CAP 02/16/17 Ascorbic Acid (Vitamin C) 500 Mg Tab, 1000 MG PO DAILY, TAB 02/16/17 Prochlorperazine* (Prochlorperazine*) 10 Mg Tablet, 10 MG PO QID Y for NAUSEA, TAB 02/16/17 Ranitidine Hcl* (Ranitidine Hcl*) 150 Mg Tablet, 150 MG PO TID, #90 TAB 02/16/17 Tapentadol Hcl (Nucynta) 100 Mg Tablet, 50 MG PO BID, TAB 02/16/17 Gabapentin* (Gabapentin*) 100 Mg Capsule, 100 MG PO Q4, #120 CAP 02/16/17 Amphet Bhw-Bttdae-O-Amphet (Adderall) 10 Mg Tablet, 10 MG PO TID, TAB 02/16/17 Baclofen* (Baclofen*) 10 Mg Tablet, 10 MG PO QID, TAB 02/16/17 Hydromorphone Hcl* (Dilaudid*) 4 Mg Tablet, 4 MG PO Q6, TAB 02/16/17 Morphine Sulfate* (Ms Contin*) 15 Mg Tablet.sa, 15 MG PO TID, TAB.SA 02/16/17 Hydrocodone/Acetaminophen ([place] 10-325 Tablet) 1 Each Tablet, 1 EACH PO Q3H, TAB 02/16/17 Follow-up Plan F/U WITH YOUR PCP AND ONCOLOGIST SCHEDULED Primary Care Provider Aisha Zuleta M.D. Time spent on discharge: > 30 minutes INOCENCIO TRACEY Aug 02, 2017 13:59
[2017-08-02 18:16] VITALS: BP 128/72; RESP 20
[2017-08-02] MEDS: ONDANSETRON 4 MG INJ IV PRN (18:37)
[2017-08-02] MEDS: EXEMESTANE 25 MG TAB PO SCH (20:27)
[2017-08-02 20:48] VITALS: BP 108/58; RESP 18
[2017-08-03] MEDS: GABAPENTIN 100 MG CAP PO SCH ×6 (00:57→21:31)
[2017-08-03] MEDS: DIAZEPAM 5 MG/ML SYG IV PRN ×3 (00:57→16:46)
[2017-08-03 02:16] VITALS: BP 114/61; RESP 20
[2017-08-03] MEDS: HYDROmorphONE 1 MG/ML SYG IV PRN ×5 (04:08→18:17)
[2017-08-03] MEDS: ONDANSETRON 4 MG INJ IV PRN ×3 (06:59→18:16)
[2017-08-03 07:00] VITALS: BP_SYST 107; BP_SYST 92; BP_DIAS 52; BP_DIAS 61; RESP 18
[2017-08-03] MEDS: DULOXETINE 30 MG CAP DR PO SCH ×2 (08:27→21:31)
[2017-08-03] MEDS: POLYETHYLENE GLYCOL 17 GM PACKET PO SCH (08:28)
[2017-08-03] MEDS: ASCORBIC ACID 500 MG TAB PO SCH (08:28)
[2017-08-03] MEDS: INDOMETHACIN 50 MG PO SCH ×2 (08:28→21:31)
[2017-08-03] MEDS: morphine (ER) 15 MG TAB PO SCH ×3 (08:28→21:31)
[2017-08-03] MEDS: BACLOFEN 10 MG TAB PO SCH ×4 (08:28→21:30)
[2017-08-03] MEDS: RANITIDINE 150 MG TAB PO SCH ×3 (08:28→21:30)
[2017-08-03] MEDS: SOD FERRIC GLUC COMPLX 125 MG in SOD CHLORIDE 0.9% 100 ML IVPB SCH (10:49)
[2017-08-03 14:00] VITALS: BP 103/55; RESP 18
[2017-08-03 20:14] VITALS: BP 131/56; RESP 20
[2017-08-03] MEDS: EXEMESTANE 25 MG TAB PO SCH (21:34)
[2017-08-03] MEDS: DIPHENHYDRAMINE 50 MG INJ IV PRN (22:24)
[2017-08-04] MEDS: ONDANSETRON 4 MG INJ IV PRN ×3 (00:31→12:11)
[2017-08-04] MEDS: HYDROmorphONE 1 MG/ML SYG IV PRN ×5 (00:31→13:48)
[2017-08-04] MEDS: GABAPENTIN 100 MG CAP PO SCH ×5 (00:32→17:21)
[2017-08-04] MEDS: DIAZEPAM 5 MG/ML SYG IV PRN ×2 (01:32→11:00)
[2017-08-04 02:45] VITALS: BP 137/70; RESP 20
[2017-08-04] MEDS: DIPHENHYDRAMINE 50 MG INJ IV PRN ×2 (04:37→10:59)
[2017-08-04 08:00] VITALS: BP 100/61; RESP 20
[2017-08-04] MEDS: POLYETHYLENE GLYCOL 17 GM PACKET PO SCH (09:00)
[2017-08-04] MEDS: DULOXETINE 30 MG CAP DR PO SCH (09:21)
[2017-08-04] MEDS: RANITIDINE 150 MG TAB PO SCH ×2 (09:22→13:45)
[2017-08-04] MEDS: ASCORBIC ACID 500 MG TAB PO SCH (09:22)
[2017-08-04] MEDS: BACLOFEN 10 MG TAB PO SCH ×3 (09:23→17:21)
[2017-08-04] MEDS: INDOMETHACIN 50 MG PO SCH (09:23)
[2017-08-04] MEDS: morphine (ER) 15 MG TAB PO SCH ×2 (09:31→13:44)
[2017-08-04] MEDS: SOD FERRIC GLUC COMPLX 125 MG in SOD CHLORIDE 0.9% 100 ML IVPB SCH (10:59)
[2017-08-04] MEDS ORDERED: HEPARIN (100 UNITS/ML) 5 ML SYG CATHETER ONE (11:30)
[2017-08-04 14:00] VITALS: BP 102/59; RESP 20
[2017-08-04] MEDS ORDERED: DIAZ-90 PO (15:11)
--- NOTE | 2017-08-04 15:15 | PN ---
Date/Time of Note Date/Time of Note DATE: 08/03/17 TIME: 15:13 Assessment/Plan VTE Prophylaxis VTE Prophylaxis Intervention: ambulation Lines/Catheters Urinary Cath still in place: No Assessment/Plan Chief Complaint/Hosp Course 1. Chronic Pain of Malignancy-DC held as patient was still in pain - Pain mgmt -Valium for muscle spasms 2. History of breast cancer with bony metastasis, s/p double mastectomy and chemo, last chemo about 2 months ago - Consult Oncology, Dr. Zuleta 3. Anemia of chronic disease and malignancy: hx of multiple blood transfusions- stable 4. Hx of Depression - cont home meds 5. Leukocytosis-reactive 6. Renal insufficiency-improved with fluids 7. Several left rib pathologic fractures - cont pain mgmt Problems: Subjective 24 Hr Interval Summary Musculoskeletal: bone/joint pain Exam/Review of Systems Vital Signs Vitals Vital Signs Date Time Temp Pulse Resp B/P Pulse Ox O2 Delivery O2 Flow Rate FiO2 08/04/17 14:00 98.7 73 20 102/59 98 08/01/17 04:34 Room Air Intake and Output 08/03/17 08/03/17 08/04/17 15:00 23:00 07:00 Intake Total 110 ml 1100 ml 500 ml Balance 110 ml 1100 ml 500 ml Exam Constitutional: alert, oriented Respiratory: clear to auscultation Cardiovascular: regular rate and rhythm Gastrointestinal: soft, No distended Musculoskeletal: nl extremities to inspection Results Result Diagram: 08/01/17 0040 08/01/17 0734 Medications Medications Current Medications Hydromorphone HCl (Dilaudid) 1 mg Q3H PRN IV PAIN Last administered on 13:48; Admin Dose 1 MG; Start 08/01/17 at 05:00 Ondansetron HCl (Zofran Inj) 4 mg Q6H PRN IV NAUSEA AND/OR VOMITING Last administered on 08/04/17 12:11; Admin Dose 4 MG; Start 08/01/17 at 05:00 Ascorbic Acid (Vitamin C) 1,000 mg DAILY PO Last administered on 08/04/17 09: 22; Admin Dose 1,000 MG; Start 08/01/17 at 09:00 Baclofen (Lioresal) 10 mg QID PO Last administered on 08/04/17 13:44; Admin Dose 10 MG; Start 08/01/17 at 09:00 Duloxetine HCl (Cymbalta) 60 mg BID PO Last administered on 08/04/17 09:21; Admin Dose 60 MG; Start 08/01/17 at 09:00 Exemestane (Aromasin) 25 mg QPM PO Last administered on 08/03/17 21:34; Admin Dose 25 MG; Start 08/01/17 at 21:00 Gabapentin (Neurontin) 100 mg Q4 PO Last administered on 08/04/17 13:44; Admin Dose 100 MG; Start 08/01/17 at 05:00 Acetaminophen/ Hydrocodone Bitart ([place] (10/325)) PRN Q3H PRN PO PAIN; Start 08/01/17 at 05:00 Indomethacin (Indocin) 50 mg BID PO Last administered on 08/04/17 09:23; Admin Dose 50 MG; Start 08/01/17 at 09:00 Morphine Sulfate (Ms Contin (Er)) 15 mg TID PO Last administered on 08/04/17 13:44; Admin Dose 15 MG; Start 08/01/17 at 09:00 Polyethylene Glycol (Miralax) 17 gm DAILY PO Last administered on 08/03/17 08: 28; Admin Dose 17 GM; Start 08/01/17 at 09:00 Prochlorperazine (Compazine) 10 mg QID PRN PO NAUSEA; Start 08/01/17 at 05:00 Promethazine HCl (Phenergan) 25 mg Q6H PRN PO PAIN; Start 08/01/17 at 05:00 Ranitidine HCl 150 mg 150 mg TID PO Last administered on 08/04/17 13:45; Admin Dose 150 MG; Start 08/01/17 at 09:00 Ferric Sodium Gluconate Complex/ Sodium Chloride (Ferrlecit/NS) 110 ml @ 110 mls/hr Q24H IVPB Last administered on 08/04/17 10:59; Admin Dose 110 MLS/HR; Start 08/01/17 at 11:00; Stop 08/05/17 at 11:59 Diazepam (Valium) 5 mg Q8 PRN IV ANXIETY Last administered on 08/04/17 11:00; Admin Dose 5 MG; Start 08/01/17 at 14:30 Diphenhydramine HCl (Benadryl) 25 mg Q6H PRN IV ITCHING Last administered on t 10:59; Admin Dose 25 MG; Start 08/03/17 at 22:30 INOCENCIO TRACEY Aug 04, 2017 15:15
--- NOTE | 2017-08-04 15:17 | DS ---
Date/Time of Note Date/Time of Note DATE: 08/04/17 TIME: 15:15 Discharge Summary Admission/Discharge Info Admit Date/Time Aug 01, 2017 at 03:06 Discharge Date/Time August 04, 2017 Discharge Diagnosis 1. Chronic Pain of Malignancy-now stable - Pain mgmt -DC with Valium p.o. 2. History of breast cancer with bony metastasis, s/p double mastectomy and chemo, last chemo about 2 months ago - Consult Oncology, Dr. Zuleta 3. Anemia of chronic disease and malignancy: hx of multiple blood transfusions- stable 4. Hx of Depression - cont home meds 5. Leukocytosis-reactive 6. Renal insufficiency-improved with fluids 7. Several left rib pathologic fractures - cont pain mgmt Patient Condition: Good Hospital Course The patient is a 51-year-old female with a history of breast cancer with bony and extensive thoracic spine metastasis, status post double mastectomy, renal insufficiency, lymphoma, splenectomy, depression, chronic back pain, ADHD and pathologic rib fracture. The patient presented with a complaint of generalized pain, weakness and dizziness. Patient has been admitted here multiple times related to pain, generalized weakness and anemia as well as for lower ext cellulitis. 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 She also has extensive metastatic disease throughout the thoracic spine, with near complete replacement of the T3, C10 and L1 vertebral bodies. Patient was requesting Valium IV for pain control, patient was seen by her oncologist while in-house. Patient was initially felt to be safe for discharge but her pain persisted and she continues to require Valium IV for muscle spasms. Pain did ultimately stabilize and it was decided to DC patient with Valium p.o, her creatinine did improve, UA was normal and cultures showed no significant findings. On the day of discharge patient's vitals, labs and physical exam are stable, patient had no further acute complaints and questions are answered. . Home Meds Active Scripts Diazepam* (Valium*) 5 Mg Tablet, 5 MG PO Q8 Y for MUSCLE SPASMS, #30 TAB Prov:INOCENCIO TRACEY 08/04/17 Polyethylene Glycol* (Miralax*) 17 Gm Powd.pack, 17 GM PO DAILY, #30 PACKET 1 Refill Prov:OZ FULLER 04/14/17 Reported Medications Duloxetine Hcl* (Duloxetine Hcl*) 60 Mg Capsule.dr, 60 MG PO BID, #30 CAP 03/19/17 Exemestane* (Exemestane*) 25 Mg Tablet, 25 MG PO, TAB 03/19/17 Indomethacin* (Indocin*) 50 Mg Cap, 50 MG PO BID, CAP 03/19/17 Promethazine Hcl* (Phenergan*) 25 Mg Tablet, 25 MG PO Q6H Y for PAIN, TAB 03/19/17 Vitamin B Complex (Vitamin B Complex) 1 Each Capsule, 1 EACH PO QHS, CAP 02/16/17 Ascorbic Acid (Vitamin C) 500 Mg Tab, 1000 MG PO DAILY, TAB 02/16/17 Prochlorperazine* (Prochlorperazine*) 10 Mg Tablet, 10 MG PO QID Y for NAUSEA, TAB 02/16/17 Ranitidine Hcl* (Ranitidine Hcl*) 150 Mg Tablet, 150 MG PO TID, #90 TAB 02/16/17 Tapentadol Hcl (Nucynta) 100 Mg Tablet, 50 MG PO BID, TAB 02/16/17 Gabapentin* (Gabapentin*) 100 Mg Capsule, 100 MG PO Q4, #120 CAP 02/16/17 Amphet Jxa-Bagwwz-U-Amphet (Adderall) 10 Mg Tablet, 10 MG PO TID, TAB 02/16/17 Baclofen* (Baclofen*) 10 Mg Tablet, 10 MG PO QID, TAB 02/16/17 Hydromorphone Hcl* (Dilaudid*) 4 Mg Tablet, 4 MG PO Q6, TAB 02/16/17 Morphine Sulfate* (Ms Contin*) 15 Mg Tablet.sa, 15 MG PO TID, TAB.SA 02/16/17 Hydrocodone/Acetaminophen ([place] 10-325 Tablet) 1 Each Tablet, 1 EACH PO Q3H, TAB 02/16/17 Follow-up Plan F/U WITH YOUR PCP AND ONCOLOGIST SCHEDULED Primary Care Provider Aisha Zuleta M.D. Time spent on discharge: > 30 minutes INOCENCIO TRACEY Aug 04, 2017 15:17
== END 2017-08-04 19:52 | disposition home or self-care (01) | DRG 543 ==
LOC: E/R 22:07 → MS1 08-01 03:06
PROVIDERS: ADMIT Internal Medicine; ATTEND Internal Medicine
DX: C79.51 Secondary malignant neoplasm of bone (principal); M84.58XA Pathological fracture in neoplastic disease, other specified site, initial encounter for fracture; C50.911 Malignant neoplasm of unspecified site of right female breast; D63.0 Anemia in neoplastic disease; F32.9 Major depressive disorder, single episode, unspecified; G89.3 Neoplasm related pain (acute) (chronic); Z17.0 Estrogen receptor positive status [ER+]; Z85.3 Personal history of malignant neoplasm of breast; Z90.13 Acquired absence of bilateral breasts and nipples
CPT/HCPCS: 36415; 71010; 78306; 80048; 80053; 81003; 83735; 84100; 84484; 85025; 85610; 85730; 87040; 87081; 87086; 93005; 96374; 96375; A9503; J1170; J1200; J1642; J2405; J2916; J3360; J7040

== ENCOUNTER 2017-09-04 18:43 | Emergency (ER) | payer BC ==
[~2017-09-04] VITALS: Ht 172.7 cm; Wt 75.0 kg
[~2017-09-04 18:43] MED LIST changes: +DIAZ-90 PO
[2017-09-04 19:11] VITALS: Ht 172.7 cm; Wt 75.0 kg
[2017-09-04] MEDS ORDERED: ONDANSETRON 4 MG INJ IV STA ×3 (20:16→23:49)
[2017-09-04] MEDS ORDERED: HYDROmorphONE 1 MG/ML SYG IV STA ×3 (20:16→23:49)
[2017-09-04 20:51] LABS: BASOPHILS % 0.2 % (0.0-2.0); EOSINOPHILS # 0.1 10^3/ul (0.0-0.5); EOSINOPHILS % 0.8 % (0.0-7.0); HEMATOCRIT 23.7 % (37.0-47.0); HEMOGLOBIN 7.1 g/dl (12.0-16.0); LYMPHOCYTES % 18.6 % (15.0-51.0); MEAN CORPUSCULAR HEMOGLOBIN 30.2 pg (29.0-33.0); MEAN CORPUSCULAR VOLUME 100.9 fl (82.0-101.0); MEAN PLATELET VOLUME 10.6 fl (7.4-10.4); MONOCYTE # 0.9 10^3/ul (0.3-0.9); MONOCYTES % 8.3 % (0.0-11.0); NEUTROPHIL # 7.7 10^3/ul (1.6-7.5); NEUTROPHILS % 70.2 % (39.0-77.0); NUCLEATED RED BLOOD CELLS # 0.3 10^3/ul (0.0-0.0); PLATELET COUNT 440 10^3/UL (140-415); RED BLOOD COUNT 2.35 10^6/ul (4.20-5.40); RED CELL DISTRIBUTION WIDTH 18.6 % (11.5-14.5); WHITE BLOOD COUNT 10.9 10^3/ul (4.8-10.8)
[2017-09-04] MEDS ORDERED: MODA200T12 PO (20:52)
--- NOTE | 2017-09-04 21:02 | ERD ---
ER Documentation Chief Complaint Date/Time DATE: 09/04/17 TIME: 20:56 Chief Complaint c/o dizziness, weakness, needs a blood transfussion. Hgb 6.8. HPI This is a 51-year-old female with a history of breast cancer with return of cancer with metastasis. She is having recurrent anemia for some unknown reason. The patient states that she keeps getting low blood counts requiring blood transfusions in the last 6-8 months and needed transfusions again. The patient was sent here by her doctor because she has a hemoglobin of 6.8. The patient says she is very tired and has gradually gotten more tired in the past 2 -3 weeks. No blood in her stool. The patient says she has had a workup for anemia and the Fire out why the next step is to get a bone marrow biopsy. Patient denies any fever chest pain cough shortness of breath no abdominal pain vomiting ROS All systems reviewed and are negative except as per history of present illness. Medications Home Meds Active Scripts Diazepam* (Valium*) 5 Mg Tablet, 5 MG PO Q8 Y for MUSCLE SPASMS, #30 TAB Prov:INOCENCIO TRACEY 08/04/17 Polyethylene Glycol* (Miralax*) 17 Gm Powd.pack, 17 GM PO DAILY, #30 PACKET 1 Refill Prov:OZ FULLER 04/14/17 Reported Medications Modafinil* (Provigil*) 200 Mg Tablet, 200 MG PO QAM, TAB 09/04/17 Duloxetine Hcl* (Duloxetine Hcl*) 60 Mg Capsule.dr, 60 MG PO BID, #30 CAP 03/19/17 Exemestane* (Exemestane*) 25 Mg Tablet, 25 MG PO, TAB 03/19/17 Indomethacin* (Indocin*) 50 Mg Cap, 50 MG PO BID, CAP 03/19/17 Promethazine Hcl* (Phenergan*) 25 Mg Tablet, 25 MG PO Q6H Y for PAIN, TAB 03/19/17 Vitamin B Complex (Vitamin B Complex) 1 Each Capsule, 1 EACH PO QHS, CAP 02/16/17 Ascorbic Acid (Vitamin C) 500 Mg Tab, 1000 MG PO DAILY, TAB 02/16/17 Prochlorperazine* (Prochlorperazine*) 10 Mg Tablet, 10 MG PO QID Y for NAUSEA, TAB 02/16/17 Ranitidine Hcl* (Ranitidine Hcl*) 150 Mg Tablet, 150 MG PO TID, #90 TAB 02/16/17 Tapentadol Hcl (Nucynta) 100 Mg Tablet, 50 MG PO BID, TAB 02/16/17 Gabapentin* (Gabapentin*) 100 Mg Capsule, 100 MG PO Q4, #120 CAP 02/16/17 Amphet Ztj-Flymfk-T-Amphet (Adderall) 10 Mg Tablet, 10 MG PO TID, TAB 02/16/17 Baclofen* (Baclofen*) 10 Mg Tablet, 10 MG PO QID, TAB 02/16/17 Hydromorphone Hcl* (Dilaudid*) 4 Mg Tablet, 4 MG PO Q6, TAB 02/16/17 Morphine Sulfate* (Ms Contin*) 15 Mg Tablet.sa, 15 MG PO TID, TAB.SA 02/16/17 Hydrocodone/Acetaminophen ([place] 10-325 Tablet) 1 Each Tablet, 1 EACH PO Q3H, TAB 02/16/17 Allergies Allergies: Coded Allergies: Penicillins (Verified Allergy, Unknown, RASH, SWOLLEN, HARD TIME BREATHING , 09/04/17) peanut (Verified Allergy, Unknown, 09/04/17) shellfish derived (Verified Allergy, Unknown, 09/04/17) PMhx/Soc History of Surgery: Yes (BILAT MASTECTOMY 2011, BILAT HIP SX 1994, FACIAL SX 1997, KNEE SX 1985) Anesthesia Reaction: No Hx Neurological Disorder: Yes (" TWITCHING") Hx Respiratory Disorders: No Hx Cardiac Disorders: No Hx Psychiatric Problems: No Hx Miscellaneous Medical Probl: Yes (BREAST CA , SPLENECTOMY, APPY) Hx Alcohol Use: No Hx Substance Use: No Hx Tobacco Use: No FmHx Family History: No coronary disease Physical Exam Vitals Vital Signs Date Time Temp Pulse Resp B/P Pulse Ox O2 Delivery O2 Flow Rate FiO2 09/04/17 21:31 98.6 81 18 135/81 98 Room Air 09/04/17 19:11 98.6 101 18 125/66 98 Physical Exam Const: Well-developed, well-nourished Head: Atraumatic, normocephalic Eyes: Normal Conjunctiva, PERRLA, EOMI, normal sclera, no nystagmus ENT: Normal External Ears, Nose and Mouth, moist mucus membranes. Neck: Full range of motion. No meningismus, no lymphadenopathy. Resp: Clear to auscultation bilaterally, no wheezing, rhonchi, rales Cardio: Regular rate and rhythm, no murmurs, S1 S2 present Abd: Soft, non tender x 4, non distended. Normal bowel sounds, no guarding or rebound, no pulsitile abdominal masses or bruits Skin: No petechiae or rashes, no ecchymosis , no maculopapular rash Back: No midline or flank tenderness Ext: No cyanosis, or edema, FROM x 4, normal inspection, neurovascularly intact x 4 Neur: Awake and alert, STR 5/5 x 4, sensation intact x 4, no focal findings, cerebellum intact Psych: Normal Mood and Affect Result Diagram: 09/04/17203309/04/172033 Results 24 hrs Laboratory Tests Test 09/04/17 20:34 White Blood Count 10.910^3/ul Red Blood Count 2.3510^6/ul Hemoglobin 7.1g/dl Hematocrit 23.7% Mean Corpuscular Volume 100.9fl Mean Corpuscular Hemoglobin 30.2pg Mean Corpuscular Hemoglobin Concent 30.0g/dl Red Cell Distribution Width 18.6% Platelet Count 72289^3/UL Mean Platelet Volume 10.6fl Neutrophils % 70.2% Lymphocytes % 18.6% Monocytes % 8.3% Eosinophils % 0.8% Basophils % 0.2% Nucleated Red Blood Cells % 3.0/100WBC Neutrophils # 7.710^3/ul Lymphocytes # 2.010^3/ul Monocytes # 0.910^3/ul Eosinophils # 0.110^3/ul Basophils # 0.010^3/ul Nucleated Red Blood Cells # 0.310^3/ul Prothrombin Time 13.7Sec Prothrombin Time Ratio 1.1 INR International Normalized Ratio 1.05 Activated Partial Thromboplast Time 27.0Sec Sodium Level 139mmol/L Potassium Level 3.9mmol/L Chloride Level 104mmol/L Carbon Dioxide Level 29mmol/L Anion Gap 10 Blood Urea Nitrogen 13mg/dl Creatinine 0.82mg/dl Glucose Level 93mg/dl Calcium Level 8.9mg/dl Total Bilirubin 0.0mg/dl Direct Bilirubin 0.00mg/dl Indirect Bilirubin 0.0mg/dl Aspartate Amino Transf (AST/SGOT) 40IU/L Alanine Aminotransferase (ALT/SGPT) 42IU/L Alkaline Phosphatase 137IU/L Total Protein 6.6g/dl Albumin 3.6g/dl Globulin 3.00g/dl Albumin/Globulin Ratio 1.20 Current Medications Medications (Trade) Dose Ordered Sig/Julio Route PRN Reason Start Time Stop Time Status Last Admin Dose Admin Hydromorphone HCl (Dilaudid) 1 mg ONCE STAT IV 09/04/17 20:16 09/04/17 20:18 DC 09/04/17 21:03 Ondansetron HCl (Zofran Inj) 4 mg ONCE STAT IV 09/04/17 20:16 09/04/17 20:18 DC 09/04/17 21:03 Lorazepam (Ativan) 1 mg ONCE ONCE IV 09/04/17 22:00 09/04/17 22:01 Procedures/MDM The patient is refusing admission to the hospital she says she just wants blood transfusion and go home. The patient will get some labs and type and cross 2 units of packed red blood cells and will transfuse both and hopefully she will change her MIND, otherwise , will discharge her home with follow-up with her primary Critical Care Time: 30 minutes Treatments/Evaluations: Close monitoring and treatment of unstable vital signs, cardiorespiratory, and neurologic status, while maintaining tight balance of fluid, respiratory, and cardiac interventions. This time includes discussing the case with the patient and the patient's family. This time does not include all procedures stated elsewhere in this record. This time also includes reviewing old records, labs and radiological studies. This time includes examining and re-examining the patient. Additionally, this time also includes arranging care with admitting and consulting physicians. Departure Diagnosis: Primary Impression: Symptomatic anemia Condition: Stable FATOUMATA REMY ClaudyMacario GARCIA Sep 04, 2017 21:01
[2017-09-04 21:07] LABS: INR 1.05; PROTIME 13.7 Sec (12.2-14.2); PT RATIO 1.1
[2017-09-04 21:10] LABS: ALBUMIN 3.6 g/dl (3.3-4.9); ALBUMIN/GLOBULIN RATIO 1.2; CALCIUM 8.9 mg/dl (8.4-10.2); CREATININE 0.82 mg/dl (0.44-1.00); POTASSIUM 3.9 mmol/L (3.5-5.1); TOTAL PROTEIN 6.6 g/dl (6.1-8.1)
[2017-09-04 21:31] VITALS: BP 135/81; PULSE 81; RESP 18; TEMP 98.6
[2017-09-04] MEDS ORDERED: LORAZEPAM 2 MG INJ IV ONE (22:00)
[2017-09-05] MEDS ORDERED: DIAZEPAM 5 MG/ML SYG IV ONE
== END 2017-09-05 01:36 | disposition home or self-care (01) ==
LOC: E/R 18:43
DX: D59.4 Other nonautoimmune hemolytic anemias (principal); R07.9 Chest pain, unspecified; Z85.3 Personal history of malignant neoplasm of breast
CPT/HCPCS: 36415; 36430; 80053; 85025; 85610; 85730; 86850; 86900; 86901; 86920; 96374; 96375; 96376; 99284; J1170; J2060; J2405; J3360; P9016

== ENCOUNTER 2017-09-14 12:02 | Inpatient (IN) | payer BC ==
[~2017-09-14] VITALS: Ht 175.3 cm; Wt 73.3 kg
[~2017-09-14 12:02] MED LIST changes: +MODA200T12 PO
[2017-09-14] MEDS ORDERED: HYDROmorphONE 2 MG/ML SYG IV STA (14:21)
[2017-09-14] MEDS ORDERED: IBUPROFEN 600 MG TAB PO ONE (14:30)
--- NOTE | 2017-09-14 16:05 | RADRPT ---
PROCEDURE: Chest x-ray CLINICAL INDICATION: Shortness of breath TECHNIQUE: Chest single view COMPARISON: 08/01/2017 FINDINGS: As before there is left chest Port-A-Cath. Heart is top normal in size. There are new diffuse bilate ral alveolar lung densities. This may represent edema, pneumonia, or ARDS. Costophrenic angles sharp . Bones are osteopenic. Surgical clips in the right axilla. IMPRESSION: 1. New diffuse bilateral alveolar lung densities. This may represent edema, pneumonia, or ARDS. 2. Borderline cardiomegaly. 3. Port-A-Cath RPTAT: HH .Stanford Carroll MD, MD Date Time Electronically viewed and signed by .Stanford Carroll MD, on 09/14/2017 16:04 .W/
[2017-09-14] MEDS ORDERED: CEFEPIME 2GM/50 ML (PMX) 50 ML IVPB STA (16:11)
[2017-09-14] MEDS ORDERED: SODIUM CHLORIDE 0.9% 1L BAG IV* STA (16:11)
[2017-09-14] MEDS ORDERED: VANCOMYCIN 1 GM (PMX) 250 ML IVPB STA (16:11)
[2017-09-14] MEDS ORDERED: DIAZEPAM 5 MG/ML SYG IV ONE (16:30)
[2017-09-14] MEDS ORDERED: SOD CHLORIDE 0.9% 1,000 ML IV SCH (17:00)
[2017-09-14] MEDS ORDERED: ONDANSETRON 4 MG INJ IV PRN ×2 (17:00→18:30)
[2017-09-14] MEDS ORDERED: ACETAMINOPHEN 325 MG TAB PO PRN ×2 (17:00→18:30)
--- NOTE | 2017-09-14 17:07 | ERD ---
ER Documentation Chief Complaint Chief Complaint spasms/twitching of total body/body pain HPI This is a 51-year-old female with a history of breast cancer who presents to the emergency room for evaluation of fever, body aches, chills and dry cough. She states that she has had the symptoms for approximately 2 days duration. She states that she is having pain all over her body describes as achy pain only improved with Dilaudid. Patient has not been on any antibiotics, and denies any vomiting. ROS All systems reviewed and are negative except as per history of present illness. Medications Home Meds Active Scripts Diazepam* (Valium*) 5 Mg Tablet, 5 MG PO Q8 Y for MUSCLE SPASMS, #30 TAB Prov:KYUNGINOCENCIO 08/04/17 Polyethylene Glycol* (Miralax*) 17 Gm Powd.pack, 17 GM PO DAILY, #30 PACKET 1 Refill Prov:OZ FULLER 04/14/17 Reported Medications Modafinil* (Provigil*) 200 Mg Tablet, 200 MG PO QAM, TAB 09/04/17 Duloxetine Hcl* (Duloxetine Hcl*) 60 Mg Capsule.dr, 60 MG PO BID, #30 CAP 03/19/17 Exemestane* (Exemestane*) 25 Mg Tablet, 25 MG PO, TAB 03/19/17 Indomethacin* (Indocin*) 50 Mg Cap, 50 MG PO BID, CAP 03/19/17 Promethazine Hcl* (Phenergan*) 25 Mg Tablet, 25 MG PO Q6H Y for PAIN, TAB 03/19/17 Vitamin B Complex (Vitamin B Complex) 1 Each Capsule, 1 EACH PO QHS, CAP 02/16/17 Ascorbic Acid (Vitamin C) 500 Mg Tab, 1000 MG PO DAILY, TAB 02/16/17 Prochlorperazine* (Prochlorperazine*) 10 Mg Tablet, 10 MG PO QID Y for NAUSEA, TAB 02/16/17 Ranitidine Hcl* (Ranitidine Hcl*) 150 Mg Tablet, 150 MG PO TID, #90 TAB 02/16/17 Tapentadol Hcl (Nucynta) 100 Mg Tablet, 50 MG PO BID, TAB 02/16/17 Gabapentin* (Gabapentin*) 100 Mg Capsule, 100 MG PO Q4, #120 CAP 02/16/17 Amphet Yid-Teoayy-C-Amphet (Adderall) 10 Mg Tablet, 10 MG PO TID, TAB 02/16/17 Baclofen* (Baclofen*) 10 Mg Tablet, 10 MG PO QID, TAB 02/16/17 Hydromorphone Hcl* (Dilaudid*) 4 Mg Tablet, 4 MG PO Q6, TAB 02/16/17 Morphine Sulfate* (Ms Contin*) 15 Mg Tablet.sa, 15 MG PO TID, TAB.SA 02/16/17 Hydrocodone/Acetaminophen ([place] 10-325 Tablet) 1 Each Tablet, 1 EACH PO Q3H, TAB 02/16/17 Allergies Allergies: Coded Allergies: Penicillins (Verified Allergy, Unknown, RASH, SWOLLEN, HARD TIME BREATHING , 09/14/17) peanut (Verified Allergy, Unknown, 09/14/17) shellfish derived (Verified Allergy, Unknown, 09/14/17) PMhx/Soc History of Surgery: Yes (BILAT MASTECTOMY 2011, BILAT HIP SX 1994, FACIAL SX 1997, KNEE SX 1985) Anesthesia Reaction: No Hx Neurological Disorder: Yes (" TWITCHING") Hx Respiratory Disorders: No Hx Cardiac Disorders: No Hx Psychiatric Problems: No Hx Miscellaneous Medical Probl: Yes (BREAST CA , SPLENECTOMY, APPY) Hx Alcohol Use: No Hx Substance Use: No Hx Tobacco Use: No Smoking Status: Never smoker Physical Exam Vitals Vital Signs Date Time Temp Pulse Resp B/P Pulse Ox O2 Delivery O2 Flow Rate FiO2 09/14/17 15:16 Nasal Cannula 2 09/14/17 12:40 119 20 148/86 94 Room Air 09/14/17 12:08 100.3 121 20 162/106 95 Physical Exam INITIAL VITAL SIGNS: Reviewed by me GENERAL: The patient is well developed and appropriate for usual state of health in mild distress, warm to touch HEENT: Pupils equal, round, and reactive to light. EOMI. There is no scleral icterus. NECK: C-spine is soft and supple, there is no meningismus. There is no cervical lymphadenopathy. LUNGS: Coarse breath sounds bilaterally HEART: Tachycardic no murmurs, clicks, rubs or gallops. ABDOMEN: Soft, non-tender, non-distended. There are bowel sounds in all four quadrants. No rebound or guarding. EXTREMITIES: There is no peripheral cyanosis or edema. No focal swelling or erythema. NEUROLOGICAL: The patient moves all four extremities with 5/5 strength. Cranial nerves II - XII are intact. Normal gait. Alert and oriented SKIN: Port-A-Cath in left anterior chest wall, there is no apparent rash or petechiae. HEME/LYMPHATIC: There is no evidence of excessive bruising or lymphedema. PSYCHIATRIC: The patient does not appear anxious or depressed. Result Diagram: 09/14/17 1450 09/14/17 1450 Results 24 hrs Laboratory Tests Test 09/14/17 14:50 09/14/17 15:05 White Blood Count 18.610^3/ul Red Blood Count 2.6010^6/ul Hemoglobin 7.9g/dl Hematocrit 25.1% Mean Corpuscular Volume 96.5fl Mean Corpuscular Hemoglobin 30.4pg Mean Corpuscular Hemoglobin Concent 31.5g/dl Red Cell Distribution Width 16.3% Platelet Count 94742^3/UL Mean Platelet Volume 10.6fl Neutrophils % % Segmented Neutrophils % (Manual) 79% Band Neutrophils % (Manual) 5% Lymphocytes % % Lymphocytes % (Manual) 7% Monocytes % % Monocytes % (Manual) 8% Eosinophils % % Eosinophils % (Manual) 1% Basophils % % Nucleated Red Blood Cells % 0.0/100WBC Neutrophils # 10^3/ul Neutrophils # (Manual) 14.910^3/ul Band Neutrophils # 0.910^3/ul Absolute Lymphocytes (Manual) 1.310^3/ul Lymphocytes # 1.310^3/ul Monocytes # 1.510^3/ul Absolute Monocytes (Manual) 1.410^3/ul Eosinophils # 0.210^3/ul Basophils # 10^3/ul Nucleated Red Blood Cells # 10^3/ul Hypochromasia 1+ Macrocytosis 1+ Prothrombin Time 14.5Sec Prothrombin Time Ratio 1.1 INR International Normalized Ratio 1.13 Activated Partial Thromboplast Time 35.4Sec Urine Color YELLOW Urine Clarity CLEAR Urine pH 5.0 Urine Specific [place] 1.010 Urine Ketones NEGATIVEmg/dL Urine Nitrite NEGATIVEmg/dL Urine Bilirubin NEGATIVEmg/dL Urine Urobilinogen NEGATIVEmg/dL Urine Leukocyte Esterase NEGATIVELeu/ul Urine Hemoglobin NEGATIVEmg/dL Urine Glucose NEGATIVEmg/dL Urine Total Protein NEGATIVEmg/dl Sodium Level 140mmol/L Potassium Level 4.2mmol/L Chloride Level 104mmol/L Carbon Dioxide Level 23mmol/L Anion Gap 17 Blood Urea Nitrogen 22mg/dl Creatinine 1.01mg/dl Glucose Level 118mg/dl Calcium Level 9.4mg/dl Total Bilirubin 0.1mg/dl Direct Bilirubin 0.00mg/dl Indirect Bilirubin 0.1mg/dl Aspartate Amino Transf (AST/SGOT) 49IU/L Alanine Aminotransferase (ALT/SGPT) 40IU/L Alkaline Phosphatase 154IU/L Troponin I < 0.012ng/ml Total Protein 7.2g/dl Albumin 4.3g/dl Globulin 2.90g/dl Albumin/Globulin Ratio 1.48 Lactic Acid Level 0.8mmol/L Current Medications Medications (Trade) Dose Ordered Sig/Julio Route PRN Reason Start Time Stop Time Status Last Admin Dose Admin Ibuprofen (Motrin) 600 mg ONCE ONCE PO 09/14/17 14:30 09/14/17 14:31 DC Hydromorphone HCl (Dilaudid) 2 mg ONCE STAT IV 09/14/17 14:21 09/14/17 14:22 DC 09/14/17 15:05 Sodium Chloride 2160 ml 2,160 ml BOLUS OVER 2 HOURS STAT IV* 09/14/17 16:11 09/14/17 16:13 DC 09/14/17 16:19 Vancomycin HCl 250 ml @ 125 mls/hr ONCE STAT IVPB 09/14/17 16:11 09/14/17 18:10 Cefepime HCl (Maxipime 2gm/50 ml (Pmx)) 50 ml @ 100 mls/hr ONCE STAT IVPB 09/14/17 16:11 09/14/17 16:40 DC 09/14/17 16:19 Diazepam (Valium) 5 mg ONCE ONCE IV 09/14/17 16:30 09/14/17 16:31 DC Procedures/MDM EKG: Rate/Rhythm: Sinus tachycardia QRS, ST, T-waves: [No changes consistent w/ acute ischemia] Impression: [No evidence of ischemia or arrhythmia] Chest X-ray 1V Interpreted by me: Soft Tissue: No acute abnormalities Bones: No acute abnormalities Mediastinum/Cardiac Silhouette/Lungs: Bilateral pneumonia This 51-year-old female presents to the ER for evaluation of multiple symptoms including pain, fever, body aches, and cough. When I evaluated her she was febrile tachycardic. The patient did have coarse breath sounds bilaterally. The patient underwent a septic workup in the emergency room and was found to have bilateral pneumonia. The patient does have a leukocytosis and given her tachycardia she does meet sepsis criteria. She was given greater than 30 cc/kg of IV normal saline. She was started on vancomycin and cefepime after blood and urine cultures were obtained. The patient is hemodynamically stable at this time with a mean arterial pressure greater than 65 with no need for vasopressors. She will be admitted to her panel physician Dr. Fuller Critical Care: Excluding all billable procedures Time: 46 minutes Treatments/Evaluations: Close monitoring and treatment of unstable vital signs, cardiorespiratory, and neurologic status, while maintaining tight balance of fluid, respiratory, and cardiac interventions. Departure Diagnosis: Primary Impression: Sepsis Additional Impressions: Bilateral pneumonia Normocytic anemia Condition: Stable MIRANDA DELVALLE DO Sep 14, 2017 17:07
[2017-09-14 18:00] VITALS: TEMP 99.4
[2017-09-14 18:14] VITALS: BP 133/65; PULSE 104; RESP 18
[2017-09-14 18:18] VITALS: BP 133/65; RESP 18
[2017-09-14] MEDS ORDERED: DOCUSATE SODIUM 100 MG CAP PO PRN (18:30)
[2017-09-14] MEDS ORDERED: ALBUTEROL/IPRATROPIUM (NEB) 3 ML AMP HHN PRN (18:30)
[2017-09-14] MEDS ORDERED: VANCOMYCIN IV PER PHARMACY XX SCH (18:30)
[2017-09-14] MEDS ORDERED: PROCHLORPERAZINE 10 MG TAB PO PRN (18:30)
[2017-09-14] MEDS ORDERED: hydrALAzine 20 MG INJ IV PRN (18:30)
[2017-09-14] MEDS ORDERED: NA PHOSPHATE/BIPHOS 133 ML ENEMA PR PRN (18:30)
[2017-09-14] MEDS ORDERED: DIAZEPAM 5 MG TAB PO PRN (18:30)
[2017-09-14] MEDS ORDERED: PROMETHAZINE 25 MG TAB PO PRN (18:30)
[2017-09-14] MEDS ORDERED: NACL 0.9% 3 ML SYG IV SCH (18:30)
[2017-09-14] MEDS ORDERED: LORAZEPAM 2 MG INJ IV PRN (18:30)
[2017-09-14] MEDS ORDERED: morphine 2 MG INJ IV PRN (18:30)
[2017-09-14] MEDS ORDERED: NITROGLYCERIN (SL) 0.4 MG TAB SL PRN (18:30)
[2017-09-14] MEDS ORDERED: MAGNESIUM HYDROXIDE 30ML CUP PO PRN (18:30)
[2017-09-14] MEDS ORDERED: HYDROmorphONE 0.5 MG/0.5 ML SYG IV PRN (19:00)
[2017-09-14 20:06] VITALS: Ht 175.3 cm; Wt 73.3 kg
[2017-09-14] MEDS: HYDROmorphONE 2 MG/ML SYG IV PRN (20:18)
[2017-09-14 20:43] VITALS: BP 113/61; RESP 20
[2017-09-14] MEDS: SOD CHLORIDE 0.45% 1,000 ML IV SCH (20:52)
[2017-09-14] MEDS: GABAPENTIN 100 MG CAP PO SCH (20:56)
[2017-09-14] MEDS: BACLOFEN 10 MG TAB PO SCH (20:57)
[2017-09-14] MEDS: DULOXETINE 30 MG CAP DR PO SCH (20:57)
[2017-09-14] MEDS: HEPARIN 5,000 UNIT/0.5 ML VIAL SC SCH (20:57)
[2017-09-14] MEDS: RANITIDINE 150 MG TAB PO SCH (20:57)
[2017-09-14] MEDS: morphine (ER) 15 MG TAB PO SCH (21:00)
[2017-09-14] MEDS ORDERED: AMPHET ASP AMPHET D AMPHET 10 MG PO SCH (21:00)
--- NOTE | 2017-09-14 21:37 | HP ---
DATE OF ADMISSION: 09/14/2017 CHIEF COMPLAINT: Cough, body pains, and subjective fevers and nausea. HISTORY OF PRESENT ILLNESS: A 51-year-old female with a past medical history of breast cancer with bony and extensive thoracic spine metastasis, status post double mastectomy, prior renal insufficiency, lymphoma, splenectomy, depression, chronic back pain, ADHD, pathologic rib fracture, who comes in with 1 to 2 days of complaints of cough as well as body pains and subjective fevers at home, also nausea. She also had some vomiting symptoms, nonbilious, nonbloody. Patient was last here at our hospital from August 01 to August 04, 2017 and treated for pain management at that time. She does see teacher of family and consumer science/oncologist, Dr. Zuleta, as an outpatient and has had chemotherapy, last time over 2 months ago. When the patient came in today, she had a fever of 100.3, and she was tachycardic as well, heart rate in the 110 to 120 range. Her chest x-ray on this admission did show new diffuse bilateral alveolar lung densities, may represent edema, pneumonia, or ARDS, and was given antibiotics in the ER. The patient does deny headaches, dizziness, or loss of consciousness. No chest pain and no lower extremity edema. PAST MEDICAL HISTORY: As stated above. ALLERGIES: PENICILLIN, PEANUTS AND SHELLFISH. MEDICATIONS: Home medicines, Phenergan 25 mg q.6 hours p.r.n., Exemestane 25 mg, baclofen 10 mg q.i.d., Adderall 10 mg t.i.d., Valium 5 mg q.8 hours p.r.n., duloxetine 60 mg b.i.d., gabapentin 100 mg q.4 hours, [place] 10/325 q.2 hours p.r.n., Dilaudid 4 mg p.o. q.6 p.r.n., indomethacin 50 mg b.i.d., Modafinil 100 mg q.a.m., MS Contin 50 mg t.i.d., Tapentadol 50 mg b.i.d., MiraLAX 17 g daily, prochlorperazine 10 mg q.i.d. p.r.n., ranitidine 150 mg t.i.d., vitamin C 1000 mg daily, vitamin B complex nightly. PAST SURGICAL HISTORY: Again, bilateral mastectomy in the past, splenectomy in the past. FAMILY HISTORY: Noncontributory. SOCIAL HISTORY: Negative for smoking, drinking, IV drug abuse. PHYSICAL EXAMINATION: VITAL SIGNS: T-max 100.3, pulse again 119 to 121, respirations 20, blood pressure 148 to 160 systolic over 86 to 106 diastolic, sating at 94 to 95 percent on room air. GENERAL: The patient is sitting in bed, asking for pain medications, otherwise is alert, but somewhat lethargic. HEENT: Pupils equal, round, react to light. Extraocular muscles intact. NECK: Supple. No thyromegaly. LUNGS: Distant breath sounds bilaterally. CARDIOVASCULAR: S1, S2 heard. No rubs or gallops. ABDOMEN: Soft, nontender, nondistended. Normal bowel sounds. No rebound or guarding. MUSCULOSKELETAL: No lower extremity edema bilaterally. NEUROLOGIC: No focal deficits. LABS: WBC 18.6, hemoglobin 7.9, hematocrit 25.1, platelets 608. The sodium is 140, potassium 4.2, chloride 104, CO2 23, BUN 22, creatinine 1.01, glucose 118. Lactic acid is normal at 0.8. LFTs are essentially normal, although the AST is a little high at 49. Troponin is negative times 1. UA is negative for nitrites, negative leukocyte esterase. We mentioned the chest x-ray findings. Coags show PT slightly elevated at 14.5, INR is 1.13, PTT is little high at 35.4. ASSESSMENT AND PLAN: A 51-year-old female coming in with fevers, cough, body pains, nausea and vomiting with signs of sepsis, likely secondary to upper respiratory infection. 1. Sepsis. Again, likely secondary to upper respiratory infection, possible pneumonia. Will admit the patient to med/surg. Will get hematology/oncology consult, put on broad spectrum antibiotics, Tylenol p.r.n. pain and fevers, IV fluids as well. Check TSH, A1c, and lipid panel. 2. History of breast cancer. She has ERPRA HER2 positive breast cancer. She sees hematology/oncology, Dr. Zuleta, as an outpatient. Will again consult them and continue medications for pain control. If not sufficient for controlling her pain, will get a pain management consult. 3. History of depression. Continue antidepressants. 4. Attention deficit hyperactivity disorder history. Continue to monitor for now. Continue current medications. 5. Prior history of small bowel obstruction. No present issues. Continue to monitor for now. Cautiously start diet. 6. Anemia of chronic disease. Again, likely secondary to malignancy. Hemoglobin stable presently. Continue to monitor for now. 7. Gastrointestinal prophylaxis. H2 joe. Dictated By: Martín Whitlock MD /jess/lionel /Document#: [id number]
[2017-09-14] MEDS: VITAMIN B COMPLEX/VIT C CAP PO SCH (21:54)
[2017-09-14] MEDS: VANCOMYCIN 750 MG in DEXTROSE 5% 150 ML IVPB SCH (21:57)
[2017-09-14] MEDS: DIAZEPAM 5 MG/ML SYG IV PRN (23:04)
[2017-09-15] MEDS ORDERED: PIPER-TAZO 3.375 GM IV (PMX) 100 ML IVPB SCH
[2017-09-15] MEDS ORDERED: HYDROmorphONE 4 MG TAB PO SCH
[2017-09-15] MEDS: AZTREONAM 2 GM in SOD CHLORIDE 0.9% 100 ML IVPB SCH ×4 (00:14→23:22)
[2017-09-15] MEDS: HYDROmorphONE 2 MG/ML SYG IV PRN ×6 (00:15→21:39)
[2017-09-15] MEDS: GABAPENTIN 100 MG CAP PO SCH ×6 (00:47→20:34)
[2017-09-15 02:00] VITALS: BP 121/61; PULSE 94; RESP 18
[2017-09-15] MEDS: DIAZEPAM 5 MG/ML SYG IV PRN ×3 (06:42→23:23)
[2017-09-15] MEDS: SOD CHLORIDE 0.45% 1,000 ML IV SCH ×2 (07:03→20:47)
[2017-09-15 07:35] VITALS: BP 117/57; RESP 16
[2017-09-15] MEDS: HEPARIN 5,000 UNIT/0.5 ML VIAL SC SCH (07:39)
[2017-09-15] MEDS: VANCOMYCIN 750 MG in DEXTROSE 5% 150 ML IVPB SCH ×2 (08:54→21:38)
[2017-09-15] MEDS: BACLOFEN 10 MG TAB PO SCH ×4 (08:55→20:34)
[2017-09-15] MEDS: morphine (ER) 15 MG TAB PO SCH ×3 (08:55→20:34)
[2017-09-15] MEDS: RANITIDINE 150 MG TAB PO SCH ×3 (08:55→20:34)
[2017-09-15] MEDS: ASCORBIC ACID 500 MG TAB PO SCH (08:55)
[2017-09-15] MEDS: DULOXETINE 30 MG CAP DR PO SCH ×2 (08:55→20:33)
[2017-09-15] MEDS: POLYETHYLENE GLYCOL 17 GM PACKET PO SCH (09:00)
[2017-09-15] MEDS ORDERED: SOD CHLORIDE 0.9% 250 ML IV* ONE (09:17)
--- NOTE | 2017-09-15 09:27 | PN ---
Date/Time of Note Date/Time of Note DATE: 09/15/17 TIME: 09:23 Assessment/Plan VTE Prophylaxis VTE Prophylaxis Intervention: SCD's Lines/Catheters IV Catheter Type (from Nrsg): CARISSA CATHETER Assessment/Plan Chief Complaint/Hosp Course ASSESSMENT AND PLAN: 51-year-old female coming in with fevers, cough, body pains, nausea and vomiting with signs of sepsis, likely secondary to upper respiratory infection. 1. Sepsis - Again, likely secondary to upper respiratory infection, possible pneumonia. -Continue broad spectrum antibiotics, Tylenol p.r.n. pain and fevers, IV fluids as well. -Follow-up TSH, A1c, and lipid panel. 2. History of breast cancer with distant metastasis. She has ERPRA HER2 positive breast cancer. She sees hematology/oncology, Dr. Zuleta, as an outpatient. -Follow-up hematology oncology consult - continue medications for pain control. If not sufficient for controlling her pain, will get a pain management consult. 3. History of depression. Continue antidepressants. 4. Attention deficit hyperactivity disorder history. Continue to monitor for now. Continue current medications. 5. Prior history of small bowel obstruction. No present issues. Continue to monitor for now. Cautiously start diet. 6. Anemia of chronic disease. Again, likely secondary to malignancy. Hemoglobin down to 7.1 today. -We will order for 2 units PRBC transfusion -We will discontinue heparin subcu given nosebleed. 7. Gastrointestinal prophylaxis. H2 joe. Problems: Subjective 24 Hr Interval Summary Free Text/Dictation Patient had some nosebleed this morning. No acute events overnight otherwise. Exam/Review of Systems Vital Signs Vitals Vital Signs Date Time Temp Pulse Resp B/P Pulse Ox O2 Delivery O2 Flow Rate FiO2 09/15/17 07:35 98.2 89 16 117/57 97 09/15/17 02:00 Room Air 09/14/17 15:16 2 Intake and Output 09/14/17 09/14/17 09/15/17 15:00 23:00 07:00 Intake Total 1025 ml Balance 1025 ml Exam GENERAL: The patient is sitting in bed,otherwise is alert, but somewhat lethargic. HEENT: Pupils equal, round, react to light. Extraocular muscles intact. NECK: Supple. No thyromegaly. LUNGS: some distant breath sounds bilaterally. CARDIOVASCULAR: S1, S2 heard. No rubs or gallops. ABDOMEN: Soft, nontender, nondistended. Normal bowel sounds. No rebound or guarding. MUSCULOSKELETAL: No lower extremity edema bilaterally. NEUROLOGIC: No focal deficits. Results Result Diagram: 09/15/17 0527 09/15/17 0528 Results 24 hrs Laboratory Tests Test 09/14/17 14:50 09/14/17 15:05 09/14/17 16:30 09/14/17 18:26 White Blood Count 18.6 #H Red Blood Count 2.60 L Hemoglobin 7.9 L Hematocrit 25.1 L Mean Corpuscular Volume 96.5 Mean Corpuscular Hemoglobin 30.4 Mean Corpuscular Hemoglobin Concent 31.5 L Red Cell Distribution Width 16.3 H Platelet Count 608 #H Mean Platelet Volume 10.6 H Neutrophils % Segmented Neutrophils % (Manual) 79 H Band Neutrophils % (Manual) 5 H Lymphocytes % Lymphocytes % (Manual) 7 L Monocytes % Monocytes % (Manual) 8 Eosinophils % Eosinophils % (Manual) 1 Basophils % Nucleated Red Blood Cells % 0.0 Neutrophils # Neutrophils # (Manual) 14.9 H Band Neutrophils # 0.9 H Absolute Lymphocytes (Manual) 1.3 Lymphocytes # 1.3 Monocytes # 1.5 H Absolute Monocytes (Manual) 1.4 H Eosinophils # 0.2 Basophils # Nucleated Red Blood Cells # Hypochromasia 1+ Macrocytosis 1+ Prothrombin Time 14.5 H Prothrombin Time Ratio 1.1 INR International Normalized Ratio 1.13 Activated Partial Thromboplast Time 35.4 H Urine Color YELLOW Urine Clarity CLEAR Urine pH 5.0 Urine Specific [place] 1.010 Urine Ketones NEGATIVE Urine Nitrite NEGATIVE Urine Bilirubin NEGATIVE Urine Urobilinogen NEGATIVE Urine Leukocyte Esterase NEGATIVE Urine Hemoglobin NEGATIVE Urine Glucose NEGATIVE Urine Total Protein NEGATIVE Sodium Level 140 Potassium Level 4.2 Chloride Level 104 Carbon Dioxide Level 23 Anion Gap 17 H Blood Urea Nitrogen 22 H Creatinine 1.01 H Glucose Level 118 Calcium Level 9.4 Total Bilirubin 0.1 L Direct Bilirubin 0.00 Indirect Bilirubin 0.1 Aspartate Amino Transf (AST/SGOT) 49 H Alanine Aminotransferase (ALT/SGPT) 40 Alkaline Phosphatase 154 H Troponin I < 0.012 Total Protein 7.2 Albumin 4.3 Globulin 2.90 Albumin/Globulin Ratio 1.48 Lactic Acid Level 0.8 0.8 0.7 Free Thyroxine 0.97 Test 09/15/17 05:27 09/15/17 05:28 White Blood Count 20.0 H Red Blood Count 2.35 L Hemoglobin 7.1 L Hematocrit 22.8 L Mean Corpuscular Volume 97.0 Mean Corpuscular Hemoglobin 30.2 Mean Corpuscular Hemoglobin Concent 31.1 L Red Cell Distribution Width 16.4 H Platelet Count 560 H Mean Platelet Volume 10.6 H Neutrophils % 79.0 H Lymphocytes % 11.7 L Monocytes % 6.7 Eosinophils % 1.5 Basophils % 0.3 Nucleated Red Blood Cells % 0.0 Neutrophils # 15.8 H Lymphocytes # 2.3 Monocytes # 1.3 H Eosinophils # 0.3 Basophils # 0.1 Nucleated Red Blood Cells # 0.0 Hemoglobin A1c 5.0 Sodium Level 140 Potassium Level 3.6 Chloride Level 106 Carbon Dioxide Level 25 Anion Gap 13 Blood Urea Nitrogen 14 Creatinine 0.77 Glucose Level 111 Calcium Level 8.5 Phosphorus Level 3.0 Magnesium Level 1.9 Triglycerides Level 50 Cholesterol Level 99 L LDL Cholesterol, Calculated 46 HDL Cholesterol 43 Cholesterol/HDL Ratio 2.3 Thyroid Stimulating Hormone (TSH) 0.228 L Medications Medications Current Medications Ondansetron HCl (Zofran Inj) 4 mg Q6H PRN IV NAUSEA AND/OR VOMITING; Start at 18:30 Acetaminophen (Tylenol Tab) 650 mg Q6H PRN PO PAIN LEVEL 1-3 OR FEVER; Start 09/14/17 at 18:30 Acetaminophen/ Hydrocodone Bitart ([place] (5/325)) 1 tab Q6H PRN PO MODERATE PAIN LEVEL 4-6; Start 09/14/17 at 18:30 Morphine Sulfate (morphine) 2 mg Q4H PRN IV SEVERE PAIN LEVEL 7-10; Start at 18:30 Docusate Sodium (Colace) 100 mg Q12H PRN PO CONSTIPATION; Start 09/14/17 at 18 :30 Magnesium Hydroxide (Milk Of Mag) 30 ml DAILY PRN PO CONSTIPATION; Start 09/14 at 18:30 Sodium Biphosphate/ Sodium Phosphate 133 ml 133 ml DAILY PRN [place] CONSTIPATION; Start 09/14/17 at 18:30 Sodium Chloride (1/2 NS) 1,000 ml @ 75 mls/hr [id number] IV Last administered on 09/14/17t 20:52; Admin Dose 75 MLS/HR; Start 09/14/17 at 18:07 Vancomycin HCl (Vanco Iv Per Pharmacy) VANCOMYCIN PER PHARMACY NOTE XX ; Start 09/14/17 at 18:30 Hydralazine HCl (Apresoline) 10 mg Q6H PRN IV for sys bp > 180; Start at 18:30 Clonidine (Catapres) 0.1 mg Q6H PRN PO sys bp > 160; Start 09/14/17 at 18:30 Nitroglycerin (Nitroglycerin (Sl Tab) 0.4 Mg) 1 tab Q5M PRN SL ANGINA; Start 09/14/17 at 18:30 Ascorbic Acid (Vitamin C) 1,000 mg DAILY PO Last administered on 09/15/17 08: 55; Admin Dose 1,000 MG; Start 09/15/17 at 09:00 Baclofen (Lioresal) 10 mg QID PO Last administered on 09/15/17 08:55; Admin Dose 10 MG; Start 09/14/17 at 21:00 Duloxetine HCl (Cymbalta) 60 mg BID PO Last administered on 09/15/17 08:55; Admin Dose 60 MG; Start 09/14/17 at 21:00 Gabapentin (Neurontin) 100 mg Q4 PO Last administered on 09/15/17 08:55; Admin Dose 100 MG; Start 09/14/17 at 21:00 Modafinil (Provigil) 200 mg QAM PO ; Start 09/15/17 at 09:00 Morphine Sulfate (Ms Contin (Er)) 15 mg TID PO Last administered on 09/15/17 08:55; Admin Dose 15 MG; Start 09/14/17 at 21:00 Polyethylene Glycol (Miralax) 17 gm DAILY PO ; Start 09/15/17 at 09:00 Prochlorperazine (Compazine) 10 mg QID PRN PO NAUSEA; Start 09/14/17 at 18:30 Promethazine HCl (Phenergan) 25 mg Q6H PRN PO PAIN; Start 09/14/17 at 18:30 Ranitidine HCl (Zantac) 150 mg TID PO Last administered on 09/15/17 08:55; Admin Dose 150 MG; Start 09/14/17 at 21:00 Miscellaneous Information 10 mg TID PO ; Start 09/14/17 at 21:00; Status UNV Vitamin B Complex/ Vitamin C 1 cap 1 cap QHS PO Last administered on 21:54; Admin Dose 1 CAP; Start 09/14/17 at 21:00 Aztreonam 2 gm/ Sodium Chloride 100 ml @ 100 mls/hr Q8 IVPB Last administered on 09/15/17 06:40; Admin Dose 100 MLS/HR; Start 09/14/17 at 22:00 Vancomycin HCl/ Dextrose/Water (Vancocin/D5W) 150 ml @ 75 mls/hr Q12H IVPB Last administered on 09/15/17 08:54; Admin Dose 75 MLS/HR; Start 09/14/17 at 21:00 Hydromorphone HCl (Dilaudid) 1 mg Q4H PRN IV PAIN LEVEL 6-10 Last administered on 09/15/17 08:56; Admin Dose 1 MG; Start 09/14/17 at 20:30 Diazepam (Valium) 5 mg Q8H PRN IV muscle spasm Last administered on 09/15/17 06:42; Admin Dose 5 MG; Start 09/14/17 at 22:00 OZ FULLER Sep 15, 2017 09:27
[2017-09-15] MEDS: MODAFINIL 200 MG TAB PO SCH (12:01)
[2017-09-15 20:32] VITALS: BP 108/56; RESP 18
[2017-09-15] MEDS: VITAMIN B COMPLEX/VIT C CAP PO SCH (20:34)
[2017-09-15] MEDS: HYDROCODONE/APAP (5/325) TAB PO PRN (23:28)
[2017-09-16] MEDS: HYDROmorphONE 2 MG/ML SYG IV PRN ×7 (00:34→20:25)
[2017-09-16] MEDS: GABAPENTIN 100 MG CAP PO SCH ×6 (00:40→20:19)
[2017-09-16 02:59] VITALS: BP 92/50; RESP 16
[2017-09-16] MEDS: SOD CHLORIDE 0.45% 1,000 ML IV SCH ×3 (03:30→23:27)
[2017-09-16] MEDS: VANCOMYCIN 750 MG in DEXTROSE 5% 150 ML IVPB SCH ×3 (05:02→20:29)
[2017-09-16] MEDS: HYDROCODONE/APAP (5/325) TAB PO PRN (05:59)
[2017-09-16 06:42] VITALS: BP 99/55; PULSE 78; RESP 18
[2017-09-16] MEDS: AZTREONAM 2 GM in SOD CHLORIDE 0.9% 100 ML IVPB SCH ×3 (07:19→22:00)
[2017-09-16 07:45] VITALS: BP 107/62; RESP 18
[2017-09-16] MEDS: ASCORBIC ACID 500 MG TAB PO SCH (08:14)
[2017-09-16] MEDS: MODAFINIL 200 MG TAB PO SCH (08:15)
[2017-09-16] MEDS: RANITIDINE 150 MG TAB PO SCH ×3 (08:15→20:18)
[2017-09-16] MEDS: DULOXETINE 30 MG CAP DR PO SCH ×2 (08:15→20:18)
[2017-09-16] MEDS: BACLOFEN 10 MG TAB PO SCH ×4 (08:17→20:19)
[2017-09-16] MEDS: POLYETHYLENE GLYCOL 17 GM PACKET PO SCH (08:17)
[2017-09-16] MEDS: morphine (ER) 15 MG TAB PO SCH ×3 (08:17→21:00)
[2017-09-16] MEDS ORDERED: LORAZEPAM 1 MG TAB PO PRN (10:00)
--- NOTE | 2017-09-16 10:23 | PN ---
Date/Time of Note Date/Time of Note DATE: 09/16/17 TIME: 10:20 Assessment/Plan VTE Prophylaxis VTE Prophylaxis Intervention: SCD's Lines/Catheters IV Catheter Type (from Nrs): port-a-cath Urinary Cath still in place: No Assessment/Plan Chief Complaint/Hosp Course ASSESSMENT AND PLAN: 51-year-old female coming in with fevers, cough, body pains, nausea and vomiting with signs of sepsis, likely secondary to upper respiratory infection. 1. Sepsis - Again, likely secondary to upper respiratory infection, possible pneumonia. Slowly improving. -Continue broad spectrum antibiotics - Tylenol p.r.n. pain and fevers, IV fluids as well. 2. History of breast cancer with distant metastasis. 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 She sees hematology/oncology, Dr. Zuleta , as an outpatient. -Follow-up hematology oncology consult recommendations - continue medications for pain control. If not sufficient for controlling her pain, will get a pain management consult. 3. History of depression. Continue antidepressants. 4. Attention deficit hyperactivity disorder history. Continue to monitor for now. Continue current medications. 5. Prior history of small bowel obstruction. No present issues. Continue to monitor for now. Cautiously start diet. 6. Anemia of chronic disease. Again, likely secondary to malignancy. Hemoglobin improved today after transfusion yesterday -Monitor CBC daily 7. Gastrointestinal prophylaxis. H2 joe. Problems: Subjective 24 Hr Interval Summary Free Text/Dictation Patient having some complaints of pain, crying this morning, seen by hematology oncology this morning. No fevers overnight. Received 2 units PRBC transfusion yesterday Exam/Review of Systems Vital Signs Vitals Vital Signs Date Time Temp Pulse Resp B/P Pulse Ox O2 Delivery O2 Flow Rate FiO2 09/16/17 07:45 98.4 82 18 107/62 93 09/16/17 06:42 Room Air 09/14/17 15:16 2 Intake and Output 09/15/17 09/15/17 09/16/17 15:00 23:00 07:00 Intake Total 725 ml 700 ml 1855 ml Balance 725 ml 700 ml 1855 ml Exam GENERAL: The patient is sitting in bed,otherwise is alert, in mild distress HEENT: Pupils equal, round, react to light. Extraocular muscles intact. NECK: Supple. No thyromegaly. LUNGS: some distant breath sounds bilaterally. CARDIOVASCULAR: S1, S2 heard. No rubs or gallops. ABDOMEN: Soft, nontender, nondistended. Normal bowel sounds. No rebound or guarding. MUSCULOSKELETAL: No lower extremity edema bilaterally. NEUROLOGIC: No focal deficits. Results Result Diagram: 09/16/17 0501 09/16/17 0501 Results 24 hrs Laboratory Tests Test 09/15/17 19:49 09/16/17 05:01 09/16/17 05:47 Vancomycin Level Trough 5.7 L White Blood Count 17.1 H Red Blood Count 2.93 #L Hemoglobin 8.8 #L Hematocrit 27.6 #L Mean Corpuscular Volume 94.2 Mean Corpuscular Hemoglobin 30.0 Mean Corpuscular Hemoglobin Concent 31.9 L Red Cell Distribution Width 17.3 H Platelet Count 535 H Mean Platelet Volume 10.9 H Neutrophils % 72.3 Lymphocytes % 14.3 L Monocytes % 9.1 Eosinophils % 3.0 Basophils % 0.3 Nucleated Red Blood Cells % 0.0 Neutrophils # 12.3 H Lymphocytes # 2.4 Monocytes # 1.6 H Eosinophils # 0.5 Basophils # 0.1 Nucleated Red Blood Cells # 0.0 Sodium Level 140 Potassium Level 3.7 Chloride Level 105 Carbon Dioxide Level 29 Anion Gap 10 Blood Urea Nitrogen 12 Creatinine 0.70 Glucose Level 86 Calcium Level 8.8 Lab Scanned Report BLOOD TRANSFUSION Medications Medications Current Medications Ondansetron HCl (Zofran Inj) 4 mg Q6H PRN IV NAUSEA AND/OR VOMITING Last administered on 09/16/17 10:09; Admin Dose 4 MG; Start 09/14/17 at 18:30 Acetaminophen (Tylenol Tab) 650 mg Q6H PRN PO PAIN LEVEL 1-3 OR FEVER; Start 09/14/17 at 18:30 Acetaminophen/ Hydrocodone Bitart ([place] (5/325)) 1 tab Q6H PRN PO MODERATE PAIN LEVEL 4-6 Last administered on 09/16/17 05:59; Admin Dose 1 TAB; Start 09/14/17 at 18:30 Morphine Sulfate (morphine) 2 mg Q4H PRN IV SEVERE PAIN LEVEL 7-10; Start at 18:30 Docusate Sodium (Colace) 100 mg Q12H PRN PO CONSTIPATION; Start 09/14/17 at 18 :30 Magnesium Hydroxide (Milk Of Mag) 30 ml DAILY PRN PO CONSTIPATION; Start 09/14 at 18:30 Sodium Biphosphate/ Sodium Phosphate 133 ml 133 ml DAILY PRN [place] CONSTIPATION; Start 09/14/17 at 18:30 Sodium Chloride (1/2 NS) 1,000 ml @ 75 mls/hr [id number] IV Last administered on 09/16/17 03:30; Admin Dose 75 MLS/HR; Start 09/14/17 at 18:07 Vancomycin HCl (Vanco Iv Per Pharmacy) VANCOMYCIN PER PHARMACY NOTE XX ; Start 09/14/17 at 18:30 Hydralazine HCl (Apresoline) 10 mg Q6H PRN IV for sys bp > 180; Start at 18:30 Clonidine (Catapres) 0.1 mg Q6H PRN PO sys bp > 160; Start 09/14/17 at 18:30 Nitroglycerin (Nitroglycerin (Sl Tab) 0.4 Mg) 1 tab Q5M PRN SL ANGINA; Start 09/14/17 at 18:30 Ascorbic Acid (Vitamin C) 1,000 mg DAILY PO Last administered on 09/16/17 08: 14; Admin Dose 1,000 MG; Start 09/15/17 at 09:00 Baclofen (Lioresal) 10 mg QID PO Last administered on 09/16/17 08:17; Admin Dose 10 MG; Start 09/14/17 at 21:00 Duloxetine HCl (Cymbalta) 60 mg BID PO Last administered on 09/16/17 08:15; Admin Dose 60 MG; Start 09/14/17 at 21:00 Gabapentin (Neurontin) 100 mg Q4 PO Last administered on 09/16/17 08:15; Admin Dose 100 MG; Start 09/14/17 at 21:00 Modafinil (Provigil) 200 mg QAM PO Last administered on 09/16/17 08:15; Admin Dose 200 MG; Start 09/15/17 at 09:00 Morphine Sulfate (Ms Contin (Er)) 15 mg TID PO Last administered on 09/16/17 08:17; Admin Dose 15 MG; Start 09/14/17 at 21:00 Polyethylene Glycol (Miralax) 17 gm DAILY PO ; Start 09/15/17 at 09:00 Prochlorperazine (Compazine) 10 mg QID PRN PO NAUSEA; Start 09/14/17 at 18:30 Promethazine HCl (Phenergan) 25 mg Q6H PRN PO PAIN; Start 09/14/17 at 18:30 Ranitidine HCl (Zantac) 150 mg TID PO Last administered on 09/16/17 08:15; Admin Dose 150 MG; Start 09/14/17 at 21:00 Miscellaneous Information 10 mg TID PO ; Start 09/14/17 at 21:00; Status UNV Vitamin B Complex/ Vitamin C 1 cap 1 cap QHS PO Last administered on 20:34; Admin Dose 1 CAP; Start 09/14/17 at 21:00 Aztreonam/Sodium Chloride (Azactam/NS) 100 ml @ 100 mls/hr Q8 IVPB Last administered on 09/16/17 07:19; Admin Dose 100 MLS/HR; Start 09/14/17 at 22: 00 Diazepam 5 mg 5 mg Q8H PRN IV muscle spasm Last administered on 09/15/17 23: 23; Admin Dose 5 MG; Start 09/14/17 at 22:00 Vancomycin HCl/ Dextrose/Water (Vancocin/D5W) 150 ml @ 75 mls/hr Q8H IVPB Last administered on 09/16/17 05:02; Admin Dose 75 MLS/HR; Start 09/16/17 at 05:00 Lorazepam (Ativan) 1 mg Q12H PRN PO ANXIETY; Start 09/16/17 at 10:00 Hydromorphone HCl (Dilaudid) 2 mg Q3H PRN IV PAIN LEVEL 6-10 Last administered on 09/16/17 09:55; Admin Dose 2 MG; Start 09/16/17 at 10:00 Lorazepam (Ativan) 1 mg Q6H PRN IV ANXIETY; Start 09/16/17 at 10:30; Status UNV OZ FULLER Sep 16, 2017 10:23
[2017-09-16] MEDS: LORAZEPAM 2 MG INJ IV PRN ×2 (11:35→17:50)
--- NOTE | 2017-09-16 12:40 | CONS ---
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 -continue Examestane given ER+ nature of disease with Lupron as pt is perimenopause -continue Lupron q 3 mo -will check CA 27.29 at this time -given patient is likely progressing she is reconsidering chemotherapy #Pneumonia -continue broad spectrum antibiotics #Bone Mets- -pt on Xgeva -increased Dilaudid to 2 mg IVprn pain # anemia -s/p blood transfusion -bone marrow bx ordered to further evaluate her cause of anemia -pt on procrit as an out patient Problems: Consultation Date/Type/Reason Admit Date/Time Sep 14, 2017 at 17:01 Date of Consultation: Sep 16, 2017 Type of Consultation: oncology Reason for Consultation metastatic breast cancer Referring Provider: OZ FULLER of Present Illness 49 yo female who was initially diagnosed with breast ca of the right breast in 2011 ER+/DE+/Her negative. Pt underwent a MRM and L prophylactic mastectomy with bilateral reconstruction. It was initially Stage IIIA disease. Pt refused chemotherapy but took Tamoxifen for 2-3 years. Then in February 2015 she was diagnosed with recurrence to her bones. She underwent a hip bx that revealed ER+ /DE+/Her2 + disease and patient was told to start chemotherapy at that time, but again she refused. She has since agreed to start Perjeta/ Herceptin/ Lupron / Examestane with Xgeva. She now presents with fevers, cough and chest pain. CXR consistent with pneumonia. On admission she was found with a Hg of 7 and has since received a blood transfusion. Constitutional: diaphoresis, febrile, poor po ENT: congestion Respiratory: cough, pleuritic pain, shortness of breath Cardiovascular: chest pain, edema, lightheadedness Gastrointestinal: decreased appetite, nausea Genitourinary: no complaints Musculoskeletal: back pain, bone/joint pain Skin: bruising Neurologic: no complaints Endocrine: no complaints Past Medical History spine surgery in 1997 Past Surgical History Past Surgical Hx: endoscopy, other Family History Significant Family History: no pertinent family hx Social History Smoking Status: Never smoker Exam/Review of Systems Vital Signs Vitals Vital Signs Date Time Temp Pulse Resp B/P Pulse Ox O2 Delivery O2 Flow Rate FiO2 09/16/17 07:45 98.4 82 18 107/62 93 09/16/17 06:42 Room Air 09/14/17 15:16 2 Intake and Output 09/15/17 09/15/17 09/16/17 15:00 23:00 07:00 Intake Total 725 ml 700 ml 1855 ml Balance 725 ml 700 ml 1855 ml Exam Constitutional: frail, other (lethargic) Psych: anxiety, depression Head: normocephalic Eyes: nl conjunctiva ENMT: nl external ears & nose Neck: non-tender, supple Respiratory: clear to auscultation, normal air movement Cardiovascular: regular rate and rhythm Gastrointestinal: soft Musculoskeletal: nl extremities to inspection Results Result Diagram: 09/16/17 0501 09/16/17 0501 Results 24 hrs Laboratory Tests Test 09/15/17 19:49 09/16/17 05:01 09/16/17 05:47 Vancomycin Level Trough 5.7 L White Blood Count 17.1 H Red Blood Count 2.93 #L Hemoglobin 8.8 #L Hematocrit 27.6 #L Mean Corpuscular Volume 94.2 Mean Corpuscular Hemoglobin 30.0 Mean Corpuscular Hemoglobin Concent 31.9 L Red Cell Distribution Width 17.3 H Platelet Count 535 H Mean Platelet Volume 10.9 H Neutrophils % 72.3 Lymphocytes % 14.3 L Monocytes % 9.1 Eosinophils % 3.0 Basophils % 0.3 Nucleated Red Blood Cells % 0.0 Neutrophils # 12.3 H Lymphocytes # 2.4 Monocytes # 1.6 H Eosinophils # 0.5 Basophils # 0.1 Nucleated Red Blood Cells # 0.0 Sodium Level 140 Potassium Level 3.7 Chloride Level 105 Carbon Dioxide Level 29 Anion Gap 10 Blood Urea Nitrogen 12 Creatinine 0.70 Glucose Level 86 Calcium Level 8.8 Lab Scanned Report BLOOD TRANSFUSION Medications Medications Current Medications Ondansetron HCl (Zofran Inj) 4 mg Q6H PRN IV NAUSEA AND/OR VOMITING Last administered on 09/16/17t 10:09; Admin Dose 4 MG; Start 09/14/17 at 18:30 Acetaminophen (Tylenol Tab) 650 mg Q6H PRN PO PAIN LEVEL 1-3 OR FEVER; Start 09/14/17 at 18:30 Acetaminophen/ Hydrocodone Bitart ([place] (5/325)) 1 tab Q6H PRN PO MODERATE PAIN LEVEL 4-6 Last administered on 09/16/17 05:59; Admin Dose 1 TAB; Start 09/14/17 at 18:30 Morphine Sulfate (morphine) 2 mg Q4H PRN IV SEVERE PAIN LEVEL 7-10; Start at 18:30 Docusate Sodium (Colace) 100 mg Q12H PRN PO CONSTIPATION; Start 09/14/17 at 18 :30 Magnesium Hydroxide (Milk Of Mag) 30 ml DAILY PRN PO CONSTIPATION; Start 09/14 at 18:30 Sodium Biphosphate/ Sodium Phosphate 133 ml 133 ml DAILY PRN [place] CONSTIPATION; Start 09/14/17 at 18:30 Sodium Chloride (1/2 NS) 1,000 ml @ 75 mls/hr [id number] IV Last administered on 09/16/17 03:30; Admin Dose 75 MLS/HR; Start 09/14/17 at 18:07 Vancomycin HCl (Vanco Iv Per Pharmacy) VANCOMYCIN PER PHARMACY NOTE XX ; Start 09/14/17 at 18:30 Hydralazine HCl (Apresoline) 10 mg Q6H PRN IV for sys bp > 180; Start at 18:30 Clonidine (Catapres) 0.1 mg Q6H PRN PO sys bp > 160; Start 09/14/17 at 18:30 Nitroglycerin (Nitroglycerin (Sl Tab) 0.4 Mg) 1 tab Q5M PRN SL ANGINA; Start 09/14/17 at 18:30 Ascorbic Acid (Vitamin C) 1,000 mg DAILY PO Last administered on 09/16/17 08: 14; Admin Dose 1,000 MG; Start 09/15/17 at 09:00 Baclofen (Lioresal) 10 mg QID PO Last administered on 09/16/17 08:17; Admin Dose 10 MG; Start 09/14/17 at 21:00 Duloxetine HCl (Cymbalta) 60 mg BID PO Last administered on 09/16/17 08:15; Admin Dose 60 MG; Start 09/14/17 at 21:00 Gabapentin (Neurontin) 100 mg Q4 PO Last administered on 09/16/17 08:15; Admin Dose 100 MG; Start 09/14/17 at 21:00 Modafinil (Provigil) 200 mg QAM PO Last administered on 09/16/17 08:15; Admin Dose 200 MG; Start 09/15/17 at 09:00 Morphine Sulfate (Ms Contin (Er)) 15 mg TID PO Last administered on 09/16/17 08:17; Admin Dose 15 MG; Start 09/14/17 at 21:00 Polyethylene Glycol (Miralax) 17 gm DAILY PO ; Start 09/15/17 at 09:00 Prochlorperazine (Compazine) 10 mg QID PRN PO NAUSEA; Start 09/14/17 at 18:30 Promethazine HCl (Phenergan) 25 mg Q6H PRN PO PAIN; Start 09/14/17 at 18:30 Ranitidine HCl (Zantac) 150 mg TID PO Last administered on 09/16/17 08:15; Admin Dose 150 MG; Start 09/14/17 at 21:00 Miscellaneous Information 10 mg TID PO ; Start 09/14/17 at 21:00; Status UNV Vitamin B Complex/ Vitamin C 1 cap 1 cap QHS PO Last administered on 20:34; Admin Dose 1 CAP; Start 09/14/17 at 21:00 Aztreonam/Sodium Chloride (Azactam/NS) 100 ml @ 100 mls/hr Q8 IVPB Last administered on 09/16/17 07:19; Admin Dose 100 MLS/HR; Start 09/14/17 at 22: 00 Diazepam 5 mg 5 mg Q8H PRN IV muscle spasm Last administered on 09/15/17 23: 23; Admin Dose 5 MG; Start 09/14/17 at 22:00 Vancomycin HCl/ Dextrose/Water (Vancocin/D5W) 150 ml @ 75 mls/hr Q8H IVPB Last administered on 09/16/17 05:02; Admin Dose 75 MLS/HR; Start 09/16/17 at 05:00 Lorazepam (Ativan) 1 mg Q12H PRN PO ANXIETY; Start 09/16/17 at 10:00 Hydromorphone HCl (Dilaudid) 2 mg Q3H PRN IV PAIN LEVEL 6-10 Last administered on 09/16/17 09:55; Admin Dose 2 MG; Start 09/16/17 at 10:00 Lorazepam (Ativan) 1 mg Q6H PRN IV ANXIETY Last administered on 09/16/17t 11: 35; Admin Dose 1 MG; Start 09/16/17 at 10:30 KASH LAWSON M.D. Sep 16, 2017 12:40
[2017-09-16 13:29] VITALS: BP 108/64; RESP 18
[2017-09-16 20:00] VITALS: BP 112/65; RESP 20
[2017-09-16] MEDS: VITAMIN B COMPLEX/VIT C CAP PO SCH (20:20)
[2017-09-17] VITALS (9 sets, daily range): BP systolic 99–123; BP diastolic 54–63; PULSE 72–85; RESP 18–20
[2017-09-17] MEDS: GABAPENTIN 100 MG CAP PO SCH ×6 (00:12→20:34)
[2017-09-17] MEDS: HYDROmorphONE 2 MG/ML SYG IV PRN ×7 (00:13→18:59)
[2017-09-17] MEDS: LORAZEPAM 2 MG INJ IV PRN ×4 (00:44→19:56)
[2017-09-17] MEDS: SOD CHLORIDE 0.45% 1,000 ML IV SCH (00:48)
[2017-09-17] MEDS: AZTREONAM 2 GM in SOD CHLORIDE 0.9% 100 ML IVPB SCH ×2 (01:03→08:43)
[2017-09-17] MEDS: VANCOMYCIN 750 MG in DEXTROSE 5% 150 ML IVPB SCH ×2 (05:35→12:59)
[2017-09-17] MEDS: MODAFINIL 200 MG TAB PO SCH (08:43)
[2017-09-17] MEDS: DULOXETINE 30 MG CAP DR PO SCH ×2 (08:44→20:33)
[2017-09-17] MEDS: ASCORBIC ACID 500 MG TAB PO SCH (08:44)
[2017-09-17] MEDS: morphine (ER) 15 MG TAB PO SCH ×3 (08:45→20:34)
[2017-09-17] MEDS: BACLOFEN 10 MG TAB PO SCH ×4 (08:45→20:33)
[2017-09-17] MEDS: POLYETHYLENE GLYCOL 17 GM PACKET PO SCH (08:45)
[2017-09-17] MEDS: RANITIDINE 150 MG TAB PO SCH ×3 (08:45→20:34)
[2017-09-17] MEDS ORDERED: FENTAnyl 50 MCG/ML VIAL ONE ×2 (09:38→11:18)
[2017-09-17] MEDS ORDERED: SOD CHLORIDE 0.9% 500 ML ONE ×2 (09:38→11:17)
[2017-09-17] MEDS ORDERED: LIDOCAINE 1% (MDV) 20 ML INJ ONE ×2 (09:38→11:17)
[2017-09-17] MEDS ORDERED: MIDAZOLAM 1 MG/ML 2 ML INJ ONE ×2 (09:38→11:17)
[2017-09-17] MEDS ORDERED: DIAZEPAM 5 MG TAB PO PRN (12:00)
[2017-09-17] MEDS: [UNRECOGNIZED DRUG - REMARK] XX SCH ×2 (13:00→20:35)
--- NOTE | 2017-09-17 13:23 | RADRPT ---
PROCEDURE: CT guided bone marrow aspiration and left iliac bone biopsy. CLINICAL INDICATION: History of breast cancer with bone metastases. Pancytopenia. TECHNIQUE: Informed consent was obtained. The procedure, risks, benefits, complications and alternatives were e xplained to the patient. Risks including bleeding and infection were explained. The patient understo od and was willing to proceed. A procedural pause was performed. The patient's name, date of , and procedure to be performed were verified. One or more of the following dose reduction techni ques were used: Automated exposure control, adjustment of the mA and/or kV according to patient size , use of iterative reconstruction technique. Using local anesthetic, sterile technique and CT guidance, an 11-gauge On Control bone biopsy needle was advanced into the left iliac bone via a posterior approach. Bone marrow aspiration was perform ed yielding approximately 1 ml. The bone biopsy needle was then advanced an additional 4 cm using t [employer] power drill device and tissue was obtained. Adequate tissue was obtained according to the pathol ogist present during the procedure. The needle was removed. A postprocedural scan was performed. A dressing was applied. The patient tolerated procedure well. COMPARISON: None. FINDINGS: Initial images demonstrate the tip of the needle at the posterior margin of the left iliac bone. Butts bsequent images demonstrate the needle within the bone. Post biopsy images demonstrate no immediate complication. IMPRESSION: 1. Successful CT guided bone marrow biopsy. 2. Only limited amount of bone marrow could be aspirated. RPTAT: QQ .Liu Pinedo MD, Date Time Electronically viewed and signed by .Liu Pinedo MD, MD on 09/17/2017 13:23 .R/
--- NOTE | 2017-09-17 15:08 | PN ---
Date/Time of Note Date/Time of Note DATE: 09/17/17 TIME: 14:44 Assessment/Plan VTE Prophylaxis VTE Prophylaxis Intervention: SCD's Lines/Catheters IV Catheter Type (from Nrsg): Port-a-cath Urinary Cath still in place: No Assessment/Plan Assessment/Plan 51 yo F with hx stage 4 breast ca admitted for sepsis, possibly 2/2 pulm source PLAN narrow abx to PO levoflox for possible CAP. antitcipate 5-7 days of abx onc on cs for breast ca hx, pt sp BMB today for anemia cont home meds discharge in AM if stable Subjective 24 Hr Interval Summary Free Text/Dictation Pt at BMB at time of my attempted eval this AM Exam/Review of Systems Vital Signs Vitals Vital Signs Date Time Temp Pulse Resp B/P Pulse Ox O2 Delivery O2 Flow Rate FiO2 09/17/17 13:39 98.3 84 18 123/63 91 09/16/17 06:42 Room Air 09/14/17 15:16 2 Intake and Output 09/16/17 09/16/17 09/17/17 15:00 23:00 07:00 Intake Total 250 ml 2410 ml 445 ml Balance 250 ml 2410 ml 445 ml Exam Pt at BMB at time of my attempted eval this AM Results Result Diagram: 09/17/17 0424 09/17/17 0424 Results 24 hrs Laboratory Tests Test 09/17/17 04:24 White Blood Count 10.9 #H Red Blood Count 3.17 L Hemoglobin 9.4 L Hematocrit 29.8 L Mean Corpuscular Volume 94.0 Mean Corpuscular Hemoglobin 29.7 Mean Corpuscular Hemoglobin Concent 31.5 L Red Cell Distribution Width 17.1 H Platelet Count 538 H Mean Platelet Volume 10.6 H Neutrophils % 67.2 Lymphocytes % 17.1 Monocytes % 10.7 Eosinophils % 3.0 Basophils % 0.4 Nucleated Red Blood Cells % 0.0 Neutrophils # 7.3 Lymphocytes # 1.9 Monocytes # 1.2 H Eosinophils # 0.3 Basophils # 0.0 Nucleated Red Blood Cells # 0.0 Sodium Level 140 Potassium Level 3.7 Chloride Level 105 Carbon Dioxide Level 28 Anion Gap 11 Blood Urea Nitrogen 9 Creatinine 0.65 Glucose Level 92 Calcium Level 8.4 Vancomycin Level Trough 12.2 Medications Medications Current Medications Ondansetron HCl (Zofran Inj) 4 mg Q6H PRN IV NAUSEA AND/OR VOMITING Last administered on 09/16/17 10:09; Admin Dose 4 MG; Start 09/14/17 at 18:30 Acetaminophen (Tylenol Tab) 650 mg Q6H PRN PO PAIN LEVEL 1-3 OR FEVER; Start 09/14/17 at 18:30 Acetaminophen/ Hydrocodone Bitart ([place] (5/325)) 1 tab Q6H PRN PO MODERATE PAIN LEVEL 4-6 Last administered on 09/16/17 05:59; Admin Dose 1 TAB; Start 09/14/17 at 18:30 Morphine Sulfate (morphine) 2 mg Q4H PRN IV SEVERE PAIN LEVEL 7-10; Start at 18:30 Docusate Sodium (Colace) 100 mg Q12H PRN PO CONSTIPATION; Start 09/14/17 at 18 :30 Magnesium Hydroxide (Milk Of Mag) 30 ml DAILY PRN PO CONSTIPATION; Start 09/14 at 18:30 Sodium Biphosphate/ Sodium Phosphate (Fleet Enema) 133 ml DAILY PRN [place] CONSTIPATION; Start 09/14/17 at 18:30 Vancomycin HCl (Vanco Iv Per Pharmacy) VANCOMYCIN PER PHARMACY NOTE XX ; Start 09/14/17 at 18:30 Hydralazine HCl (Apresoline) 10 mg Q6H PRN IV for sys bp > 180; Start at 18:30 Clonidine (Catapres) 0.1 mg Q6H PRN PO sys bp > 160; Start 09/14/17 at 18:30 Nitroglycerin (Nitroglycerin (Sl Tab) 0.4 Mg) 1 tab Q5M PRN SL ANGINA; Start 09/14/17 at 18:30 Ascorbic Acid (Vitamin C) 1,000 mg DAILY PO Last administered on 09/17/17 08: 44; Admin Dose 1,000 MG; Start 09/15/17 at 09:00 Baclofen (Lioresal) 10 mg QID PO Last administered on 09/17/17 13:00; Admin Dose 10 MG; Start 09/14/17 at 21:00 Duloxetine HCl (Cymbalta) 60 mg BID PO Last administered on 09/17/17 08:44; Admin Dose 60 MG; Start 09/14/17 at 21:00 Gabapentin (Neurontin) 100 mg Q4 PO Last administered on 09/17/17 13:00; Admin Dose 100 MG; Start 09/14/17 at 21:00 Modafinil (Provigil) 200 mg QAM PO Last administered on 09/17/17 08:43; Admin Dose 200 MG; Start 09/15/17 at 09:00 Morphine Sulfate (Ms Contin (Er)) 15 mg TID PO Last administered on 09/17/17 13:00; Admin Dose 15 MG; Start 09/14/17 at 21:00 Polyethylene Glycol (Miralax) 17 gm DAILY PO ; Start 09/15/17 at 09:00 Prochlorperazine (Compazine) 10 mg QID PRN PO NAUSEA; Start 09/14/17 at 18:30 Promethazine HCl (Phenergan) 25 mg Q6H PRN PO PAIN; Start 09/14/17 at 18:30 Ranitidine HCl (Zantac) 150 mg TID PO Last administered on 09/17/17 13:00; Admin Dose 150 MG; Start 09/14/17 at 21:00 Miscellaneous Information 10 mg TID PO ; Start 09/14/17 at 21:00; Status UNV Vitamin B Complex/ Vitamin C 1 cap 1 cap QHS PO Last administered on 20:20; Admin Dose 1 CAP; Start 09/14/17 at 21:00 Aztreonam 2 gm/ Sodium Chloride 100 ml @ 100 mls/hr Q8 IVPB Last administered on 09/17/17 08:43; Admin Dose 100 MLS/HR; Start 09/14/17 at 22:00 Vancomycin HCl/ Dextrose/Water (Vancocin/D5W) 150 ml @ 75 mls/hr Q8H IVPB Last administered on 09/17/17 12:59; Admin Dose 75 MLS/HR; Start 09/16/17 at 05:00 Lorazepam (Ativan) 1 mg Q12H PRN PO ANXIETY; Start 09/16/17 at 10:00 Lorazepam (Ativan) 1 mg Q6H PRN IV ANXIETY Last administered on 09/17/17 14: 06; Admin Dose 1 MG; Start 09/16/17 at 10:30 Diazepam (Valium) 5 mg Q8H PRN PO MUSCLE SPASMS; Start 09/17/17 at 12:00 Miscellaneous Information (*Order Clarification Bulletin) ADDERAL ...IS NON FORMULARY--PLE... Q8H XX ; Start 09/17/17 at 13:00 Hydromorphone HCl (Dilaudid) 2 mg Q2 PRN IV PAIN LEVEL 6-10; Start 09/17/17 at 15:00 JOHN LOPES MD Sep 17, 2017 14:54
--- NOTE | 2017-09-17 16:46 | CONS ---
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 -continue Examestane given ER+ nature of disease with Lupron as pt is perimenopause -continue Lupron q 3 mo -will check CA 27.29 at this time -given patient is likely progressing she is reconsidering chemotherapy #Pneumonia -continue broad spectrum antibiotics #Bone Mets- -pt on Xgeva -increased Dilaudid to 2 mg IVprn pain # anemia -s/p blood transfusion -bone marrow bx ordered to further evaluate her cause of anemia -pt on procrit as an out patient Problems: Consultation Date/Type/Reason Admit Date/Time Sep 14, 2017 at 17:01 Initial Consult Date 09/16/17 Type of Consultation: oncology Reason for Consultation metastatic breast cancer Referring Provider: OZ FULLER 24 HR Interval Summary Free Text/Dictation pt still very weak this morning. continues to c/o shortness of breath Exam/Review of Systems Vital Signs Vitals Vital Signs Date Time Temp Pulse Resp B/P Pulse Ox O2 Delivery O2 Flow Rate FiO2 09/17/17 13:39 98.3 84 18 123/63 91 09/16/17 06:42 Room Air 09/14/17 15:16 2 Intake and Output 09/16/17 09/16/17 09/17/17 15:00 23:00 07:00 Intake Total 250 ml 2410 ml 445 ml Balance 250 ml 2410 ml 445 ml Exam Constitutional: alert, distress, frail, oriented Psych: anxiety, depression, no complaints Head: normocephalic Eyes: nl conjunctiva ENMT: nl external ears & nose Neck: non-tender, supple Respiratory: congested cough Cardiovascular: regular rate and rhythm Gastrointestinal: soft Musculoskeletal: nl extremities to inspection Results Result Diagram: 09/17/174 09/17/174 Results 24 hrs Laboratory Tests Test 09/17/17 04:24 White Blood Count 10.9 #H Red Blood Count 3.17 L Hemoglobin 9.4 L Hematocrit 29.8 L Mean Corpuscular Volume 94.0 Mean Corpuscular Hemoglobin 29.7 Mean Corpuscular Hemoglobin Concent 31.5 L Red Cell Distribution Width 17.1 H Platelet Count 538 H Mean Platelet Volume 10.6 H Neutrophils % 67.2 Lymphocytes % 17.1 Monocytes % 10.7 Eosinophils % 3.0 Basophils % 0.4 Nucleated Red Blood Cells % 0.0 Neutrophils # 7.3 Lymphocytes # 1.9 Monocytes # 1.2 H Eosinophils # 0.3 Basophils # 0.0 Nucleated Red Blood Cells # 0.0 Sodium Level 140 Potassium Level 3.7 Chloride Level 105 Carbon Dioxide Level 28 Anion Gap 11 Blood Urea Nitrogen 9 Creatinine 0.65 Glucose Level 92 Calcium Level 8.4 Vancomycin Level Trough 12.2 Medications Medications Current Medications Ondansetron HCl (Zofran Inj) 4 mg Q6H PRN IV NAUSEA AND/OR VOMITING Last administered on 09/16/17 10:09; Admin Dose 4 MG; Start 09/14/17 at 18:30 Acetaminophen (Tylenol Tab) 650 mg Q6H PRN PO PAIN LEVEL 1-3 OR FEVER; Start 09/14/17 at 18:30 Acetaminophen/ Hydrocodone Bitart ([place] (5/325)) 1 tab Q6H PRN PO MODERATE PAIN LEVEL 4-6 Last administered on 09/16/17 05:59; Admin Dose 1 TAB; Start 09/14/17 at 18:30 Morphine Sulfate (morphine) 2 mg Q4H PRN IV SEVERE PAIN LEVEL 7-10; Start at 18:30 Docusate Sodium (Colace) 100 mg Q12H PRN PO CONSTIPATION; Start 09/14/17 at 18 :30 Magnesium Hydroxide (Milk Of Mag) 30 ml DAILY PRN PO CONSTIPATION; Start 09/14 at 18:30 Sodium Biphosphate/ Sodium Phosphate (Fleet Enema) 133 ml DAILY PRN [place] CONSTIPATION; Start 09/14/17 at 18:30 Hydralazine HCl (Apresoline) 10 mg Q6H PRN IV for sys bp > 180; Start at 18:30 Clonidine (Catapres) 0.1 mg Q6H PRN PO sys bp > 160; Start 09/14/17 at 18:30 Nitroglycerin (Nitroglycerin (Sl Tab) 0.4 Mg) 1 tab Q5M PRN SL ANGINA; Start 09/14/17 at 18:30 Ascorbic Acid (Vitamin C) 1,000 mg DAILY PO Last administered on 09/17/17 08: 44; Admin Dose 1,000 MG; Start 09/15/17 at 09:00 Baclofen (Lioresal) 10 mg QID PO Last administered on 09/17/17 13:00; Admin Dose 10 MG; Start 09/14/17 at 21:00 Duloxetine HCl (Cymbalta) 60 mg BID PO Last administered on 09/17/17 08:44; Admin Dose 60 MG; Start 09/14/17 at 21:00 Gabapentin (Neurontin) 100 mg Q4 PO Last administered on 09/17/17 13:00; Admin Dose 100 MG; Start 09/14/17 at 21:00 Modafinil (Provigil) 200 mg QAM PO Last administered on 09/17/17 08:43; Admin Dose 200 MG; Start 09/15/17 at 09:00 Morphine Sulfate (Ms Contin (Er)) 15 mg TID PO Last administered on 09/17/17 13:00; Admin Dose 15 MG; Start 09/14/17 at 21:00 Polyethylene Glycol (Miralax) 17 gm DAILY PO ; Start 09/15/17 at 09:00 Prochlorperazine (Compazine) 10 mg QID PRN PO NAUSEA; Start 09/14/17 at 18:30 Promethazine HCl (Phenergan) 25 mg Q6H PRN PO PAIN; Start 09/14/17 at 18:30 Ranitidine HCl (Zantac) 150 mg TID PO Last administered on 09/17/17 13:00; Admin Dose 150 MG; Start 09/14/17 at 21:00 Miscellaneous Information 10 mg TID PO ; Start 09/14/17 at 21:00; Status UNV Vitamin B Complex/ Vitamin C ([place]) 1 cap QHS PO Last administered on 20:20; Admin Dose 1 CAP; Start 09/14/17 at 21:00 Lorazepam (Ativan) 1 mg Q12H PRN PO ANXIETY; Start 09/16/17 at 10:00 Lorazepam (Ativan) 1 mg Q6H PRN IV ANXIETY Last administered on 09/17/17 14: 06; Admin Dose 1 MG; Start 10/29/17 at 10:30 Diazepam (Valium) 5 mg Q8H PRN PO MUSCLE SPASMS Last administered on 15:00; Admin Dose 5 MG; Start 09/17/17 at 12:00 Miscellaneous Information (*Order Clarification Bulletin) ADDERAL ...IS NON FORMULARY--PLE... Q8H XX ; Start 09/17/17 at 13:00 Hydromorphone HCl (Dilaudid) 2 mg Q2 PRN IV PAIN LEVEL 6-10 Last administered on 09/17/17 15:00; Admin Dose 2 MG; Start 09/17/17 at 15:00 Levofloxacin (Levaquin) 750 mg DAILY@06 PO ; Start 09/18/17 at 06:00 KASH LAWSON M.D. Sep 17, 2017 16:46
[2017-09-17] MEDS: VITAMIN B COMPLEX/VIT C CAP PO SCH (20:33)
[2017-09-17] MEDS ORDERED: HYDROmorphONE 2 MG/ML SYG IV STA ×2 (21:41→21:59)
[2017-09-17] MEDS ORDERED: HYDROmorphONE 0.5 MG/0.5 ML SYG IV STA (21:56)
[2017-09-18] MEDS: HYDROmorphONE 2 MG/ML SYG IV PRN ×9 (01:00→18:34)
[2017-09-18] MEDS: GABAPENTIN 100 MG CAP PO SCH ×6 (01:00→20:33)
[2017-09-18 01:32] VITALS: BP 112/58; RESP 18
[2017-09-18] MEDS: LORAZEPAM 2 MG INJ IV PRN ×2 (04:11→09:36)
[2017-09-18] MEDS: HYDROmorphONE 0.5 MG/0.5 ML SYG IV PRN ×3 (04:12→15:43)
[2017-09-18] MEDS: [UNRECOGNIZED DRUG - REMARK] XX SCH ×3 (04:35→21:00)
[2017-09-18] MEDS: LEVOFLOXACIN 750 MG TABLET PO SCH (06:06)
[2017-09-18 07:30] VITALS: BP 113/63; RESP 20
[2017-09-18] MEDS: ASCORBIC ACID 500 MG TAB PO SCH (08:02)
[2017-09-18] MEDS: BACLOFEN 10 MG TAB PO SCH ×4 (08:02→20:34)
[2017-09-18] MEDS: RANITIDINE 150 MG TAB PO SCH ×3 (08:03→20:33)
[2017-09-18] MEDS: morphine (ER) 15 MG TAB PO SCH ×2 (08:03→12:11)
[2017-09-18] MEDS: MODAFINIL 200 MG TAB PO SCH (08:03)
[2017-09-18] MEDS: DULOXETINE 30 MG CAP DR PO SCH ×2 (08:03→20:33)
[2017-09-18] MEDS: POLYETHYLENE GLYCOL 17 GM PACKET PO SCH (08:04)
[2017-09-18 14:00] VITALS: BP 108/65; RESP 20
--- NOTE | 2017-09-18 14:39 | PN ---
Date/Time of Note Date/Time of Note DATE: 09/18/17 TIME: 14:37 Assessment/Plan VTE Prophylaxis VTE Prophylaxis Intervention: SCD's Lines/Catheters IV Catheter Type (from Nrsg): portacath Urinary Cath still in place: No Assessment/Plan Assessment/Plan 51 yo F with hx stage 4 breast ca admitted for sepsis, possibly 2/2 pulm source PLAN PO levoflox for possible CAP. anticipate 5-7 days of abx onc on cs for breast ca hx, pt sp BMB 10.30 for anemia IV iron per patient request. iron studies unlikely to be helpful given recent transfusions cont home meds pain management eval Subjective 24 Hr Interval Summary Free Text/Dictation pain control inadequate Exam/Review of Systems Vital Signs Vitals Vital Signs Date Time Temp Pulse Resp B/P Pulse Ox O2 Delivery O2 Flow Rate FiO2 09/18/17 07:30 98.3 86 20 113/63 93 09/17/17 14:30 Room Air 09/14/17 15:16 2 Intake and Output 09/17/17 09/17/17 09/18/17 15:00 23:00 07:00 Intake Total 1710 ml 1200 ml Output Total 250 ml Balance 1710 ml 950 ml Exam nad no mrg lungs clear abd soft no rashes +port in L chest Results Result Diagram: 09/18/1718 09/18/17 0818 Results 24 hrs Laboratory Tests Test 09/18/17 08:18 White Blood Count 7.9 # Red Blood Count 2.81 L Hemoglobin 8.1 L Hematocrit 25.9 L Mean Corpuscular Volume 92.2 Mean Corpuscular Hemoglobin 28.8 L Mean Corpuscular Hemoglobin Concent 31.3 L Red Cell Distribution Width 16.3 H Platelet Count 307 # Mean Platelet Volume 11.0 H Neutrophils % 51.1 Lymphocytes % 27.2 Monocytes % 15.1 H Eosinophils % 3.7 Basophils % 0.5 Nucleated Red Blood Cells % 0.3 H Neutrophils # 4.0 Lymphocytes # 2.2 Monocytes # 1.2 H Eosinophils # 0.3 Basophils # 0.0 Nucleated Red Blood Cells # 0.0 Sodium Level 141 Potassium Level 3.1 L Chloride Level 109 Carbon Dioxide Level 26 Anion Gap 9 Blood Urea Nitrogen 5 L Creatinine 0.58 Glucose Level 82 Calcium Level 7.5 L Medications Medications Current Medications Ondansetron HCl (Zofran Inj) 4 mg Q6H PRN IV NAUSEA AND/OR VOMITING Last administered on 09/16/17 10:09; Admin Dose 4 MG; Start 09/14/17 at 18:30 Acetaminophen (Tylenol Tab) 650 mg Q6H PRN PO PAIN LEVEL 1-3 OR FEVER; Start 09/14/17 at 18:30 Acetaminophen/ Hydrocodone Bitart ([place] (5/325)) 1 tab Q6H PRN PO MODERATE PAIN LEVEL 4-6 Last administered on 09/16/17 05:59; Admin Dose 1 TAB; Start 09/14/17 at 18:30 Morphine Sulfate (morphine) 2 mg Q4H PRN IV SEVERE PAIN LEVEL 7-10; Start at 18:30 Docusate Sodium (Colace) 100 mg Q12H PRN PO CONSTIPATION; Start 09/14/17 at 18 :30 Magnesium Hydroxide (Milk Of Mag) 30 ml DAILY PRN PO CONSTIPATION; Start 09/14 at 18:30 Sodium Biphosphate/ Sodium Phosphate (Fleet Enema) 133 ml DAILY PRN [place] CONSTIPATION; Start 09/14/17 at 18:30 Hydralazine HCl (Apresoline) 10 mg Q6H PRN IV for sys bp > 180; Start at 18:30 Clonidine (Catapres) 0.1 mg Q6H PRN PO sys bp > 160; Start 09/14/17 at 18:30 Nitroglycerin (Nitroglycerin (Sl Tab) 0.4 Mg) 1 tab Q5M PRN SL ANGINA; Start 09/14/17 at 18:30 Ascorbic Acid (Vitamin C) 1,000 mg DAILY PO Last administered on 09/18/17 08: 02; Admin Dose 1,000 MG; Start 09/15/17 at 09:00 Baclofen (Lioresal) 10 mg QID PO Last administered on 09/18/17 12:10; Admin Dose 10 MG; Start 09/14/17 at 21:00 Duloxetine HCl (Cymbalta) 60 mg BID PO Last administered on 09/18/17 08:03; Admin Dose 60 MG; Start 09/14/17 at 21:00 Gabapentin (Neurontin) 100 mg Q4 PO Last administered on 09/18/17 12:10; Admin Dose 100 MG; Start 09/14/17 at 21:00 Modafinil (Provigil) 200 mg QAM PO Last administered on 09/18/17 08:03; Admin Dose 200 MG; Start 09/15/17 at 09:00 Morphine Sulfate (Ms Contin (Er)) 15 mg TID PO Last administered on 09/18/17 12:11; Admin Dose 15 MG; Start 09/14/17 at 21:00 Polyethylene Glycol (Miralax) 17 gm DAILY PO ; Start 09/15/17 at 09:00 Prochlorperazine (Compazine) 10 mg QID PRN PO NAUSEA; Start 09/14/17 at 18:30 Promethazine HCl (Phenergan) 25 mg Q6H PRN PO PAIN; Start 09/14/17 at 18:30 Ranitidine HCl (Zantac) 150 mg TID PO Last administered on 09/18/17 12:10; Admin Dose 150 MG; Start 09/14/17 at 21:00 Miscellaneous Information 10 mg TID PO ; Start 09/14/17 at 21:00; Status UNV Vitamin B Complex/ Vitamin C ([place]) 1 cap QHS PO Last administered on 20:33; Admin Dose 1 CAP; Start 09/14/17 at 21:00 Lorazepam (Ativan) 1 mg Q12H PRN PO ANXIETY; Start 09/16/17 at 10:00 Lorazepam (Ativan) 1 mg Q6H PRN IV ANXIETY Last administered on 09/18/17 09: 36; Admin Dose 1 MG; Start 09/16/17 at 10:30 Diazepam (Valium) 5 mg Q8H PRN PO MUSCLE SPASMS Last administered on 15:00; Admin Dose 5 MG; Start 09/17/17 at 12:00 Miscellaneous Information (*Order Clarification Bulletin) ADDERAL ...IS NON FORMULARY--PLE... Q8H XX ; Start 09/17/17 at 13:00 Hydromorphone HCl (Dilaudid) 2 mg Q2 PRN IV PAIN LEVEL 6-10 Last administered on 09/18/17 14:14; Admin Dose 2 MG; Start 09/17/17 at 15:00 Levofloxacin (Levaquin) 750 mg DAILY@06 PO Last administered on 09/18/17 06: 06; Admin Dose 750 MG; Start 09/18/17 at 06:00 Hydromorphone HCl (Dilaudid) 0.5 mg Q4H PRN IV BREAKTHROUGH PAIN Last administered on 09/18/17 09:36; Admin Dose 0.5 MG; Start 09/17/17 at 22:00 JOHN LOPES MD Sep 18, 2017 14:39
[2017-09-18] MEDS ORDERED: HYDROCORTISONE 0.5% 28.35 GM CR TOP SCH (15:00)
[2017-09-18] MEDS ORDERED: SOD FERRIC GLUC COMPLX 125 MG in SOD CHLORIDE 0.9% 100 ML IVPB ONE (16:00)
[2017-09-18 19:31] VITALS: BP 135/74; RESP 18
[2017-09-18] MEDS: HYDROmorphONE 0.2 MG/ML PCA IV SCH (20:31)
[2017-09-18] MEDS: VITAMIN B COMPLEX/VIT C CAP PO SCH (20:33)
[2017-09-18] MEDS ORDERED: HYDROCORTISONE 2.5% 28.35 GM CR TOP SCH ×2 (21:00→21:22)
[2017-09-19 01:39] VITALS: BP 122/69; RESP 18
[2017-09-19] MEDS: GABAPENTIN 100 MG CAP PO SCH ×5 (02:16→18:10)
[2017-09-19] MEDS: HYDROmorphONE 0.2 MG/ML PCA IV SCH ×4 (02:20→15:30)
[2017-09-19] MEDS: [UNRECOGNIZED DRUG - REMARK] XX SCH ×2 (05:00→12:15)
[2017-09-19] MEDS: LEVOFLOXACIN 750 MG TABLET PO SCH (05:24)
[2017-09-19 07:51] VITALS: BP 95/51; RESP 16
[2017-09-19] MEDS: BACLOFEN 10 MG TAB PO SCH ×3 (08:37→18:10)
[2017-09-19] MEDS: RANITIDINE 150 MG TAB PO SCH ×2 (08:37→12:22)
[2017-09-19] MEDS: ASCORBIC ACID 500 MG TAB PO SCH (08:37)
[2017-09-19] MEDS: DULOXETINE 30 MG CAP DR PO SCH (08:37)
[2017-09-19] MEDS: MODAFINIL 200 MG TAB PO SCH (08:41)
[2017-09-19] MEDS ORDERED: POTASSIUM CHLORIDE (SR) 20 MEQ TAB PO STA ×2 (08:43→10:36)
[2017-09-19] MEDS: POLYETHYLENE GLYCOL 17 GM PACKET PO SCH (09:00)
[2017-09-19] MEDS ORDERED: TRAZ50TA18 PO (10:49)
--- NOTE | 2017-09-19 10:55 | CONS ---
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 She has done very well in the past on methadone but request not using at this time. She has been very compliant in the past and has never asked for pain medications inappropriately. Supportive care Antiemetics as needed Bowel regimen Consultation Date/Type/Reason Admit Date/Time Sep 14, 2017 at 17:01 Type of Consultation: Pain management Hx of Present Illness 51-year-old female well-known to me with a history of metastatic breast cancer to spine status post pathological fracture. Status post chemotherapy and XRT, bilateral mastectomy severe acute on chronic pain syndrome. Patient is always been compliant with her medications she has never asked for escalating doses, he has not had complaints of nausea vomiting dizziness diplopia disorientation, pruritus. She grades her pain 9/10 but with appropriate medication she will come down to 5/10 but still very symptomatic. She presented to the emergency room with a febrile illness and was admitted and request pain control consultation. Constitutional: diaphoresis, febrile, poor po ENT: congestion Respiratory: cough, pleuritic pain, shortness of breath Cardiovascular: chest pain, edema, lightheadedness Gastrointestinal: decreased appetite, nausea Genitourinary: no complaints Musculoskeletal: back pain, bone/joint pain Skin: bruising Neurologic: no complaints Endocrine: no complaints Psychological: anxiety, depression, no complaints Past Surgical History Past Surgical Hx: endoscopy, other Social History Smoking Status: Never smoker Exam/Review of Systems Vital Signs Vitals Vital Signs Date Time Temp Pulse Resp B/P Pulse Ox O2 Delivery O2 Flow Rate FiO2 09/19/17 07:51 98.3 76 16 95/51 93 09/17/17 14:30 Room Air Intake and Output 09/18/17 09/18/17 09/19/17 15:00 23:00 07:00 Intake Total 110 ml 500 ml Output Total 300 ml Balance -190 ml 500 ml Exam Constitutional: alert, distress, oriented, well developed Psych: nl mood/affect, no complaints Neurological: CARDIO CLINICIAN II-XII intact, nl mental status, nl speech, nl strength Results Result Diagram: 09/19/17 0530 09/19/17 0531 Results 24 hrs Laboratory Tests Test 09/19/17 05:30 09/19/17 05:31 White Blood Count 11.4 #H Red Blood Count 3.10 L Hemoglobin 9.0 L Hematocrit 29.3 L Mean Corpuscular Volume 94.5 Mean Corpuscular Hemoglobin 29.0 Mean Corpuscular Hemoglobin Concent 30.7 L Red Cell Distribution Width 16.1 H Platelet Count 586 #H Mean Platelet Volume 10.5 H Neutrophils % 54.2 Lymphocytes % 24.5 Monocytes % 13.3 H Eosinophils % 3.3 Basophils % 0.4 Nucleated Red Blood Cells % 0.3 H Neutrophils # 6.2 Lymphocytes # 2.8 Monocytes # 1.5 H Eosinophils # 0.4 Basophils # 0.0 Nucleated Red Blood Cells # 0.0 Sodium Level 143 Potassium Level 3.4 L Chloride Level 104 Carbon Dioxide Level 32 H Anion Gap 10 Blood Urea Nitrogen 7 Creatinine 0.73 Glucose Level 103 Calcium Level 8.9 Medications Medications Current Medications Ondansetron HCl (Zofran Inj) 4 mg Q6H PRN IV NAUSEA AND/OR VOMITING Last administered on 09/16/17 10:09; Admin Dose 4 MG; Start 09/14/17 at 18:30 Acetaminophen (Tylenol Tab) 650 mg Q6H PRN PO PAIN LEVEL 1-3 OR FEVER; Start 09/14/17 at 18:30 Hydralazine HCl (Apresoline) 10 mg Q6H PRN IV for sys bp > 180; Start at 18:30 Ascorbic Acid (Vitamin C) 1,000 mg DAILY PO Last administered on 09/19/17 08: 37; Admin Dose 1,000 MG; Start 09/15/17 at 09:00 Baclofen (Lioresal) 10 mg QID PO Last administered on 09/19/17 08:37; Admin Dose 10 MG; Start 09/14/17 at 21:00 Duloxetine HCl (Cymbalta) 60 mg BID PO Last administered on 09/19/17 08:37; Admin Dose 60 MG; Start 09/14/17 at 21:00 Gabapentin (Neurontin) 100 mg Q4 PO Last administered on 09/19/17 08:37; Admin Dose 100 MG; Start 09/14/17 at 21:00 Modafinil (Provigil) 200 mg QAM PO Last administered on 09/19/17 08:41; Admin Dose 200 MG; Start 09/15/17 at 09:00 Polyethylene Glycol (Miralax) 17 gm DAILY PO ; Start 09/15/17 at 09:00 Ranitidine HCl (Zantac) 150 mg TID PO Last administered on 09/19/17 08:37; Admin Dose 150 MG; Start 09/14/17 at 21:00 Miscellaneous Information 10 mg TID PO ; Start 09/14/17 at 21:00; Status UNV Vitamin B Complex/ Vitamin C ([place]) 1 cap QHS PO Last administered on 20:33; Admin Dose 1 CAP; Start 09/14/17 at 21:00 Diazepam (Valium) 5 mg Q8H PRN PO MUSCLE SPASMS Last administered on 15:00; Admin Dose 5 MG; Start 09/17/17 at 12:00 Miscellaneous Information (*Order Clarification Bulletin) ADDERAL ...IS NON FORMULARY--PLE... Q8H XX ; Start 09/17/17 at 13:00 Levofloxacin (Levaquin) 750 mg DAILY@06 PO Last administered on 09/19/17 05:24 ; Admin Dose 750 MG; Start 09/18/17 at 06:00 Hydromorphone HCl (Dilaudid ARCHITECTURE INSTRUCTOR) 1 MG/HR CONTINUOUS RATE ... Q4PCA IV Last administered on 09/19/17 06:50; Admin Dose 6 MG; Start 09/18/17 at 19:30 Hydrocortisone 1 applic BID TOP Last administered on 09/19/17 08:39; Admin Dose 1 APPLIC; Start 09/18/17 at 21:22 CECILE CHANEL Sep 19, 2017 10:55
--- NOTE | 2017-09-19 13:08 | PDOCDIS ---
Discharge Instructions CONDITION Patient Condition: Stable HOME CARE INSTRUCTIONS: Special Diet: regular FOLLOW UP/APPOINTMENTS Follow-up Plan Follow up with Dr Cole as scheduled JOHN LOPES MD Sep 19, 2017 13:08
--- NOTE | 2017-09-19 13:11 | DS ---
Date/Time of Note Date/Time of Note DATE: 09/19/17 TIME: 13:08 Discharge Summary Admission/Discharge Info Admit Date/Time Sep 14, 2017 at 17:01 Discharge Date/Time Discharge Diagnosis community acquired pneumonia, stage 4 breast cancer now with mets to bone marrow Patient Condition: Stable Consults oncology, palliative care Procedures CXR 09.14: infiltrates consistent with pneumonia BMB .: path with evidence of breast carcinoma Hx of Present Illness A 51-year-old female with a past medical history of breast cancer with bony and extensive thoracic spine metastasis, status post double mastectomy, prior renal insufficiency, lymphoma, splenectomy, depression, chronic back pain, ADHD, pathologic rib fracture, who comes in with 1 to 2 days of complaints of cough as well as body pains and subjective fevers at home, also nausea. She also had some vomiting symptoms, nonbilious, nonbloody. Patient was last here at our hospital from August 01 to August 04, 2017 and treated for pain management at that time. 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 Zuleta, as an outpatient and has had chemotherapy, last time over 2 months ago. When the patient came in today, she had a fever of 100.3, and she was tachycardic as well, heart rate in the 110 to 120 range. Her chest x-ray on this admission did show new diffuse bilateral alveolar lung densities, may represent edema, pneumonia, or ARDS, and was given antibiotics in the ER. The patient does deny headaches, dizziness, or loss of consciousness. No chest pain and no lower extremity edema. Hospital Course 51 yo F with hx stage 4 breast ca admitted for sepsis, possibly 2/2 pulm source. Pt completed 6 days of antibiotics for community acquired pneumonia. Oncology was consulted. Given pt's anemia pt underwent BMB which showed spread of her breast cancer to her bone marrow. Pt will f/u with her oncologist in clinic to discuss management options. Pt with periods of suboptimal pain management during her stay. Palliative care was consulted and pain meds adjusted. Pt started on trazodone to help with sleep. Changes from admit meds -low dose trazadone ordered to help with sleep Home Meds Active Scripts Diazepam* (Valium*) 5 Mg Tablet, 5 MG PO Q8 Y for MUSCLE SPASMS, #30 TAB Prov:INOCENCIO TRACEY 08/04/17 Polyethylene Glycol* (Miralax*) 17 Gm Powd.pack, 17 GM PO DAILY, #30 PACKET 1 Refill Prov:OZ FULLER. 04/14/17 Reported Medications Modafinil* (Provigil*) 200 Mg Tablet, 200 MG PO QAM, TAB 09/04/17 Duloxetine Hcl* (Duloxetine Hcl*) 60 Mg Capsule.dr, 60 MG PO BID, #30 CAP 03/19/17 Exemestane* (Exemestane*) 25 Mg Tablet, 25 MG PO, TAB 03/19/17 Indomethacin* (Indocin*) 50 Mg Cap, 50 MG PO BID, CAP 03/19/17 Promethazine Hcl* (Phenergan*) 25 Mg Tablet, 25 MG PO Q6H Y for PAIN, TAB 03/19/17 Vitamin B Complex (Vitamin B Complex) 1 Each Capsule, 1 EACH PO QHS, CAP 02/16/17 Ascorbic Acid (Vitamin C) 500 Mg Tab, 1000 MG PO DAILY, TAB 02/16/17 Prochlorperazine* (Prochlorperazine*) 10 Mg Tablet, 10 MG PO QID Y for NAUSEA, TAB 02/16/17 Ranitidine Hcl* (Ranitidine Hcl*) 150 Mg Tablet, 150 MG PO TID, #90 TAB 02/16/17 Tapentadol Hcl (Nucynta) 100 Mg Tablet, 50 MG PO BID, TAB 02/16/17 Gabapentin* (Gabapentin*) 100 Mg Capsule, 100 MG PO Q4, #120 CAP 02/16/17 Amphet Eqm-Dryoom-N-Amphet (Adderall) 10 Mg Tablet, 10 MG PO TID, TAB 02/16/17 Baclofen* (Baclofen*) 10 Mg Tablet, 10 MG PO QID, TAB 02/16/17 Hydromorphone Hcl* (Dilaudid*) 4 Mg Tablet, 4 MG PO Q6, TAB 02/16/17 Morphine Sulfate* (Ms Contin*) 15 Mg Tablet.sa, 15 MG PO TID, TAB.SA 02/16/17 Hydrocodone/Acetaminophen ([place] 10-325 Tablet) 1 Each Tablet, 1 EACH PO Q3H, TAB 02/16/17 Follow-up Plan Follow up with Dr Zuleta as scheduled Primary Care Provider Not On Staff Doctor Time spent on discharge: > 30 minutes Pending Labs Laboratory Tests Test 09/19/17 05:30 09/19/17 05:31 White Blood Count 11.410^3/ul (4.8-10.8) Red Blood Count 3.1010^6/ul (4.20-5.40) Hemoglobin 9.0g/dl (12.0-16.0) Hematocrit 29.3% (37.0-47.0) Mean Corpuscular Volume 94.5fl (82.0-101.0) Mean Corpuscular Hemoglobin 29.0pg (29.0-33.0) Mean Corpuscular Hemoglobin Concent 30.7g/dl (32.0-37.0) Red Cell Distribution Width 16.1% (11.5-14.5) Platelet Count 65220^3/UL (140-415) Mean Platelet Volume 10.5fl (7.4-10.4) Neutrophils % 54.2% (39.0-77.0) Lymphocytes % 24.5% (15.0-51.0) Monocytes % 13.3% (0.0-11.0) Eosinophils % 3.3% (0.0-7.0) Basophils % 0.4% (0.0-2.0) Nucleated Red Blood Cells % 0.3/100WBC (0.0-0.0) Neutrophils # 6.210^3/ul (1.6-7.5) Lymphocytes # 2.810^3/ul (0.8-2.9) Monocytes # 1.510^3/ul (0.3-0.9) Eosinophils # 0.410^3/ul (0.0-0.5) Basophils # 0.010^3/ul (0.0-0.1) Nucleated Red Blood Cells # 0.010^3/ul (0.0-0.0) Sodium Level 143mmol/L (135-144) Potassium Level 3.4mmol/L (3.5-5.1) Chloride Level 104mmol/L (97-110) Carbon Dioxide Level 32mmol/L (21-31) Anion Gap 10 (8-16) Blood Urea Nitrogen 7mg/dl (7-20) Creatinine 0.73mg/dl (0.44-1.00) Glucose Level 103mg/dl (70-220) Calcium Level 8.9mg/dl (8.4-10.2) Copies To: CC: KASH ZULETA M.D., ELLEN MD Sep 19, 2017 13:11
[2017-09-19 14:41] VITALS: BP 126/56; RESP 18
[2017-09-19 14:55] VITALS: BP 107/59; RESP 18
--- NOTE | 2017-09-19 14:58 | CONS ---
Date/Time of Note Date/Time of Note DATE: 09/19/17 TIME: 14:57 Assessment/Plan Assessment/Plan Chief Complaint/Hosp Course # Metastatic ER+/ Her2+ breast ca involving bones-recent CT C spine, T spine and Chest demonstrated the bony mets -now confirmed with Breast cancer in bone marrow -continue Herceptin/ Perjeta. -continue Examestane given ER+ nature of disease with Lupron as pt is perimenopause -continue Lupron q 3 mo -will check CA 27.29 at this time -given patient is likely progressing she is reconsidering chemotherapy #Pneumonia -continue broad spectrum antibiotics #Bone Mets- -pt on Xgeva -increased Dilaudid to 2 mg IVprn pain # anemia -s/p blood transfusion -bone marrow bx ahs confirmed breast cancer in bone marrow -pt on procrit as an out patient Problems: Consultation Date/Type/Reason Admit Date/Time Sep 14, 2017 at 17:01 Initial Consult Date 09/16/17 Type of Consultation: Pain management Reason for Consultation Oncology Referring Provider: OZ FULLER 24 HR Interval Summary Free Text/Dictation pt is breathing better. Exam/Review of Systems Vital Signs Vitals Vital Signs Date Time Temp Pulse Resp B/P Pulse Ox O2 Delivery O2 Flow Rate FiO2 09/19/17 14:55 98.1 75 18 107/59 94 09/17/17 14:30 Room Air Intake and Output 09/18/17 09/18/17 09/19/17 15:00 23:00 07:00 Intake Total 110 ml 500 ml Output Total 300 ml Balance -190 ml 500 ml Exam Constitutional: alert, oriented Psych: anxiety, depression Head: normocephalic Eyes: nl conjunctiva ENMT: nl external ears & nose Neck: non-tender, supple Respiratory: clear to auscultation Cardiovascular: regular rate and rhythm Gastrointestinal: soft Musculoskeletal: nl extremities to inspection, nl gait and stance Results Result Diagram: 09/19/1730 09/19/1731 Results 24 hrs Laboratory Tests Test 09/19/17 05:30 09/19/17 05:31 White Blood Count 11.4 #H Red Blood Count 3.10 L Hemoglobin 9.0 L Hematocrit 29.3 L Mean Corpuscular Volume 94.5 Mean Corpuscular Hemoglobin 29.0 Mean Corpuscular Hemoglobin Concent 30.7 L Red Cell Distribution Width 16.1 H Platelet Count 586 #H Mean Platelet Volume 10.5 H Neutrophils % 54.2 Lymphocytes % 24.5 Monocytes % 13.3 H Eosinophils % 3.3 Basophils % 0.4 Nucleated Red Blood Cells % 0.3 H Neutrophils # 6.2 Lymphocytes # 2.8 Monocytes # 1.5 H Eosinophils # 0.4 Basophils # 0.0 Nucleated Red Blood Cells # 0.0 Sodium Level 143 Potassium Level 3.4 L Chloride Level 104 Carbon Dioxide Level 32 H Anion Gap 10 Blood Urea Nitrogen 7 Creatinine 0.73 Glucose Level 103 Calcium Level 8.9 Medications Medications Current Medications Ondansetron HCl (Zofran Inj) 4 mg Q6H PRN IV NAUSEA AND/OR VOMITING Last administered on 09/16/17 10:09; Admin Dose 4 MG; Start 09/14/17 at 18:30 Acetaminophen (Tylenol Tab) 650 mg Q6H PRN PO PAIN LEVEL 1-3 OR FEVER; Start 09/14/17 at 18:30 Hydralazine HCl (Apresoline) 10 mg Q6H PRN IV for sys bp > 180; Start at 18:30 Ascorbic Acid (Vitamin C) 1,000 mg DAILY PO Last administered on 09/19/17 08: 37; Admin Dose 1,000 MG; Start 09/15/17 at 09:00 Baclofen (Lioresal) 10 mg QID PO Last administered on 09/19/17 12:22; Admin Dose 10 MG; Start 09/14/17 at 21:00 Duloxetine HCl (Cymbalta) 60 mg BID PO Last administered on 09/19/17 08:37; Admin Dose 60 MG; Start 09/14/17 at 21:00 Gabapentin (Neurontin) 100 mg Q4 PO Last administered on 09/19/17 12:22; Admin Dose 100 MG; Start 09/14/17 at 21:00 Modafinil (Provigil) 200 mg QAM PO Last administered on 09/19/17 08:41; Admin Dose 200 MG; Start 09/15/17 at 09:00 Polyethylene Glycol (Miralax) 17 gm DAILY PO ; Start 09/15/17 at 09:00 Ranitidine HCl (Zantac) 150 mg TID PO Last administered on 09/19/17 12:22; Admin Dose 150 MG; Start 09/14/17 at 21:00 Miscellaneous Information 10 mg TID PO ; Start 09/14/17 at 21:00; Status UNV Vitamin B Complex/ Vitamin C (Berocca) 1 cap QHS PO Last administered on 20:33; Admin Dose 1 CAP; Start 09/14/17 at 21:00 Diazepam (Valium) 5 mg Q8H PRN PO MUSCLE SPASMS Last administered on 15:00; Admin Dose 5 MG; Start 09/17/17 at 12:00 Miscellaneous Information (*Order Clarification Bulletin) ADDERAL ...IS NON FORMULARY--PLE... Q8H XX ; Start 09/17/17 at 13:00 Levofloxacin (Levaquin) 750 mg DAILY@06 PO Last administered on 09/19/17 05:24 ; Admin Dose 750 MG; Start 09/18/17 at 06:00 Hydromorphone HCl (Dilaudid [employer]) 1 MG/HR CONTINUOUS RATE ... Q4PCA IV Last administered on 09/19/17 11:02; Admin Dose 6 MG; Start 09/18/17 at 19:30 Hydrocortisone 1 applic BID TOP Last administered on 09/19/17 08:39; Admin Dose 1 APPLIC; Start 09/18/17 at 21:22 KASH LAWSON M.D. Sep 19, 2017 14:58
[2017-09-19] MEDS ORDERED: HEPARIN (100 UNITS/ML) 5 ML SYG CATHETER ONE (17:30)
== END 2017-09-19 18:45 | disposition home or self-care (01) | DRG 871 ==
LOC: E/R 12:02 → PP2 17:01 → MS2 20:25
PROVIDERS: ADMIT Hospitalist; ATTEND Hospitalist
PROC: 30233N1 Transfusion of Nonautologous Red Blood Cells into Peripheral Vein, Percutaneous Approach (ICD-10-PCS; principal; 2017-09-15)
PROC: 07DR3ZX Extraction of Iliac Bone Marrow, Percutaneous Approach, Diagnostic (ICD-10-PCS; 2017-09-17)
DX: A41.9 Sepsis, unspecified organism (principal); J18.9 Pneumonia, unspecified organism; C79.51 Secondary malignant neoplasm of bone; D64.9 Anemia, unspecified; F32.9 Major depressive disorder, single episode, unspecified; D63.8 Anemia in other chronic diseases classified elsewhere; F90.9 Attention-deficit hyperactivity disorder, unspecified type; E05.80 Other thyrotoxicosis without thyrotoxic crisis or storm; Z85.3 Personal history of malignant neoplasm of breast; Z90.13 Acquired absence of bilateral breasts and nipples; Z90.81 Acquired absence of spleen; Z85.72 Personal history of non-Hodgkin lymphomas
CPT/HCPCS: 36415; 36430; 71010; 77012; 80048; 80053; 80061; 80202; 81003; 83036; 83605; 83735; 84100; 84439; 84443; 84484; 85025; 85610; 85730; 86300; 86850; 86900; 86901; 86920; 87040; 87086; 87400; 88104; 88305; 88313; 93005; 96374; 96375; J0692; J1170; J1642; J1644; J2060; J2250; J2405; J2916; J3010; J3360; J3370; J7030; J7040; P9016

== ENCOUNTER 2017-10-02 02:31 | Inpatient (IN) | payer BC ==
[~2017-10-02] VITALS: Ht 172.7 cm; Wt 70.0 kg
[~2017-10-02 02:31] MED LIST changes: +TRAZ50TA18 PO
[2017-10-02 04:29] LABS: BASOPHILS % 0.3 % (0.0-2.0); EOSINOPHILS # 0.2 10^3/ul (0.0-0.5); EOSINOPHILS % 1.1 % (0.0-7.0); HEMATOCRIT 25.9 % (37.0-47.0); LYMPHOCYTES # 1.2 10^3/ul (0.8-2.9); LYMPHOCYTES % 8.3 % (15.0-51.0); MEAN CORPUSCULAR HEMOGLOBIN 29.5 pg (29.0-33.0); MEAN CORPUSCULAR HGB CONC 30.9 g/dl (32.0-37.0); MEAN CORPUSCULAR VOLUME 95.6 fl (82.0-101.0); MONOCYTE # 1.3 10^3/ul (0.3-0.9); MONOCYTES % 8.8 % (0.0-11.0); NEUTROPHIL # 11.6 10^3/ul (1.6-7.5); NEUTROPHILS % 81.1 % (39.0-77.0); PLATELET COUNT 578 10^3/UL (140-415); RED BLOOD COUNT 2.71 10^6/ul (4.20-5.40); WHITE BLOOD COUNT 14.2 10^3/ul (4.8-10.8)
[2017-10-02] MEDS ORDERED: ONDANSETRON 4 MG INJ IV STA ×2 (04:43→08:10)
[2017-10-02] MEDS ORDERED: morphine 4 MG/ML VIAL IV STA (04:43)
[2017-10-02] MEDS ORDERED: morphine 4 MG/ML VIAL ONE (04:46)
[2017-10-02] MEDS ORDERED: ONDANSETRON 4 MG INJ ONE (04:46)
[2017-10-02 04:51] LABS: ANION GAP 14 (8-16); BLOOD UREA NITROGEN 22 mg/dl (7-20); CALCIUM 10.3 mg/dl (8.4-10.2); CARBON DIOXIDE 27 mmol/L (21-31); CHLORIDE 105 mmol/L (97-110); CREATININE 1.33 mg/dl (0.44-1.00); GLUCOSE 120 mg/dl (70-220); POTASSIUM 4.2 mmol/L (3.5-5.1); SODIUM 142 mmol/L (135-144)
[2017-10-02] MEDS ORDERED: SOD CHLORIDE 0.9% 1,000 ML IV ONE (05:00)
[2017-10-02] MEDS ORDERED: HYDROmorphONE 1 MG/ML SYG IV STA (05:00)
[2017-10-02 05:02] LABS: TROPONIN-I < 0.012 ng/ml (0.00-0.12)
--- NOTE | 2017-10-02 05:48 | ERD ---
ER Documentation Chief Complaint Chief Complaint pt reports nausea, dizziness and twitching r/t low hgb HPI 51-year-old female here with dizziness lightheadedness and nausea for the past 24 hours. Patient status of multiple times secondary to low hemoglobin levels. No focal neurological complaints. No chest pain. No palpitations. No other current issues ROS All systems reviewed and are negative except as per history of present illness. Medications Home Meds Active Scripts Trazodone Hcl* (Trazodone Hcl*) 50 Mg Tablet, 25 MG PO QHS, #30 TAB Prov:JOHN LOPES MD 09/19/17 Diazepam* (Valium*) 5 Mg Tablet, 5 MG PO Q8 Y for MUSCLE SPASMS, #30 TAB Prov:INOCENCIO TRACEY 08/04/17 Polyethylene Glycol* (Miralax*) 17 Gm Powd.pack, 17 GM PO DAILY, #30 PACKET 1 Refill Prov:OZ FULLER 04/14/17 Reported Medications Modafinil* (Provigil*) 200 Mg Tablet, 200 MG PO QAM, TAB 09/04/17 Duloxetine Hcl* (Duloxetine Hcl*) 60 Mg Capsule.dr, 60 MG PO BID, #30 CAP 03/19/17 Exemestane* (Exemestane*) 25 Mg Tablet, 25 MG PO, TAB 03/19/17 Indomethacin* (Indocin*) 50 Mg Cap, 50 MG PO BID, CAP 03/19/17 Promethazine Hcl* (Phenergan*) 25 Mg Tablet, 25 MG PO Q6H Y for PAIN, TAB 03/19/17 Vitamin B Complex (Vitamin B Complex) 1 Each Capsule, 1 EACH PO QHS, CAP 02/16/17 Ascorbic Acid (Vitamin C) 500 Mg Tab, 1000 MG PO DAILY, TAB 02/16/17 Prochlorperazine* (Prochlorperazine*) 10 Mg Tablet, 10 MG PO QID Y for NAUSEA, TAB 02/16/17 Ranitidine Hcl* (Ranitidine Hcl*) 150 Mg Tablet, 150 MG PO TID, #90 TAB 02/16/17 Tapentadol Hcl (Nucynta) 100 Mg Tablet, 50 MG PO BID, TAB 02/16/17 Gabapentin* (Gabapentin*) 100 Mg Capsule, 100 MG PO Q4, #120 CAP 02/16/17 Amphet Yzy-Xegtrp-C-Amphet (Adderall) 10 Mg Tablet, 10 MG PO TID, TAB 02/16/17 Baclofen* (Baclofen*) 10 Mg Tablet, 10 MG PO QID, TAB 02/16/17 Hydromorphone Hcl* (Dilaudid*) 4 Mg Tablet, 4 MG PO Q6, TAB 02/16/17 Morphine Sulfate* (Ms Contin*) 15 Mg Tablet.sa, 15 MG PO TID, TAB.SA 02/16/17 Hydrocodone/Acetaminophen ([place] 10-325 Tablet) 1 Each Tablet, 1 EACH PO Q3H, TAB 02/16/17 Allergies Allergies: Coded Allergies: Penicillins (Verified Allergy, Unknown, RASH, SWOLLEN, HARD TIME BREATHING , 09/14/17) peanut (Verified Allergy, Unknown, 09/14/17) shellfish derived (Verified Allergy, Unknown, 09/14/17) PMhx/Soc History of Surgery: Yes (sarmad mastectomy, splenectomy, hodgekin's, left chest portacath) Anesthesia Reaction: No Hx Neurological Disorder: Yes (NEUROPATHY) Hx Respiratory Disorders: No Hx Cardiac Disorders: No Hx Psychiatric Problems: No Hx Miscellaneous Medical Probl: Yes (BREAST CA) Hx Alcohol Use: No Hx Substance Use: No Hx Tobacco Use: No Smoking Status: Current every day smoker Physical Exam Vitals Vital Signs Date Time Temp Pulse Resp B/P Pulse Ox O2 Delivery O2 Flow Rate FiO2 10/02/17 02:34 97.9 110 24 124/74 90 Physical Exam Const: [] Head: Atraumatic Eyes: Normal Conjunctiva ENT: Normal External Ears, Nose and Mouth. Neck: Full range of motion..~ No meningismus. Resp: Clear to auscultation bilaterally Cardio: Regular rate and rhythm, no murmurs Abd: Soft, non tender, non distended. Normal bowel sounds Skin: No petechiae or rashes Back: No midline or flank tenderness Ext: No cyanosis, or edema Neur: Awake and alert Psych: Normal Mood and Affect Result Diagram: 10/02/17 0415 10/02/17 0415 Results 24 hrs Laboratory Tests Test 10/02/17 04:15 White Blood Count 14.210^3/ul Red Blood Count 2.7110^6/ul Hemoglobin 8.0g/dl Hematocrit 25.9% Mean Corpuscular Volume 95.6fl Mean Corpuscular Hemoglobin 29.5pg Mean Corpuscular Hemoglobin Concent 30.9g/dl Red Cell Distribution Width 16.0% Platelet Count 06921^3/UL Mean Platelet Volume 11.0fl Neutrophils % 81.1% Lymphocytes % 8.3% Monocytes % 8.8% Eosinophils % 1.1% Basophils % 0.3% Nucleated Red Blood Cells % 0.0/100WBC Neutrophils # 11.610^3/ul Lymphocytes # 1.210^3/ul Monocytes # 1.310^3/ul Eosinophils # 0.210^3/ul Basophils # 0.010^3/ul Nucleated Red Blood Cells # 0.010^3/ul Activated Partial Thromboplast Time 29.6Sec Sodium Level 142mmol/L Potassium Level 4.2mmol/L Chloride Level 105mmol/L Carbon Dioxide Level 27mmol/L Anion Gap 14 Blood Urea Nitrogen 22mg/dl Creatinine 1.33mg/dl Glucose Level 120mg/dl Calcium Level 10.3mg/dl Troponin I < 0.012ng/ml Current Medications Medications (Trade) Dose Ordered Sig/Julio Route PRN Reason Start Time Stop Time Status Last Admin Dose Admin Sodium Chloride (NS) 1,000 ml @ 1,000 mls/hr Q1H ONCE IV 10/02/17 05:00 10/02/17 05:59 10/02/17 05:17 Morphine Sulfate (morphine) 4 mg ONCE STAT IV 10/02/17 04:43 10/02/17 05:02 DC Ondansetron HCl (Zofran Inj) 4 mg ONCE STAT IV 10/02/17 04:43 10/02/17 04:53 DC 10/02/17 05:17 Ondansetron HCl (Zofran Inj) 4 mg STK-MED ONCE .ROUTE 10/02/17 04:46 10/02/17 04:47 DC Morphine Sulfate (morphine) 4 mg STK-MED ONCE .ROUTE 10/02/17 04:46 10/02/17 04:47 DC Hydromorphone HCl (Dilaudid) 1 mg ONCE STAT IV 10/02/17 05:00 10/02/17 05:19 DC Procedures/MDM This is very cool for gradual fever symptomatic anemia patient is a 1 g drop of hemoglobin from 9-80 in the last month. Patient will be transfused. Patient will be admitted to hospitalist. Departure Diagnosis: Primary Impression: Dizziness Additional Impression: Anemia Anemia type: unspecified type Qualified Code: D64.9 - Anemia, unspecified type Condition: Stable VANDA FELDER Oct 02, 2017 05:48
[2017-10-02 08:05] VITALS: TEMP 98.7
[2017-10-02 08:35] VITALS: BP 119/59; PULSE 90; RESP 18
[2017-10-02 09:17] VITALS: Ht 172.7 cm; Wt 70.0 kg
[2017-10-02] MEDS ORDERED: ACETAMINOPHEN 325 MG TAB PO PRN (10:00)
[2017-10-02] MEDS ORDERED: DOCUSATE SODIUM 100 MG CAP PO PRN (10:00)
[2017-10-02] MEDS ORDERED: NACL 0.9% 3 ML SYG IV SCH (10:00)
[2017-10-02] MEDS ORDERED: ACETAMINOPHEN 650 MG SUPP PR PRN (10:00)
--- NOTE | 2017-10-02 10:01 | HP ---
Date/Time of Note Date/Time of Note DATE: 10/02/17 TIME: 09:59 Assessment/Plan VTE Prophylaxis VTE Prophylaxis Intervention: ambulation Assessment/Plan Assessment/Plan This is a very unfortunate 51-year-old female with stage IV breast cancer metastases to the bones who now presented with dizziness after patient had nonbilious, nonbloody vomiting and mild diarrhea last night. Her symptoms have resolved at this time. 1. Dizziness with nonbilious, nonbloody vomiting and diarrhea. Likely patient had some kind of viral gastroenteritis which is resolved now. Her dizziness most likely secondary to associated dehydration. -At this time, patient's symptoms have completely resolved. We will treat patient with IV fluids, antiemetics PRN and H2 blockers. -Advance diet to regular diet as tolerated. -Monitor electrolyte levels closely and replete as needed. 2. Chronic anemia secondary to metastatic cancer with bone involvement. Currently her hemoglobin 8.0 and does not require any transfusion at this moment. She also does not have any active bleeding at this time. -Repeat CBC in a.m. -We will also obtain iron panel and treat accordingly. 3.Metastatic breast cancer to bones -As per patient her next scheduled chemotherapy is tomorrow at 2:30 PM. -I spoke with patient's outpatient oncologist Dr. Zuleta, and per recommendation , we will continue her on Exemestane. Next chemo session can be done after discharge. There is no immediate need for inpatient oncology workup. 4. Chronic bone Pain -Patient has morphine pump and per her it is not effective. We will treat her with Dilaudid 1mg IV q 3 as needed for breakthrough pain. -We will also request Dr. Patel to see patient in-house. 5. Depression -continue Cymbalta which she takes at home. 6. Leukocytosis, likely chronic with history of splenectomy. Currently there is no evidence to suggest any infection. Will monitor. 7. Possible hyperthyroidism per previous admission. - She was referred for outpatient PCP follow-up with prior admission. We are going to repeat her thyroid function and treat accordingly. 8. Acute kidney injury, likely secondary to dehydration versus polypharmacy. -Continue IV fluids. -Monitor renal function closely. 9. History of splenectomy. Prophylaxis SCD/H2 blockers. Plan: Continue IV fluids. Monitor labs in a.m. If patient feels improvement in her symptoms, most likely she can be discharged with outpatient oncology follow-up for her next chemo due which is tomorrow. Rest of the management depend on hospital course Patient was in collaboration with Dr. Lorenz. Approximately 60 minutes was spent on this history and physical. HPI/ROS Admit Date/Time Admit Date/Time Oct 02, 2017 at 05:47 Hx of Present Illness This is a 51-year-old female presented to the emergency room for evaluation of sudden onset of nausea, nonbilious, nonbloody vomiting with mild diarrhea that started last night. Unfortunately, patient's past medical history significant for metastatic stage IV breast cancer metastases to bones, mastectomy with bilateral reconstruction, splenectomy, chemotherapy every 3 weeks with her oncologist , anxiety disorders, depression and chronic pain for which she also has morphine pump with Dilaudid for breakthrough pain. Patient also has a left chest port a catheter. Patient was apparently discharged from [facility] last month and she was treated for sepsis with pneumonia at that time. Patient also received blood transfusion at that time. Her usual hemoglobin stays between 8 and 9. At my encounter with the patient, she denied chest pain, palpitation, shortness of breath, nausea, vomiting, diarrhea, fever, chills, hematemesis, hematochezia , abdominal cramps or melena. She reported to me that her symptoms had not recurred since admission. Labs with WBC 14,200, hemoglobin 8.0, hematocrit 25.9 , platelet 578, BUN 22 and creatinine 1.33. Patient also had elevated calcium level 10.3. Vital signs within acceptable range. ROS A 12 point review of system was assessed and is negative other than what is mentioned in the HPI. PMH/Family/Social Past Medical History See HPI Past Surgical History See HPI Past Surgical Hx: endoscopy, other Social History Patient reported to me that she does not smoke, drink alcohol or use any drugs. However, in the medical records it states that patient is a current everyday smoker. Smoking Status: Current every day smoker Exam/Review of Systems Vital Signs Vitals Vital Signs Date Time Temp Pulse Resp B/P Pulse Ox O2 Delivery O2 Flow Rate FiO2 10/02/17 08:35 98.2 90 18 119/59 97 Room Air 10/02/17 08:05 3.0 Exam Exam General: Well developed,adequately built, not in any acute distress . HEENT: Normocephalic, Atraumatic, No laceration or hematoma; Eyes: PEERL, Conjunctiva clear, Anicteric sclera Neck: Supple without any lymphadenopathy, nontender, no JVD, no carotid bruits, trachea midline, no thyromegaly Cardiac: S1, S2 auscultated, regular rhythm and rate, no mumurs or gallop Pulmonary: Normal respiratory effort. Chest clear to auscultation bilaterally, no adventitious breath sounds GI: Abdomen normal to inspection. Patient has morphine pump on abdomen. She also has a abdominal binder. Soft, non tender, non- distended, no masses, no rebound tenderness or guarding. Bowel sounds active on all four quadrants Genitourinary: Deferred Extremities: No cyanosis, clubbing, or edema. Pulses [2+] bilaterally. Full ROM on all four extremities. No focal weakness appreciated. Neurologic: Alert to person, place, time, and situation. Affect appropriate, intact sensation. Skin: Bilateral breast reconstruction. Clean,dry, and intact. No ecchymosis, no rashes, or lesions Access. Left upper chest Port-A-Cath, site intact. Labs Result Diagram: 10/02/1741410/02/17414 Medications Medications Current Medications Sodium Chloride (NS) 1,000 ml @ 125 mls/hr Q8H IV ; Start 10/02/17 at 09:41 Ondansetron HCl (Zofran Inj) 4 mg Q6H PRN IV NAUSEA AND/OR VOMITING; Start at 10:00 Acetaminophen (Tylenol Tab) 650 mg Q6H PRN PO PAIN LEVEL 1-3 OR FEVER; Start 10/02/17 at 10:00 Acetaminophen (Tylenol Supp) 650 mg Q6H PRN PA PAIN LEVEL 1-3 OR FEVER; Start 10/02/17 at 10:00 Docusate Sodium (Colace) 100 mg Q12H PRN PO CONSTIPATION; Start 10/02/17 at 10 :00 Famotidine (Pepcid) 20 mg Q12 PO ; Start 10/02/17 at 21:00 Hydromorphone HCl (Dilaudid) 1 mg Q3H PRN IV PAIN; Start 10/02/17 at 10:00 FRANK MENDIETA NP Oct 02, 2017 10:01 FRANK MENDIETA NP Oct 02, 2017 10:01
[2017-10-02] MEDS: HYDROmorphONE 1 MG/ML SYG IV PRN ×5 (10:32→22:18)
[2017-10-02] MEDS: SOD CHLORIDE 0.9% 1,000 ML IV SCH ×3 (10:32→18:15)
[2017-10-02 11:30] LABS: IRON 21 ug/dl (35-150)
[2017-10-02 11:39] LABS: TOTAL IRON BINDING CAPACITY 249 ug/dl (241-421)
--- NOTE | 2017-10-02 14:20 | RADRPT ---
PROCEDURE: XR Chest. CLINICAL INDICATION: Anemia. TECHNIQUE: Single frontal view of the chest was obtained COMPARISON: Chest radiograph dated February 16, 2017. FINDINGS: Left-sided Mediport tip overlying the superior cavoatrial junction. There is stable mild cardiomegaly. There is mild pulmonary vascular congestion. No focal consolidations, pleural effusions, or pneumoth orax is seen. The osseous structures are unremarkable. IMPRESSION: 1. Mild pulmonary vascular congestion 2. No focal consolidations. RPTAT:AAJJ Physician José Manuel Date Time Electronically viewed and signed by Physician José Manuel on 10/02/2017 14:20 QL/
[2017-10-02] MEDS: BACLOFEN 10 MG TAB PO SCH ×2 (16:33→21:20)
[2017-10-02] MEDS: GABAPENTIN 100 MG CAP PO SCH ×2 (16:34→21:20)
[2017-10-02] MEDS ORDERED: DIAZEPAM 5 MG/ML SYG IV PRN (18:00)
[2017-10-02 20:00] VITALS: BP 101/62; RESP 19
[2017-10-02] MEDS ORDERED: LORAZEPAM 2 MG INJ IV PRN ×2 (20:00→21:00)
[2017-10-02] MEDS: LORAZEPAM 2 MG INJ IV PRN (21:16)
[2017-10-02] MEDS: DULOXETINE 30 MG CAP DR PO SCH (21:20)
[2017-10-02] MEDS: FAMOTIDINE 20 MG TAB PO SCH (21:20)
[2017-10-03] MEDS: GABAPENTIN 100 MG CAP PO SCH ×6 (01:13→21:05)
[2017-10-03] MEDS: HYDROmorphONE 1 MG/ML SYG IV PRN ×4 (01:13→10:31)
[2017-10-03] MEDS: ONDANSETRON 4 MG INJ IV PRN ×3 (01:26→20:58)
[2017-10-03] MEDS: SOD CHLORIDE 0.9% 1,000 ML IV SCH ×2 (02:12→15:57)
[2017-10-03] MEDS: LORAZEPAM 2 MG INJ IV PRN ×3 (02:12→12:07)
[2017-10-03 02:16] VITALS: BP 106/56; RESP 18
[2017-10-03 05:17] LABS: BASOPHILS % 0.2 % (0.0-2.0); EOSINOPHILS # 0.3 10^3/ul (0.0-0.5); EOSINOPHILS % 2.1 % (0.0-7.0); HEMATOCRIT 25.5 % (37.0-47.0); LYMPHOCYTES # 2.5 10^3/ul (0.8-2.9); LYMPHOCYTES % 19.1 % (15.0-51.0); MEAN CORPUSCULAR HGB CONC 31.4 g/dl (32.0-37.0); MEAN CORPUSCULAR VOLUME 95.5 fl (82.0-101.0); MEAN PLATELET VOLUME 11.8 fl (7.4-10.4); MONOCYTE # 1.2 10^3/ul (0.3-0.9); MONOCYTES % 9.5 % (0.0-11.0); NEUTROPHILS % 68.6 % (39.0-77.0); PLATELET COUNT 472 10^3/UL (140-415); RED BLOOD COUNT 2.67 10^6/ul (4.20-5.40); RED CELL DISTRIBUTION WIDTH 16.1 % (11.5-14.5); WHITE BLOOD COUNT 13.1 10^3/ul (4.8-10.8)
[2017-10-03 05:55] LABS: CALCIUM 9.2 mg/dl (8.4-10.2); CREATININE 0.77 mg/dl (0.44-1.00); MAGNESIUM 1.6 mg/dl (1.7-2.5); POTASSIUM 3.9 mmol/L (3.5-5.1)
[2017-10-03 06:01] LABS: FREE T3 2.79 pg/ml (2.77-5.27)
[2017-10-03 06:15] LABS: THYROID STIMULATING HORMONE 0.116 MIU/L (0.465-4.680)
--- NOTE | 2017-10-03 07:43 | CONS ---
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 Non vertiginous light headiness unclear by hx Acute on chronic pain syndrome Protracted nausea and vomiting Morphine pump I am concerned that the MS may cause at least some of her current symptoms...will adjust pain meds and anxiolytics Support Suggest MRI head Consultation Date/Type/Reason Admit Date/Time Oct 02, 2017 at 05:47 Past Surgical History Past Surgical Hx: endoscopy, other Social History Smoking Status: Never smoker Exam/Review of Systems Vital Signs Vitals Vital Signs Date Time Temp Pulse Resp B/P Pulse Ox O2 Delivery O2 Flow Rate FiO2 10/03/17 02:16 98.2 85 18 106/56 91 10/02/17 09:00 Nasal Cannula 2.0 Intake and Output 10/02/17 10/02/17 10/03/17 15:00 23:00 07:00 Intake Total 1533 ml 1915 ml Balance 1533 ml 1915 ml Exam Constitutional: alert, oriented, well developed Head: atraumatic, normocephalic, No hematomas, No lacerations, No other Neurological: [employer] II-XII intact, nl mental status, nl speech, nl strength, No DTR's symmetric, No confused, No focal weakness, No lethargic, No numbness , No other, No reflexes, No unresponsive Results Result Diagram: 10/03/17 0438 10/03/17 0438 Results 24 hrs Laboratory Tests Test 10/03/17 04:38 White Blood Count 13.1 H Red Blood Count 2.67 L Hemoglobin 8.0 L Hematocrit 25.5 L Mean Corpuscular Volume 95.5 Mean Corpuscular Hemoglobin 30.0 Mean Corpuscular Hemoglobin Concent 31.4 L Red Cell Distribution Width 16.1 H Platelet Count 472 H Mean Platelet Volume 11.8 H Neutrophils % 68.6 Lymphocytes % 19.1 Monocytes % 9.5 Eosinophils % 2.1 Basophils % 0.2 Nucleated Red Blood Cells % 0.0 Neutrophils # 9.0 H Lymphocytes # 2.5 Monocytes # 1.2 H Eosinophils # 0.3 Basophils # 0.0 Nucleated Red Blood Cells # 0.0 Sodium Level 142 Potassium Level 3.9 Chloride Level 107 Carbon Dioxide Level 27 Anion Gap 12 Blood Urea Nitrogen 13 # Creatinine 0.77 Glucose Level 100 Calcium Level 9.2 Magnesium Level 1.6 L Thyroid Stimulating Hormone (TSH) 0.116 L Free Thyroxine 0.69 Free Triiodothyronine (T3) pg/mL 2.79 Medications Medications Current Medications Sodium Chloride (NS) 1,000 ml @ 125 mls/hr Q8H IV Last administered on 02:12; Admin Dose 125 MLS/HR; Start 10/02/17 at 09:41 Ondansetron HCl (Zofran Inj) 4 mg Q6H PRN IV NAUSEA AND/OR VOMITING Last administered on 10/03/17 01:26; Admin Dose 4 MG; Start 10/02/17 at 10:00 Acetaminophen (Tylenol Tab) 650 mg Q6H PRN PO PAIN LEVEL 1-3 OR FEVER; Start 10/02/17 at 10:00 Acetaminophen (Tylenol Supp) 650 mg Q6H PRN [place] PAIN LEVEL 1-3 OR FEVER; Start 10/02/17 at 10:00 Docusate Sodium (Colace) 100 mg Q12H PRN PO CONSTIPATION; Start 10/02/17 at 10 :00 Famotidine (Pepcid) 20 mg Q12 PO Last administered on 10/02/17 21:20; Admin Dose 20 MG; Start 10/02/17 at 21:00 Duloxetine HCl (Cymbalta) 60 mg BID PO Last administered on 10/02/17 21:20; Admin Dose 60 MG; Start 10/02/17 at 21:00 Ascorbic Acid (Vitamin C) 1,000 mg DAILY PO ; Start 10/03/17 at 09:00 Baclofen (Lioresal) 10 mg QID PO Last administered on 10/02/17 21:20; Admin Dose 10 MG; Start 10/02/17 at 17:00 Exemestane (Aromasin) 25 mg DAILY PO ; Start 10/03/17 at 09:00 Gabapentin (Neurontin) 100 mg Q4 PO Last administered on 10/03/17 04:33; Admin Dose 100 MG; Start 10/02/17 at 17:00 Modafinil (Provigil) 200 mg QAM PO ; Start 10/03/17 at 09:00 Polyethylene Glycol (Miralax) 17 gm DAILY PO ; Start 10/03/17 at 09:00 Vitamin B Complex/ Vitamin C ([place]) 1 cap DAILY PO ; Start 10/03/17 at 09:00 Hydromorphone HCl (Dilaudid) 2 mg Q3H PRN IV PAIN Last administered on 04:33; Admin Dose 2 MG; Start 10/02/17 at 19:00 Lorazepam (Ativan) 0.5 mg Q4H PRN IV SHIVERING Last administered on 10/03/17 06:37; Admin Dose 0.5 MG; Start 10/02/17 at 20:29 CECILE CHANEL Oct 03, 2017 07:43
[2017-10-03 08:00] VITALS: BP 113/56; RESP 18
[2017-10-03] MEDS: POLYETHYLENE GLYCOL 17 GM PACKET PO SCH (09:00)
[2017-10-03] MEDS ORDERED: VITAMIN B COMPLEX/VIT C CAP PO SCH (09:00)
[2017-10-03] MEDS: DULOXETINE 30 MG CAP DR PO SCH ×2 (09:13→21:05)
[2017-10-03] MEDS: ASCORBIC ACID 500 MG TAB PO SCH (09:13)
[2017-10-03] MEDS: BACLOFEN 10 MG TAB PO SCH ×2 (09:13→13:00)
[2017-10-03] MEDS: FAMOTIDINE 20 MG TAB PO SCH (09:13)
[2017-10-03] MEDS: EXEMESTANE 25 MG TAB PO SCH (09:17)
--- NOTE | 2017-10-03 09:40 | PDOCDIS ---
Discharge Instructions CONDITION Patient Condition: Stable HOME CARE INSTRUCTIONS: Special Diet: REGULAR FOLLOW UP/APPOINTMENTS Follow-up Plan 1. Follow-up with outpatient oncologist , patient has appointment at 2: 30 today. 2.Follow up with primary care physician in 1 week If you don't have one please let someone know, we can give you resources that may help you pick one. You may also call your insurance company to assign one to you. Review your medication list with your nurse before leaving and if you need new prescriptions please let your nurse know. I may have made changes to your home medications or given you new prescriptions, please let your primary doctor know as well. Stay compliant with your medications and report any side effects to your PCP or pharmacist. Return to the ER if you have any concerns and cannot reach your doctors or call your insurance company, they usually have a nurse that can help you. 3. Call 911 or go to the nearest emergency room if experiencing loss of consciousness, dizziness, chest pain, shortness of breath, vomiting/abdominal pain, speech difficulties, motor weakness or any unusual symptoms. FRANK MENDIETA NP Oct 03, 2017 09:40
--- NOTE | 2017-10-03 09:49 | DS ---
Date/Time of Note Date/Time of Note DATE: 10/03/17 TIME: 09:43 Discharge Summary Admission/Discharge Info Admit Date/Time Oct 02, 2017 at 05:47 Discharge Date/Time Discharge Diagnosis 1. Dehydration with possible viral gastroenteritis. Resolved. 2. Chronic anemia secondary to metastatic cancer with bone involvement. 3.Metastatic breast cancer to bones 4. Chronic bone Pain 5. Depression 6. Leukocytosis, chronic with history of splenectomy. Stable. 7. Possible hyperthyroidism, TSH low with normal T3. Recommend outpatient endocrinology evaluation. 8. Acute kidney injury, likely secondary to dehydration. Resolved 9. Narcolepsy/polypharmacy Patient Condition: Stable Consults ,Cardiology ,Nephrology Hospital Course This is a 51-year-old female with a past medical history of metastatic stage IV breast cancer, metastases to bones, history of mastectomy with bilateral reconstruction, chemotherapy every 3 weeks with patient's oncologist Dr. Zuleta, splenectomy, anxiety disorders, depression and chronic pain for which she also had morphine pump, who presented to the emergency room for evaluation of sudden onset of nausea, nonbilious, nonbloody vomiting with mild diarrhea which started last night. Patient also had dizziness. She also takes high doses of narcotics along with morphine pump as outpatient. She also takes Provigil for narcolepsy. Apparently, patient was discharged from [facility] last month and she was treated for sepsis with pneumonia at that time. Patient also had blood transfusion at that time. Her usual hemoglobin stays between 8 and 9. Upon presentation, patient was noted with a WBC 14,200, hemoglobin 8.0, hematocrit 25.9, platelets 578, BUN 22 and creatinine 1.33. Patient vital signs within acceptable range. She was admitted for further evaluation. Patient was started on PRN antiemetics, IV fluid hydration. There was no GI blood loss. Her hemoglobin remained stable. Patient was started on a diet and she was able to tolerate it. There was no further nausea, vomiting, diarrhea or abdominal pain. She did not have any further dizziness and was able to tolerate ablation. At this time, most likely etiology of her symptoms secondary to possible viral gastroenteritis with dehydration which is now resolved. Her kidney function also back to normal and most likely etiology of acute kidney injury is prerenal with dehydration and responded to IV fluids. Leukocytosis most likely secondary to her history of splenectomy and remained stable. There was no signs to suggest any infection. Chest x-ray was negative for pneumonia. She remained afebrile. For, chronic intractable pain for which she was continued on her home medication and also had pain management evaluation in-house. Patient was also noted with a low TSH with normal T3 level -indicative of possible early hypothyroidism. This was also documented with previous admission and patient was referred for outpatient endocrinology follow- up. Currently she is asymptomatic and does not require any inpatient endocrinology evaluation. At this time, her vital signs and labs remains within acceptable range. Patient is feeling back to baseline and there is no further inpatient workup indicated. She is stable for discharge with outpatient follow-up. Please note that patient has an appointment for her chemo at 230 with her oncologist office. Disposition: Patient will be discharged home with continuation of home medications. Patient verbalized discharge instructions. Approximately 60 minutes was spent in coordinating the discharge on this patient. Patient was seen in collaboration with Dr. Lorenz. Home Meds Active Scripts Trazodone Hcl* (Trazodone Hcl*) 50 Mg Tablet, 25 MG PO QHS, #30 TAB Prov:JOHN LOPES MD 09/19/17 Diazepam* (Valium*) 5 Mg Tablet, 5 MG PO Q8 Y for MUSCLE SPASMS, #30 TAB Prov:INOCENCIO TRACEY 08/04/17 Polyethylene Glycol* (Miralax*) 17 Gm Powd.pack, 17 GM PO DAILY, #30 PACKET 1 Refill Prov:OZ FULLER 04/14/17 Reported Medications Modafinil* (Provigil*) 200 Mg Tablet, 200 MG PO QAM, TAB 09/04/17 Duloxetine Hcl* (Duloxetine Hcl*) 60 Mg Capsule., 60 MG PO BID, #30 CAP 03/19/17 Exemestane* (Exemestane*) 25 Mg Tablet, 25 MG PO, TAB 03/19/17 Indomethacin* (Indocin*) 50 Mg Cap, 50 MG PO BID, CAP 03/19/17 Promethazine Hcl* (Phenergan*) 25 Mg Tablet, 25 MG PO Q6H Y for PAIN, TAB 03/19/17 Vitamin B Complex (Vitamin B Complex) 1 Each Capsule, 1 EACH PO QHS, CAP 02/16/17 Ascorbic Acid (Vitamin C) 500 Mg Tab, 1000 MG PO DAILY, TAB 02/16/17 Prochlorperazine* (Prochlorperazine*) 10 Mg Tablet, 10 MG PO QID Y for NAUSEA, TAB 02/16/17 Ranitidine Hcl* (Ranitidine Hcl*) 150 Mg Tablet, 150 MG PO TID, #90 TAB 02/16/17 Tapentadol Hcl (Nucynta) 100 Mg Tablet, 50 MG PO BID, TAB 02/16/17 Gabapentin* (Gabapentin*) 100 Mg Capsule, 100 MG PO Q4, #120 CAP 02/16/17 Amphet Rra-Eettpu-M-Amphet (Adderall) 10 Mg Tablet, 10 MG PO TID, TAB 02/16/17 Baclofen* (Baclofen*) 10 Mg Tablet, 10 MG PO QID, TAB 02/16/17 Hydromorphone Hcl* (Dilaudid*) 4 Mg Tablet, 4 MG PO Q6, TAB 02/16/17 Morphine Sulfate* (Ms Contin*) 15 Mg Tablet.sa, 15 MG PO TID, TAB.SA 02/16/17 Hydrocodone/Acetaminophen ([place] 10-325 Tablet) 1 Each Tablet, 1 EACH PO Q3H, TAB 02/16/17 Follow-up Plan 1. Follow-up with outpatient oncologist , patient has appointment at 2: 30 today. 2.Follow up with primary care physician in 1 week If you don't have one please let someone know, we can give you resources that may help you pick one. You may also call your insurance company to assign one to you. Review your medication list with your nurse before leaving and if you need new prescriptions please let your nurse know. I may have made changes to your home medications or given you new prescriptions, please let your primary doctor know as well. Stay compliant with your medications and report any side effects to your PCP or pharmacist. Return to the ER if you have any concerns and cannot reach your doctors or call your insurance company, they usually have a nurse that can help you. 3. Call 911 or go to the nearest emergency room if experiencing loss of consciousness, dizziness, chest pain, shortness of breath, vomiting/abdominal pain, speech difficulties, motor weakness or any unusual symptoms. Primary Care Provider Aisha Zuleta M.D. Pending Labs Laboratory Tests Test 10/03/17 04:38 White Blood Count 13.110^3/ul (4.8-10.8) Red Blood Count 2.6710^6/ul (4.20-5.40) Hemoglobin 8.0g/dl (12.0-16.0) Hematocrit 25.5% (37.0-47.0) Mean Corpuscular Volume 95.5fl (82.0-101.0) Mean Corpuscular Hemoglobin 30.0pg (29.0-33.0) Mean Corpuscular Hemoglobin Concent 31.4g/dl (32.0-37.0) Red Cell Distribution Width 16.1% (11.5-14.5) Platelet Count 68068^3/UL (140-415) Mean Platelet Volume 11.8fl (7.4-10.4) Neutrophils % 68.6% (39.0-77.0) Lymphocytes % 19.1% (15.0-51.0) Monocytes % 9.5% (0.0-11.0) Eosinophils % 2.1% (0.0-7.0) Basophils % 0.2% (0.0-2.0) Nucleated Red Blood Cells % 0.0/100WBC (0.0-0.0) Neutrophils # 9.010^3/ul (1.6-7.5) Lymphocytes # 2.510^3/ul (0.8-2.9) Monocytes # 1.210^3/ul (0.3-0.9) Eosinophils # 0.310^3/ul (0.0-0.5) Basophils # 0.010^3/ul (0.0-0.1) Nucleated Red Blood Cells # 0.010^3/ul (0.0-0.0) Sodium Level 142mmol/L (135-144) Potassium Level 3.9mmol/L (3.5-5.1) Chloride Level 107mmol/L (97-110) Carbon Dioxide Level 27mmol/L (21-31) Anion Gap 12 (8-16) Blood Urea Nitrogen 13mg/dl (7-20) Creatinine 0.77mg/dl (0.44-1.00) Glucose Level 100mg/dl (70-220) Calcium Level 9.2mg/dl (8.4-10.2) Magnesium Level 1.6mg/dl (1.7-2.5) Thyroid Stimulating Hormone (TSH) 0.116MIU/L (0.465-4.680) Free Thyroxine 0.69ng/dl (0.64-1.79) Free Triiodothyronine (T3) pg/mL 2.79pg/ml (2.77-5.27) FRANK MENDIETA V. ACTIVITIES SPECIALIST Oct 03, 2017 09:49
[2017-10-03] MEDS ORDERED: MAGNESIUM SULFATE 2 GM/50 ML 50 ML IVPB ONE (10:00)
[2017-10-03] MEDS: MODAFINIL 200 MG TAB PO SCH (10:31)
[2017-10-03] MEDS ORDERED: HEPARIN (100 UNITS/ML) 5 ML SYG CATHETER ONE (11:00)
[2017-10-03] MEDS ORDERED: ONDANSETRON 4 MG INJ IV STA (12:13)
[2017-10-03] MEDS ORDERED: METOCLOPRAMIDE 10 MG INJ IV STA (12:13)
[2017-10-03] MEDS ORDERED: SOD CHLORIDE 0.9% 250 ML IV ONE (12:30)
[2017-10-03] MEDS ORDERED: HYDROmorphONE 2 MG/ML SYG IV PRN (13:30)
--- NOTE | 2017-10-03 13:36 | PN ---
Date/Time of Note Date/Time of Note DATE: 10/03/17 TIME: 13:28 Assessment/Plan VTE Prophylaxis VTE Prophylaxis Intervention: ambulation Lines/Catheters IV Catheter Type (from Nrs): Central Line Central line still needed: Yes Assessment/Plan Chief Complaint/Hosp Course This is a very unfortunate 51-year-old female with stage IV breast cancer metastases to the bones who now presented with dizziness after patient had nonbilious, nonbloody vomiting and mild diarrhea last night. Her symptoms have resolved at this time. 1. Dizziness with nonbilious, nonbloody vomiting. Likely patient had some kind of viral gastroenteritis. Her dizziness most likely secondary to associated dehydration. Also please note that patient is taking multiple narcotics with morphine pump. -At this time, it seems like, patient is getting too much narcotics and we are going to back her off from some of her medications. We will change her IV Dilaudid to 1 mg oral every 6. -Monitor electrolyte levels closely and replete as needed. -We will also obtain a CT abdomen and pelvis. Continue H2 blockers, around-the- clock Reglan and PRN Zofran. -N.p.o. except medication for now, advance to clear diet in a.m. and advance further as tolerated. 2. Chronic anemia secondary to metastatic cancer with bone involvement. Currently her hemoglobin 8.0 and does not require any transfusion at this moment. She also does not have any active bleeding at this time. -Patient also with mild iron deficiency. However with her GI upset, would hold off to iron replacement at this time. Her H&H is stable. 3.Metastatic breast cancer to bones -As per patient her next scheduled chemotherapy is tomorrow at 2:30 PM. -I spoke with patient's outpatient oncologist Dr. Zuleta, and per recommendation , we will continue her on Exemestane. Next chemo session can be done after discharge. There is no immediate need for inpatient oncology workup. 4. Chronic bone Pain -Continue pain management on morphine pump. She will also be provided with Dilaudid 1 mg p.o. every 6 hours for breakthrough pain. 5. Depression -continue Cymbalta which she takes at home. 6. Leukocytosis, likely chronic with history of splenectomy. Currently there is no evidence to suggest any infection. Will monitor. 7. Possible hyperthyroidism -Repeat thyroid function test with normal T3 level. TSH is low. Recommend outpatient endocrinology evaluation. 8. Acute kidney injury, likely secondary to dehydration versus polypharmacy. Resolved. -Continue IV fluids. -Monitor renal function closely. 9. History of splenectomy. Prophylaxis SCD/H2 blockers. Plan: Patient was feeling back to her baseline in the morning. She was tolerating diet and activities well. However, after discharge order was made, patient threw up one time after she had dose of IV Dilaudid. She is also feeling dizzy and weak. At this time, we are going to keep patient for observation overnight and back are all from some of the pain medications. Will reassess in a.m. and if patient feels better, she can be discharged home if CT is unremarkable. In regards to her pain management, she has appointment next week with her outpatient pain management doctor who adjust her morphine dose in the pump. Patient was in collaboration with Dr. Lorenz. Problems: Subjective 24 Hr Interval Summary Free Text/Dictation As the plan was to discharge patient, she started throwing up and reported that she is feeling weak and dizzy and would not want to go home today. She has been tolerating diet and has been ambulating in the room without any assist. She also did not want to follow-up with her oncologist appointment today. Upon looking back to the chart, seemed like patient received Dilaudid 2 mg IV every 3 hours, Ativan IV 1 mg every 6 hours. Exam/Review of Systems Vital Signs Vitals Vital Signs Date Time Temp Pulse Resp B/P Pulse Ox O2 Delivery O2 Flow Rate FiO2 10/03/17 08:00 98.7 85 18 113/56 93 10/02/17 09:00 Nasal Cannula 2.0 Intake and Output 10/02/17 10/02/17 10/03/17 15:00 23:00 07:00 Intake Total 1533 ml 1915 ml Balance 1533 ml 1915 ml Exam General: Well developed,adequately built, not in any acute distress . HEENT: Normocephalic, Atraumatic, No laceration or hematoma; Eyes: PEERL, Conjunctiva clear, Anicteric sclera Neck: Supple without any lymphadenopathy, nontender, no JVD, no carotid bruits, trachea midline, no thyromegaly Cardiac: S1, S2 auscultated, regular rhythm and rate, no mumurs or gallop Pulmonary: Normal respiratory effort. Chest clear to auscultation bilaterally, no adventitious breath sounds GI: Abdomen normal to inspection. Patient has morphine pump on abdomen. She also has a abdominal binder. Soft, non tender, non- distended, no masses, no rebound tenderness or guarding. Bowel sounds active on all four quadrants Genitourinary: Deferred Extremities: No cyanosis, clubbing, or edema. Pulses [2+] bilaterally. Full ROM on all four extremities. No focal weakness appreciated. Neurologic: Alert to person, place, time, and situation. Affect appropriate, intact sensation. Skin: Bilateral breast reconstruction. Clean,dry, and intact. No ecchymosis, no rashes, or lesions Access. Left upper chest Port-A-Cath, site intact. Results Result Diagram: 10/03/17 0438 10/03/17 0438 Results 24 hrs Laboratory Tests Test 10/03/17 04:38 White Blood Count 13.1 H Red Blood Count 2.67 L Hemoglobin 8.0 L Hematocrit 25.5 L Mean Corpuscular Volume 95.5 Mean Corpuscular Hemoglobin 30.0 Mean Corpuscular Hemoglobin Concent 31.4 L Red Cell Distribution Width 16.1 H Platelet Count 472 H Mean Platelet Volume 11.8 H Neutrophils % 68.6 Lymphocytes % 19.1 Monocytes % 9.5 Eosinophils % 2.1 Basophils % 0.2 Nucleated Red Blood Cells % 0.0 Neutrophils # 9.0 H Lymphocytes # 2.5 Monocytes # 1.2 H Eosinophils # 0.3 Basophils # 0.0 Nucleated Red Blood Cells # 0.0 Sodium Level 142 Potassium Level 3.9 Chloride Level 107 Carbon Dioxide Level 27 Anion Gap 12 Blood Urea Nitrogen 13 # Creatinine 0.77 Glucose Level 100 Calcium Level 9.2 Magnesium Level 1.6 L Thyroid Stimulating Hormone (TSH) 0.116 L Free Thyroxine 0.69 Free Triiodothyronine (T3) pg/mL 2.79 Medications Medications Current Medications Sodium Chloride (NS) 1,000 ml @ 125 mls/hr Q8H IV Last administered on 02:12; Admin Dose 125 MLS/HR; Start 10/02/17 at 09:41 Ondansetron HCl (Zofran Inj) 4 mg Q6H PRN IV NAUSEA AND/OR VOMITING Last administered on 10/03/17 10:36; Admin Dose 4 MG; Start 10/02/17 at 10:00 Acetaminophen (Tylenol Tab) 650 mg Q6H PRN PO PAIN LEVEL 1-3 OR FEVER; Start 10/02/17 at 10:00 Acetaminophen (Tylenol Supp) 650 mg Q6H PRN [place] PAIN LEVEL 1-3 OR FEVER; Start 10/02/17 at 10:00 Docusate Sodium (Colace) 100 mg Q12H PRN PO CONSTIPATION; Start 10/02/17 at 10 :00 Famotidine (Pepcid) 20 mg Q12 PO Last administered on 10/03/17 09:13; Admin Dose 20 MG; Start 10/02/17 at 21:00 Duloxetine HCl (Cymbalta) 60 mg BID PO Last administered on 10/03/17 09:13; Admin Dose 60 MG; Start 10/02/17 at 21:00 Ascorbic Acid (Vitamin C) 1,000 mg DAILY PO Last administered on 10/03/17 09: 13; Admin Dose 1,000 MG; Start 10/03/17 at 09:00 Baclofen (Lioresal) 10 mg QID PO Last administered on 10/03/17 09:13; Admin Dose 10 MG; Start 10/02/17 at 17:00 Exemestane (Aromasin) 25 mg DAILY PO Last administered on 10/03/17 09:17; Admin Dose 25 MG; Start 10/03/17 at 09:00 Gabapentin (Neurontin) 100 mg Q4 PO Last administered on 10/03/17 09:13; Admin Dose 100 MG; Start 10/02/17 at 17:00 Modafinil (Provigil) 200 mg QAM PO Last administered on 10/03/17 10:31; Admin Dose 200 MG; Start 10/03/17 at 09:00 Polyethylene Glycol (Miralax) 17 gm DAILY PO ; Start 10/03/17 at 09:00 Hydromorphone HCl (Dilaudid) 2 mg Q3H PRN IV PAIN Last administered on 10:31; Admin Dose 2 MG; Start 10/02/17 at 19:00 Lorazepam (Ativan) 0.5 mg Q4H PRN IV SHIVERING Last administered on 10/03/17 12:07; Admin Dose 0.5 MG; Start 10/02/17 at 20:29 Vitamin B Complex/ Vitamin C 1 cap 1 cap DAILY@21 PO ; Start 10/03/17 at 21:00 Sodium Chloride (NS) 250 ml @ 250 mls/hr Q1H ONCE IV Last administered on t 12:22; Admin Dose 250 MLS/HR; Start 10/03/17 at 12:30; Stop 10/03/17 at 13:29 FRANK MENDIETA NP Oct 03, 2017 13:36
[2017-10-03] MEDS: HYDROmorphONE 2 MG TAB PO PRN (15:01)
--- NOTE | 2017-10-03 15:48 | RADRPT ---
PROCEDURE: CT Abdomen and Pelvis without contrast. CLINICAL INDICATION: Abdominal and pelvic pain. Anemia. Nausea and vomiting. History of breast can cer with bone metastases. TECHNIQUE: CT scan of the abdomen and pelvis without contrast was performed. Coronal and sagittal reformatted images were obtained from the axial source images. Images were reviewed on a high-res[employer] PACS workstation. Total exam DLP is 768.07 mGy-cm. CTDIvol is 13.61 mGy. One or more of the f ollowing dose reduction techniques were used: Automated exposure control, adjustment of the mA and/o r kV according to patient size, use of iterative reconstruction technique. DICOM images are availabl e. COMPARISON: CT scan of the abdomen and pelvis dated 04/11/2017. FINDINGS: There are bilateral breast implants. There is a small right pleural effusion and a very small left p leural effusion. There is mild atelectasis at the lung bases posteriorly. The lung bases are otherwi se normal. The heart size is normal and there is no pericardial effusion. There is a central venous catheter with the tip in the cavoatrial junction region. The liver is normal in size and attenuation. There is no focal hepatic lesion. The gallbladder and bile ducts are normal. The spleen is surgically absent with clips noted at this site. Both adrenals are normal with no enlargement or mass. The pancreas is unremarkable with no mass or evidence of pancreatitis. There is no renal mass or hydronephrosis. There is no renal calculus or ureteral calculus. The abdominal aorta is not dilated. There is calcification in the aorta consistent with atherosclero sis. There is no retroperitoneal lymphadenopathy or mass. There is no pelvic lymphadenopathy or mass. The bladder and distal ureters are normal. The periappendiceal region is unremarkable with no evidence of appendicitis. The bowel and mesentery are normal. There is no free fluid or free gas. There is a new infusion pump in the subcutaneous adipose tissues of the right lower quadrant with a catheter extending posteriorly into the spinal canal and terminating at approximately T10 level. As seen previously, there are extensive lytic and blastic lesions throughout the spine, ribs, pelvis, a nd sacrum. Surgical screws are present bilaterally in the hips. IMPRESSION: 1. Bilateral breast implants. 2. Small right pleural effusion and very small left pleural effusion. 3. Mild atelectasis at the lung bases posteriorly. 4. Central venous catheter tip in the cavoatrial junction region. 5. Status post splenectomy. 6. Atherosclerosis. 7. New infusion in the subcutaneous tissues of the right lower quadrant with catheter extending int o the spinal canal to the T10 level. 8. Extensive bone metastases. 9. Prior bilateral hip surgery. RPTAT: QQ .Liu Pinedo MD, MD Date Time Electronically viewed and signed by .Liu Pinedo MD, MD on 10/03/2017 15:47 .R/
--- NOTE | 2017-10-03 16:23 | CONS ---
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 -continue Examestane given ER+ nature of disease with Lupron as pt is perimenopause -continue Lupron q 3 mo -will check CA 27.29 at this time -given patient is likely progressing pt has agreed to start chemotherapy with Xeloda as out patient. #Dizzinesss -secondary to dehydration and anemia -pt has been getting fluids #Bone Mets- -pt on Xgeva -increased Dilaudid to 2 mg IVprn pain # anemia -Hg steady at 8 -bone marrow bx ahs confirmed breast cancer in bone marrow -pt on procrit as an out patient Problems: Consultation Date/Type/Reason Admit Date/Time Oct 02, 2017 at 05:47 Date of Consultation: Oct 03, 2017 Type of Consultation: Oncology Reason for Consultation metastatic breast cancer Referring Provider: PERFECTO CLEMENTS Hx of Present Illness 51-year-old female well-known to me with a history of metastatic breast cancer to spine status post pathological fracture. Status post chemotherapy and XRT, bilateral mastectomy severe acute on chronic pain syndrome. Patient is always been compliant with her medications she has never asked for escalating doses, he has not had complaints of nausea vomiting dizziness diplopia disorientation, pruritus. She is now admitted with weakness, dizziness. On last admission pt had a bone marrow bx done which revealed metastatic breast cancer in the bones. Constitutional: disoriented, poor po Respiratory: no complaints Cardiovascular: no complaints Gastrointestinal: decreased appetite Genitourinary: no complaints Musculoskeletal: back pain, bone/joint pain Skin: no complaints Neurologic: no complaints Past Medical History STAGE IV breast cancer anxiety Past Surgical History chronic back pain s/p spine surgery in past Past Surgical Hx: endoscopy, other Family History Significant Family History: no pertinent family hx Social History Alcohol Use: none Smoking Status: Never smoker Exam/Review of Systems Vital Signs Vitals Vital Signs Date Time Temp Pulse Resp B/P Pulse Ox O2 Delivery O2 Flow Rate FiO2 10/03/17 08:00 98.7 85 18 113/56 93 10/02/17 09:00 Nasal Cannula 2.0 Intake and Output 10/02/17 10/02/17 10/03/17 15:00 23:00 07:00 Intake Total 1533 ml 1915 ml Balance 1533 ml 1915 ml Exam Constitutional: alert, oriented Psych: no complaints Head: atraumatic, normocephalic Eyes: nl conjunctiva ENMT: nl external ears & nose, nl lips & teeth Neck: non-tender, supple Respiratory: clear to auscultation Cardiovascular: regular rate and rhythm Genitourinary - Female: nl adnexae Musculoskeletal: nl extremities to inspection, nl gait and stance Results Result Diagram: 10/03/17 0438 10/03/17 0438 Results 24 hrs Laboratory Tests Test 10/03/17 04:38 White Blood Count 13.1 H Red Blood Count 2.67 L Hemoglobin 8.0 L Hematocrit 25.5 L Mean Corpuscular Volume 95.5 Mean Corpuscular Hemoglobin 30.0 Mean Corpuscular Hemoglobin Concent 31.4 L Red Cell Distribution Width 16.1 H Platelet Count 472 H Mean Platelet Volume 11.8 H Neutrophils % 68.6 Lymphocytes % 19.1 Monocytes % 9.5 Eosinophils % 2.1 Basophils % 0.2 Nucleated Red Blood Cells % 0.0 Neutrophils # 9.0 H Lymphocytes # 2.5 Monocytes # 1.2 H Eosinophils # 0.3 Basophils # 0.0 Nucleated Red Blood Cells # 0.0 Sodium Level 142 Potassium Level 3.9 Chloride Level 107 Carbon Dioxide Level 27 Anion Gap 12 Blood Urea Nitrogen 13 # Creatinine 0.77 Glucose Level 100 Calcium Level 9.2 Magnesium Level 1.6 L Thyroid Stimulating Hormone (TSH) 0.116 L Free Thyroxine 0.69 Free Triiodothyronine (T3) pg/mL 2.79 Medications Medications Current Medications Sodium Chloride (NS) 1,000 ml @ 125 mls/hr Q8H IV Last administered on 15:57; Admin Dose 125 MLS/HR; Start 10/02/17 at 09:41 Ondansetron HCl (Zofran Inj) 4 mg Q6H PRN IV NAUSEA AND/OR VOMITING Last administered on 10/03/17 10:36; Admin Dose 4 MG; Start 10/02/17 at 10:00 Acetaminophen (Tylenol Tab) 650 mg Q6H PRN PO PAIN LEVEL 1-3 OR FEVER; Start 10/02/17 at 10:00 Acetaminophen (Tylenol Supp) 650 mg Q6H PRN [place] PAIN LEVEL 1-3 OR FEVER; Start 10/02/17 at 10:00 Docusate Sodium (Colace) 100 mg Q12H PRN PO CONSTIPATION; Start 10/02/17 at 10 :00 Duloxetine HCl (Cymbalta) 60 mg BID PO Last administered on 10/03/17 09:13; Admin Dose 60 MG; Start 10/02/17 at 21:00 Ascorbic Acid (Vitamin C) 1,000 mg DAILY PO Last administered on 10/03/17 09: 13; Admin Dose 1,000 MG; Start 10/03/17 at 09:00 Baclofen (Lioresal) 10 mg QID PO Last administered on 10/03/17 09:13; Admin Dose 10 MG; Start 10/02/17 at 17:00; Status Future Hold Exemestane (Aromasin) 25 mg DAILY PO Last administered on 10/03/17 09:17; Admin Dose 25 MG; Start 10/03/17 at 09:00 Gabapentin (Neurontin) 100 mg Q4 PO Last administered on 10/03/17 09:13; Admin Dose 100 MG; Start 10/02/17 at 17:00 Modafinil (Provigil) 200 mg QAM PO Last administered on 10/03/17 10:31; Admin Dose 200 MG; Start 10/03/17 at 09:00 Polyethylene Glycol (Miralax) 17 gm DAILY PO ; Start 10/03/17 at 09:00 Vitamin B Complex/ Vitamin C (Berocca) 1 cap DAILY@21 PO ; Start 10/03/17 at 21 :00 Famotidine (Pepcid Iv) 20 mg BID IV ; Start 10/03/17 at 21:00 Lorazepam (Ativan) 0.5 mg Q8H PRN PO SHIVERING; Start 10/03/17 at 13:30 Hydromorphone HCl (Dilaudid) 1 mg Q6H PRN PO PAIN Last administered on 15:01; Admin Dose 1 MG; Start 10/03/17 at 13:30 Metoclopramide HCl (Reglan) 10 mg Q6 IV ; Start 10/03/17 at 18:00 KASH LAWSON M.D. Oct 03, 2017 16:23
[2017-10-03] MEDS: METOCLOPRAMIDE 10 MG INJ IV SCH (17:27)
[2017-10-03 18:11] LABS: BENZODIAZEPINES Positive (NEGATIVE)
[2017-10-03 18:12] LABS: BARBITURATES Negative (NEGATIVE); CANNABINOIDS Negative (NEGATIVE); COCAINE Negative (NEGATIVE); OPIATES Positive (NEGATIVE)
[2017-10-03 19:17] VITALS: BP 108/58; RESP 22
[2017-10-03] MEDS: HYDROmorphONE 2 MG/ML SYG IV PRN (20:58)
[2017-10-03] MEDS: VITAMIN B COMPLEX/VIT C CAP PO SCH (21:05)
[2017-10-03] MEDS: FAMOTIDINE 20 MG INJ IV SCH (21:07)
[2017-10-04] MEDS: METOCLOPRAMIDE 10 MG INJ IV SCH ×5 (00:04→23:26)
[2017-10-04] MEDS: HYDROmorphONE 2 MG/ML SYG IV PRN ×9 (00:05→23:29)
[2017-10-04] MEDS: SOD CHLORIDE 0.9% 1,000 ML IV SCH ×3 (00:10→18:52)
[2017-10-04] MEDS: GABAPENTIN 100 MG CAP PO SCH ×6 (01:00→20:27)
[2017-10-04 02:11] VITALS: BP 112/69; RESP 19
[2017-10-04] MEDS ORDERED: MORPHINE XX SCH (07:00)
[2017-10-04 07:58] VITALS: BP 114/59; PULSE 86; RESP 16
[2017-10-04] MEDS: FAMOTIDINE 20 MG INJ IV SCH (08:34)
[2017-10-04] MEDS: DULOXETINE 30 MG CAP DR PO SCH ×2 (08:34→20:27)
[2017-10-04] MEDS: ASCORBIC ACID 500 MG TAB PO SCH (08:34)
[2017-10-04] MEDS: POLYETHYLENE GLYCOL 17 GM PACKET PO SCH (08:35)
[2017-10-04] MEDS: MODAFINIL 200 MG TAB PO SCH (08:42)
[2017-10-04] MEDS: HYDROmorphONE 2 MG TAB PO PRN (08:43)
[2017-10-04] MEDS: EXEMESTANE 25 MG TAB PO SCH (08:57)
--- NOTE | 2017-10-04 10:09 | PN ---
Date/Time of Note Date/Time of Note DATE: 10/04/17 TIME: 09:55 Assessment/Plan VTE Prophylaxis VTE Prophylaxis Intervention: ambulation Lines/Catheters IV Catheter Type (from Nrsg): Central Line Central line still needed: Yes Urinary Cath still in place: No Assessment/Plan Chief Complaint/Hosp Course This is a very unfortunate 51-year-old female with stage IV breast cancer metastases to the bones who now presented with dizziness after patient had nonbilious, nonbloody vomiting and mild diarrheax 12 hrs duration. Her symptoms have resolved at this time. 1. Dizziness with nonbilious, nonbloody vomiting, multifactorial. Likely patient had some kind of viral gastroenteritis which is now resolved. Her vomiting most likely also contributed by morphine. Her dizziness most likely secondary to associated dehydration. -Symptoms improved, CT scan negative for any acute abdominal pathology -Continue supportive care, IV fluids, H2 blockers, [id number] Reglan and PRN Zofran. 2. Intractable pain from metastatic cancer, chronic -Patient is receiving multiple narcotics at higher doses. She is being followed by pain management doctor and oncologist. -At this time, we feel like the best recommendation is her to follow-up with her outpatient pain management doctor to see whether they can change morphine to Dilaudid in the pump that she is receiving for better pain control. 3. Positive FOBT, rule out GI blood loss. -GI consult. Monitor H&H. Currently stable. 4. Chronic anemia secondary to metastatic cancer with bone involvement. Currently her hemoglobin 8.0 and does not require any transfusion at this moment. She also does not have any active bleeding at this time. -Patient also with mild iron deficiency. However with her GI upset, would hold off to iron replacement at this time. Her H&H is stable. -Follow-up with GI recommendations for #3. 5.Metastatic breast cancer to bones -I spoke with patient's outpatient oncologist Dr. Zuleta, and per recommendation , we will continue her on Exemestane. Next chemo session can be done after discharge. There is no immediate need for inpatient oncology workup. 6. Depression -continue Cymbalta which she takes at home. 7. Leukocytosis, likely chronic with history of splenectomy. Currently there is no evidence to suggest any infection. Will monitor. 8. Possible hyperthyroidism -Repeat thyroid function test with normal T3 level. TSH is low. Recommend outpatient endocrinology evaluation. 9. Acute kidney injury, likely secondary to dehydration versus polypharmacy. Resolved. -Continue IV fluids. -Monitor renal function closely. 10. History of splenectomy. Plan: Her medical condition for which she was admitted is currently improved. However, overall decision making is somewhat complicated as patient with intractable pain requiring higher doses of opioids and benzodiazepines along with continuation of morphine pump. Patient also missed her chemo session this week. However, she reported to me that she wanted to continue with her cancer treatment with chemotherapy once her pain is more controlled. She is not receptive to comfort focused care or hospice care at this time. At the same time, patient is demanding high doses of pain medications to make her comfort. According to patient, her morphine pump does not help with her and apparently it causes more vomiting. At this time, we think that patient can be best benefited from outpatient pain management doctor who see her and who put morphine pump on her 2 weeks ago at [facility] to follow-up on her after discharge and determine whether they can change morphine to Dilaudid in the pump or other alternatives to control her pain. Our pain management doctor also trying to get hold of this pain management doctor whom she see as outpatient. Will also include oncologist recommendations. At this time, we are going to keep patient in-house as she is very uncomfortable leaving the hospital since her pain is not being managed well as outpatient upon discharge. Follow-up with recommendation from pain management team here. Patient was seen in collaboration with Dr. Lorenz. Problems: Subjective 24 Hr Interval Summary Free Text/Dictation Patient did not have any further nausea or vomiting. She has been resumed on a regular diet and she is tolerating it. Patient feels better and did not feel dizzy at this time. However, her pain is very uncontrolled and she wanted to get her IV Dilaudid. Patient also reports that her morphine pump does not seem to helping her. Exam/Review of Systems Vital Signs Vitals Vital Signs Date Time Temp Pulse Resp B/P Pulse Ox O2 Delivery O2 Flow Rate FiO2 10/04/17 07:58 99.0 86 16 114/59 10/04/17 02:11 99 10/02/17 09:00 Nasal Cannula 2.0 Intake and Output 10/03/17 10/03/17 10/04/17 15:00 23:00 07:00 Intake Total 925 ml 2765 ml 3800 ml Output Total 150 ml 0 ml Balance 925 ml 2615 ml 3800 ml Exam General: Well developed,adequately built, not in any acute distress . HEENT: Normocephalic, Atraumatic, No laceration or hematoma; Eyes: PEERL, Conjunctiva clear, Anicteric sclera Neck: Supple without any lymphadenopathy, nontender, no JVD, no carotid bruits, trachea midline, no thyromegaly Cardiac: S1, S2 auscultated, regular rhythm and rate, no mumurs or gallop Pulmonary: Normal respiratory effort. Chest clear to auscultation bilaterally, no adventitious breath sounds GI: Abdomen normal to inspection. Patient has morphine pump on abdomen. She also has a abdominal binder. Soft, non tender, non- distended, no masses, no rebound tenderness or guarding. Bowel sounds active on all four quadrants Genitourinary: Deferred Extremities: No cyanosis, clubbing, or edema. Pulses [2+] bilaterally. Full ROM on all four extremities. No focal weakness appreciated. Neurologic: Alert to person, place, time, and situation. Affect appropriate, intact sensation. Skin: Bilateral breast reconstruction. Clean,dry, and intact. No ecchymosis, no rashes, or lesions Access. Left upper chest Port-A-Cath, site intact. Results Result Diagram: 10/03/17 0438 10/03/17 0438 Results 24 hrs Laboratory Tests Test 10/03/17 17:35 10/03/17 21:12 Urine Opiates Screen Positive Urine Barbiturates Negative Urine Amphetamines Screen Negative Urine Benzodiazepines Screen Positive Urine Cocaine Screen Negative Urine Cannabinoids Negative Stool Occult Blood POSITIVE Medications Medications Current Medications Sodium Chloride (NS) 1,000 ml @ 125 mls/hr Q8H IV Last administered on 08:44; Admin Dose 125 MLS/HR; Start 10/02/17 at 09:41 Ondansetron HCl (Zofran Inj) 4 mg Q6H PRN IV NAUSEA AND/OR VOMITING Last administered on 10/03/17 20:58; Admin Dose 4 MG; Start 10/02/17 at 10:00 Acetaminophen (Tylenol Tab) 650 mg Q6H PRN PO PAIN LEVEL 1-3 OR FEVER; Start 10/02/17 at 10:00 Acetaminophen (Tylenol Supp) [address] PAIN LEVEL 1-3 OR FEVER; Start 10/02/17 at 10:00 Docusate Sodium (Colace) 100 mg Q12H PRN PO CONSTIPATION; Start 10/02/17 at 10 :00 Duloxetine HCl (Cymbalta) 60 mg BID PO Last administered on 10/04/17 08:34; Admin Dose 60 MG; Start 10/02/17 at 21:00 Ascorbic Acid (Vitamin C) 1,000 mg DAILY PO Last administered on 10/04/17 08: 34; Admin Dose 1,000 MG; Start 10/03/17 at 09:00 Baclofen (Lioresal) 10 mg QID PO Last administered on 10/03/17 09:13; Admin Dose 10 MG; Start 10/02/17 at 17:00; Status Future Hold Exemestane (Aromasin) 25 mg DAILY PO Last administered on 10/04/17 08:57; Admin Dose 25 MG; Start 10/03/17 at 09:00 Gabapentin (Neurontin) 100 mg Q4 PO Last administered on 10/04/17 08:34; Admin Dose 100 MG; Start 10/02/17 at 17:00 Modafinil (Provigil) 200 mg QAM PO Last administered on 10/04/17 08:42; Admin Dose 200 MG; Start 10/03/17 at 09:00 Polyethylene Glycol (Miralax) 17 gm DAILY PO ; Start 10/03/17 at 09:00 Vitamin B Complex/ Vitamin C (Berocca) 1 cap DAILY@21 PO Last administered on 10/03/17 21:05; Admin Dose 1 CAP; Start 10/03/17 at 21:00 Famotidine (Pepcid Iv) 20 mg BID IV Last administered on 10/04/17 08:34; Admin Dose 20 MG; Start 10/03/17 at 21:00 Lorazepam (Ativan) 0.5 mg Q8H PRN PO SHIVERING; Start 10/03/17 at 13:30 Hydromorphone HCl (Dilaudid) 1 mg Q6H PRN PO PAIN Last administered on 08:43; Admin Dose 1 MG; Start 10/03/17 at 13:30 Metoclopramide HCl (Reglan) 10 mg Q6 IV Last administered on 10/04/17 06:00; Admin Dose 10 MG; Start 10/03/17 at 18:00 Hydromorphone HCl (Dilaudid) 2 mg Q3 PRN IV PAIN Last administered on 08:59; Admin Dose 2 MG; Start 10/03/17 at 20:45 Miscellaneous Information (* Miscellaneous Pharmacy Order) ONCE XX ; Start at 07:00; Status FRANK LEPE NP Oct 04, 2017 10:09
--- NOTE | 2017-10-04 11:40 | CONS ---
Date/Time of Note Date/Time of Note DATE: 10/04/17 TIME: 11:14 Assessment/Plan Assessment/Plan Chief Complaint/Hosp Course Summary Assessment and Plan: Assessment: FOBT- positive/melena- r/o UGI bleed i.e gastritis vs PUD vs mets to UGI tract Anemia of chronic disease- secondary to metastatic cancer Metastatic breast cancer to bones Chronic bone Pain-morphine pump, receiving Dilaudid as needed Depression Leukocytosis- history of splenectomy JUDSON History of splenectomy. Plan: D/c H2 joe Start PPI therapy Regular diet today Clear liquids in am until 10am NPO 10/05 after 10 am EGD tomorrow Endoscopy - risks/benefits/alternatives/indications of procedure and sedation/ anesthesia discussed with patient who states understanding and gives informed consent to proceed. PARQ held and questions were answered. Patient seen in collaboration with Dr. Lopes Chief Complaint/Reason for Visit: FOBT positive Melena History of Present Illness: Th is is a 51 year old female with past medical history of metastatic breast cancer to the bone, who presented to the ER post chemotherapy for increased weakness, dizziness, and vomiting. Patient states she did have an episode of soft stool but denies change in bowel habits i.e. diarrhea or constipation. She also denies any further episodes of vomiting, has some nausea but has improved. She states she had a few episodes of black stools about 5-7 days ago. No further episodes have been noted. She currently denies abdominal pain hematemesis, hematochezia, decreased appetite, or change in bowel habits. She has chronic anemia with a hemoglobin between 8-9, currently hemoglobin stable she does not require transfusion at this moment. A Ct abd/pelvis was obtained showing bilateral breast implants, small right pleural effusion and very small left pleural effusion, mild atelectasis at the lung bases posteriorly, central venous catheter tip in the cavoatrial junction region, status post splenectomy, atherosclerosis, new infusion in the subcutaneous tissues of the right lower quadrant with catheter extending into the spinal canal to the T10 level, extensive bone metastases, prior bilateral hip surgery. GI has been consulted for FOBT positive. With current presentation source of bleeding likely r/t UGI tract will plan to move forward with EGD tomorrow. Further recommendations will be provided after EGD. Past Medical History: Stage 4 Breast Ca with mets to bone Chronic bone Depression History of splenectomy EGD over 10 years ago Has never had a colonoscopy Allergies: Penicillin Peanuts Shellfish derivatives Problems: Consultation Date/Type/Reason Admit Date/Time Oct 02, 2017 at 05:47 Date of Consultation: Oct 04, 2017 Type of Consultation: GI Reason for Consultation FOBT positive Constitutional: disoriented, poor po Respiratory: no complaints Cardiovascular: no complaints Gastrointestinal: decreased appetite Genitourinary: no complaints Musculoskeletal: back pain, bone/joint pain Skin: no complaints Neurologic: no complaints Psychological: no complaints Past Medical History Medical History: other (Stage 4 breast Ca with metastasis) Past Surgical History Past Surgical Hx: endoscopy (over 10 years ago), other Family History Significant Family History: no pertinent family hx Social History Alcohol Use: none Smoking Status: Never smoker Drug Use: none Exam/Review of Systems Vital Signs Vitals Vital Signs Date Time Temp Pulse Resp B/P Pulse Ox O2 Delivery O2 Flow Rate FiO2 10/04/17 07:58 99.0 86 16 114/59 10/04/17 02:11 99 10/02/17 09:00 Nasal Cannula 2.0 Intake and Output 10/03/17 10/03/17 10/04/17 15:00 23:00 07:00 Intake Total 925 ml 2765 ml 3800 ml Output Total 150 ml 0 ml Balance 925 ml 2615 ml 3800 ml Results Result Diagram: 10/03/17 0438 10/03/17 0438 Results 24 hrs Laboratory Tests Test 10/03/17 17:35 10/03/17 21:12 Urine Opiates Screen Positive Urine Barbiturates Negative Urine Amphetamines Screen Negative Urine Benzodiazepines Screen Positive Urine Cocaine Screen Negative Urine Cannabinoids Negative Stool Occult Blood POSITIVE Medications Medications Current Medications Sodium Chloride (NS) 1,000 ml @ 125 mls/hr Q8H IV Last administered on 08:44; Admin Dose 125 MLS/HR; Start 10/02/17 at 09:41 Ondansetron HCl (Zofran Inj) 4 mg Q6H PRN IV NAUSEA AND/OR VOMITING Last administered on 10/03/17 20:58; Admin Dose 4 MG; Start 10/02/17 at 10:00 Acetaminophen (Tylenol Tab) 650 mg Q6H PRN PO PAIN LEVEL 1-3 OR FEVER; Start 10/02/17 at 10:00 Acetaminophen (Tylenol Supp) 650 mg Q6H PRN [place] PAIN LEVEL 1-3 OR FEVER; Start 10/02/17 at 10:00 Docusate Sodium (Colace) 100 mg Q12H PRN PO CONSTIPATION; Start 10/02/17 at 10 :00 Duloxetine HCl (Cymbalta) 60 mg BID PO Last administered on 10/04/17 08:34; Admin Dose 60 MG; Start 10/02/17 at 21:00 Ascorbic Acid (Vitamin C) 1,000 mg DAILY PO Last administered on 10/04/17 08: 34; Admin Dose 1,000 MG; Start 10/03/17 at 09:00 Baclofen (Lioresal) 10 mg QID PO Last administered on 10/03/17 09:13; Admin Dose 10 MG; Start 10/02/17 at 17:00; Status Future Hold Exemestane (Aromasin) 25 mg DAILY PO Last administered on 10/04/17 08:57; Admin Dose 25 MG; Start 10/03/17 at 09:00 Gabapentin (Neurontin) 100 mg Q4 PO Last administered on 10/04/17 08:34; Admin Dose 100 MG; Start 10/02/17 at 17:00 Modafinil (Provigil) 200 mg QAM PO Last administered on 10/04/17 08:42; Admin Dose 200 MG; Start 10/03/17 at 09:00 Polyethylene Glycol (Miralax) 17 gm DAILY PO ; Start 10/03/17 at 09:00 Vitamin B Complex/ Vitamin C (Berocca) 1 cap DAILY@21 PO Last administered on 10/03/17 21:05; Admin Dose 1 CAP; Start 10/03/17 at 21:00 Lorazepam (Ativan) 0.5 mg Q8H PRN PO SHIVERING; Start 10/03/17 at 13:30 Hydromorphone HCl (Dilaudid) 1 mg Q6H PRN PO PAIN Last administered on 08:43; Admin Dose 1 MG; Start 10/03/17 at 13:30 Metoclopramide HCl (Reglan) 10 mg Q6 IV Last administered on 10/04/17 06:00; Admin Dose 10 MG; Start 10/03/17 at 18:00 Hydromorphone HCl (Dilaudid) 2 mg Q3 PRN IV PAIN Last administered on t 08:59; Admin Dose 2 MG; Start 10/03/17 at 20:45 Miscellaneous Information (* Miscellaneous Pharmacy Order) ONCE XX ; Start at 07:00; Status UNV Pantoprazole (Protonix Iv) 40 mg BID@06,18 IV ; Start 10/04/17 at 18:00 Copies To: CC: YEISON LOPES MDLUNA Oct 04, 2017 11:27
[2017-10-04] MEDS: PANTOPRAZOLE 40 MG INJ IV SCH (17:32)
[2017-10-04 19:33] VITALS: BP 117/67; RESP 22
[2017-10-04] MEDS: VITAMIN B COMPLEX/VIT C CAP PO SCH (20:27)
[2017-10-05] VITALS (17 sets, daily range): BP systolic 119–154; BP diastolic 58–87; PULSE 66–90; RESP 10–22
[2017-10-05] MEDS: GABAPENTIN 100 MG CAP PO SCH ×6 (01:03→20:29)
[2017-10-05] MEDS: SOD CHLORIDE 0.9% 1,000 ML IV SCH ×3 (01:41→18:31)
[2017-10-05] MEDS: HYDROmorphONE 2 MG/ML SYG IV PRN ×6 (02:29→23:24)
[2017-10-05] MEDS: METOCLOPRAMIDE 10 MG INJ IV SCH ×4 (05:22→23:24)
[2017-10-05] MEDS: PANTOPRAZOLE 40 MG INJ IV SCH ×2 (05:22→18:30)
[2017-10-05 05:36] LABS: ABNORMAL IP MESSAGE 1; BASOPHILS % 0.1 % (0.0-2.0); EOSINOPHILS # 0.3 10^3/ul (0.0-0.5); HEMATOCRIT 22.9 % (37.0-47.0); HEMOGLOBIN 7.1 g/dl (12.0-16.0); LYMPHOCYTES # 2.5 10^3/ul (0.8-2.9); LYMPHOCYTES % 17.6 % (15.0-51.0); MEAN CORPUSCULAR HEMOGLOBIN 29.7 pg (29.0-33.0); MEAN CORPUSCULAR VOLUME 95.8 fl (82.0-101.0); MEAN PLATELET VOLUME 12.1 fl (7.4-10.4); MONOCYTE # 1.6 10^3/ul (0.3-0.9); MONOCYTES % 11.6 % (0.0-11.0); NEUTROPHIL # 9.4 10^3/ul (1.6-7.5); NUCLEATED RED BLOOD CELLS% 0.3 /100WBC (0.0-0.0); PLATELET COUNT 550 10^3/UL (140-415); RED BLOOD COUNT 2.39 10^6/ul (4.20-5.40); RED CELL DISTRIBUTION WIDTH 16.1 % (11.5-14.5)
[2017-10-05 05:42] LABS: POSITIVE DIFF @See below
[2017-10-05 06:15] LABS: CALCIUM 9.5 mg/dl (8.4-10.2); CREATININE 0.67 mg/dl (0.44-1.00); MAGNESIUM 1.6 mg/dl (1.7-2.5); POTASSIUM 3.4 mmol/L (3.5-5.1)
[2017-10-05] MEDS: ONDANSETRON 4 MG INJ IV PRN ×4 (08:28→20:26)
[2017-10-05] MEDS: DULOXETINE 30 MG CAP DR PO SCH ×3 (08:33→20:29)
[2017-10-05] MEDS: ASCORBIC ACID 500 MG TAB PO SCH ×2 (08:33→09:00)
[2017-10-05] MEDS: MODAFINIL 200 MG TAB PO SCH ×2 (08:33→09:00)
[2017-10-05] MEDS: POLYETHYLENE GLYCOL 17 GM PACKET PO SCH (09:00)
[2017-10-05] MEDS: EXEMESTANE 25 MG TAB PO SCH (09:00)
[2017-10-05] MEDS ORDERED: SOD CHLORIDE 0.9% 250 ML IV* ONE (09:16)
--- NOTE | 2017-10-05 10:24 | PN ---
Date/Time of Note Date/Time of Note DATE: 10/05/17 TIME: 10:20 Assessment/Plan VTE Prophylaxis VTE Prophylaxis Intervention: ambulation Lines/Catheters IV Catheter Type (from Nrs): portacath Urinary Cath still in place: No Assessment/Plan Chief Complaint/Hosp Course This is a very unfortunate 51-year-old female with stage IV breast cancer metastases to the bones who now presented with dizziness after patient had nonbilious, nonbloody vomiting and mild diarrheax 12 hrs duration. Her symptoms have resolved at this time. 1. Dizziness with nonbilious, nonbloody vomiting, multifactorial. Likely patient had some kind of viral gastroenteritis which is now resolved. Her vomiting most likely also contributed by morphine. Her dizziness most likely secondary to associated dehydration. -Symptoms improved, CT scan negative for any acute abdominal pathology -Continue supportive care, IV fluids, PPIs , [id number] Reglan and PRN Zofran. 2. Intractable pain from metastatic cancer, chronic -Patient is on 2 mg IV Dilaudid every 3 hours along with her IV morphine pump- pain meds dosed per Dr. Patel. -At this time, we feel like the best recommendation is her to follow-up with her outpatient pain management doctor to see whether they can change morphine to Dilaudid in the pump that she is receiving for better pain control. 3. Positive FOBT, rule out GI blood loss. Today hemoglobin dropped to 7.1. -GI evaluation greatly appreciated. Patient is scheduled for endoscopy today. -We will transfuse 1 unit of PRBC today. -Monitor H&H closely. 4. Chronic anemia secondary to metastatic cancer with bone involvement, now acute with #3. -Patient also with mild iron deficiency. However with her GI upset, would hold off to iron replacement at this time. -Follow-up with endoscopy findings. 5.Metastatic breast cancer to bones -I spoke with patient's outpatient oncologist Dr. Zuleta, and per recommendation , we will continue her on Exemestane. Next chemo session can be done after discharge. There is no immediate need for inpatient oncology workup. 6. Depression -continue Cymbalta which she takes at home. 7. Leukocytosis, likely chronic with history of splenectomy. Currently there is no evidence to suggest any infection. Will monitor. 8. Possible hyperthyroidism -Repeat thyroid function test with normal T3 level. TSH is low. Recommend outpatient endocrinology evaluation. 9. Acute kidney injury, likely secondary to dehydration versus polypharmacy. Resolved. -Continue IV fluids. -Monitor renal function closely. 10. History of splenectomy. Plan: Her medical condition for which she was admitted is currently improved. She was also incidentally noted with positive FOBT for which she is having GI workup currently. However, overall decision making is somewhat complicated as patient with intractable pain requiring higher doses of opioids and benzodiazepines along with continuation of morphine pump. Patient also missed her chemo session this week. However, she reported to me that she wanted to continue with her cancer treatment with chemotherapy once her pain is more controlled. She is not receptive to comfort focused care or hospice care at this time. At the same time, patient is demanding high doses of pain medications to make her comfort. According to patient, her morphine pump does not help with her and apparently it causes more vomiting. At this time, we think that patient can be best benefited from outpatient pain management doctor who see her and who put morphine pump on her [address] [facility] to follow-up on her after discharge and determine whether they can change morphine to Dilaudid in the pump or other alternatives to control her pain. Our pain management doctor also trying to get hold of this pain management doctor whom she see as outpatient. Will also include oncologist recommendations. At this time, we are going to keep patient in-house as she is very uncomfortable leaving the hospital since her pain is not being managed well as outpatient upon discharge. Follow-up with recommendation from pain management team here. Patient was seen in collaboration with Dr. Lorenz. Problems: Subjective 24 Hr Interval Summary Free Text/Dictation Patient with no further dizziness, nausea or vomiting. She denied any hematemesis, hematochezia or melena. Exam/Review of Systems Vital Signs Vitals Vital Signs Date Time Temp Pulse Resp B/P Pulse Ox O2 Delivery O2 Flow Rate FiO2 10/05/17 08:11 98.6 86 18 129/87 92 10/02/17 09:00 Nasal Cannula 2.0 Intake and Output 10/04/17 10/04/17 10/05/17 14:59 22:59 06:59 Intake Total 1300 ml 1800 ml Balance 1300 ml 1800 ml Exam General: Well developed,adequately built, not in any acute distress . HEENT: Normocephalic, Atraumatic, No laceration or hematoma; Eyes: PEERL, Conjunctiva clear, Anicteric sclera Neck: Supple without any lymphadenopathy, nontender, no JVD, no carotid bruits, trachea midline, no thyromegaly Cardiac: S1, S2 auscultated, regular rhythm and rate, no mumurs or gallop Pulmonary: Normal respiratory effort. Chest clear to auscultation bilaterally, no adventitious breath sounds GI: Abdomen normal to inspection. Patient has morphine pump on abdomen. She also has a abdominal binder. Soft, non tender, non- distended, no masses, no rebound tenderness or guarding. Bowel sounds active on all four quadrants Genitourinary: Deferred Extremities: No cyanosis, clubbing, or edema. Pulses [2+] bilaterally. Full ROM on all four extremities. No focal weakness appreciated. Neurologic: Alert to person, place, time, and situation. Affect appropriate, intact sensation. Skin: Bilateral breast reconstruction. Clean,dry, and intact. No ecchymosis, no rashes, or lesions Access. Left upper chest Port-A-Cath, site intact. Results Result Diagram: 10/05/17 0430 10/05/17 0430 Results 24 hrs Laboratory Tests Test 10/05/17 04:30 White Blood Count 14.0 H Red Blood Count 2.39 L Hemoglobin 7.1 L Hematocrit 22.9 L Mean Corpuscular Volume 95.8 Mean Corpuscular Hemoglobin 29.7 Mean Corpuscular Hemoglobin Concent 31.0 L Red Cell Distribution Width 16.1 H Platelet Count 550 H Mean Platelet Volume 12.1 H Neutrophils % 67.0 Lymphocytes % 17.6 Monocytes % 11.6 H Eosinophils % 2.0 Basophils % 0.1 Nucleated Red Blood Cells % 0.3 H Neutrophils # 9.4 H Lymphocytes # 2.5 Monocytes # 1.6 H Eosinophils # 0.3 Basophils # 0.0 Nucleated Red Blood Cells # 0.0 Sodium Level 141 Potassium Level 3.4 L Chloride Level 104 Carbon Dioxide Level 31 Anion Gap 9 Blood Urea Nitrogen 5 L Creatinine 0.67 Glucose Level 92 Calcium Level 9.5 Magnesium Level 1.6 L Medications Medications Current Medications Sodium Chloride (NS) 1,000 ml @ 125 mls/hr Q8H IV Last administered on t 04:27; Admin Dose 125 MLS/HR; Start 10/02/17 at 09:41 Ondansetron HCl (Zofran Inj) 4 mg Q6H PRN IV NAUSEA AND/OR VOMITING Last administered on 10/05/17 08:28; Admin Dose 4 MG; Start 10/02/17 at 10:00 Acetaminophen (Tylenol Tab) 650 mg Q6H PRN PO PAIN LEVEL 1-3 OR FEVER; Start 10/02/17 at 10:00 Acetaminophen (Tylenol Supp) 650 mg Q6H PRN [place] PAIN LEVEL 1-3 OR FEVER; Start 10/02/17 at 10:00 Docusate Sodium (Colace) 100 mg Q12H PRN PO CONSTIPATION; Start 10/02/17 at 10 :00 Duloxetine HCl (Cymbalta) 60 mg BID PO Last administered on 10/05/17 08:33; Admin Dose 60 MG; Start 10/02/17 at 21:00 Ascorbic Acid (Vitamin C) 1,000 mg DAILY PO Last administered on 10/05/17 08: 33; Admin Dose 1,000 MG; Start 10/03/17 at 09:00 Baclofen (Lioresal) 10 mg QID PO Last administered on 10/03/17 09:13; Admin Dose 10 MG; Start 10/02/17 at 17:00; Status Future Hold Exemestane (Aromasin) 25 mg DAILY PO Last administered on 10/04/17 08:57; Admin Dose 25 MG; Start 10/03/17 at 09:00 Gabapentin (Neurontin) 100 mg Q4 PO Last administered on 10/05/17 08:33; Admin Dose 100 MG; Start 10/02/17 at 17:00 Modafinil (Provigil) 200 mg QAM PO Last administered on 10/05/17 08:33; Admin Dose 200 MG; Start 10/03/17 at 09:00 Polyethylene Glycol (Miralax) 17 gm DAILY PO ; Start 10/03/17 at 09:00 Vitamin B Complex/ Vitamin C (Berocca) 1 cap DAILY@21 PO Last administered on 10/04/17 20:27; Admin Dose 1 CAP; Start 10/03/17 at 21:00 Lorazepam (Ativan) 0.5 mg Q8H PRN PO SHIVERING; Start 10/03/17 at 13:30 Metoclopramide HCl (Reglan) 10 mg Q6 IV Last administered on 10/05/17 05:22; Admin Dose 10 MG; Start 10/03/17 at 18:00 Hydromorphone HCl (Dilaudid) 2 mg Q3 PRN IV PAIN Last administered on 08:30; Admin Dose 2 MG; Start 10/03/17 at 20:45 Miscellaneous Information (* Miscellaneous Pharmacy Order) ONCE XX ; Start at 07:00 Pantoprazole (Protonix Iv) 40 mg BID@06,18 IV Last administered on 10/05/17 05:22; Admin Dose 40 MG; Start 10/04/17 at 18:00 FRANK MENDIETA NP Oct 05, 2017 10:24
[2017-10-05] MEDS ORDERED: MAGNESIUM SULFATE 2 GM/50 ML 50 ML IVPB ONE (11:00)
[2017-10-05] MEDS ORDERED: POTASSIUM CHLORIDE 20 MEQ in SOD CHLORIDE 0.9% 100 ML IVPB ONE (12:00)
[2017-10-05] MEDS ORDERED: LIDOCAINE 2% (SDV) 5 ML INJ ONE (17:19)
[2017-10-05] MEDS ORDERED: PROPOFOL 20 ML ONE (17:19)
[2017-10-05] MEDS ORDERED: FENTAnyl 50 MCG/ML VIAL ONE ×2 (17:21→17:57)
[2017-10-05] MEDS ORDERED: ONDANSETRON 4 MG INJ ONE (17:30)
--- NOTE | 2017-10-05 17:43 | CONS ---
Date/Time of Note Date/Time of Note DATE: 10/05/17 TIME: 17:32 Assessment/Plan Assessment/Plan Chief Complaint/Hosp Course Assessment: FOBT- positive/melena- r/o UGI bleed i.e gastritis vs PUD vs mets to UGI tract Anemia of chronic disease- secondary to metastatic cancer Metastatic breast cancer to bones Chronic bone Pain-morphine pump, receiving Dilaudid as needed Depression Leukocytosis- history of splenectomy JUDSON History of splenectomy. Plan: D/c H2 joe Start PPI therapy Regular diet today Clear liquids in am until 10am NPO 10/05 after 10 am EGD tomorrow Endoscopy - risks/benefits/alternatives/indications of procedure and sedation/ anesthesia discussed with patient who states understanding and gives informed consent to proceed. PARQ held and questions were answered. Patient seen in collaboration with Dr. Lopes Chief Complaint/Reason for Visit: FOBT positive Melena History of Present Illness: Th is is a 51 year old female with past medical history of metastatic breast cancer to the bone, who presented to the ER post chemotherapy for increased weakness, dizziness, and vomiting. Patient states she did have an episode of soft stool but denies change in bowel habits i.e. diarrhea or constipation. She also denies any further episodes of vomiting, has some nausea but has improved. She states she had a few episodes of black stools about 5-7 days ago. No further episodes have been noted. She currently denies abdominal pain hematemesis, hematochezia, decreased appetite, or change in bowel habits. She has chronic anemia with a hemoglobin between 8-9, currently hemoglobin stable she does not require transfusion at this moment. A Ct abd/pelvis was obtained showing bilateral breast implants, small right pleural effusion and very small left pleural effusion, mild atelectasis at the lung bases posteriorly, central venous catheter tip in the cavoatrial junction region, status post splenectomy, atherosclerosis, new infusion in the subcutaneous tissues of the right lower quadrant with catheter extending into the spinal canal to the T10 level, extensive bone metastases, prior bilateral hip surgery. GI has been consulted for FOBT positive. With current presentation source of bleeding likely r/t UGI tract will plan to move forward with EGD tomorrow. Further recommendations will be provided after EGD. Past Medical History: Stage 4 Breast Ca with mets to bone Chronic bone Depression History of splenectomy EGD over 10 years ago Has never had a colonoscopy Allergies: Penicillin Peanuts Shellfish derivatives Problems: ROS Constitutional: disoriented, poor po Respiratory: no complaints Cardiovascular: no complaints Gastrointestinal: decreased appetite Genitourinary: no complaints Musculoskeletal: back pain, bone/joint pain Skin: no complaints Neurologic: no complaints Psychological: no complaints Significant Family History: no pertinent family hx SOCIAL HISTORY: Alcohol Use: none Smoking Status: Never smoker Drug Use: none PHYSICAL EXAMINATION: GENERAL: Well developed, well nourished, alert & oriented x 3, in no acute distress SKIN: No lesions, no stigmata chronic liver disease, no evidence of bleeding diathesis LYMPHATIC: No palpable lymphadenopathy. HEAD: Normocephalic, atraumatic, no tenderness. EYES: Pupils equal reactive to light and accommodation, full extraocular movements, sclera clear, non-icteric, no discharge. EARS/NOSE AND THROAT: Ears normal, nose normal, oropharynx normal, oral membranes well hydrated without lesions. NECK: Supple, no masses, thyroid normal, JVP within normal limits, carotids normal without bruits. CHEST: Inspection within normal limits. CARDIOVASCULAR: Heart: Regular rate and rhythm, no murmurs, gallops or rubs. Peripheral pulses present within normal limits, no cyanosis, clubbing or edemas. No pulsatile abdominal mass RESPIRATORY: Lungs clear to auscultation and percussion, no wheezing, no rubs GASTROINTESTINAL AND LIVER: Abdomen: Soft, non tenderness, non-distended, no hernias, no masses, no organomegaly, no ascites, no guarding, no rebound tenderness, normoactive bowel sounds. Rectal: Deferred. [no perianal disease, no masses, stool normal, occult blood negative.] GENITOURINARY: [Male genitalia within normal limits.][Female genitalia within normal limits.] EXTREMITIES: No cyanosis, clubbing or edema. [MUSCULO-SKELETAL: Gait and station within normal limits, range of motion adequate.] [NEUROLOGIC: Cranial nerves II-XII intact, Motor within normal limits, Sensory within normal limits. Reflexes within normal limits. PSYCHIATRIC: Alert & oriented x 3, mood/affect/judgement adequate] Problems: Consultation Date/Type/Reason Admit Date/Time Oct 02, 2017 at 05:47 Skin: no complaints Exam/Review of Systems Vital Signs Vitals Vital Signs Date Time Temp Pulse Resp B/P Pulse Ox O2 Delivery O2 Flow Rate FiO2 11/17/17 08:11 98.6 86 18 129/87 92 10/02/17 09:00 Nasal Cannula 2.0 Intake and Output 10/04/17 10/04/17 10/05/17 15:00 23:00 07:00 Intake Total 1300 ml 1800 ml Balance 1300 ml 1800 ml Results Result Diagram: 10/05/17 0430 10/05/17 0430 Results 24 hrs Laboratory Tests Test 10/05/17 04:30 White Blood Count 14.0 H Red Blood Count 2.39 L Hemoglobin 7.1 L Hematocrit 22.9 L Mean Corpuscular Volume 95.8 Mean Corpuscular Hemoglobin 29.7 Mean Corpuscular Hemoglobin Concent 31.0 L Red Cell Distribution Width 16.1 H Platelet Count 550 H Mean Platelet Volume 12.1 H Neutrophils % 67.0 Lymphocytes % 17.6 Monocytes % 11.6 H Eosinophils % 2.0 Basophils % 0.1 Nucleated Red Blood Cells % 0.3 H Neutrophils # 9.4 H Lymphocytes # 2.5 Monocytes # 1.6 H Eosinophils # 0.3 Basophils # 0.0 Nucleated Red Blood Cells # 0.0 Sodium Level 141 Potassium Level 3.4 L Chloride Level 104 Carbon Dioxide Level 31 Anion Gap 9 Blood Urea Nitrogen 5 L Creatinine 0.67 Glucose Level 92 Calcium Level 9.5 Magnesium Level 1.6 L Medications Medications Current Medications Sodium Chloride (NS) 1,000 ml @ 125 mls/hr Q8H IV Last administered on 04:27; Admin Dose 125 MLS/HR; Start 10/02/17 at 09:41 Ondansetron HCl (Zofran Inj) 4 mg Q6H PRN IV NAUSEA AND/OR VOMITING Last administered on 10/05/17 16:27; Admin Dose 4 MG; Start 10/02/17 at 10:00 Acetaminophen (Tylenol Tab) 650 mg Q6H PRN PO PAIN LEVEL 1-3 OR FEVER; Start 10/02/17 at 10:00 Acetaminophen (Tylenol Supp) 650 mg Q6H PRN [place] PAIN LEVEL 1-3 OR FEVER; Start 10/02/17 at 10:00 Docusate Sodium (Colace) 100 mg Q12H PRN PO CONSTIPATION; Start 10/02/17 at 10 :00 Duloxetine HCl (Cymbalta) 60 mg BID PO Last administered on 10/04/17 20:27; Admin Dose 60 MG; Start 10/02/17 at 21:00 Ascorbic Acid (Vitamin C) 1,000 mg DAILY PO Last administered on 10/04/17 08: 34; Admin Dose 1,000 MG; Start 10/03/17 at 09:00 Baclofen (Lioresal) 10 mg QID PO Last administered on 10/03/17 09:13; Admin Dose 10 MG; Start 10/02/17 at 17:00; Status Future Hold Exemestane (Aromasin) 25 mg DAILY PO Last administered on 10/04/17 08:57; Admin Dose 25 MG; Start 10/03/17 at 09:00 Gabapentin (Neurontin) 100 mg Q4 PO Last administered on 10/05/17 08:33; Admin Dose 100 MG; Start 10/02/17 at 17:00 Modafinil (Provigil) 200 mg QAM PO Last administered on 10/04/17 08:42; Admin Dose 200 MG; Start 10/03/17 at 09:00 Polyethylene Glycol (Miralax) 17 gm DAILY PO ; Start 10/03/17 at 09:00 Vitamin B Complex/ Vitamin C (Berocca) 1 cap DAILY@21 PO Last administered on 10/04/17 20:27; Admin Dose 1 CAP; Start 10/03/17 at 21:00 Lorazepam (Ativan) 0.5 mg Q8H PRN PO SHIVERING; Start 10/03/17 at 13:30 Metoclopramide HCl (Reglan) 10 mg Q6 IV Last administered on 10/05/17 11:24; Admin Dose 10 MG; Start 10/03/17 at 18:00 Hydromorphone HCl (Dilaudid) 2 mg Q3 PRN IV PAIN Last administered on 14:23; Admin Dose 2 MG; Start 10/03/17 at 20:45 Miscellaneous Information (* Miscellaneous Pharmacy Order) ONCE XX ; Start at 07:00 Pantoprazole (Protonix Iv) 40 mg BID@06,18 IV Last administered on 10/05/17 05:22; Admin Dose 40 MG; Start 10/04/17 at 18:00 YEISON LOPES MD Oct 05, 2017 17:43
--- NOTE | 2017-10-05 17:46 | HPN ---
Date/Time of Note Date/Time of Note DATE: 10/05/17 TIME: 17:45 Interval H&P Admission Note Pt. seen H&P reviewed: No system changes YEISON CALDERON MD Oct 05, 2017 17:46
--- NOTE | 2017-10-05 17:49 | OPPN ---
Date/Time of Note Date/Time of Note DATE: 10/05/17 TIME: 17:46 Proc Note GI Procedure Date 10/05/17 Indication: other (GI bleeding/anemia) Pre-procedure Diagnosis GI bleeding/anemia Post-procedure Diagnosis Impression: Severe distal esophagitis Moderate gastritis. Rule out H. pylori infection. Biopsies obtained 1 cm submucosal nodule in the duodenal bulb. Biopsies obtained. Otherwise normal EGD. Plan: Continue Protonix 40 mg twice daily Review pathology as soon as available Advance diet as tolerated . Procedure Performed: Endoscopy (With biopsies) Surgeon YEISON CALDERON MD See signature line Tile Finisher none Anesthesia Type: MAC Anesthesiologist: DALY CAMARA MD Tourniquet Time none EBL none Transfusion required none Biopsy 1: Gastric body and antrum Biopsy 2: Duodenal nodule Grafts/Implants none Tubes/Drains none Complication(s) none Disposition: PACU Procedure Description Preoperative Diagnosis: After informed consent, with the patient/relatives understanding the procedure, its indications, potential risks and complications, including but not limited to : allergic reaction, bleeding, perforation or infection, and after all pertinent questions were answered to the patients satisfaction, the patient/ relatives signed witnessed informed consent. Following this, premedication was administered slowly IV push under careful cardiovascular and respiratory monitoring with pulse oximetry, automatic blood pressure, and computer scientist. Once the sedative effect was achieved the patient was place in the left lateral decubitus, the panendoscope was introduced and advanced under visual control. Careful examination of the upper gastrointestinal tract, both on insertion as well as withdrawal of the instrument disclosing the following findings: ESOPHAGUS: the mucosa of the entire esophagus was carefully examined and showed the following findings: There is erythema, edema and superficial erosion of the mucosa at the esophagogastric junction. Otherwise the mucosa appears within normal limits. There is no evidence of varices, neoplasm, or stricture. No Hiatal Hernia identified. STOMACH: Upon entrance to the stomach air was insufflated, the gastric isaac distended normally. The mucosa of the fundus, body and antrum of the stomach was carefully examined both head-on and on retroflexion, and showed the following findings: There is moderate erythema and edema the mucosa of the body and antrum the stomach. Biopsies were obtained to rule out H. pylori infection. Otherwise the mucosa appears within normal limits with no abnormalities. There is no evidence of ulcers or neoplasm. PYLORUS: The pylorus was carefully examined and showed the following findings: the pylorus appears patent and within normal limits, with no evidence of gastric outlet obstruction. DUODENUM: The duodenal mucosa was carefully examined in the duodenal bulb as well as the second portion of the duodenum and showed the following findings: There is a 1 cm submucosal duodenal nodule in the duodenal bulb. Multiple biopsies were obtained. Otherwise the mucosa appears unremarkable with no evidence of duodenitis, ulcer or other neoplasm. Copies To: CC: YEISON CALDERON MD, MORDO MD Oct 05, 2017 17:49
[2017-10-05] MEDS ORDERED: DIPHENHYDRAMINE 25 MG INJ IV PRN (18:30)
[2017-10-05] MEDS ORDERED: MEPERIDINE 25 MG INJ IV PRN (18:30)
[2017-10-05] MEDS ORDERED: FENTAnyl 25 MCG IV PRN (18:30)
[2017-10-05] MEDS: VITAMIN B COMPLEX/VIT C CAP PO SCH (20:29)
[2017-10-06 02:00] VITALS: BP 150/70; RESP 20
[2017-10-06] MEDS: GABAPENTIN 100 MG CAP PO SCH ×6 (02:16→20:09)
[2017-10-06] MEDS: SOD CHLORIDE 0.9% 1,000 ML IV SCH (02:16)
[2017-10-06] MEDS: ONDANSETRON 4 MG INJ IV PRN ×4 (02:17→20:09)
[2017-10-06] MEDS: HYDROmorphONE 2 MG/ML SYG IV PRN ×8 (02:17→23:08)
[2017-10-06] MEDS: LORAZEPAM 0.5 MG TAB PO PRN ×2 (02:30→23:08)
[2017-10-06] MEDS: METOCLOPRAMIDE 10 MG INJ IV SCH ×4 (05:15→23:08)
[2017-10-06] MEDS: PANTOPRAZOLE 40 MG INJ IV SCH (05:16)
[2017-10-06 05:19] LABS: BASOPHILS % 0.2 % (0.0-2.0); EOSINOPHILS # 0.3 10^3/ul (0.0-0.5); EOSINOPHILS % 2.5 % (0.0-7.0); HEMOGLOBIN 8.1 g/dl (12.0-16.0); LYMPHOCYTES # 2.4 10^3/ul (0.8-2.9); LYMPHOCYTES % 17.4 % (15.0-51.0); MEAN CORPUSCULAR HEMOGLOBIN 29.9 pg (29.0-33.0); MEAN CORPUSCULAR HGB CONC 31.2 g/dl (32.0-37.0); MEAN CORPUSCULAR VOLUME 95.9 fl (82.0-101.0); MEAN PLATELET VOLUME 11.6 fl (7.4-10.4); MONOCYTE # 1.3 10^3/ul (0.3-0.9); MONOCYTES % 9.8 % (0.0-11.0); NEUTROPHIL # 9.1 10^3/ul (1.6-7.5); NEUTROPHILS % 66.4 % (39.0-77.0); NUCLEATED RED BLOOD CELLS # 0.1 10^3/ul (0.0-0.0); PLATELET COUNT 559 10^3/UL (140-415); RED BLOOD COUNT 2.71 10^6/ul (4.20-5.40); RED CELL DISTRIBUTION WIDTH 16.1 % (11.5-14.5); WHITE BLOOD COUNT 13.6 10^3/ul (4.8-10.8)
[2017-10-06 05:44] LABS: CALCIUM 9.2 mg/dl (8.4-10.2); CREATININE 0.67 mg/dl (0.44-1.00); POTASSIUM 3.7 mmol/L (3.5-5.1)
[2017-10-06 08:00] VITALS: BP 135/62; RESP 18
[2017-10-06] MEDS: DULOXETINE 30 MG CAP DR PO SCH ×2 (08:24→20:09)
[2017-10-06] MEDS: POLYETHYLENE GLYCOL 17 GM PACKET PO SCH (08:24)
[2017-10-06] MEDS: MODAFINIL 200 MG TAB PO SCH (08:25)
[2017-10-06] MEDS: ASCORBIC ACID 500 MG TAB PO SCH (08:25)
[2017-10-06] MEDS: EXEMESTANE 25 MG TAB PO SCH (08:32)
--- NOTE | 2017-10-06 10:14 | PN ---
Date/Time of Note Date/Time of Note DATE: 10/06/17 TIME: 10:07 Assessment/Plan VTE Prophylaxis VTE Prophylaxis Intervention: ambulation, SCD's Lines/Catheters [facility]from [facility] Central Line Central line still needed: Yes Urinary Cath still in place: No Assessment/Plan Chief Complaint/Hosp Course Assessment: FOBT- positive/melena- EGD 10/05/2017 Severe distal esophagitis Moderate gastritis. Rule out H. pylori infection. Biopsies obtained 1 cm submucosal nodule in the duodenal bulb. Biopsies obtained. Otherwise normal EGD. Anemia multifactorial. GI findings plus chronic disease- secondary to metastatic cancer Metastatic breast cancer to bones Chronic bone Pain-morphine pump, receiving Dilaudid as needed Depression Leukocytosis- history of splenectomy JUDSON History of splenectomy. Plan: PPI therapy Regular diet today Review pathology as soon as available Subjective: Course reviewed with nursing staff Patient interviewed and examined All labs, imaging and other results reviewed The patient reports moderate epigastric abdominal pain She is tolerating diet Endoscopic findings were explained in detail Exam: General: well developed, well nourished, alert and oriented x3 , in no acute distress Skin: No lesions, no stigmata chronic liver disease, no evidence of bleeding diathesis Lymphatic: No palpable lymphadenopathy HEENT: No lesions Cardiovascular: Heart: Regular rate and rhythm, no murmurs, gallops or rubs. Peripheral pulses present within normal limits, no cyanosis, clubbing or edemas. No pulsatile abdominal mass Respiratory: Lungs clear to auscultation and percussion, no wheezing, no rubs Gastrointestinal and Liver: Abdomen: Soft, mild epigastric tenderness, not distended, no hernias, no masses, no organomegaly, no ascites, no guarding, no rebound tenderness, normoactive bowel sounds. Extremities: No cyanosis, clubbing, or edema. Problems: Exam/Review of Systems Vital Signs Vitals Vital Signs Date Time Temp Pulse Resp B/P Pulse Ox O2 Delivery O2 Flow Rate FiO2 10/06/17 08:00 98.3 86 18 135/62 91 10/05/17 19:39 Room Air 10/05/17 17:54 2.0 Intake and Output 10/05/17 10/05/17 10/06/17 15:00 23:00 07:00 Intake Total 860 ml 2460 ml Output Total 1500 ml Balance 860 ml 960 ml Results Result Diagram: 10/06/17 0439 10/06/17 0439 Results 24 hrs Laboratory Tests Test 10/06/17 04:39 10/06/17 06:53 White Blood Count 13.6 H Red Blood Count 2.71 L Hemoglobin 8.1 L Hematocrit 26.0 L Mean Corpuscular Volume 95.9 Mean Corpuscular Hemoglobin 29.9 Mean Corpuscular Hemoglobin Concent 31.2 L Red Cell Distribution Width 16.1 H Platelet Count 559 H Mean Platelet Volume 11.6 H Neutrophils % 66.4 Lymphocytes % 17.4 Monocytes % 9.8 Eosinophils % 2.5 Basophils % 0.2 Nucleated Red Blood Cells % 1.0 H Neutrophils # 9.1 H Lymphocytes # 2.4 Monocytes # 1.3 H Eosinophils # 0.3 Basophils # 0.0 Nucleated Red Blood Cells # 0.1 H Sodium Level 142 Potassium Level 3.7 Chloride Level 103 Carbon Dioxide Level 29 Anion Gap 14 Blood Urea Nitrogen 4 L Creatinine 0.67 Glucose Level 90 Calcium Level 9.2 Magnesium Level 1.8 Lab Scanned Report BLOOD TRANSFUSION Medications Medications Current Medications Sodium Chloride (NS) 1,000 ml @ 125 mls/hr Q8H IV Last administered on 02:16; Admin Dose 125 MLS/HR; Start 10/02/17 at 09:41 Ondansetron HCl (Zofran Inj) 4 mg Q6H PRN IV NAUSEA AND/OR VOMITING Last administered on 10/06/17 08:23; Admin Dose 4 MG; Start 10/02/17 at 10:00 Acetaminophen (Tylenol Tab) 650 mg Q6H PRN PO PAIN LEVEL 1-3 OR FEVER; Start 10/02/17 at 10:00 Acetaminophen (Tylenol Supp) 650 mg Q6H PRN [place] PAIN LEVEL 1-3 OR FEVER; Start 10/02/17 at 10:00 Docusate Sodium (Colace) 100 mg Q12H PRN PO CONSTIPATION; Start 10/02/17 at 10 :00 Duloxetine HCl (Cymbalta) 60 mg BID PO Last administered on 10/06/17 08:24; Admin Dose 60 MG; Start 10/02/17 at 21:00 Ascorbic Acid (Vitamin C) 1,000 mg DAILY PO Last administered on 10/06/17 08: 25; Admin Dose 1,000 MG; Start 10/03/17 at 09:00 Baclofen (Lioresal) 10 mg QID PO Last administered on 10/03/17 09:13; Admin Dose 10 MG; Start 10/02/17 at 17:00; Status Future Hold Exemestane (Aromasin) 25 mg DAILY PO Last administered on 10/06/17 08:32; Admin Dose 25 MG; Start 10/03/17 at 09:00 Gabapentin (Neurontin) 100 mg Q4 PO Last administered on 10/06/17 08:24; Admin Dose 100 MG; Start 10/02/17 at 17:00 Modafinil (Provigil) 200 mg QAM PO Last administered on 10/06/17 08:25; Admin Dose 200 MG; Start 10/03/17 at 09:00 Polyethylene Glycol (Miralax) 17 gm DAILY PO ; Start 10/03/17 at 09:00 Vitamin B Complex/ Vitamin C (Berocca) 1 cap DAILY@21 PO Last administered on 10/05/17 20:29; Admin Dose 1 CAP; Start 10/03/17 at 21:00 Lorazepam (Ativan) 0.5 mg Q8H PRN PO SHIVERING Last administered on 10/06/17 02:30; Admin Dose 0.5 MG; Start 10/03/17 at 13:30 Metoclopramide HCl (Reglan) 10 mg Q6 IV Last administered on 10/06/17 05:15; Admin Dose 10 MG; Start 10/03/17 at 18:00 Hydromorphone HCl (Dilaudid) 2 mg Q3 PRN IV PAIN Last administered on 08:23; Admin Dose 2 MG; Start 10/03/17 at 20:45 Miscellaneous Information (* Miscellaneous Pharmacy Order) ONCE XX ; Start at 07:00 Pantoprazole (Protonix Iv) 40 mg BID@06,18 IV Last administered on 10/06/17 05:16; Admin Dose 40 MG; Start 10/04/17 at 18:00 YEISON CALDERON MD Oct 06, 2017 10:14
[2017-10-06 14:00] VITALS: BP 144/73; RESP 19
--- NOTE | 2017-10-06 16:35 | PN ---
Date/Time of Note Date/Time of Note DATE: 10/06/17 TIME: 16:28 Assessment/Plan VTE Prophylaxis VTE Prophylaxis Intervention: SCD's Lines/Catheters IV Catheter Type (from Nrsg): port Urinary Cath still in place: No Assessment/Plan Assessment/Plan 51 yo F with stage 4 breast Ca admitted for nausea, likely 2/2 opiates from new morphine bump. PLAN pain management on consult, awaiting final recs cont nausea control EGD unremarkable Very much concur with hospitalist BIOLOGY INTERN that pt's opiate tolerance and cancer progression make pain control very challenging Subjective 24 Hr Interval Summary Free Text/Dictation States pain control is sufficient but she's still really nauseous EGD unremarkable Exam/Review of Systems Vital Signs Vitals Vital Signs Date Time Temp Pulse Resp B/P Pulse Ox O2 Delivery O2 Flow Rate FiO2 10/06/17 14:00 97.9 97 19 144/73 93 10/05/17 19:39 Room Air 10/05/17 17:54 2.0 Intake and Output 10/05/17 10/05/17 10/06/17 15:00 23:00 07:00 Intake Total 860 ml 2460 ml Output Total 1500 ml Balance 860 ml 960 ml Exam nad no mrg lungs clear abd soft no rashes Results Result Diagram: 10/06/17 0439 10/06/17 0439 Results 24 hrs Laboratory Tests Test 10/06/17 04:39 10/06/17 06:53 White Blood Count 13.6 H Red Blood Count 2.71 L Hemoglobin 8.1 L Hematocrit 26.0 L Mean Corpuscular Volume 95.9 Mean Corpuscular Hemoglobin 29.9 Mean Corpuscular Hemoglobin Concent 31.2 L Red Cell Distribution Width 16.1 H Platelet Count 559 H Mean Platelet Volume 11.6 H Neutrophils % 66.4 Lymphocytes % 17.4 Monocytes % 9.8 Eosinophils % 2.5 Basophils % 0.2 Nucleated Red Blood Cells % 1.0 H Neutrophils # 9.1 H Lymphocytes # 2.4 Monocytes # 1.3 H Eosinophils # 0.3 Basophils # 0.0 Nucleated Red Blood Cells # 0.1 H Sodium Level 142 Potassium Level 3.7 Chloride Level 103 Carbon Dioxide Level 29 Anion Gap 14 Blood Urea Nitrogen 4 L Creatinine 0.67 Glucose Level 90 Calcium Level 9.2 Magnesium Level 1.8 Lab Scanned Report BLOOD TRANSFUSION Medications Medications Current Medications Ondansetron HCl (Zofran Inj) 4 mg Q6H PRN IV NAUSEA AND/OR VOMITING Last administered on 10/06/17 14:22; Admin Dose 4 MG; Start 10/02/17 at 10:00 Acetaminophen (Tylenol Tab) 650 mg Q6H PRN PO PAIN LEVEL 1-3 OR FEVER; Start 10/02/17 at 10:00 Acetaminophen (Tylenol Supp) 650 mg Q6H PRN [place] PAIN LEVEL 1-3 OR FEVER; Start 10/02/17 at 10:00 Docusate Sodium (Colace) 100 mg Q12H PRN PO CONSTIPATION; Start 10/02/17 at 10 :00 Duloxetine HCl (Cymbalta) 60 mg BID PO Last administered on 10/06/17 08:24; Admin Dose 60 MG; Start 10/02/17 at 21:00 Ascorbic Acid (Vitamin C) 1,000 mg DAILY PO Last administered on 10/06/17 08: 25; Admin Dose 1,000 MG; Start 10/03/17 at 09:00 Baclofen (Lioresal) 10 mg QID PO Last administered on 10/03/17 09:13; Admin Dose 10 MG; Start 10/02/17 at 17:00; Status Future Hold Exemestane (Aromasin) 25 mg DAILY PO Last administered on 10/06/17 08:32; Admin Dose 25 MG; Start 10/03/17 at 09:00 Gabapentin (Neurontin) 100 mg Q4 PO Last administered on 10/06/17 14:23; Admin Dose 100 MG; Start 10/02/17 at 17:00 Modafinil (Provigil) 200 mg QAM PO Last administered on 10/06/17 08:25; Admin Dose 200 MG; Start 10/03/17 at 09:00 Polyethylene Glycol (Miralax) 17 gm DAILY PO ; Start 10/03/17 at 09:00 Vitamin B Complex/ Vitamin C (Berocca) 1 cap DAILY@21 PO Last administered on 10/05/17 20:29; Admin Dose 1 CAP; Start 10/03/17 at 21:00 Lorazepam (Ativan) 0.5 mg Q8H PRN PO SHIVERING Last administered on 10/06/17 02:30; Admin Dose 0.5 MG; Start 10/03/17 at 13:30 Metoclopramide HCl (Reglan) 10 mg Q6 IV Last administered on 10/06/17 11:20; Admin Dose 10 MG; Start 10/03/17 at 18:00 Hydromorphone HCl (Dilaudid) 2 mg Q3 PRN IV PAIN Last administered on 14:23; Admin Dose 2 MG; Start 10/03/17 at 20:45 Miscellaneous Information (* Miscellaneous Pharmacy Order) ONCE XX ; Start at 07:00 Pantoprazole (Protonix Tab) 40 mg DAILY@06 PO ; Start 10/07/17 at 06:00 JOHN LOPES MD Oct 06, 2017 16:35
[2017-10-06 20:00] VITALS: BP 150/75; PULSE 90; RESP 18
[2017-10-06] MEDS: VITAMIN B COMPLEX/VIT C CAP PO SCH (20:09)
[2017-10-07] MEDS: GABAPENTIN 100 MG CAP PO SCH ×6 (02:05→20:00)
[2017-10-07] MEDS: ONDANSETRON 4 MG INJ IV PRN ×4 (02:05→20:20)
[2017-10-07] MEDS: HYDROmorphONE 2 MG/ML SYG IV PRN ×8 (02:06→23:04)
[2017-10-07] MEDS: PANTOPRAZOLE (EC) 40 MG TAB PO SCH (05:18)
[2017-10-07] MEDS: METOCLOPRAMIDE 10 MG INJ IV SCH ×4 (05:18→23:04)
[2017-10-07 08:15] VITALS: BP 121/58; RESP 20
[2017-10-07] MEDS: DULOXETINE 30 MG CAP DR PO SCH ×2 (08:24→20:00)
[2017-10-07] MEDS: MODAFINIL 200 MG TAB PO SCH (08:25)
[2017-10-07] MEDS: POLYETHYLENE GLYCOL 17 GM PACKET PO SCH (08:25)
[2017-10-07] MEDS: ASCORBIC ACID 500 MG TAB PO SCH (08:25)
[2017-10-07] MEDS: EXEMESTANE 25 MG TAB PO SCH (08:35)
[2017-10-07 15:01] VITALS: BP 128/60; RESP 18
--- NOTE | 2017-10-07 16:23 | PN ---
Date/Time of Note Date/Time of Note DATE: 10/07/17 TIME: 16:22 Assessment/Plan VTE Prophylaxis VTE Prophylaxis Intervention: SCD's Lines/Catheters IV Catheter Type (from Nrsg): port-a-cath Urinary Cath still in place: No Assessment/Plan Assessment/Plan 51 yo F with stage 4 breast Ca admitted for nausea, likely 2/2 opiates from new morphine pump. PLAN pain management on consult, awaiting final recs cont nausea control EGD unremarkable Very much concur with hospitalist MANAGER PORTABLE that pt's opiate tolerance and cancer progression make pain control very challenging Subjective 24 Hr Interval Summary Free Text/Dictation still nauseated Exam/Review of Systems Vital Signs Vitals Vital Signs Date Time Temp Pulse Resp B/P Pulse Ox O2 Delivery O2 Flow Rate FiO2 10/07/17 15:01 98.0 74 18 128/60 92 10/06/17 20:00 Room Air 10/05/17 17:54 2.0 Intake and Output 10/06/17 10/06/17 10/07/17 15:00 23:00 07:00 Intake Total 625 ml 1040 ml 1500 ml Output Total 1200 ml Balance 625 ml 1040 ml 300 ml Exam nad resp nonlabored no abd distension no rashes no edema Results Result Diagram: 10/06/17 0439 10/06/17 0439 Medications Medications Current Medications Ondansetron HCl (Zofran Inj) 4 mg Q6H PRN IV NAUSEA AND/OR VOMITING Last administered on 10/07/17 14:13; Admin Dose 4 MG; Start 10/02/17 at 10:00 Acetaminophen (Tylenol Tab) 650 mg Q6H PRN PO PAIN LEVEL 1-3 OR FEVER; Start 10/02/17 at 10:00 Acetaminophen (Tylenol Supp) 650 mg Q6H PRN [place] PAIN LEVEL 1-3 OR FEVER; Start 10/02/17 at 10:00 Docusate Sodium (Colace) 100 mg Q12H PRN PO CONSTIPATION; Start 10/02/17 at 10 :00 Duloxetine HCl (Cymbalta) 60 mg BID PO Last administered on 10/07/17 08:24; Admin Dose 60 MG; Start 10/02/17 at 21:00 Ascorbic Acid (Vitamin C) 1,000 mg DAILY PO Last administered on 10/07/17 08: 25; Admin Dose 1,000 MG; Start 10/03/17 at 09:00 Baclofen (Lioresal) 10 mg QID PO Last administered on 10/03/17 09:13; Admin Dose 10 MG; Start 10/02/17 at 17:00; Status Future Hold Exemestane (Aromasin) 25 mg DAILY PO Last administered on 10/07/17 08:35; Admin Dose 25 MG; Start 10/03/17 at 09:00 Gabapentin (Neurontin) 100 mg Q4 PO Last administered on 10/07/17 14:13; Admin Dose 100 MG; Start 10/02/17 at 17:00 Modafinil (Provigil) 200 mg QAM PO Last administered on 10/07/17 08:25; Admin Dose 200 MG; Start 10/03/17 at 09:00 Polyethylene Glycol (Miralax) 17 gm DAILY PO ; Start 10/03/17 at 09:00 Vitamin B Complex/ Vitamin C (Berocca) 1 cap DAILY@21 PO Last administered on 10/06/17 20:09; Admin Dose 1 CAP; Start 10/03/17 at 21:00 Lorazepam (Ativan) 0.5 mg Q8H PRN PO SHIVERING Last administered on 10/06/17 23:08; Admin Dose 0.5 MG; Start 10/03/17 at 13:30 Metoclopramide HCl (Reglan) 10 mg Q6 IV Last administered on 10/07/17 11:09; Admin Dose 10 MG; Start 10/03/17 at 18:00 Hydromorphone HCl (Dilaudid) 2 mg Q3 PRN IV PAIN Last administered on 14:13; Admin Dose 2 MG; Start 10/03/17 at 20:45 Miscellaneous Information (* Miscellaneous Pharmacy Order) ONCE XX ; Start at 07:00 Pantoprazole (Protonix Tab) 40 mg DAILY@06 PO Last administered on 10/07/17 05:18; Admin Dose 40 MG; Start 10/07/17 at 06:00 JOHN LOPES MD Oct 07, 2017 16:23
[2017-10-07] MEDS ORDERED: HYDROCORTISONE 2.5% 20 GM CR TOP PRN (19:00)
[2017-10-07] MEDS: VITAMIN B COMPLEX/VIT C CAP PO SCH (20:00)
[2017-10-07 20:01] VITALS: BP 122/63; RESP 19
[2017-10-07] MEDS ORDERED: LORAZEPAM 1 MG TAB PO ONE (23:30)
[2017-10-08] MEDS: GABAPENTIN 100 MG CAP PO SCH ×6 (01:50→20:26)
[2017-10-08] MEDS: ONDANSETRON 4 MG INJ IV PRN ×4 (01:51→20:27)
[2017-10-08] MEDS: HYDROmorphONE 2 MG/ML SYG IV PRN ×8 (01:51→23:41)
[2017-10-08 02:17] VITALS: BP 135/61; RESP 19
[2017-10-08] MEDS: PANTOPRAZOLE (EC) 40 MG TAB PO SCH (05:03)
[2017-10-08] MEDS: METOCLOPRAMIDE 10 MG INJ IV SCH ×4 (05:03→23:40)
[2017-10-08] MEDS: DULOXETINE 30 MG CAP DR PO SCH ×2 (08:20→20:26)
[2017-10-08] MEDS: POLYETHYLENE GLYCOL 17 GM PACKET PO SCH (08:20)
[2017-10-08] MEDS: MODAFINIL 200 MG TAB PO SCH (08:21)
[2017-10-08] MEDS: ASCORBIC ACID 500 MG TAB PO SCH (08:21)
[2017-10-08] MEDS: EXEMESTANE 25 MG TAB PO SCH (08:26)
[2017-10-08 09:13] VITALS: BP 118/62; PULSE 90; RESP 20
[2017-10-08 15:15] LABS: ABNORMAL IP MESSAGE 1; BASOPHIL # 0.1 10^3/ul (0.0-0.1); BASOPHILS % 0.4 % (0.0-2.0); EOSINOPHILS % 7.2 % (0.0-7.0); HEMATOCRIT 28.2 % (37.0-47.0); HEMOGLOBIN 8.6 g/dl (12.0-16.0); LYMPHOCYTES # 2.1 10^3/ul (0.8-2.9); LYMPHOCYTES % 14.5 % (15.0-51.0); MEAN CORPUSCULAR HGB CONC 30.5 g/dl (32.0-37.0); MEAN CORPUSCULAR VOLUME 98.3 fl (82.0-101.0); MEAN PLATELET VOLUME 11.6 fl (7.4-10.4); MONOCYTE # 1.6 10^3/ul (0.3-0.9); MONOCYTES % 11.4 % (0.0-11.0); NEUTROPHIL # 8.3 10^3/ul (1.6-7.5); NEUTROPHILS % 59.1 % (39.0-77.0); NUCLEATED RED BLOOD CELLS # 0.3 10^3/ul (0.0-0.0); NUCLEATED RED BLOOD CELLS% 2.3 /100WBC (0.0-0.0); PLATELET COUNT 591 10^3/UL (140-415); RED BLOOD COUNT 2.87 10^6/ul (4.20-5.40); RED CELL DISTRIBUTION WIDTH 16.2 % (11.5-14.5); WHITE BLOOD COUNT 14.1 10^3/ul (4.8-10.8)
[2017-10-08 15:31] LABS: POSITIVE DIFF @See below
[2017-10-08 15:34] LABS: CALCIUM 10.1 mg/dl (8.4-10.2); CREATININE 0.74 mg/dl (0.44-1.00); MAGNESIUM 1.4 mg/dl (1.7-2.5); POTASSIUM 3.3 mmol/L (3.5-5.1)
[2017-10-08] MEDS ORDERED: POTASSIUM CHLORIDE (SR) 20 MEQ TAB PO STA (15:45)
--- NOTE | 2017-10-08 15:56 | PN ---
Date/Time of Note Date/Time of Note DATE: 10/08/17 TIME: 15:50 Assessment/Plan VTE Prophylaxis VTE Prophylaxis Intervention: SCD's Lines/Catheters IV Catheter Type (from Nrsg): PORT Urinary Cath still in place: No Assessment/Plan Chief Complaint/Hosp Course Assessment/Plan: 51 yo F with stage 4 breast Ca admitted for nausea, likely 2/2 opiates from new morphine pump. 1. Generalized pain: Likely secondary to patients stage IV breast cancer metastasis. 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 She sees hematology/oncology, Dr. Zuleta, as an outpatient. -pain management on consult, continue current pain medications, again they spoke with outpatient pain management doctor who recommends having patient follow up as soon as possible with them once patient is medically stable for discharge 2. Nausea: Possibly secondary to patient's recent morphine pump that was placed by outpatient pain management doctor few days prior to admission - cont nausea control, will increase Zofran dose, continue Reglan as needed, add Tigan as needed 3. History of depression. Continue antidepressants. 4. Attention deficit hyperactivity disorder history. Continue to monitor for now. Continue current medications. 5. Prior history of small bowel obstruction. No present issues. Continue to monitor for now. 6. Anemia of chronic disease. Again, likely secondary to malignancy. Hemoglobin stable presently -We will give 1 dose of IV iron, monitor CBC daily 7. Low electrolytes: Replete Problems: Subjective 24 Hr Interval Summary Free Text/Dictation Patient claims to have some pain symptoms. Upon discussion with nursing staff, pain care team spoke with patient's outpatient pain management doctor as well to give an update. Exam/Review of Systems Vital Signs Vitals Vital Signs Date Time Temp Pulse Resp B/P Pulse Ox O2 Delivery O2 Flow Rate FiO2 10/08/17 09:13 98.7 90 20 118/62 90 Room Air 10/05/17 17:54 2.0 Intake and Output 10/07/17 10/07/17 10/08/17 15:00 23:00 07:00 Intake Total 1120 ml 1800 ml Balance 1120 ml 1800 ml Exam nad, lying in bed, typing on the computer Supple resp nonlabored no abd distension no rashes no lower extremity edema bilaterally Results Result Diagram: 10/08/17 1348 10/08/17 1348 Results 24 hrs Laboratory Tests Test 10/08/17 13:48 White Blood Count 14.1 H Red Blood Count 2.87 L Hemoglobin 8.6 L Hematocrit 28.2 L Mean Corpuscular Volume 98.3 Mean Corpuscular Hemoglobin 30.0 Mean Corpuscular Hemoglobin Concent 30.5 L Red Cell Distribution Width 16.2 H Platelet Count 591 H Mean Platelet Volume 11.6 H Neutrophils % 59.1 Lymphocytes % 14.5 L Monocytes % 11.4 H Eosinophils % 7.2 H Basophils % 0.4 Nucleated Red Blood Cells % 2.3 H Neutrophils # 8.3 H Lymphocytes # 2.1 Monocytes # 1.6 H Eosinophils # 1.0 H Basophils # 0.1 Nucleated Red Blood Cells # 0.3 H Sodium Level 142 Potassium Level 3.3 L Chloride Level 101 Carbon Dioxide Level 36 H Anion Gap 8 Blood Urea Nitrogen 4 L Creatinine 0.74 Glucose Level 106 Calcium Level 10.1 Phosphorus Level 4.0 Magnesium Level 1.4 L Medications Medications Current Medications Acetaminophen (Tylenol Tab) 650 mg Q6H PRN PO PAIN LEVEL 1-3 OR FEVER; Start 10/02/17 at 10:00 Acetaminophen (Tylenol Supp) 650 mg Q6H PRN [place] PAIN LEVEL 1-3 OR FEVER; Start 10/02/17 at 10:00 Docusate Sodium (Colace) 100 mg Q12H PRN PO CONSTIPATION; Start 10/02/17 at 10 :00 Duloxetine HCl (Cymbalta) 60 mg BID PO Last administered on 10/08/17 08:20; Admin Dose 60 MG; Start 10/02/17 at 21:00 Ascorbic Acid (Vitamin C) 1,000 mg DAILY PO Last administered on 10/08/17 08: 21; Admin Dose 1,000 MG; Start 10/03/17 at 09:00 Baclofen (Lioresal) 10 mg QID PO Last administered on 10/03/17 09:13; Admin Dose 10 MG; Start 10/02/17 at 17:00; Status Future Hold Exemestane (Aromasin) 25 mg DAILY PO Last administered on 10/08/17 08:26; Admin Dose 25 MG; Start 10/03/17 at 09:00 Gabapentin (Neurontin) 100 mg Q4 PO Last administered on 10/08/17 12:31; Admin Dose 100 MG; Start 10/02/17 at 17:00 Modafinil (Provigil) 200 mg QAM PO Last administered on 10/08/17 08:21; Admin Dose 200 MG; Start 10/03/17 at 09:00 Polyethylene Glycol (Miralax) 17 gm DAILY PO ; Start 10/03/17 at 09:00 Vitamin B Complex/ Vitamin C (Berocca) 1 cap DAILY@21 PO Last administered on 10/07/17 20:00; Admin Dose 1 CAP; Start 10/03/17 at 21:00 Lorazepam (Ativan) 0.5 mg Q8H PRN PO SHIVERING Last administered on 10/06/17 23:08; Admin Dose 0.5 MG; Start 10/03/17 at 13:30 Metoclopramide HCl (Reglan) 10 mg Q6 IV Last administered on 10/08/17 11:20; Admin Dose 10 MG; Start 10/03/17 at 18:00 Hydromorphone HCl (Dilaudid) 2 mg Q3 PRN IV PAIN Last administered on 14:17; Admin Dose 2 MG; Start 10/03/17 at 20:45 Miscellaneous Information (* Miscellaneous Pharmacy Order) ONCE XX ; Start at 07:00 Pantoprazole (Protonix Tab) 40 mg DAILY@06 PO Last administered on 10/08/17 05:03; Admin Dose 40 MG; Start 10/07/17 at 06:00 Hydrocortisone (Hydrocortisone 2.5% Cr) 1 applic PRN PRN TOP ITCHING Last administered on 10/07/17 23:26; Admin Dose 1 APPLIC; Start 10/07/17 at 19:00 Ondansetron HCl 4 mg 4 mg Q4 PRN IV NAUSEA AND/OR VOMITING Last administered on 10/08/17 14:16; Admin Dose 4 MG; Start 10/07/17 at 21:00 Magnesium Sulfate (Magnesium Sulfate 2 Gm/50 ml) 50 ml @ 25 mls/hr ONCE ONCE IVPB ; Start 10/08/17 at 17:00; Stop 10/08/17 at 18:59 OZ FULLER 20, 2017 15:56
[2017-10-08] MEDS ORDERED: TRIMETHOBENZAMIDE 100 MG/ML VIAL IM PRN (16:00)
[2017-10-08 16:16] VITALS: BP 130/70; PULSE 92; RESP 20
[2017-10-08] MEDS ORDERED: MAGNESIUM SULFATE 2 GM/50 ML 50 ML IVPB ONE (17:00)
[2017-10-08 20:20] VITALS: BP 146/79; PULSE 96; RESP 19
[2017-10-08] MEDS: VITAMIN B COMPLEX/VIT C CAP PO SCH (20:26)
[2017-10-08] MEDS ORDERED: SOD FERRIC GLUC COMPLX 125 MG in SOD CHLORIDE 0.9% 100 ML IVPB ONE (21:00)
[2017-10-08] MEDS: LORAZEPAM 0.5 MG TAB PO PRN (23:41)
[2017-10-09] MEDS: GABAPENTIN 100 MG CAP PO SCH ×6 (00:55→20:04)
[2017-10-09] MEDS: ONDANSETRON 4 MG INJ IV PRN ×4 (02:43→20:04)
[2017-10-09] MEDS: HYDROmorphONE 2 MG/ML SYG IV PRN ×7 (02:43→20:03)
[2017-10-09] MEDS: PANTOPRAZOLE (EC) 40 MG TAB PO SCH (05:37)
[2017-10-09] MEDS: METOCLOPRAMIDE 10 MG INJ IV SCH ×3 (05:38→17:29)
[2017-10-09] MEDS: DULOXETINE 30 MG CAP DR PO SCH ×2 (08:23→20:04)
[2017-10-09] MEDS: MODAFINIL 200 MG TAB PO SCH (08:24)
[2017-10-09] MEDS: POLYETHYLENE GLYCOL 17 GM PACKET PO SCH (08:24)
[2017-10-09] MEDS: ASCORBIC ACID 500 MG TAB PO SCH (08:24)
[2017-10-09] MEDS: EXEMESTANE 25 MG TAB PO SCH (08:30)
[2017-10-09 08:39] VITALS: BP 104/58; RESP 18
--- NOTE | 2017-10-09 11:38 | DS ---
Date/Time of Note Date/Time of Note DATE: 10/09/17 TIME: 11:34 Discharge Summary Admission/Discharge Info Admit Date/Time Oct 02, 2017 at 05:47 Discharge Date/Time Assessment/Plan: 51 yo F with stage 4 breast Ca admitted for nausea, likely 2/2 opiates from new morphine pump. 1. Generalized pain: Likely secondary to patients stage IV breast cancer metastasis. 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 2. 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 2. Nausea: Possibly secondary to patient's recent morphine pump that was placed by outpatient pain management doctor few days prior to admission 3. History of depression. Continue antidepressants. 4. Attention deficit hyperactivity disorder history. Continue to monitor for now. Continue current medications. 5. Prior history of small bowel obstruction. No present issues. Continue to monitor for now. 6. Anemia of chronic disease. Again, likely secondary to malignancy. Hemoglobin stable presently 7. Low electrolytes: Repleted Discharge Diagnosis 1. Dehydration with possible viral gastroenteritis. Resolved. 2. Chronic anemia secondary to metastatic cancer with bone involvement. 3.Metastatic breast cancer to bones 4. Chronic bone Pain 5. Depression 6. Leukocytosis, chronic with history of splenectomy. Stable. 7. Possible hyperthyroidism, TSH low with normal T3. Recommend outpatient endocrinology evaluation. 8. Acute kidney injury, likely secondary to dehydration. Resolved 9. Narcolepsy/polypharmacy Patient Condition: Stable Hospital Course 51-year-old female presented to the emergency room for evaluation of sudden onset of nausea, nonbilious, nonbloody vomiting with mild diarrhea that started last night. Unfortunately, patient's past medical history significant for metastatic stage IV breast cancer metastases to bones, mastectomy with bilateral reconstruction, splenectomy, chemotherapy every 3 weeks with her oncologist , anxiety disorders, depression and chronic pain for which she also has morphine pump with Dilaudid for breakthrough pain. Patient also has a left chest port a catheter. Patient was apparently discharged from [facility] last month and she was treated for sepsis with pneumonia at that time. Patient also received blood transfusion at that time. Her usual hemoglobin stays between 8 and 9. So patient was admitted, seen by pain management and GI teams on this hospital stay, had EGD that showed: EGD 10/05/2017 Severe distal esophagitis Moderate gastritis. Rule out H. pylori infection. Biopsies obtained 1 cm submucosal nodule in the duodenal bulb. Biopsies obtained. Otherwise normal EGD. Patient was on PPI therapy. Adjustments were made to her pain control medications as well. She had some low electrolytes that were repleted as well. Received IV iron as well for history of anemia. Since patient is medically stable today, vital signs are stable, she is ambulate and, tolerating p.o. diet , she will be discharged home today improved condition, to follow with primary care doctor team and hematology oncology team in the clinic in next 1-2 weeks. See below for full list of discharge medications. Home Meds Active Scripts Trazodone Hcl* (Trazodone Hcl*) 50 Mg Tablet, 25 MG PO QHS, #30 TAB Prov:JOHN LOPES MD 09/19/17 Diazepam* (Valium*) 5 Mg Tablet, 5 MG PO Q8 Y for MUSCLE SPASMS, #30 TAB Prov:INOCENCIO TRACEY 08/04/17 Polyethylene Glycol* (Miralax*) 17 Gm Powd.pack, 17 GM PO DAILY, #30 PACKET 1 Refill Prov:OZ FULLER 04/14/17 Reported Medications Modafinil* (Provigil*) 200 Mg Tablet, 200 MG PO QAM, TAB 09/04/17 Duloxetine Hcl* (Duloxetine Hcl*) 60 Mg Capsule.dr, 60 MG PO BID, #30 CAP 03/19/17 Exemestane* (Exemestane*) 25 Mg Tablet, 25 MG PO, TAB 03/19/17 Indomethacin* (Indocin*) 50 Mg Cap, 50 MG PO BID, CAP 03/19/17 Promethazine Hcl* (Phenergan*) 25 Mg Tablet, 25 MG PO Q6H Y for PAIN, TAB 03/19/17 Vitamin B Complex (Vitamin B Complex) 1 Each Capsule, 1 EACH PO QHS, CAP 02/16/17 Ascorbic Acid (Vitamin C) 500 Mg Tab, 1000 MG PO DAILY, TAB 02/16/17 Prochlorperazine* (Prochlorperazine*) 10 Mg Tablet, 10 MG PO QID Y for NAUSEA, TAB 02/16/17 Ranitidine Hcl* (Ranitidine Hcl*) 150 Mg Tablet, 150 MG PO TID, #90 TAB 02/16/17 Tapentadol Hcl (Nucynta) 100 Mg Tablet, 50 MG PO BID, TAB 02/16/17 Gabapentin* (Gabapentin*) 100 Mg Capsule, 100 MG PO Q4, #120 CAP 02/16/17 Amphet Qrk-Atfiqq-C-Amphet (Adderall) 10 Mg Tablet, 10 MG PO TID, TAB 02/16/17 Baclofen* (Baclofen*) 10 Mg Tablet, 10 MG PO QID, TAB 02/16/17 Hydromorphone Hcl* (Dilaudid*) 4 Mg Tablet, 4 MG PO Q6, TAB 02/16/17 Morphine Sulfate* (Ms Contin*) 15 Mg Tablet.sa, 15 MG PO TID, TAB.SA 02/16/17 Hydrocodone/Acetaminophen ([place] 10-325 Tablet) 1 Each Tablet, 1 EACH PO Q3H, TAB 02/16/17 Follow-up Plan 1. Follow-up with outpatient oncologist , patient has appointment at 2: 30 today. 2.Follow up with primary care physician in 1 week If you don't have one please let someone know, we can give you resources that may help you pick one. You may also call your insurance company to assign one to you. Review your medication list with your nurse before leaving and if you need new prescriptions please let your nurse know. I may have made changes to your home medications or given you new prescriptions, please let your primary doctor know as well. Stay compliant with your medications and report any side effects to your PCP or pharmacist. Return to the ER if you have any concerns and cannot reach your doctors or call your insurance company, they usually have a nurse that can help you. 3. Call 911 or go to the nearest emergency room if experiencing loss of consciousness, dizziness, chest pain, shortness of breath, vomiting/abdominal pain, speech difficulties, motor weakness or any unusual symptoms. Primary Care Provider Aisha Zuleta M.D. Time spent on discharge: > 30 minutes Pending Labs Laboratory Tests Test 10/08/17 13:48 10/09/17 07:30 10/09/17 07:32 White Blood Count 14.110^3/ul (4.8-10.8) Red Blood Count 2.8710^6/ul (4.20-5.40) Hemoglobin 8.6g/dl (12.0-16.0) Hematocrit 28.2% (37.0-47.0) Mean Corpuscular Volume 98.3fl (82.0-101.0) Mean Corpuscular Hemoglobin 30.0pg (29.0-33.0) Mean Corpuscular Hemoglobin Concent 30.5g/dl (32.0-37.0) Red Cell Distribution Width 16.2% (11.5-14.5) Platelet Count 90443^3/UL (140-415) Mean Platelet Volume 11.6fl (7.4-10.4) Neutrophils % 59.1% (39.0-77.0) Lymphocytes % 14.5% (15.0-51.0) Monocytes % 11.4% (0.0-11.0) Eosinophils % 7.2% (0.0-7.0) Basophils % 0.4% (0.0-2.0) Nucleated Red Blood Cells % 2.3/100WBC (0.0-0.0) Neutrophils # 8.310^3/ul (1.6-7.5) Lymphocytes # 2.110^3/ul (0.8-2.9) Monocytes # 1.610^3/ul (0.3-0.9) Eosinophils # 1.010^3/ul (0.0-0.5) Basophils # 0.110^3/ul (0.0-0.1) Nucleated Red Blood Cells # 0.310^3/ul (0.0-0.0) Sodium Level 142mmol/L (135-144) Potassium Level 3.3mmol/L (3.5-5.1) Chloride Level 101mmol/L (97-110) Carbon Dioxide Level 36mmol/L (21-31) Anion Gap 8 (8-16) Blood Urea Nitrogen 4mg/dl (7-20) Creatinine 0.74mg/dl (0.44-1.00) Glucose Level 106mg/dl (70-220) Calcium Level 10.1mg/dl (8.4-10.2) Phosphorus Level 4.0mg/dl (2.5-4.9) Magnesium Level 1.4mg/dl (1.7-2.5) Lab Scanned Report REFERENCE [id number] REFERENCE [id number] OZ FULLER Oct 09, 2017 11:38
[2017-10-09] MEDS ORDERED: HEPARIN (100 UNITS/ML) 5 ML SYG CATHETER ONE (13:00)
[2017-10-09 15:42] VITALS: BP 127/67; RESP 18
--- NOTE | 2017-10-09 16:54 | PN ---
Date/Time of Note Date/Time of Note DATE: 10/09/17 TIME: 16:50 Assessment/Plan VTE Prophylaxis VTE Prophylaxis Intervention: ambulation Lines/Catheters [facility] Urinary Cath still in place: No Assessment/Plan Chief Complaint/Hosp Course Assessment: FOBT- positive/melena- EGD 10/05/2017 Severe distal esophagitis Moderate gastritis. Rule out H. pylori infection. Biopsies obtained 1 cm submucosal nodule in the duodenal bulb. Biopsies obtained. Otherwise normal EGD. Anemia multifactorial. GI findings plus chronic disease- secondary to metastatic cancer Metastatic breast cancer to bones Chronic bone Pain-morphine pump, receiving Dilaudid as needed Depression Leukocytosis- history of splenectomy [place] History of splenectomy. Plan: Continue PPI therapy Continue regular diet Review pathology as soon as available Patient has seen in collaboration with Dr. Lopes Subjective: Course reviewed with nursing staff Patient interviewed and examined All labs, imaging and other results reviewed The patient c/o feeling fatigued and dizzy. The symptoms started while she was packing for discharge. Denies abdominal pain She is tolerating diet Pathology findings still pending Exam: General: well developed, well nourished, alert and oriented x3 , in no acute distress Skin: No lesions, no stigmata chronic liver disease, no evidence of bleeding diathesis Lymphatic: No palpable lymphadenopathy HEENT: No lesions Cardiovascular: Heart: Regular rate and rhythm, no murmurs, gallops or rubs. Peripheral pulses present within normal limits, no cyanosis, clubbing or edemas. No pulsatile abdominal mass Respiratory: Lungs clear to auscultation and percussion, no wheezing, no rubs Gastrointestinal and Liver: Abdomen: Soft, no epigastric tenderness, not distended, no hernias, no masses, no organomegaly, no ascites, no guarding, no rebound tenderness, normoactive bowel sounds. Extremities: No cyanosis, clubbing, or edema. Problems: Exam/Review of Systems Vital Signs Vitals Vital Signs Date Time Temp Pulse Resp B/P Pulse Ox O2 Delivery O2 Flow Rate FiO2 10/09/17 15:42 98.0 100 18 127/67 97 10/08/17 20:20 Room Air 10/05/17 17:54 2.0 Intake and Output 10/08/17 10/08/17 10/09/17 15:00 23:00 07:00 Intake Total 850 ml 1310 ml Balance 850 ml 1310 ml Results Result Diagram: 10/08/17 1348 10/08/17 1348 Results 24 hrs Laboratory Tests Test 10/09/17 07:30 10/09/17 07:32 Lab Scanned Report REFERENCE LAB REFERENCE LAB Medications Medications Current Medications Acetaminophen (Tylenol Tab) 650 mg Q6H PRN PO PAIN LEVEL 1-3 OR FEVER; Start 10/02/17 at 10:00 Acetaminophen (Tylenol Supp) 650 mg Q6H PRN AR PAIN LEVEL 1-3 OR FEVER; Start 10/02/17 at 10:00 Docusate Sodium (Colace) 100 mg Q12H PRN PO CONSTIPATION; Start 10/02/17 at 10 :00 Duloxetine HCl (Cymbalta) 60 mg BID PO Last administered on 10/09/17 08:23; Admin Dose 60 MG; Start 10/02/17 at 21:00 Ascorbic Acid (Vitamin C) 1,000 mg DAILY PO Last administered on 10/09/17 08: 24; Admin Dose 1,000 MG; Start 10/03/17 at 09:00 Baclofen (Lioresal) 10 mg QID PO Last administered on 10/03/17 09:13; Admin Dose 10 MG; Start 10/02/17 at 17:00; Status Future Hold Exemestane (Aromasin) 25 mg DAILY PO Last administered on 10/09/17 08:30; Admin Dose 25 MG; Start 10/03/17 at 09:00 Gabapentin (Neurontin) 100 mg Q4 PO Last administered on 10/09/17 12:46; Admin Dose 100 MG; Start 10/02/17 at 17:00 Modafinil (Provigil) 200 mg QAM PO Last administered on 10/09/17 08:24; Admin Dose 200 MG; Start 10/03/17 at 09:00 Polyethylene Glycol (Miralax) 17 gm DAILY PO ; Start 10/03/17 at 09:00 Vitamin B Complex/ Vitamin C (Berocca) 1 cap DAILY@21 PO Last administered on 10/08/17 20:26; Admin Dose 1 CAP; Start 10/03/17 at 21:00 Lorazepam (Ativan) 0.5 mg Q8H PRN PO SHIVERING Last administered on 10/08/17 23:41; Admin Dose 0.5 MG; Start 10/03/17 at 13:30 Metoclopramide HCl (Reglan) 10 mg Q6 IV Last administered on 10/09/17 11:34; Admin Dose 10 MG; Start 10/03/17 at 18:00 Hydromorphone HCl (Dilaudid) 2 mg Q3 PRN IV PAIN Last administered on 14:28; Admin Dose 2 MG; Start 10/03/17 at 20:45 Miscellaneous Information (* Miscellaneous Pharmacy Order) ONCE XX ; Start at 07:00 Pantoprazole (Protonix Tab) 40 mg DAILY@06 PO Last administered on 10/09/17 05:37; Admin Dose 40 MG; Start 10/07/17 at 06:00 Hydrocortisone (Hydrocortisone 2.5% Cr) 1 applic PRN PRN TOP ITCHING Last administered on 10/07/17 23:26; Admin Dose 1 APPLIC; Start 10/07/17 at 19:00 Ondansetron HCl (Zofran Inj) 8 mg Q4 PRN IV NAUSEA AND/OR VOMITING Last administered on 10/09/17 14:28; Admin Dose 8 MG; Start 10/08/17 at 16:00 Trimethobenzamide HCl (Tigan) 200 mg Q6H PRN IM NAUSEA AND/OR VOMITING Last administered on 10/08/17 16:16; Admin Dose 200 MG; Start 10/08/17 at 16:00 SHANICE JAMIL NP Oct 09, 2017 16:54
[2017-10-09 19:55] VITALS: BP 120/68; RESP 20
[2017-10-09] MEDS: VITAMIN B COMPLEX/VIT C CAP PO SCH (20:04)
== END 2017-10-09 21:30 | disposition home or self-care (01) | DRG 641 ==
LOC: E/R 02:31 → MS1 05:47
PROVIDERS: ADMIT Family Medicine; ATTEND Family Medicine
PROC: 0DB78ZX Excision of Stomach, Pylorus, Via Natural or Artificial Opening Endoscopic, Diagnostic (ICD-10-PCS; 2017-10-05)
PROC: 0DB68ZX Excision of Stomach, Via Natural or Artificial Opening Endoscopic, Diagnostic (ICD-10-PCS; 2017-10-05)
PROC: 30233N1 Transfusion of Nonautologous Red Blood Cells into Peripheral Vein, Percutaneous Approach (ICD-10-PCS; 2017-10-05)
PROC: 0DB98ZX Excision of Duodenum, Via Natural or Artificial Opening Endoscopic, Diagnostic (ICD-10-PCS; principal; 2017-10-05 20:00)
DX: E86.0 Dehydration (principal); A08.4 Viral intestinal infection, unspecified; N17.9 Acute kidney failure, unspecified; C79.51 Secondary malignant neoplasm of bone; C50.919 Malignant neoplasm of unspecified site of unspecified female breast; F32.9 Major depressive disorder, single episode, unspecified; K20.9 Esophagitis, unspecified; E05.90 Thyrotoxicosis, unspecified without thyrotoxic crisis or storm; D63.0 Anemia in neoplastic disease; D72.829 Elevated white blood cell count, unspecified; Z90.81 Acquired absence of spleen; Z79.899 Other long term (current) drug therapy; Z90.13 Acquired absence of bilateral breasts and nipples; F41.9 Anxiety disorder, unspecified; F17.200 Nicotine dependence, unspecified, uncomplicated; Z96.89 Presence of other specified functional implants; Z92.3 Personal history of irradiation; G89.3 Neoplasm related pain (acute) (chronic); K29.70 Gastritis, unspecified, without bleeding; K63.89 Other specified diseases of intestine; F90.9 Attention-deficit hyperactivity disorder, unspecified type; G47.419 Narcolepsy without cataplexy; R19.5 Other fecal abnormalities
CPT/HCPCS: 36415; 36430; 71010; 74176; 80048; 80307; 82270; 83540; 83735; 84100; 84439; 84443; 84481; 84484; 85025; 85730; 86850; 86900; 86901; 86920; 93005; 96374; 96375; 96376; C9113; J1170; J1642; J2060; J2270; J2405; J2765; J2916; J3010; J3250; J3475; J3480; J7030; J7040; P9016

== ENCOUNTER 2017-10-25 23:58 | Inpatient (IN) | END 2017-12-07 12:25 | disposition hospice, home (50) | DRG 543 ==